=== PATIENT | female | born 1980 | race Caucasian/White ===

== ENCOUNTER 2020-11-12 10:18 | Inpatient (IN) | payer BC, SELFPAY ==
--- OUTSIDE RECORDS SUMMARY | 2020-11-12 10:21 | XMS REPORT | Continuity of Care Document ---
:1980 Author Organization [facility] t Address [address] [place] [address] Care Team Providers Name Role Phone Unavailable Unavailable Unavailable Payers Payer Name Policy Type Policy Number Effective Date Expiration Date S ource Problems This patient has no known problems. Allergies, Adverse Reactions, Alerts Allergy Allergy Status Severity Reaction(s) Onset Inactive Treating Comm ents Source Name Type Date Date Clinician ciproflo DA Active [place] 0 [facility] 6[facility]28 [place] [facility] ciproflo DA Active [place] 0 [facility] 2-05 [place] [facility] Medications This patient has no known medications. Procedures This patient has no known procedures. Results Test Description Test Time Test Comments Results Result [facility] e Comments - MRI UP [facility] 2019-02-28 Patient Name: W/CONT RT 13:02:00 DELIO HOOD Unit No: [id number] EXAMS: CPT CODE: [id number] MRI UP [facility] W/[place] [id number] EXAM: MRI ARTHROGRAM RIGHT SHOULDER DIAGNOSIS: 1. Supraspinatus tendinosis. No evidence of rotator cuff tear. 2. Minimally displaced anterior inferior labral tear. Mild diffuse labral degeneration. INDICATION: Right shoulder pain TECHNIQUE: Paracoronal fat sat T1 and fat-sat T2, parasagittal T2 and axial T1 and fat-sat spin density sequences are obtained of the right shoulder post arthrography. COMPARISON: None DISCUSSION: Osseous acromion outlet: The acromion is shallow type II, with mild lateral downsloping. Mild to moderate AC joint arthrosis is noted. Rotator cuff: Supraspinatus tendinosis. The subscapularis, and persistent teres minor tendons are intact. Biceps tendon and anchor: The biceps anchor is intact. The biceps tendon is unremarkable, without evidence of dislocation. Labral and capsular structures: Labral abnormalities described. Osseous structures: No evidence of fracture or avascular necrosis. RIGHT SHOULDER ARTHROGRAM COMMENT: After informed consent was obtained a 25-gauge needle is inserted into the right shoulder joint under fluoroscopic control using sterile technique. A total volume of 15 mL consisting of a combination of equal parts Isovue-300 and gadolinium is instilled into the joint space. The patient tolerated the procedure well. 0.5 minutes of fluoroscopy time was used on this exam. Post arthrographic films show no extravasation of contrast outside the joint. at 1302 Reported and signed by: Sumeet Chu MD [facility] NAME: DELIO HOOD [address] [place] [address] PHYS: Brennen Loyola MD : 1980 AGE: 38 SEX: F [place] [phone] LOC: Y.RAD PHONE #: [phone] EXAM DATE: 02/28/2019 STATUS: REG CLI FAX #: [phone] RAD #: D/C DT PAGE 1 Signed Report (CONTINUED) Patient Name: DELIO HOOD Unit No: [id number] EXAMS: CPT CODE: [id number] MRI UP JNT W/[place] [id number] <Continued> CC: Brennen Sanderson MD Technologist: DORY HASKINS. RT(R) Transcribed D/ (3768) [email or web address] [facility] NAME: DELIO HOOD [address] [place] [address] PHYS: Brennen Loyola MD : 1980 AGE: 38 SEX: F [place] [phone] LOC: Y.RAD PHONE #: [phone] EXAM DATE: 02/28/2019 STATUS: REG CLI FAX #: [phone] RAD #: D/C DT PAGE 2 Signed Report Patient Name: DELIO HOOD Unit No: [id number] EXAMS: CPT CODE: [id number] MRI UP JNT W/[place] [id number] <Continued> Orig Print D/T: S: 02/28/2019 (1306) [facility] NAME: DELIO HOOD [address] [facility] PHYS: Brennen Loyola MD : 1980 AGE: 38 SEX: F [place], [place] [address] LOC: Y.RAD PHONE #: [phone] EXAM DATE: 02/28/2019 STATUS: REG CLI FAX #: [phone] RAD #: D/C DT PAGE 3 Signed Report - XR ARTHROGRAM 2019-02-28 Patient Name: SHLDNan RT 13:02:00 DELIO HOOD Unit No: [id number] EXAMS: CPT CODE: [id number] XR [place]THRO[place] [facility] [place] [address] EXAM: MRI ARTHROGRAM RIGHT SHOULDER DIAGNOSIS: 1. Supraspinatus tendinosis. No evidence of rotator cuff tear. 2. Minimally displaced anterior inferior labral tear. Mild diffuse labral degeneration. INDICATION: Right shoulder pain TECHNIQUE: Paracoronal fat sat T1 and fat-sat T2, parasagittal T2 and axial T1 and fat-sat spin density sequences are obtained of the right shoulder post arthrography. COMPARISON: None DISCUSSION: Osseous acromion outlet: The acromion is shallow type II, with mild lateral downsloping. Mild to moderate AC joint arthrosis is noted. Rotator cuff: Supraspinatus tendinosis. The subscapularis, and persistent teres minor tendons are intact. Biceps tendon and anchor: The biceps anchor is intact. The biceps tendon is unremarkable, without evidence of dislocation. Labral and capsular structures: Labral abnormalities described. Osseous structures: No evidence of fracture or avascular necrosis. RIGHT SHOULDER ARTHROGRAM COMMENT: After informed consent was obtained a 25-gauge needle is inserted into the right shoulder joint under fluoroscopic control using sterile technique. A total volume of 15 mL consisting of a combination of equal parts Isovue-300 and gadolinium is instilled into the joint space. The patient tolerated the procedure well. 0.5 minutes of fluoroscopy time was used on this exam. Post arthrographic films show no extravasation of contrast outside the joint. at 1302 Reported and signed by: Sumeet Chu MD [facility] NAME: DELIO HOOD [address] [place] [address] PHYS: Brennen Loyola MD : 1980 AGE: 38 SEX: F [place] [phone] LOC: Y.RAD PHONE #: [phone] EXAM DATE: 02/28/2019 STATUS: REG CLI FAX #: [phone] RAD #: D/C DT PAGE 1 Signed Report (CONTINUED) Patient Name: DELIO HOOD Unit No: [id number] EXAMS: CPT CODE: [id number] [place] [id number] <Continued> CC: Brennen Sanderson MD Technologist: Lian Brandt RT.(R) Transcribed D/ (9112) ClaudiaGVG [facility] NAME: DELIO HOOD [address] [place] [address] PHYS: Brennen Loyola MD : 1980 AGE: 38 SEX: F [place] [address] LOC: Y.RAD PHONE #: [phone] EXAM DATE: 02/28/2019 STATUS: REG CLI FAX #: [phone] RAD #: D/C DT PAGE 2 Signed Report Patient Name: DELIO HOOD Unit No: [id number] EXAMS: CPT CODE: [id number] [place] [id number] <Continued> Orig Print D/T: S: 02/28/2019 (0034) [facility] NAME: DELIO HOOD [address] [place] [address] PHYS: Brennen Loyola MD : 1980 AGE: 38 SEX: F [place] [address] LOC: Y.RAD PHONE #: [phone] EXAM DATE: 02/28/2019 STATUS: REG CLI FAX #: [phone] RAD #: D/C DT PAGE 3 Signed Report - XR FLUORO NDL 2018-10-08 Patient Name: 19:32:00 DELIO HOOD Unit No: [id number] EXAMS: CPT CODE: [id number] XR FLUORO NDL [id number] Fluoroscopically guided injection of the right shoulder with steroid and lidocaine COMPARISON: No prior exams available. FINDINGS: After informed consent was obtained a needle was placed in the right shoulder with fluoroscopic guidance. Its position was confirmed by injecting Isovue 300 and obtaining an AP radiograph. Subsequently 2 mL of Kenalog 40 mg per cc and 2 mL of 1 percent lidocaine was injected. No immediate complications were encountered. 10 seconds of fluoroscopy time was utilized. IMPRESSION: Technically successful steroid injection of the right shoulder at 1932 Reported and signed by: Bolivar Castellanos M.D. CC: Brennen Sanderson MD Technologist: HIEN STYLES, RT(R) Transcribed D/ (1931) EdelJ [facility] NAME: DELIO HOOD [address] [place] [address] PHYS: Brennen Loyola MD : 1980 AGE: 38 SEX: F [place] [address] LOC: Y.RAD PHONE #: [phone] EXAM DATE: 10/08/2018 STATUS: REG CLI FAX #: [phone] RAD #: D/C DT PAGE 1 Signed Report Patient Name: DELIO HOOD Unit No: [id number] EXAMS: CPT CODE: [id number] XR FLUORO NDL [id number] <Continued> Orig Print D/T: S: 10/08/2018 (1934) [facility] NAME: DELIO HOOD [address] [facility] PHYS: Brennen Loyola MD : 1980 AGE: 38 SEX: F [place] [address] LOC: Y.RAD PHONE #: [phone] EXAM DATE: 10/08/2018 STATUS: REG CLI FAX #: [phone] RAD #: D/C DT PAGE 2 Signed Report
[2020-11-12 11:32] LABS: Urine Bacteria <20 /HPF (<20); Urine RBC <5 /HPF (NONE SEEN)
[2020-11-12 11:33] LABS: Urine Blood 1+ (NEG); Urine Glucose NEGATIVE (NEG); Urine Protein NEGATIVE (NEG); Urine Specific Gravity <1.005 (1.005-1.030); Urine pH 5.5 (5.0-7.0)
[2020-11-12] MEDS ORDERED: MORPHINE 4 MG/ML SYR ONE (13:13)
[2020-11-12] MEDS ORDERED: ONDANSETRON 4 MG/2 ML VIAL ONE ×2 (13:13→20:01)
[2020-11-12 13:28] LABS: Absolute Lymphocytes (CBC) 1.7 K/uL (0.7-4.9); Basophils % 0.3 % (0-1.3); Hematocrit 40.5 % (36.0-45.0); Lymphocytes % 14.9 % (15.3-44.8); MPV 8.3 fL (7.6-11.3); RBC Red Blood Cell Count 4.85 M/uL (3.86-4.86)
[2020-11-12 13:35] LABS: Albumin 3.6 g/dL (3.4-5.0); Bilirubin Direct 0.1 mg/dL (0-0.2); Bilirubin Total 0.4 mg/dL (0.2-1.0); Protein, Total 8.5 g/dL (6.4-8.2)
--- NOTE | 2020-11-12 14:26 | RAD REPORT ---
EXAM DESCRIPTION: CT - Abdomen Pelvis W Contrast - 11/12/2020 2:07 pm CLINICAL HISTORY: Abdominal pain COMPARISON: 2013 TECHNIQUE: Computed axial tomography of the abdomen pelvis was obtained. 100 cc Isovue-300 was admin istered intravenously. Oral contrast was not requested which limits evaluation of bowel. All CT scans are performed using dose optimization technique as appropriate and may include automated exposure control or mA/KV adjustment according to patient size. FINDINGS: Fatty liver. Cholecystectomy. Spleen, pancreas, adrenal and kidneys appear unremarkable. Diverticula stem from the sigmoid colon. There is moderate stranding adjacent to the sigmoid. 15 mill imeter low-density structure abuts the wall of the sigmoid colon IMPRESSION: Moderate diverticulitis. 15 millimeter low-density structure which abuts the wall of the sigmoid colon probably an early small abscess
--- NOTE | 2020-11-12 14:45 | ER ---
Nurse's Notes [facility] Name: Eunice Arango Age: 40 yrs Sex: Female : 1980 Arrival Date: 11/12/2020 Time: 10:19 Bed 24 Private MD: Diagnosis: Sigmoid Diverticulitis;Intrabdominal Abscess Presentation: 11/12 10:29 Chief complaint: Patient states: lower abd pain with nausea and vomiting and slight aa5 diarrhea that began 2-3 days ago. Coronavirus screen: diarrhea, nausea, vomiting. Ebola Screen: Patient negative for fever greater than or equal to 101.5 degrees Fahrenheit, and additional compatible Ebola Virus Disease symptoms. Initial Sepsis Screen: Does the patient meet any 2 criteria? HR > 90 bpm. Does the patient have a suspected source of infection? No. Patient's initial sepsis screen is negative. Risk Assessment: Do you want to hurt yourself or someone else? Patient reports no desire to harm self or others. Onset of symptoms was November 2020. 10:29 Acuity: ALIS 3 aa5 10:29 Method Of Arrival: Ambulatory aa5 Historical: - Allergies: 10:32 Codeine; aa5 10:32 Cipro; aa5 - PMHx: 10:32 None; aa5 - PSHx: 10:32 Hysterectomy; Cholecystectomy; Tonsillectomy; Appendectomy; aa5 - Immunization history:: Adult Immunizations unknown. - Social history:: Smoking status: Patient denies any tobacco usage or history of. Screenin:06 Abuse screen: Denies threats or abuse. Nutritional screening: No deficits noted. vg1 Tuberculosis screening: No symptoms or risk factors identified. Fall Risk No fall in past 12 months (0 pts). No secondary diagnosis (0 pts). IV access (20 points). Ambulatory Aid- None/Bed Rest/Nurse Assist (0 pts). Gait- Normal/Bed Rest/Wheelchair (0 pts) Mental Status- Oriented to own ability (0 pts). Total Mullen Fall Scale indicates No Risk (0-24 pts). Assessment: 13:04 General: Appears in no apparent distress. uncomfortable, Behavior is calm, cooperative. vg1 Pain: Complains of pain in lower ABD and lower back Pain currently is 8 out of 10 on a pain scale. Neuro: Level of Consciousness is awake, alert, obeys commands, Oriented to person, place, time, situation. Cardiovascular: Patient's skin is warm and dry. Respiratory: Airway is patent Respiratory effort is even, unlabored. GI: Abdomen is flat, Bowel sounds present X 4 quads. Abd is soft and non tender in right upper quadrant and left upper quadrant Abdomen is tender to palpation in right lower quadrant and left lower quadrant. : No signs and/or symptoms were reported regarding the genitourinary system. EENT: No signs and/or symptoms were reported regarding the EENT system. Derm: Skin is intact, is healthy with good turgor. Musculoskeletal: Circulation, motion, and sensation intact. 14:31 Reassessment: Patient appears in no apparent distress at this time. Patient and/or vg1 family updated on plan of care and expected duration. Pain level reassessed. Patient is alert, oriented x 3, equal unlabored respirations, skin warm/dry/pink. Patient is actively vomiting. Patient c/o of pain, rates 10/10. Provider notified. 16:10 Reassessment: Patient appears in no apparent distress at this time. Patient and/or vg1 family updated on plan of care and expected duration. Pain level reassessed. Patient is alert, oriented x 3, equal unlabored respirations, skin warm/dry/pink. Received VO from Dr Jaquez to administer 5 mg of Valium PO q6h. 18:01 Reassessment: Attempted to call report. vg1 18:23 Reassessment: attempted to call report. vg1 Vital Signs: 10:29 BP 126 / 77; Pulse 92; Resp 18 S; Temp 98.8(O); Pulse Ox 98% on R/A; Weight 90.72 kg aa5 (R); Height 5 ft. 3 in. (160.02 cm) (R); Pain 8/10; 13:06 BP 115 / 76; Pulse 93; Resp 18; Pulse Ox 100% on R/A; vg1 15:16 BP 121 / 77; Pulse 85; Resp 16; Pulse Ox 100% on R/A; vg1 16:00 BP 125 / 87; Pulse 88; Resp 16; Pulse Ox 100% ; vg1 17:00 BP 113 / 78; Pulse 80; Resp 14; Pulse Ox 100% on R/A; vg1 18:03 BP 113 / 66; Pulse 88; Resp 14; Pulse Ox 100% on R/A; vg1 10:29 Body Mass Index 35.43 (90.72 kg, 160.02 cm) aa5 ED Course: 10:19 Patient arrived in ED. ds1 10:29 Arm band placed on. aa5 10:31 Triage completed. aa5 12:25 Festus Diaz PA is PHCP. jmm 12:25 Sherman Lunsford MD is Attending Physician. jmm 12:33 Kerry Mccracken, REINALDO is Primary Nurse. vg1 13:06 Patient has correct armband on for positive identification. Placed in gown. Bed in low vg1 position. Call light in reach. Side rails up X2. 14:07 CT Abd/Pelvis - IV Contrast Only In Process Unspecified. EDMS 14:45 Master Newman is Hospitalizing Provider. [facility] 18:29 No provider procedures requiring assistance completed. Patient admitted, IV remains in vg1 place. Administered Medications: 13:04 Drug: morphine 4 mg {Note: rass 1.} Route: IVP; Site: left antecubital; vg1 14:37 Follow up: Response: No adverse reaction; Pain is unchanged, physician notified vg1 13:04 Drug: Zofran (Ondansetron) 4 mg Route: IVP; Site: left antecubital; vg1 14:37 Follow up: Response: No adverse reaction vg1 14:48 Drug: fentaNYL (PF) 75 mcg Route: IVP; Site: left antecubital; vg1 15:15 Follow up: Response: Adverse reaction, Physician notified; Pain is decreased vg1 15:14 Drug: Flagyl 500 mg Volume: 100 ml; Route: IVPB; Rate: 200 ml/hr; Infused Over: 30 vg1 mins; Site: left antecubital; 16:09 Follow up: Response: No adverse reaction; IV Status: Completed infusion vg1 16:09 Drug: Zosyn 3.375 grams Route: IVPB; Infused Over: 60 mins; Site: left antecubital; vg1 17:45 Follow up: IV Status: Completed infusion vg1 16:58 Drug: fentaNYL (PF) 75 mcg Route: IVP; Site: left antecubital; vg1 17:45 Follow up: Response: Pain is decreased vg1 16:59 Drug: Valium 5 mg Route: PO; vg1 17:45 Follow up: Response: No adverse reaction vg1 Outcome: 14:45 Decision to Hospitalize by Provider. blas 18:29 Admitted to Tele accompanied by tech, via wheelchair, room 211, with chart, Report vg1 called to REINALDO Flower 18:29 Condition: stable 18:29 Instructed on the need for admit. 18:38 Patient left the ED. vg1 Signatures: Dispatcher [employer] EDFestus Galindo PA PA jmm Sanford, Demi ds1 Gayle Kamara, RN RN aa5 Kerry Mccracken RN RN vg1 Corrections: (The following items were deleted from the chart) 10:32 10:29 BP 126 / 77; Pulse 92bpm; Resp 18bpm; Spontaneous; Pulse Ox 98% RA; Temp 98.8F aa5 Oral; 90.72 kg Reported; Height 5 ft. 3 in. Reported; BMI: 35.4; aa5
--- NOTE | 2020-11-12 14:45 | EDPHYS ---
Physician Documentation [facility] Name: Eunice Arango Age: 40 yrs Sex: Female : 1980 Arrival Date: 11/12/2020 Time: 10:19 Bed 24 Private MD: ED Physician Sherman Lunsford HPI: 11/12 12:56 This 40 yrs old Female presents to ER via Ambulatory with complaints of Lower jmm abd Pain, Nausea. 12:56 The patient presents with abdominal pain. Onset: The symptoms/episode began/occurred jmm gradually, 1 week(s) ago. Associated signs and symptoms: Pertinent positives: nausea and vomiting. Modifying factors: The symptoms are alleviated by nothing, the symptoms are aggravated by nothing. The patient has not experienced similar symptoms in the past. This is a 40 year old female with no chronic medical conditions that presents to the ED with complaints of left lower abdominal pain beginning this past Sunday. States the pain has increased since onset with nausea and vomiting. Patient states having a history of diverticulosis. . Historical: - Allergies: 10:32 Codeine; aa5 10:32 Cipro; aa5 - PMHx: 10:32 None; aa5 - PSHx: 10:32 Hysterectomy; Cholecystectomy; Tonsillectomy; Appendectomy; aa5 - Immunization history:: Adult Immunizations unknown. - Social history:: Smoking status: Patient denies any tobacco usage or history of. ROS: 12:56 Constitutional: Negative for fever, chills, and weight loss, Cardiovascular: Negative jmm for chest pain, palpitations, and edema, Respiratory: Negative for shortness of breath, cough, wheezing, and pleuritic chest pain. 12:56 Abdomen/GI: Positive for abdominal pain, nausea and vomiting. 12:56 All other systems are negative. Exam: 12:56 Constitutional: This is a well developed, well nourished patient who is awake, alert, jmm and in no acute distress. Head/Face: atraumatic. Eyes: EOMI, no conjunctival erythema appreciated ENT: Moist Mucus Membranes Neck: Trachea midline, Supple Chest/axilla: Normal chest wall appearance and motion. Cardiovascular: Regular rate and rhythm. No edema appreciated Respiratory: Normal respirations, no respiratory distress appreciated 12:56 Back: Normal ROM Skin: General appearance color normal MS/ Extremity: Moves all extremities, no obvious deformities appreciated, no edema noted to the lower extremities Neuro: Awake and alert, normal gait Psych: Behavior is normal, Mood is normal, Patient is cooperative and pleasant 12:56 Abdomen/GI: Inspection: obese Bowel sounds: normal, Palpation: soft, moderate abdominal tenderness, in the left lower quadrant. Vital Signs: 10:29 BP 126 / 77; Pulse 92; Resp 18 S; Temp 98.8(O); Pulse Ox 98% on R/A; Weight 90.72 kg aa5 (R); Height 5 ft. 3 in. (160.02 cm) (R); Pain 8/10; 13:06 BP 115 / 76; Pulse 93; Resp 18; Pulse Ox 100% on R/A; vg1 15:16 BP 121 / 77; Pulse 85; Resp 16; Pulse Ox 100% on R/A; vg1 16:00 BP 125 / 87; Pulse 88; Resp 16; Pulse Ox 100% ; vg1 17:00 BP 113 / 78; Pulse 80; Resp 14; Pulse Ox 100% on R/A; vg1 18:03 BP 113 / 66; Pulse 88; Resp 14; Pulse Ox 100% on R/A; vg1 10:29 Body Mass Index 35.43 (90.72 kg, 160.02 cm) aa5 MDM: 12:38 Patient medically screened. [facility] 14:41 Data reviewed: vital signs, nurses notes. Counseling: I had a detailed discussion with blas the patient and/or guardian regarding: the historical points, exam findings, and any diagnostic results supporting the discharge/admit diagnosis, lab results, radiology results, the need for further work-up and treatment in the hospital. ED course: I discussed the patient with Dr. Newman whom accepted the patient for admission. . 11/12 11:01 Order name: Urine Dipstick--Ancillary (enter results) 11/12 11:02 Order name: Urine Dipstick-Ancillary; Complete Time: 12:52 EDAK 11/12 11:04 Order name: Urine Microscopic Only; Complete Time: 12:52 11/12 11:04 Order name: Urine Culture 11/12 11:44 Order name: Basic Metabolic Panel tw4 11/12 11:44 Order name: CBC with Diff tw 11/12 11:44 Order name: Hepatic Function tw4 11/12 11:44 Order name: Lipase; Complete Time: 13:36 tw4 11/12 11:45 Order name: Basic Metabolic Panel; Complete Time: 13:36 EDMS 11/12 11:45 Order name: CBC with Automated Diff; Complete Time: 13:33 EDMS 11/12 11:45 Order name: Liver (Hepatic) Function; Complete Time: 13:36 EDMS 11/12 15:15 Order name: COVID-19 : Document "Date of Symptom Onset" if Symptomatic. 1 11/12 16:22 Order name: SARS-COV-2 RT PCR; Complete Time: 16:24 EDMS 11/12 11:00 Order name: Urine Dipstick-Ancillary (obtain specimen); Complete Time: 11:00 11/12 11:44 Order name: IV Saline Lock; Complete Time: 12:50 tw4 11/12 11:44 Order name: Labs collected and sent; Complete Time: 12:50 tw4 11/12 12:44 Order name: CT Abd/Pelvis - IV Contrast Only; Complete Time: 14:33 [facility] Administered Medications: 13:04 Drug: morphine 4 mg {Note: rass 1.} Route: IVP; Site: left antecubital; vg1 14:37 Follow up: Response: No adverse reaction; Pain is unchanged, physician notified vg1 13:04 Drug: Zofran (Ondansetron) 4 mg Route: IVP; Site: left antecubital; vg1 14:37 Follow up: Response: No adverse reaction vg1 14:48 Drug: fentaNYL (PF) 75 mcg Route: IVP; Site: left antecubital; vg1 15:15 Follow up: Response: Adverse reaction, Physician notified; Pain is decreased vg1 15:14 Drug: Flagyl 500 mg Volume: 100 ml; Route: IVPB; Rate: 200 ml/hr; Infused Over: 30 vg1 mins; Site: left antecubital; 16:09 Follow up: Response: No adverse reaction; IV Status: Completed infusion vg1 16:09 Drug: Zosyn 3.375 grams Route: IVPB; Infused Over: 60 mins; Site: left antecubital; vg1 17:45 Follow up: IV Status: Completed infusion vg1 16:58 Drug: fentaNYL (PF) 75 mcg Route: IVP; Site: left antecubital; vg1 17:45 Follow up: Response: Pain is decreased vg1 16:59 Drug: Valium 5 mg Route: PO; vg1 17:45 Follow up: Response: No adverse reaction vg1 Disposition: 18:53 Co-signature as Attending Physician, Sherman Lunsford MD I agree with the assessment and tw4 plan of care. Disposition: 11/12/20 14:45 Hospitalization ordered by Master Newman for Inpatient Admission. Preliminary diagnosis are Sigmoid Diverticulitis, Intrabdominal Abscess. - Bed requested for Telemetry/MedSurg (Inpatient). - Status is Inpatient Admission. vg1 - Condition is Stable. - Problem is new. - Symptoms are unchanged. Signatures: Dispatcher [employer] EDAK Festus Diaz PA PA Gayle Li, RN RN aa5 Nicolette Webster RN RN ss Sherman Lunsford MD MD tw4 Vilma Dexter Victoria, RN RN vg1 Corrections: (The following items were deleted from the chart) 15:38 15:16 CORONAVIRUS ordered. [facility] 17:14 14:45 Hospitalization Ordered by Master Newman for Inpatient Admission. Preliminary eb diagnosis is Sigmoid Diverticulitis; Intrabdominal Abscess. Bed requested for Telemetry/MedSurg (Inpatient). Status is Inpatient Admission. Condition is Stable. Problem is new. Symptoms are unchanged. [facility] 18:38 17:14 11/12/2020 14:45 Hospitalization Ordered by Master Newman for Inpatient vg1 Admission. Preliminary diagnosis is Sigmoid Diverticulitis; Intrabdominal Abscess. Bed requested for Telemetry/MedSurg (Inpatient). Status is Inpatient Admission. Condition is Stable. Problem is new. Symptoms are unchanged. eb
[2020-11-12] MEDS ORDERED: FENTANYL CITR 100 MCG/2 ML ONE ×2 (14:53→17:07)
[2020-11-12] MEDS ORDERED: PIPER/TAZO/NS 3.375gm 3.375 GM/100 ML BAG ONE (15:07)
[2020-11-12] MEDS ORDERED: METRONIDAZOLE 500mg IVPB 500 MG/100 ML BAG IV ONE (15:10)
--- NOTE | 2020-11-12 16:39 | P.HP ---
Certification for Inpatient Patient admitted to: Inpatient With expected LOS: >2 Midnights Practitioner: I am a practitioner with admitting privileges, knowledge of patient current condition, hospital course, and medical plan of care. Services: Services provided to patient in accordance with Admission requirements found in Title 42 Section 412.3 of the Code of Federal Regulations Patient History Date of Service: 11/12/20 Reason for admission: Abdominal pain History of Present Illness: 40-year-old woman with no known past medical history presented to the emergency department with a complaint abdominal pain of 1 week duration. Pain described as colicky, located in the lower abdomen, intermittent, no relieving or aggravating factors, associated were small frequent mucoid stools, no blood in the stool. Patient denies any fever. CT abdomen and pelvis done in the emergency department demonstrated sigmoid diverticulitis and a low-density structure suggesting an abscess. Patient is admitted for further management. - Past Medical/Surgical History Diabetic: No Past Medical History: Patient denies medical history -: Cholecystectomy - Social History Smoking Status: Never smoker Alcohol use: Yes CD- Drugs: No Place of Residence: Home Review of Systems Other: Except as documented, all other systems reviewed and negative. Physical Examination - Physical Exam General: Alert, In no apparent distress, Moderate distress HEENT: Atraumatic, Normocephalic, PERRLA, Mucous membr. moist/pink, EOMI, Sclerae nonicteric Neck: Supple, JVD not distended Respiratory: Clear to auscultation bilaterally, Normal air movement Cardiovascular: No edema, Regular rate/rhythm, Normal S1 S2 Gastrointestinal: Normal bowel sounds, Non-distended, No rebound, No guarding, Tenderness (Lower abdomen) Musculoskeletal: No swelling, No tenderness Integumentary: No rashes, No erythema Neurological: Normal speech, Normal strength at 5/5 x4 extr, Cranial nerves 3-12 intact - Studies Laboratory Data (last 24 hrs) 11/12/20 12:48: WBC 11.40 H, Hgb 13.2, Hct 40.5, Plt Count 306 11/12/20 12:48: Sodium 142, Potassium 4.0, BUN 11, Creatinine 1.09, Glucose 102, Total Bilirubin 0.4, AST 11 L, ALT 33, Alkaline Phosphatase 85, Lipase 54 L Assessment and Plan - Problems (Diagnosis) (1) Acute diverticulitis Current Visit: Yes Status: Acute (2) Colonic diverticular abscess Current Visit: Yes Status: Acute - Plan Admit to the medical floor. Patient reports allergy to Cipro with vomit. She stated she tolerates Levaquin. Will treat with IV Levaquin and Flagyl. Serial abdominal examinations. Consult general surgeon-Dr. Schwartz requested. Dr. Schwartz made aware. Obtain blood culture. Clear liquid diet. Monitor CBC and CMP. Pain management with IV morphine as needed. - Advance Directives Does patient have a Living Will: No Does patient have a Durable POA for Healthcare: No
[2020-11-12] MEDS ORDERED: LORAZEPAM 1 MG TABLET ONE (17:08)
[2020-11-12] MEDS ORDERED: DIAZEPAM 5 MG TABLET ONE (17:11)
[2020-11-12] MEDS: METRONIDAZOLE 500mg IVPB 500 MG/100 ML BAG IV SCH ×2 (18:45→20:12)
[2020-11-12] MEDS ORDERED: ACETAMINOPHEN 500 MG TAB PO PRN (18:45)
[2020-11-12] MEDS: MORPHINE 4 MG/ML SYR IV PRN ×2 (19:38→23:43)
[2020-11-12] MEDS: ONDANSETRON 4 MG/2 ML VIAL IV PRN (19:44)
[2020-11-12] MEDS: HEPARIN 5000 UNIT/ML 1 ML VIAL SQ SCH (20:12)
[2020-11-12] MEDS: NA CHLORIDE 0.9% 1,000 ML IV SCH (20:12)
[2020-11-12] MEDS: Levofloxacin 750mg IV 750 MG/150 ML BAG IV SCH (20:12)
[2020-11-12 20:22] LABS: Urine Appearance CLEAR; Urine Bilirubin NEGATIVE (NEG); Urine Blood 1+ (NEG); Urine Color ORANGE; Urine Glucose NEGATIVE (NEG); Urine Protein NEGATIVE (NEG); Urine Specific Gravity >=1.030 (1.005-1.030); Urine pH 5.5 (5.0-7.0)
[2020-11-12 20:45] VITALS: BMI 35.4
[2020-11-12 20:54] LABS: Urine Microscopic Reflex ORDER UMIC
[2020-11-12 21:13] LABS: Urine Bacteria 20-50 /HPF (<20)
[2020-11-12] MEDS: FAMOTIDINE 20 MG/2 ML VIAL IV SCH (22:44)
[2020-11-13] MEDS: DICYCLOMINE HCL 10 MG CAP PO PRN ×2 (00:10→07:33)
[2020-11-13] MEDS: METRONIDAZOLE 500mg IVPB 500 MG/100 ML BAG IV SCH ×3 (01:28→17:00)
[2020-11-13] MEDS: HEPARIN 5000 UNIT/ML 1 ML VIAL SQ SCH ×3 (01:28→17:00)
[2020-11-13] MEDS: MORPHINE 4 MG/ML SYR IV PRN (04:40)
[2020-11-13] MEDS: ONDANSETRON 4 MG/2 ML VIAL IV PRN ×3 (04:40→20:49)
[2020-11-13] MEDS: NA CHLORIDE 0.9% 1,000 ML IV SCH ×3 (04:45→20:49)
[2020-11-13 05:54] LABS: Absolute Lymphocytes (CBC) 1.6 K/uL (0.7-4.9); Basophils % 0.2 % (0-1.3); Hematocrit 34.6 % (36.0-45.0); Lymphocytes % 14.7 % (15.3-44.8); MPV 7.9 fL (7.6-11.3); RBC Red Blood Cell Count 4.15 M/uL (3.86-4.86)
[2020-11-13 06:14] LABS: Albumin 2.9 g/dL (3.4-5.0); Bilirubin Total 0.6 mg/dL (0.2-1.0); Potassium 3.9 mmol/L (3.5-5.1); Protein, Total 6.9 g/dL (6.4-8.2)
[2020-11-13] MEDS ORDERED: POTASSIUM CL SA 10 MEQ TAB PO ONE (07:00)
[2020-11-13] MEDS: FAMOTIDINE 20 MG/2 ML VIAL IV SCH ×2 (09:00→20:45)
--- NOTE | 2020-11-13 11:48 | P.PN ---
Subjective Date of Service: 11/13/20 Chief Complaint: Abdominal pain Patient reports intermittent abdominal pain. No bowel movement since admission. She has afebrile. She reports episodes of nausea and vomiting and not able to hold anything in. Physical Examination - Vital Signs Temperature: 97.2 F Blood Pressure: 102/54 Pulse: 80 Respirations: 16 Pulse Ox (%): 99 - Physical Exam General: Alert, In no apparent distress, Oriented x3 HEENT: Mucous membr. moist/pink Respiratory: Clear to auscultation bilaterally, Normal air movement Cardiovascular: No edema, Regular rate/rhythm, Normal S1 S2 Gastrointestinal: Soft and benign, Non-distended, No rebound, No guarding, Tenderness (Moderate tenderness in the left lower quadrant) Musculoskeletal: No swelling, No tenderness Integumentary: No rashes, No erythema Neurological: Normal strength at 5/5 x4 extr - Studies Laboratory Data (last 24 hrs) 11/12/20 12:48: WBC 11.40 H, Hgb 13.2, Hct 40.5, Plt Count 306 11/12/20 12:48: Sodium 142, Potassium 4.0, BUN 11, Creatinine 1.09, Glucose 102, Total Bilirubin 0.4, AST 11 L, ALT 33, Alkaline Phosphatase 85, Lipase 54 L Assessment And Plan - Current Problems (Diagnosis) (1) Acute diverticulitis Current Visit: Yes Status: Acute (2) Colonic diverticular abscess Current Visit: Yes Status: Acute - Plan Continue IV Levaquin and Flagyl. Serial abdominal examinations. Dr Schwartz seen patient. Follow cultures Clear liquid diet as tolerated. Monitor CBC and CMP. Change IV morphine to IV fentanyl she reduce nausea and vomiting side effect.
[2020-11-13] MEDS: FENTANYL CITR 100 MCG/2 ML IV PRN (12:07)
[2020-11-13] MEDS: Levofloxacin 750mg IV 750 MG/150 ML BAG IV SCH (18:45)
--- NOTE | 2020-11-13 19:07 | P.CNS ---
Date of Consult: 11/12/20 PC: This 40-year-old female presented emergency room with a five-day history of left lower quadrant abdominal pain for diagnosis and treatment. HPC: The patient is been in home during the last week. She has been having abdominal pain. The pain intensified and localized to the left lower quadrant. She could no longer stand it and it hurt even when she tried to walk. She has been preoccupied with and recent of her (from colon cancer). PMH: Negative SOC: States she is allergic to Cipro and codeine SYS REVIEW: No cough, wheeze, shortness of breath. No chest pain or palpitations. Has not been running fevers or is having chills at home. Denies any urinary complaints. States she has been somewhat constipated this last week, took magnesium citrate once a night. O/E awake alert uncomfortable HEENT: Not [place] Chest: Chest movement equal bilateral ABD: Tender with mild guarding in the left lower quadrant LOCO: Intact DATA: Elevated white cell count, CT scan supports clinical diagnosis of acute diverticulitis and also demonstrates a small abscess in the adjacent section of involved bowel. It is localize, no free fluid seen. IMPRESSION: Acute on chronic diverticulitis with abscess PLAN: The patient is going to be admitted at this time. We will give her adequate pain medicine. She will be covered with IV antibiotics. She does not require surgical intervention at the moment however as I discussed with her this may change. The risks of surgery were described. The possible need for colostomy is, open surgery, abscess and delayed wound healing were explained. She understands and is content with conservative management at the moment.
--- NOTE | 2020-11-13 19:09 | P.PN ---
Date of Service: 11/13/20 S: Patient is still having pain, also some nausea and vomiting. However the pain is less than it was yesterday. Still not running any temperatures or fevers. The Agueda seems to cover her when she gets it. O: Abdomen is rolling machine tender, but less so than yesterday. A: Appears to be responding to conservative management P: Continue current therapy. Anticipate patient should be able to tolerate a full diet tomorrow. Will give her some mineral oil tonight. Continue with her clear liquids, advanced as tolerated. Will check labs in the a.m.. Also needs incentive spirometer.
[2020-11-13] MEDS ORDERED: MINERAL OIL 30 ML UCUP PO ONE (19:11)
[2020-11-13] MEDS ORDERED: DIAZEPAM 5 MG TABLET PO PRN (19:12)
[2020-11-14] MEDS: METRONIDAZOLE 500mg IVPB 500 MG/100 ML BAG IV SCH ×3 (00:31→16:40)
[2020-11-14] MEDS: HEPARIN 5000 UNIT/ML 1 ML VIAL SQ SCH ×3 (00:32→16:41)
[2020-11-14] MEDS: FENTANYL CITR 100 MCG/2 ML IV PRN ×2 (00:36→12:50)
[2020-11-14] MEDS: NA CHLORIDE 0.9% 1,000 ML IV SCH ×3 (00:45→22:03)
[2020-11-14 05:50] LABS: Absolute Lymphocytes (CBC) 1.8 K/uL (0.7-4.9); Basophils % 0.4 % (0-1.3); Hematocrit 34.1 % (36.0-45.0); Lymphocytes % 29.2 % (15.3-44.8); MPV 7.9 fL (7.6-11.3); RBC Red Blood Cell Count 4.08 M/uL (3.86-4.86)
[2020-11-14 06:04] LABS: Magnesium 2.4 mg/dL (1.8-2.4); Phosphorus 2.6 mg/dL (2.5-4.9); Potassium 3.9 mmol/L (3.5-5.1)
[2020-11-14] MEDS ORDERED: POTASSIUM CL SA 10 MEQ TAB PO ONE (09:00)
[2020-11-14] MEDS: FAMOTIDINE 20 MG/2 ML VIAL IV SCH (09:00)
[2020-11-14] MEDS ORDERED: FAMOTIDINE 20 MG/2 ML VIAL IV SCH (10:00)
--- NOTE | 2020-11-14 14:12 | P.PN ---
Subjective Date of Service: 11/14/20 Chief Complaint: Abdominal pain Patient states her abdominal pain is better. She is also tolerating the clear liquid diet. No bowel movement since admission. Physical Examination - Vital Signs Temperature: 97.0 F Blood Pressure: 112/56 Pulse: 70 Respirations: 15 Pulse Ox (%): 100 - Physical Exam General: Alert, In no apparent distress, Oriented x3 HEENT: Mucous membr. moist/pink Neck: JVD not distended Respiratory: Clear to auscultation bilaterally, Normal air movement Cardiovascular: No edema, Regular rate/rhythm, Normal S1 S2 Gastrointestinal: Normal bowel sounds, Soft and benign, Non-distended, No rebound, No guarding, Tenderness (Suprapubic area and left lower quadrant) Musculoskeletal: No swelling, No tenderness Integumentary: No rashes, No erythema Neurological: Normal strength at 5/5 x4 extr - Studies Microbiology Data (last 24 hrs): 11/12/20 10:56 Clean Catch Urine [place] Count - Final BETWEEN 10,000 & 100,000 CFU/ML 11/12/20 10:56 Clean Catch Urine - Final MIXED JOSE. Assessment And Plan - Current Problems (Diagnosis) (1) Acute diverticulitis Current Visit: Yes Status: Acute (2) Colonic diverticular abscess Current Visit: Yes Status: Acute - Plan Gradually improving clinically. Continue IV Levaquin and Flagyl. Serial abdominal examinations. Dr Schwartz input appreciated. Medical management. Clear liquid diet as tolerated. Monitor CBC and CMP. Pain management as needed.
--- NOTE | 2020-11-14 16:17 | P.PN ---
Date of Service: 11/14/20 S: Patient feels much better today, has remained afebrile. Pain has diminished lot overnight. Now is N/C having occasional bouts. Has been up ambulating, passing gas per rectum, but no bowel movements yet. O: Vital signs remain stable, afebrile, abdomen is soft less tenderness today. A: Responding well to antibiotics P: Will advance diet today, if tolerated may be discharged in the a.m.. She will should be sent home on p.o. antibiotics. She can see me next , for follow-up.
[2020-11-14] MEDS: Levofloxacin 750mg IV 750 MG/150 ML BAG IV SCH (18:18)
[2020-11-14 22:57] VITALS: O2SAT 95
[2020-11-15] MEDS: METRONIDAZOLE 500mg IVPB 500 MG/100 ML BAG IV SCH ×2 (01:04→08:08)
[2020-11-15] MEDS: HEPARIN 5000 UNIT/ML 1 ML VIAL SQ SCH ×2 (01:04→08:09)
[2020-11-15 05:55] LABS: Potassium 3.6 mmol/L (3.5-5.1)
[2020-11-15] MEDS: NA CHLORIDE 0.9% 1,000 ML IV SCH (06:04)
[2020-11-15] MEDS ORDERED: POTASSIUM CL SA 10 MEQ TAB PO ONE (09:00)
--- NOTE | 2020-11-15 11:28 | P.DS ---
Admission Date: 11/12/20 Discharge Date: 11/15/20 Disposition: ROUTINE DISCHARGE Discharge Condition: FAIR Reason for Admission: Abdominal pain Consultations: General Surgery-Dr. Schwartz. - Problems (1) Acute diverticulitis Current Visit: Yes Status: Acute (2) Colonic diverticular abscess Current Visit: Yes Status: Acute Brief History of Present Illness: 40-year-old woman with no known past medical history presented to the emergency department with a complaint abdominal pain of 1 week duration. Pain described as colicky, located in the lower abdomen, intermittent, no relieving or aggravating factors, associated were small frequent mucoid stools, no blood in the stool. Patient denies any fever. CT abdomen and pelvis done in the emergency department demonstrated sigmoid diverticulitis and a low-density structure suggesting an abscess. Patient is admitted for further management. Hospital Course: Patient admitted to the medical floor and treated aggressively with IV antibiotics and IV hydrate. She was seen and evaluated by Dr. Schwartz who recommended medical management. Patient nickel improved with IV antibiotics. Her abdominal pain resolved. She tolerated diet advancement to solid diet. Patient deemed clinically stable for discharge. Dr. Schwartz will see her within 4 days for followup. Patient is prescribed with oral Levaquin and Flagyl to continue treatment for the acute diverticulitis with abscess. She has been informed she will need colonoscopy as soon as possible but need to wait for 6 weeks before at colon recovery from the infection. Vital Signs/Physical Exam: Temp Pulse Resp BP Pulse Ox 97.8 F 70 18 126/63 90 L 11/15/20 08:00 11/15/20 08:00 11/15/20 08:00 11/15/20 08:00 11/15/20 08:00 General: Alert, In no apparent distress, Oriented x3 HEENT: Mucous membr. moist/pink Neck: JVD not distended Respiratory: Clear to auscultation bilaterally, Normal air movement Cardiovascular: No edema, Regular rate/rhythm, Normal S1 S2 Gastrointestinal: Normal bowel sounds, Soft and benign, Non-distended, No tenderness Musculoskeletal: No swelling, No tenderness Integumentary: No rashes, No erythema Neurological: Normal strength at 5/5 x4 extr Laboratory Data at Discharge: WBC 6.00 K/uL (4.3-10.9) D 11/14/20 05:14 Hgb 11.2 g/dL (12.0-15.0) L 11/14/20 05:14 Hct 34.1 % (36.0-45.0) L 11/14/20 05:14 Plt Count 261 K/uL (152-406) 11/14/20 05:14 Sodium 142 mmol/L (136-145) 11/15/20 05:08 Potassium 3.6 mmol/L (3.5-5.1) 11/15/20 05:08 BUN 9 mg/dL (7-18) 11/15/20 05:08 Creatinine 0.95 mg/dL (0.55-1.3) 11/15/20 05:08 Glucose 104 mg/dL (74-106) 11/15/20 05:08 Phosphorus 2.6 mg/dL (2.5-4.9) 11/14/20 05:14 Magnesium 2.4 mg/dL (1.8-2.4) 11/14/20 05:14 Total Bilirubin 0.6 mg/dL (0.2-1.0) 11/13/20 05:29 AST 10 U/L (15-37) L 11/13/20 05:29 ALT 26 U/L (12-78) 11/13/20 05:29 Alkaline Phosphatase 69 U/L (45-117) 11/13/20 05:29 Lipase 54 U/L (73-393) L 11/12/20 12:48 Home Medications: Dicyclomine [Bentyl*] 10 mg PO TID PRN #15 cap 11/15/20 levoFLOXacin [Levaquin] 750 mg PO DAILY #14 tab 11/15/20 metroNIDAZOLE [Flagyl] 500 mg PO Q8H #42 tablet 11/15/20 New Medications: Dicyclomine [Bentyl*] 10 mg PO TID PRN #15 cap PRN Reason: Abdominal Cramps metroNIDAZOLE [Flagyl] 500 mg PO Q8H #42 tablet levoFLOXacin [Levaquin] 750 mg PO DAILY #14 tab Diet: AHA Activity: Ad rl Followup: NONE,NONE [Primary Care Provider] - Amrik Schwartz MD [ACTIVE - CAN ADMIT] - (Follow galindo Schwartz on 11/18/2020.) Time spent managing pt's care (in minutes): 35
[2020-11-15 15:02] VITALS: BP 134/82; TEMP 97.6
== END 2020-11-15 14:15 | disposition home or self-care (01) | DRG 392 ==
LOC: ER 10:18 → ERHOLD 16:20 → 2ND 18:29
PROVIDERS: ADMIT Internal Medicine; ATTEND Internal Medicine
DX: K57.20 Diverticulitis of large intestine with perforation and abscess without bleeding (principal); N39.0 Urinary tract infection, site not specified; Z88.5 Allergy status to narcotic agent; Z88.1 Allergy status to other antibiotic agents; Z90.49 Acquired absence of other specified parts of digestive tract; Z79.899 Other long term (current) drug therapy; Z90.710 Acquired absence of both cervix and uterus; Z20.822 Contact with and (suspected) exposure to COVID-19
CPT/HCPCS: 36415; 74177; 80048; 80053; 80076; 81003; 81015; 83690; 83735; 84100; 85025; 87040; 87086; 87088; 87205; 94010; 96365; 96366; 96367; 96375; 99285; J1644; J2405; J2543; J3010; J7030; Q9967; U0003

== ENCOUNTER 2020-12-03 15:02 | Inpatient (IN) | payer BC, SELFPAY ==
--- OUTSIDE RECORDS SUMMARY | 2020-12-03 15:05 | XMS REPORT | Continuity of Care Document ---
:1980 Author Organization [facility] t Address [address] [place] [address] Care Team Providers Name Role Phone Unavailable Unavailable Unavailable Payers Payer Name Policy Type Policy Number Effective Date Expiration Date S ource Problems This patient has no known problems. Allergies, Adverse Reactions, Alerts Allergy Allergy Status Severity Reaction(s) Onset Inactive Treating Comm ents Source Name Type Date Date Clinician ciproflo DA Active [place] 0 [facility] 6-28 [place] [facility] ciproflo DA Active [place] 0 [facility] xacin 2-05 [place] [facility] Medications This patient has no known medications. Procedures This patient has no known procedures. Results Test Description Test Time Test Comments Results Result [facility] e Comments - MRI UP [facility] 2019-02-28 Patient Name: W/CONT RT 13:02:00 DELIO HOOD Unit No: [id number] EXAMS: CPT CODE: [id number] MRI UP [facility] W/CONT [place] [id number] EXAM: MRI ARTHROGRAM RIGHT SHOULDER DIAGNOSIS: 1. [...] Reported and signed by: Sumeet Chu MD [facility] NAME: DELIO HOOD [address] [place] [address] PHYS: Brennen Loyola MD : 1980 AGE: 38 SEX: F [place] [address] LOC: Y.RAD PHONE #: [phone] EXAM DATE: 02/28/2019 STATUS: REG CLI FAX #: [phone] RAD #: D/C DT PAGE 1 Signed Report (CONTINUED) Patient Name: DELIO HOOD Unit No: [id number] EXAMS: CPT CODE: [id number] MRI UP JNT W/[place] [address] <Continued> CC: Brennen Sanderson MD Technologist: DORY HASKINS. RT(R) Transcribed D/ (3734) [email or web address] [facility] NAME: DELIO HOOD [address] [place] [address] PHYS: Brennen Loyola MD : 1980 AGE: 38 SEX: F [place] [address] LOC: Y.RAD PHONE #: [phone] EXAM DATE: 02/28/2019 STATUS: REG CLI FAX #: [phone] RAD #: D/C DT PAGE 2 Signed Report Patient Name: DELIO HOOD Unit No: [id number] EXAMS: CPT CODE: [id number] MRI UP JNT W/[place] [address] <Continued> Orig Print D/T: S: 02/28/2019 (1306) [facility] NAME: DELIO HOOD [address] [facility] PHYS: Brennen Loyola MD : 1980 AGE: 38 SEX: F [place], [place] [address] LOC: Y.RAD PHONE #: [phone] EXAM DATE: 02/28/2019 STATUS: REG CLI FAX #: [phone] RAD #: D/C DT PAGE 3 Signed Report - XR ARTHROGRAM 2019-02-28 Patient Name: SHLDR RT 13:02:00 DELIO HOOD Unit No: [id number] EXAMS: CPT CODE: [id number] [place] [address] EXAM: MRI ARTHROGRAM RIGHT SHOULDER DIAGNOSIS: 1. [...] Reported and signed by: Sumeet Chu MD [facility] NAME: DELIO HOOD [address] [place] [address] Main PHYS: Brennen Loyola MD : 1980 AGE: 38 SEX: F [place] [address] LOC: Y.RAD PHONE #: [phone] EXAM DATE: 02/28/2019 STATUS: REG CLI FAX #: [phone] RAD #: D/C DT PAGE 1 Signed Report (CONTINUED) Patient Name: DELIO HOOD Unit No: [id number] EXAMS: CPT CODE: [id number] [place] [address] <Continued> CC: Brennen Sanderson MD Technologist: Lian Brandt RT.(R) Transcribed D/ (9612) ClaudiaGVG [facility] NAME: DELIO HOOD [address] [place] [address] PHYS: Brennen Loyola MD : 1980 AGE: 38 SEX: F [place] [address] LOC: Y.RAD PHONE #: [phone] EXAM DATE: 02/28/2019 STATUS: REG CLI FAX #: [phone] RAD #: D/C DT PAGE 2 Signed Report Patient Name: DELIO HOOD Unit No: [id number] EXAMS: CPT CODE: [id number] [place] [address] <Continued> Orig Print D/T: S: 02/28/2019 (0535) [facility] NAME: DELIO HOOD [address] [place] [address] PHYS: Brennen Loyola MD : 1980 AGE: 38 SEX: F [place] [address] LOC: Y.RAD PHONE #: [phone] EXAM DATE: 02/28/2019 STATUS: REG CLI FAX #: [phone] RAD #: D/C DT PAGE 3 Signed Report - XR FLUORO NDL 2018-10-08 Patient Name: 19:32:00 DELIO HOOD Unit No: [id number] EXAMS: CPT CODE: [id number] XR FLUORO NDL 29218 Fluoroscopically guided injection of the right shoulder [...] Technologist: HIEN STYLES, RT(R) Transcribed D/ (1931) ClaudiaSLJ [facility] NAME: DELIO HOOD [address] [place] [address] PHYS: Brennen Loyola MD : 1980 AGE: 38 SEX: F [place] [address] LOC: Y.RAD PHONE #: [phone] EXAM DATE: 10/08/2018 STATUS: REG CLI FAX #: [phone] RAD #: D/C DT PAGE 1 Signed Report Patient Name: DELIO HOOD Unit No: [id number] EXAMS: CPT CODE: [id number] XR FLUORO NDL 18588 <Continued> Orig Print D/T: S: 10/08/2018 (1934) [facility] NAME: DELIO HOOD [address] [facility] PHYS: Brennen Loyola MD : 1980 AGE: 38 SEX: F [place] [address] LOC: Y.RAD PHONE #: [phone] EXAM DATE: 10/08/2018 STATUS: REG CLI FAX #: [phone] RAD #: D/C DT PAGE 2 Signed Report
[2020-12-03] MEDS ORDERED: MORPHINE 4 MG/ML SYR ONE ×2 (17:42→19:10)
[2020-12-03] MEDS ORDERED: ONDANSETRON 4 MG/2 ML VIAL ONE ×2 (17:42→19:10)
[2020-12-03] MEDS ORDERED: NA CHLORIDE 0.9% 1,000 ML ONE (17:43)
[2020-12-03] MEDS ORDERED: PIPER/TAZO/NS 3.375gm 3.375 GM/100 ML BAG ONE (17:43)
[2020-12-03 18:08] LABS: Absolute Lymphocytes (CBC) 2.1 K/uL (0.7-4.9); Basophils % 0.3 % (0-1.3); Hematocrit 40.2 % (36.0-45.0); Lymphocytes % 21.5 % (15.3-44.8); RBC Red Blood Cell Count 4.89 M/uL (3.86-4.86)
[2020-12-03 18:09] LABS: Urine Blood 2+ (Negative); Urine Glucose Negative (Negative); Urine Protein Negative (Negative)
[2020-12-03 18:41] LABS: Albumin 4.1 g/dL (3.4-5.0); Bilirubin Direct 0.1 mg/dL (0-0.2); Bilirubin Total 0.6 mg/dL (0.2-1.0); Potassium 3.5 mmol/L (3.5-5.1); Protein, Total 8.2 g/dL (6.4-8.2)
--- NOTE | 2020-12-03 19:25 | RAD REPORT ---
EXAM DESCRIPTION: CT - Abdomen Pelvis W Contrast - 12/03/2020 7:11 pm CLINICAL HISTORY: Abdominal pain COMPARISON: October 2020 TECHNIQUE: Computed axial tomography of the abdomen pelvis was obtained. 100 cc Isovue-300 was admin istered intravenously. Oral contrast was not requested which limits evaluation of bowel. All CT scans are performed using dose optimization technique as appropriate and may include automated exposure control or mA/KV adjustment according to patient size. FINDINGS: Fatty liver. Cholecystectomy. Spleen, pancreas, adrenal and kidneys appear unremarkable. Diverticula stem from the colon. Mild to moderate stranding adjacent sigmoid colon. . IMPRESSION: Mild to moderate sigmoid diverticulitis.
--- NOTE | 2020-12-03 19:53 | ER ---
Nurse's Notes [facility] Name: Eunice Arango Age: 40 yrs Sex: Female : 1980 Arrival Date: 12/03/2020 Time: 15:05 Bed 7 Private MD: Diagnosis: Diverticulitis of large intestine without perforation or abscess without bleeding Presentation: 12/03 15:30 Chief complaint: Patient states: I have an abscess on my colon, I was here 4 days for ca1 diverticulitis about 2 weeks ago. I am still hurting and I woke up this morning with burning pain. Reports N/V. Coronavirus screen: Client denies travel out of the [place] in the last 14 days. nausea, vomiting. Client presents with at least one sign or symptom that may indicate coronavirus-19. Standard/surgical mask placed on the client. Provider contacted for isolation considerations. Ebola Screen: Patient negative for fever greater than or equal to 101.5 degrees Fahrenheit, and additional compatible Ebola Virus Disease symptoms Patient denies exposure to infectious person. Patient denies travel to an Ebola-affected area in the 21 days before illness onset. No symptoms or risks identified at this time. Initial Sepsis Screen: Does the patient meet any 2 criteria? No. Patient's initial sepsis screen is negative. Does the patient have a suspected source of infection? No. Patient's initial sepsis screen is negative. Risk Assessment: Do you want to hurt yourself or someone else? Patient reports no desire to harm self or others. Onset of symptoms was December 03, 2020. 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 - Social history:: Smoking status: Patient/guardian denies using tobacco, Stopped _ months ago 1 Patient/guardian denies using alcohol, street drugs, The patient lives with family. - Family history:: not pertinent. Screenin:15 Abuse screen: Denies threats or abuse. Denies injuries from another. Nutritional ld1 screening: No deficits noted. Tuberculosis screening: No symptoms or risk factors identified. Fall Risk Assessment: 17:10 Reassessment: ERD at bedside discussing POC. ld1 17:11 General: Appears uncomfortable, Behavior is calm, cooperative, appropriate for age. ld1 Pain: Complains of pain in right lower quadrant Pain currently is 8 out of 10 on a pain scale. Quality of pain is described as burning, throbbing, Pain began gradually, Patient states "Pain never really goes away, it became severe at 0400 this morning, 12/03/2020." Is continuous, Noted to be grimacing. Neuro: Level of Consciousness is awake, alert, obeys commands, Oriented to person, place, time, situation, Appropriate for age. Cardiovascular: Patient's skin is warm and dry. Respiratory: Airway is patent Respiratory effort is even, unlabored, Respiratory pattern is regular, symmetrical. GI: Abdomen is round non-distended, Bowel sounds present X 4 quads. Abd is soft Abdomen is tender to palpation in right lower quadrant and left lower quadrant Reports lower abdominal pain. :. Derm: Skin temperature is warm. Musculoskeletal:. 18:45 Reassessment: Patient appears in no apparent distress at this time. No changes from jl7 previously documented assessment. Patient and/or family updated on plan of care and expected duration. Pain level reassessed. Patient is alert, oriented x 3, equal unlabored respirations, skin warm/dry/pink. ERD notified of pain, see MAR for orders. 12/04 00:52 Reassessment: Patient and/or family updated on plan of care and expected duration. Pain ea level reassessed. Patient is alert, oriented x 3, equal unlabored respirations, skin warm/dry/pink. Pt admitted to second floor. Pt left ED via stretcher tech, pt tolerating well. Vital Signs: 12/03 15:30 BP 118 / 73; Pulse 83; Resp 16 S; Temp 97.8(TE); Pulse Ox 99% on R/A; Weight 99.79 kg ca1 (R); Height 5 ft. 3 in. (160.02 cm) (R); Pain 8/10; 16:53 BP 126 / 71; Pulse 69; Resp 18; Temp 97.5; Pulse Ox 100% ; Weight 99.79 kg; Height 5 ld1 ft. 2 in. (157.48 cm); Pain 8/10; 17:39 BP 130 / 80; Pulse 80; Resp 18; Pulse Ox 100% ; ld1 18:15 BP 129 / 73; Pulse 64; Resp 18; Pulse Ox 99% ; ld1 04 00:53 BP 120 / 60; Pulse 60; Resp 18; Pulse Ox 98% ; ea 12/03 16:53 Body Mass Index 40.24 (99.79 kg, 157.48 cm) ld1 ED Course: 12/03 15:05 Patient arrived in ED. as 15:32 Triage completed. ca1 15:33 Arm band placed on right wrist. ca1 16:55 Julianna Choi MD is Attending Physician. ma2 17:06 Migdalia Penaloza, REINALDO is Primary Nurse. ld1 18:15 Patient has correct armband on for positive identification. Placed in gown. Bed in low ld1 position. Call light in reach. Side rails up X 1. 18:15 Inserted saline lock: 20 gauge in right antecubital area, using aseptic technique. ld1 Blood collected. Missed attempt(s): 20 gauge in left upper arm. 18:20 Basic Metabolic Panel Sent. ld1 18:20 CBC with Diff Sent. ld1 19:06 Tomy Rossi PA is PHCP. jr8 19:10 CT Abd/Pelvis - IV Contrast Only In Process Unspecified. EDMS 19:52 Fredi Garcia MD is Hospitalizing Provider. jr8 12/04 00:10 No provider procedures requiring assistance completed. Patient admitted, IV remains in ea place. Administered Medications: 12/03 17:30 Drug: NS 0.9% 1000 ml Route: IV; Rate: 1 bolus; Site: right antecubital; ld1 12/04 00:13 Follow up: Response: No adverse reaction; IV Status: Completed infusion; IV Intake: ea 1000ml 12/03 17:30 Drug: Zofran (Ondansetron) 4 mg Route: IVP; Site: right antecubital; ld1 18:19 Follow up: Response: No adverse reaction ld1 17:30 Drug: morphine 4 mg Route: IVP; Site: right antecubital; ld1 17:38 Follow up: Response: No adverse reaction; Pain is unchanged, physician notified ld1 18:20 Drug: Zosyn 3.375 grams Route: IVPB; Infused Over: 60 mins; Site: right antecubital; ld1 20:00 Follow up: Response: No adverse reaction; IV Status: Completed infusion; IV Intake: ea 100ml 19:03 Drug: morphine 4 mg Route: IVP; Site: right antecubital; ld1 12/04 00:13 Follow up: Response: No adverse reaction ea 12/03 19:04 Drug: Zofran (Ondansetron) 4 mg Route: IVP; Site: right antecubital; ld1 12/04 00:13 Follow up: Response: No adverse reaction ea Intake: 12/03 20:00 IV: 100ml; Total: 100ml. ea 12/04 00:13 IV: 1000ml; Total: 1100ml. ea Outcome: 12/03 19:52 Decision to Hospitalize by Provider. jr8 12/04 00:12 Admitted to Med/surg accompanied by tech, via stretcher, room 220, with chart, Report ea called to Ailyn NAJERA Condition: stable Instructed on the need for admit. 00:53 Patient left the ED. ea Signatures: Dispatcher [employer] EDMS Aleksandra Velazquez Josh, PA PA jr8 Nick Hoyos RN RN jl7 Margie Dooley RN RN ea Alzahri, Mohammad, MD MD ma2 Keshia Quintana RN RN ca1 Dibbern, Lauren, RN RN ld1 Corrections: (The following items were deleted from the chart) 12/03 18:50 18:18 Response: No adverse reaction ld1 ld1
--- NOTE | 2020-12-03 19:53 | EDPHYS ---
Physician Documentation [facility] Name: Eunice Arango Age: 40 yrs Sex: Female : 1980 Arrival Date: 12/03/2020 Time: 15:05 Bed 7 Private MD: ED Physician Julianna Choi HPI: 12/03 17:10 This 40 yrs old Female presents to ER via Wheelchair with complaints of ma2 Abdominal Pain. 17:10 The patient presents with abdominal pain. Onset: The symptoms/episode began/occurred ma2 gradually, 2 day(s) ago. Associated signs and symptoms: Pertinent negatives: anorexia, chest pain, diarrhea, fever. Severity of pain: At its worst the pain was moderate in the emergency department the pain is unchanged. The patient has experienced a previous episode. 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 - Social history:: Smoking status: Patient/guardian denies using tobacco, Stopped _ months ago 1 Patient/guardian denies using alcohol, street drugs, The patient lives with family. - Family history:: not pertinent. ROS: 17:10 Constitutional: Negative for fever, chills, and weight loss. ma2 17:10 All other systems are negative. Exam: 17:10 Constitutional: This is a well developed, well nourished patient who is awake, alert, ma2 and in no acute distress. Chest/axilla: Normal chest wall appearance and motion. Nontender with no deformity. No lesions are appreciated. Cardiovascular: Regular rate and rhythm with a normal S1 and S2. No gallops, murmurs, or rubs. Normal PMI, no JVD. No pulse deficits. Respiratory: Lungs have equal breath sounds bilaterally, clear to auscultation and percussion. No rales, rhonchi or wheezes noted. No increased work of breathing, no retractions or nasal flaring. Abdomen/GI: llq abd pain and ttp, otherwise Soft, with normal bowel sounds. No distension or tympany. No guarding or rebound. Back: No spinal tenderness. No costovertebral tenderness. Full range of motion. Skin: Warm, dry with normal turgor. Normal color with no rashes, no lesions, and no evidence of cellulitis. MS/ Extremity: Pulses equal, no cyanosis. Neurovascular intact. Full, normal range of motion. Neuro: Awake and alert, GCS 15, oriented to person, place, time, and situation. Cranial nerves II-XII grossly intact. Motor strength 5/5 in all extremities. Sensory grossly intact. Cerebellar exam normal. Normal gait. Vital Signs: 15:30 BP 118 / 73; Pulse 83; Resp 16 S; Temp 97.8(TE); Pulse Ox 99% on R/A; Weight 99.79 kg ca1 (R); Height 5 ft. 3 in. (160.02 cm) (R); Pain 8/10; 16:53 BP 126 / 71; Pulse 69; Resp 18; Temp 97.5; Pulse Ox 100% ; Weight 99.79 kg; Height 5 ld1 ft. 2 in. (157.48 cm); Pain 8/10; 17:39 BP 130 / 80; Pulse 80; Resp 18; Pulse Ox 100% ; ld1 18:15 BP 129 / 73; Pulse 64; Resp 18; Pulse Ox 99% ; ld1 04/ 00:53 BP 120 / 60; Pulse 60; Resp 18; Pulse Ox 98% ; ea 12/03 16:53 Body Mass Index 40.24 (99.79 kg, 157.48 cm) ld1 MDM: 12/03 16:56 Patient medically screened. mt2 17:10 Differential diagnosis: diverticulitis, gastritis, gastroesophageal reflux disease, ma2 Irritable bowel syndrome. 19:51 Data reviewed: vital signs, nurses notes, lab test result(s), radiologic studies, CT jr8 scan. Data interpreted: Pulse oximetry: on room air is 99 %. Interpretation: normal. Counseling: I had a detailed discussion with the patient and/or guardian regarding: the historical points, exam findings, and any diagnostic results supporting the discharge/admit diagnosis, lab results, radiology results, the need for further work-up and treatment in the hospital. 12/03 16:56 Order name: Basic Metabolic Panel [facility] 12/03 16:56 Order name: CBC with Diff [facility] 12/03 16:56 Order name: Hepatic Function mt2 12/03 16:56 Order name: Lipase mt2 12/03 16:57 Order name: Basic Metabolic Panel; Complete Time: 18:56 EDMS 12/03 16:57 Order name: CBC with Automated Diff; Complete Time: 18:15 EDMS 12/03 16:57 Order name: Liver (Hepatic) Function; Complete Time: 18:56 EDMS 12/03 16:57 Order name: Lipase; Complete Time: 18:56 EDMS 12/03 18:09 Order name: Urine Dipstick-Ancillary; Complete Time: 18:15 EDMS 12/03 18:12 Order name: Urine --Ancillary (enter results); Complete Time: 21:08 12/03 22:51 Order name: SARS-COV-2 RT PCR; Complete Time: 22:52 [facility] 12/03 16:56 Order name: IV Saline Lock; Complete Time: 18:20 mt2 12/03 16:56 Order name: Labs collected and sent; Complete Time: 18:20 [facility] 12/03 16:56 Order name: Urine Dipstick-Ancillary (obtain specimen); Complete Time: 18:28 mt2 12/03 16:56 Order name: CT Abd/Pelvis - IV Contrast Only; Complete Time: 19:43 ma2 Administered Medications: 17:30 Drug: NS 0.9% 1000 ml Route: IV; Rate: 1 bolus; Site: right antecubital; ld1 12/04 00:13 Follow up: Response: No adverse reaction; IV Status: Completed infusion; IV Intake: ea 1000ml 12/03 17:30 Drug: Zofran (Ondansetron) 4 mg Route: IVP; Site: right antecubital; ld1 18:19 Follow up: Response: No adverse reaction ld1 17:30 Drug: morphine 4 mg Route: IVP; Site: right antecubital; ld1 17:38 Follow up: Response: No adverse reaction; Pain is unchanged, physician notified ld1 18:20 Drug: Zosyn 3.375 grams Route: IVPB; Infused Over: 60 mins; Site: right antecubital; ld1 20:00 Follow up: Response: No adverse reaction; IV Status: Completed infusion; IV Intake: ea 100ml 19:03 Drug: morphine 4 mg Route: IVP; Site: right antecubital; ld1 12/04 00:13 Follow up: Response: No adverse reaction ea 12/03 19:04 Drug: Zofran (Ondansetron) 4 mg Route: IVP; Site: right antecubital; ld1 12/04 00:13 Follow up: Response: No adverse reaction ea Disposition: 12/03/20 19:52 Hospitalization ordered by Frdei Garcia for Observation. Preliminary diagnosis is Diverticulitis of large intestine without perforation or abscess without bleeding. - Bed requested for Telemetry/MedSurg (observation). - Status is Observation. ea - Condition is Stable. - Problem is new. - Symptoms have improved. Addendum: 12/05/2020 18:41 Co-signature as Attending Physician, Julianna Choi MD. m a2 Signatures: Dispatcher [employer] EDMS Tomy Rossi PA PA jr8 Radha Mccracken RN RN Margie Dooley RN RN ea Alzahri, Mohammad, MD MD mt2 Keshia Quintana RN RN [facility] Migdalia Penaloza RN RN ld1 Corrections: (The following items were deleted from the chart) 12/03 21:32 21:26 CORONAVIRUS ordered. EDMS EDMS 21:57 21:28 CORONAVIRUS ordered. EDPR EDMS 23:21 19:52 Hospitalization Ordered by Fredi Garcia MD for Observation. Preliminary cg diagnosis is Diverticulitis of large intestine without perforation or abscess without bleeding. Bed requested for Telemetry/MedSurg (observation). Status is Observation. Condition is Stable. Problem is new. Symptoms have improved. jr8 12/04 00:53 12/03 23:21 12/03/2020 19:52 Hospitalization Ordered by Fredi Garcia MD for ea Observation. Preliminary diagnosis is Diverticulitis of large intestine without perforation or abscess without bleeding. Bed requested for Telemetry/MedSurg (observation). Status is Observation. Condition is Stable. Problem is new. Symptoms have improved. cg
--- NOTE | 2020-12-03 20:34 | P.HP ---
Certification for Inpatient Patient admitted to: Observation With expected LOS: <2 Midnights Patient will require the following post-hospital care: None Practitioner: I am a practitioner with admitting privileges, knowledge of patient current condition, hospital course, and medical plan of care. Services: Services provided to patient in accordance with Admission requirements found in Title 42 Section 412.3 of the Code of Federal Regulations <BlaiseBenny - Last Filed: 12/03/20 20:35> Patient History Date of Service: 12/03/20 Reason for admission: Diverticulitis History of Present Illness: 40-year-old male with history of diverticulitis presents emergency department for left lower quadrant abdominal pain. Patient reports a man lower abdominal pain for the last 1 month with a couple of ER visits and outpatient treatment with oral antibiotics, pain became significantly worse at 4:00 a.m. this morning, patient also with history of diverticulitis with abscess without surgical intervention. Labs in the emergency department significant unremarkable, CT demonstrates mild to moderate sigmoid diverticulitis without abscess, hemorrhage, perforation. Patient with abdominal tenderness to palpation with rebound tenderness, still with significant pain, ED provider wishes to admit for further evaluation and management. 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, lives with her family - Family History Mother -: Hypertension - Social History Smoking Status: Former smoker Alcohol use: Yes CD- Drugs: No Caffeine use: Yes Place of Residence: Home <Benny Welsh - Last Filed: 12/03/20 20:35> Date of Service: 12/04/20 <Fredi Garcia - Last Filed: 12/04/20 09:41> Allergies ciprofloxacin Allergy (Severe, Verified 11/12/20 20:25) Nausea/Vomiting codeine Allergy (Severe, Verified 11/12/20 20:25) Nausea/Vomiting Home Medications: NK [No Home Meds] 12/04/20 Review of Systems 10-point ROS is otherwise unremarkable Gastrointestinal: Nausea, Vomiting, Abdominal Pain, Distention <Benny Welsh - Last Filed: 12/03/20 20:35> Physical Examination - Physical Exam General: Alert, In no apparent distress HEENT: Atraumatic, PERRLA, Mucous membr. moist/pink Neck: Supple, 2+ carotid pulse no bruit, No LAD Respiratory: Clear to auscultation bilaterally, Normal air movement Cardiovascular: Regular rate/rhythm, Normal S1 S2 Gastrointestinal: Normal bowel sounds, No masses, No guarding, Tenderness (Tenderness to palpation left lower quadrant suprapubic), Rebound Musculoskeletal: No contractures, No erythema, No tenderness Integumentary: No rashes Neurological: Normal speech, Normal strength at 5/5 x4 extr, Normal tone, Normal affect - Studies Laboratory Data (last 24 hrs) 12/03/20 17:57: WBC 9.90, Hgb 13.7, Hct 40.2, Plt Count 282 12/03/20 17:57: Sodium 140, Potassium 3.5, BUN 10, Creatinine 0.91, Glucose 91, Total Bilirubin 0.6, AST 11 L, ALT 44, Alkaline Phosphatase 71, Lipase 55 L <Benny Welsh - Last Filed: 12/03/20 20:35> - Studies Laboratory Data (last 24 hrs) 12/03/20 17:57: WBC 9.90, Hgb 13.7, Hct 40.2, Plt Count 282 12/03/20 17:57: Sodium 140, Potassium 3.5, BUN 10, Creatinine 0.91, Glucose 91, Total Bilirubin 0.6, AST 11 L, ALT 44, Alkaline Phosphatase 71, Lipase 55 L <Fredi Garcia - Last Filed: 12/04/20 09:41> Assessment and Plan - Plan Assessment Acute sigmoid diverticulitis Plan Acute sigmoid diverticulitis: Continue with IV Rocephin, Flagyl, p.r.n. pain medication and anti emetics. Daily labs, serial abdominal exams, patient with mild to moderate tenderness to palpation left lower quadrant and suprapubic region with some rebound tenderness noted on exam, no guarding noted. White blood cell count borderline, will obtain pro calcitonin with morning labs. General surgery consult as necessary. DVT prophylaxis Lovenox 40 mg subcutaneous once daily. Start clear liquids for now, if patient does well overnight with decreasing pain and tolerating diet possibly advanced to full liquids in the morning. Discharge Plan: Home Plan to discharge in: 24 Hours - Advance Directives Does patient have a Living Will: No Does patient have a Durable POA for Healthcare: No - Code Status/Comfort Care Code Status Assessed: Yes (Full code) Critical Care: No Time Spent Managing Pts Care (In Minutes): 55 <Benny Welsh - Last Filed: 12/03/20 20:35> - Plan Plan of care reviewed was noted above by Benny Welsh Acute sigmoid diverticulitis, recently hospitalized here #3-4wks ago -IV antibiotics, clear liquid diet as tolerated possible abscess noted last time, no abscess noted on recent CT <Fredi Garcia - Last Filed: 12/04/20 09:41>
[2020-12-04] MEDS ORDERED: ACETAMINOPHEN 500 MG TAB PO PRN (01:08)
[2020-12-04] MEDS ORDERED: DIPHENHYDRAMINE 50 MG/ML VIAL IV PRN (01:08)
[2020-12-04 01:25] VITALS: BMI 37.0
[2020-12-04] MEDS: NA CHLORIDE 0.9% 1,000 ML IV SCH ×2 (01:49→11:08)
[2020-12-04] MEDS: METRONIDAZOLE 500mg IVPB 500 MG/100 ML BAG IV SCH ×3 (01:49→17:02)
[2020-12-04] MEDS: MORPHINE 2 MG/ML SYR IV PRN ×3 (02:01→17:01)
[2020-12-04] MEDS: ONDANSETRON 4 MG/2 ML VIAL IV PRN ×2 (02:01→08:46)
[2020-12-04 06:36] LABS: Absolute Lymphocytes (CBC) 1.8 K/uL (0.7-4.9); Basophils % 0.3 % (0-1.3); Hematocrit 37.4 % (36.0-45.0); Lymphocytes % 29.2 % (15.3-44.8); MPV 8.1 fL (7.6-11.3); RBC Red Blood Cell Count 4.48 M/uL (3.86-4.86)
[2020-12-04 06:57] LABS: Albumin 3.1 g/dL (3.4-5.0); Bilirubin Total 0.5 mg/dL (0.2-1.0); Magnesium 2.5 mg/dL (1.8-2.4); Potassium 3.9 mmol/L (3.5-5.1); Protein, Total 6.6 g/dL (6.4-8.2); Thyroid Stimulating Hormone 1.01 uIU/mL (0.360-3.740)
[2020-12-04] MEDS: ENOXAPARIN 40 MG/0.4 ML SQ SCH (08:45)
[2020-12-04] MEDS: CEFTRIAXONE/SWI 1gm 1 GM/10 ML SYR IV SCH (08:46)
[2020-12-04] MEDS ORDERED: CEFTRIAXONE 1 GM/NS 50 ML 1 GM/50 ML BAG IV SCH (09:00)
--- NOTE | 2020-12-04 09:51 | P.PN ---
Subjective Date of Service: 12/04/20 Chief Complaint: Diverticulitis Subjective: Improving (No nausea/vomiting since yesterday night, burning pain has resolved, continues with cramping pain most severe in left lower quadrant. + flatus, no BM. Feels bloated, no worse than yesterday) Review of Systems 10-point ROS is otherwise unremarkable Physical Examination - Vital Signs Temperature: 97 F Blood Pressure: 104/55 Pulse: 57 Respirations: 16 Pulse Ox (%): 95 - Studies Laboratory Data (last 24 hrs) 12/03/20 17:57: WBC 9.90, Hgb 13.7, Hct 40.2, Plt Count 282 12/03/20 17:57: Sodium 140, Potassium 3.5, BUN 10, Creatinine 0.91, Glucose 91, Total Bilirubin 0.6, AST 11 L, ALT 44, Alkaline Phosphatase 71, Lipase 55 L Assessment & Plan Physician Review Additional Text: Physical Exam General: Alert, In no apparent distress, obese HEENT: Normal conjunctiva, sclerae anicteric Pulm: Clear to auscultation bilaterally, Normal air movement CV: Regular rate/rhythm, Normal S1 S2 Abd: Soft, moderate TTP in LLQ, no guarding, no rebound. Hypoactive bowel sounds Ext: no edema, no rash Neuro: normal speech/affect Problem List: Acute sigmoid diverticulitis continue with IV rocephin & flagyl clinically improving, no nausea/vomiting so far tolerating CLD this morning, if n/v or pain worsens will back down to NPO, +flatus serial abd exams VTE: lovenox Code: full Dispo: anticipate dc home in 48-72hrs Time Spent Managing Pts Care (In Minutes): 35
[2020-12-04] MEDS ORDERED: METOCLOPRAMIDE 10 MG/2mL INJ IV PRN (11:21)
[2020-12-04 11:25] LABS: Urine Appearance CLEAR (Clear); Urine Bilirubin NEGATIVE (Negataive); Urine Blood TRACE (Negative); Urine Color YELLOW (Yellow); Urine Glucose NEGATIVE (Negative); Urine Protein NEGATIVE (Negative); Urine Specific Gravity >=1.030 (1.005-1.030)
[2020-12-04 11:56] LABS: Urine Microscopic Reflex ORDER UMIC
[2020-12-04 12:15] LABS: Urine Bacteria <20 /HPF (<20); Urine RBC <5 /HPF (NONE SEEN)
[2020-12-05] MEDS: NA CHLORIDE 0.9% 1,000 ML IV SCH ×3 (00:37→16:26)
[2020-12-05] MEDS: METRONIDAZOLE 500mg IVPB 500 MG/100 ML BAG IV SCH ×3 (00:38→16:25)
[2020-12-05 06:42] LABS: Absolute Lymphocytes (CBC) 1.5 K/uL (0.7-4.9); Basophils % 0.3 % (0-1.3); Hematocrit 35.5 % (36.0-45.0); Lymphocytes % 29.8 % (15.3-44.8); MPV 7.9 fL (7.6-11.3); RBC Red Blood Cell Count 4.32 M/uL (3.86-4.86)
[2020-12-05 06:56] LABS: ALT/SGPT 38 U/L (12-78); AST/SGOT 14 U/L (15-37); Albumin 3.1 g/dL (3.4-5.0); Alkaline Phosphatase 56 U/L (45-117); BUN Blood Urea Nitrogen 6 mg/dL (7-18); Bicarbonate 24 mmol/L (21-32); Bilirubin Total 0.4 mg/dL (0.2-1.0); Glucose Level 77 mg/dL (74-106); Magnesium 2.2 mg/dL (1.8-2.4); Potassium 3.7 mmol/L (3.5-5.1); Protein, Total 6.6 g/dL (6.4-8.2); Sodium Level 141 mmol/L (136-145)
[2020-12-05] MEDS: ENOXAPARIN 40 MG/0.4 ML SQ SCH (09:00)
[2020-12-05] MEDS: CEFTRIAXONE/SWI 1gm 1 GM/10 ML SYR IV SCH (10:37)
--- NOTE | 2020-12-05 14:37 | P.PN ---
Subjective Date of Service: 12/05/20 Chief Complaint: Diverticulitis Subjective: Improving (Yesterday afternoon after her clear liquid diet, patient had severe pain and nausea/vomiting, she was made NPO. Since then she has slowly been improving, Passing flatus, no BM, pain down to 2/10 this morning. Feels very thirsty, no nausea/vomiting, feels less bloated) Review of Systems 10-point ROS is otherwise unremarkable Physical Examination - Vital Signs Temperature: 96.8 F Blood Pressure: 124/57 Pulse: 60 Respirations: 16 Pulse Ox (%): 95 - Studies Microbiology Data (last 24 hrs): 12/04/20 01:58 Blood - Blood Anaerobic Blood Culture - Final Assessment & Plan Physician Review Additional Text: Physical Exam General: Alert, In no apparent distress, obese HEENT: Normal conjunctiva, sclerae anicteric Pulm: Clear to auscultation bilaterally, Normal air movement CV: Regular rate/rhythm, Normal S1 S2 Abd: Soft, mild TTP in LLQ, no guarding, no rebound. Hypoactive bowel sounds Ext: no edema, no rash Problem List: Acute sigmoid diverticulitis 2nd episode in the last 3-4 weeks, was noted to have possible small abscess last time, not noted on the CT this admission. continue with IV rocephin & flagyl, continue IV fluids clinically improving, no nausea/vomiting, advance clear liquid diet, advised patient to take it very slow Labs reviewed, vitals stable serial abd exams VTE: lovenox Code: full Dispo: anticipate dc home in 24-48hrs Time Spent Managing Pts Care (In Minutes): 35
[2020-12-05 22:28] VITALS: O2SAT 100
[2020-12-06] MEDS: METRONIDAZOLE 500mg IVPB 500 MG/100 ML BAG IV SCH ×2 (00:34→07:56)
[2020-12-06] MEDS: NA CHLORIDE 0.9% 1,000 ML IV SCH (02:10)
--- NOTE | 2020-12-06 07:25 | P.DS ---
Admission Date: 12/03/20 Discharge Date: 12/06/20 Disposition: ROUTINE DISCHARGE Discharge Condition: GOOD Reason for Admission: Acute Sigmoid Diverticulitis Procedures: CT Abd/Pelvis (12/03): Mild to moderate sigmoid diverticulitis. Fatty liver. Cholecystectomy. Spleen, pancreas, adrenal and kidneys appear unremarkable. Diverticula stem from the colon. Mild to moderate stranding adjacent sigmoid colon. . Problem List: Acute sigmoid diverticulitis Brief History of Present Illness: 40-year-old male with history of diverticulitis presents emergency department for left lower quadrant abdominal pain. Patient reports a man lower abdominal pain for the last 1 month with a couple of ER visits and outpatient treatment with oral antibiotics, pain became significantly worse at 4:00 a.m. this morning, patient also with history of diverticulitis with abscess without surgical intervention. Labs in the emergency department significant unremarkable, CT demonstrates mild to moderate sigmoid diverticulitis without abscess, hemorrhage, perforation. Patient with abdominal tenderness to palpation with rebound tenderness, still with significant pain, ED provider wishes to admit for further evaluation and management. Hospital Course: Patient was medically managed with IV antibiotics and bowel rest, she slowly improved and eventually had pain, is passing flatus and bowel movements. On day of discharge she was feeling well, tolerating clear liquid diet without any nausea or abdominal pain. She was discharged home to complete a course of antibiotics. She is to follow-up with her PCP in this next week. As previously discussed in her prior hospitalization she is to follow-up with GI for colonoscopy Advised to continue with a clear liquid diet for several days and slowly advance. Vital Signs/Physical Exam: Physical Exam General: Alert, In no apparent distress, obese HEENT: Normal conjunctiva, sclerae anicteric Pulm: Clear to auscultation bilaterally, Normal air movement CV: Regular rate/rhythm, Normal S1 S2 Abd: Soft, nontender, nondistended, normal bowel sounds Ext: no edema, no rash Temp Pulse Resp BP Pulse Ox 97.9 F 63 16 129/70 97 12/06/20 04:00 12/06/20 04:00 12/06/20 04:00 12/06/20 04:00 12/06/20 04:00 Laboratory Data at Discharge: WBC 5.10 K/uL (4.3-10.9) D 12/05/20 05:10 Hgb 12.4 g/dL (12.0-15.0) 12/05/20 05:10 Hct 35.5 % (36.0-45.0) L 12/05/20 05:10 Plt Count 208 K/uL (152-406) 12/05/20 05:10 Sodium 141 mmol/L (136-145) 12/05/20 05:10 Potassium 3.7 mmol/L (3.5-5.1) 12/05/20 05:10 BUN 6 mg/dL (7-18) L 12/05/20 05:10 Creatinine 0.66 mg/dL (0.55-1.3) 12/05/20 05:10 Glucose 77 mg/dL (74-106) 12/05/20 05:10 Magnesium 2.2 mg/dL (1.8-2.4) 12/05/20 05:10 Total Bilirubin 0.4 mg/dL (0.2-1.0) 12/05/20 05:10 AST 14 U/L (15-37) L 12/05/20 05:10 ALT 38 U/L (12-78) 12/05/20 05:10 Alkaline Phosphatase 56 U/L (45-117) 12/05/20 05:10 Lipase 55 U/L (73-393) L 12/03/20 17:57 Home Medications: Amoxicillin/Potassium Clav [Augmentin 875-125 Tablet] 1 tab PO Q8H 10 Days #30 tablet 12/06/20 metroNIDAZOLE [Flagyl] 500 mg PO Q8H 10 Days #30 tablet 12/06/20 New Medications: Amoxicillin/Potassium Clav [Augmentin 875-125 Tablet] 1 tab PO Q8H 10 Days #30 tablet metroNIDAZOLE [Flagyl] 500 mg PO Q8H 10 Days #30 tablet Physician Discharge Instructions: You were found to have sigmoid diverticulitis. You improved with bowel rest and IV antibiotics. You are discharged with prescriptions for 10 days of antibiotics (augmentin and flagyl). Please follow up with your PCP in 3-5 days. As stated last admission - you will need to follow up with GI soon to discuss/schedule a colonoscopy in ~6-8 weeks. Diet: [place] (Clear liquid, slowly advance over 1-2 weeks) Activity: Ad rl Followup: Sailaja Almeida, DO [Primary Care Provider] - (call to schedule appointment) Time spent managing pt's care (in minutes): 35
[2020-12-06] MEDS: ENOXAPARIN 40 MG/0.4 ML SQ SCH (07:55)
[2020-12-06] MEDS: CEFTRIAXONE/SWI 1gm 1 GM/10 ML SYR IV SCH (07:56)
[2020-12-06 08:30] VITALS: BP 158/72; TEMP 97.5
[2020-12-06] MEDS ORDERED: POTASSIUM CL SA 10 MEQ TAB PO ONE (09:00)
== END 2020-12-06 09:57 | disposition home or self-care (01) | DRG 392 ==
LOC: ER 15:02 → ERHOLD 20:25 → 2ND 12-04 00:50 → OBSVTOIN 12-05 00:42
PROVIDERS: ADMIT Hospitalist; ATTEND Hospitalist
DX: K57.32 Diverticulitis of large intestine without perforation or abscess without bleeding (principal); E66.9 Obesity, unspecified; Z68.37 Body mass index [BMI] 37.0-37.9, adult; Z90.710 Acquired absence of both cervix and uterus; Z88.1 Allergy status to other antibiotic agents; Z88.5 Allergy status to narcotic agent; Z90.49 Acquired absence of other specified parts of digestive tract; Z87.891 Personal history of nicotine dependence; Z79.899 Other long term (current) drug therapy; Z20.822 Contact with and (suspected) exposure to COVID-19
CPT/HCPCS: 36415; 74177; 80048; 80053; 80076; 81003; 81015; 81025; 83690; 83735; 84145; 84439; 84443; 85025; 87040; 96361; 96365; 96366; 96375; 99285; G0378; J0696; J1650; J2270; J2405; J2543; J2765; J7030; Q9967; U0003

== ENCOUNTER 2021-09-01 19:24 | Inpatient (IN) | payer BC ==
--- OUTSIDE RECORDS SUMMARY | 2021-09-01 19:28 | XMS REPORT | Continuity of Care Document ---
:1980 Author Organization [facility] t Address [address] [place] [address] Care Team Providers Name Role Phone Lupe Alemida Primary Care Physician Doctor Unassigned, Name Attending Clinician Unavailable Ivana LOZANO, L Attending Clinician Payers Payer Name Policy Type Policy Number Effective Date Expiration Date S ource Problems Condition Condition Condition Status Onset Resolution Last Treating Co mments Source Name Details Category Date Date Treatment Clinician Date Obesity Obesity Disease Active Univers (BMI (BMI 9-18 ity of 30-39.9) 30-39.9) 00:00: [place] 00 Medical Branch Allergies, Adverse Reactions, Alerts Allergy Allergy Status Severity Reaction(s) Onset Inactive Treating Comm ents Source Name Type Date Date Clinician ciproflo DA Active [facility] 6-28 [place] [facility] ciproflo DA Active [place] 0 [facility] xacin 2-05 [place] 00:00: [facility] Ciproflo Propensi Active Nausea Univer s xacin ty to and/or 9-18 ity of adverse Vomiting 00:00: [place] reaction 00 Medical s Branch Codeine Propensi Active Nausea Univers ty to and/or 18 ity of adverse Vomiting 00:00: [place] reaction 00 Medical s Branch Social History Social Habit Start Date Stop Date Quantity Comments Source Exposure to Not sure University of SARS-CoV-2 [facility] (event) Branch Alcohol intake 2021-06-08 2021-06-08 Lifetime University of 00:00:00 00:00:00 non-drinker [facility] (finding) [place] Tobacco use and 2021-04-06 2021-04-06 Never used Universit y of exposure 00:00:00 00:00:00 [place] [facility] Sex Assigned At [birth year] Universit y of 00:00:00 00:00:00 [place] [facility] Smoking Status Start Date Stop Date Source Current every day smoker 2021-04-06 00:00:00 Uni versity of [place] [facility] Medications Ordered Filled Start Stop Current Ordering Indication Dosage Frequency Signature Comments Components Source Medication Medication Date Date Medication? Clinician (SIG) Name Name paroxetine Yes 20mg Take 20 mg U nivers (PAXIL) 20 05-04 by mouth ity o f mg tablet 13:28: daily. [address] clonazePAM Yes .5mg Take 0.5 Uni vers (KLONOPIN) 05-04 mg by ity of 0.5 mg 13:28: mouth [place] tablet 45 daily. Medical Branch Cetirizine Yes Take by Uni vers 10 mg 05-04 mouth. ity of capsule 13:28: [address] fluticasone Yes 2{spray Use 2 Un [place] propionate 05-04 } Sprays in ity of (FLONASE 13:28: each [place] ALLERGY 45 nostril 2 Medical RELIEF) 50 (two) Branch mcg/actuati times on nasal daily. spray montelukast Yes 10mg Take 10 mg Univers 10 mg 05-04 by mouth. ity of tablet 13:28: [address] paroxetine Yes 20mg Take 20 mg U nivers (PAXIL) 20 05-04 by mouth ity o f mg tablet 13:28: daily. [address] clonazePAM Yes .5mg Take 0.5 Uni vers (KLONOPIN) 9-01 mg by ity of 0.5 mg 13:28: mouth [place] tablet 45 daily. Medical Branch Cetirizine Yes Take by Uni vers 10 mg 9-01 mouth. ity of capsule 13:28: 45 Medical Branch fluticasone Yes 2{spray Use 2 Un [place] propionate 9 } Sprays in ity of (FLONASE 13:28: each [place] ALLERGY 45 nostril 2 Medical RELIEF) 50 (two) Branch mcg/actuati times on nasal daily. spray montelukast Yes 10mg Take 10 mg Univers 10 mg 9 by mouth. ity of tablet 13:28: 45 Medical Branch traZODone Yes TAKE 1 Univer s 50 mg 8-09 TABLET BY ity of tablet 00:00: MOUTH [place] 00 EVERY DAY Medical AT BEDTIME Branch NEEDED amLODIPine Yes 5mg Take 5 mg Un [place] 5 mg tablet 8-09 by mouth ity of 00:00: every [place] 00 morning. Medical Branch traZODone Yes TAKE 1 Univer s 50 mg 8-09 TABLET BY ity of tablet 00:00: MOUTH [place] 00 EVERY DAY Medical AT BEDTIME Branch NEEDED amLODIPine Yes 5mg Take 5 mg Un [place] 5 mg tablet 8-09 by mouth ity of 00:00: every [place] 00 morning. Medical Branch HYDROcodone Yes 1{tbl} Take 1 Un [place] -acetaminop 9-24 tablet by ity of hen 5-325 00:00: mouth [place] mg tablet 00 every 6 Medical (six) Branch hours as needed for Pain (scale 1-3), Pain (scale 4-6) or Pain (scale 7-10). ibuprofen Yes 600mg Take 1 Unive rs 600 mg 9-24 tablet by ity of tablet 00:00: mouth [place] 00 every 6 Medical (six) Branch hours as needed for Pain (scale 1-3), Pain (scale 4-6) or Pain (scale 1-3) with oral narcotics. chlorhexidi Yes 15mL Swish and U nivers ne 0.12 % 9-24 spit out ity of mouthwash 00:00: 15 mL 2 [place] 00 (two) Medical times Branch daily. HYDROcodone 2017-0 Yes 1{tbl} Take 1 Un [place] -acetaminop 9-24 tablet by ity of hen 5-325 00:00: mouth [place] mg tablet 00 every 6 Medical (six) Branch hours as needed for Pain (scale 1-3), Pain (scale 4-6) or Pain (scale 7-10). ibuprofen Yes 600mg Take 1 Unive rs 600 mg 9-24 tablet by ity of tablet 00:00: mouth [place] 00 every 6 Medical (six) Branch hours as needed for Pain (scale 1-3), Pain (scale 4-6) or Pain (scale 1-3) with oral narcotics. chlorhexidi Yes 15mL Swish and U nivers ne 0.12 % 9-24 spit out ity of mouthwash 00:00: 15 mL 2 [place] 00 (two) Medical times Branch daily. Vital Signs Vital Name Observation Time Observation Value Comments Source Body height 2021-06-08 18:15:00 160 cm [facility] Body weight 2021-06-08 18:15:00 96.616 kg [facility] BMI 2021-06-08 18:15:00 37.73 kg/m2 [facility] Procedures Procedure Date / Time Performed Performing Clinician [facility] e REFERRAL- 2021-07-04 05:01:00 Doctor Unassigned, No [facility] [place] REQUEST/RESPONSE Name Medical Branch Encounters Start End Encounter Admission Attending Care Care Encounter Source Date/Time Date/Time Type Type Clinicians Facility Department ID 2021-07-06 2021-07-06 ambulatory [facility] [id number] [facility] 2021-07-04 2021-07-04 Orders Doctor GELA [id number] Univers 00:00:00 00:00:00 Only Unassigned, AURELIANO [id number] ity of [place] [facility] [id number] Ned as [id number] [place] [address] Branch 2021-06-29 2021-06-29 Outpatient [facility] [id number] [facility] 2021-06-08 2021-06-08 Office NICKY Heath [id number] Univers 13:10:32 13:36:34 Visit Juancho Talbot [facility] [id number] it y xochilt [place] [id number] Ned as MAURICIO?BLEA [phone] [address] OFFICE [facility] 2021-06-03 2021-06-03 Outpatient [facility] [id number] [facility] 2021-05-11 2021-05-11 Out[facility] [id number] [facility] 2021-04-11 2021-04-11 [facility] [id number] [facility]00 [facility] - [facility] Outpat[facility] ent Clinics 2021-03-11 2021-03-11 Outpatient [facility] [id number] [facility]00 [facility] - [facility] Outpati ent Clinics 2021-03-10 2021-03-10 Outpatient [facility] [id number] [facility]00 [facility] - [facility] ent [facility] Results Test Description Test Time Test Comments Results Result [facility] e Comments - MRI UP [facility] 2019-02-28 Patient Name: W/CONT RT 13:02:00 DELIO HOOD Unit No: [id number] EXAMS: CPT CODE: [id number] MRI UP [facility] W/[place] [address] EXAM: MRI ARTHROGRAM RIGHT SHOULDER DIAGNOSIS: 1. [...] Reported and signed by: Sumeet Chu MD [facility] NAME: DELIO HOOD [address] [place] [address] PHYS: Brennen Loyola MD : 1980 AGE: 38 SEX: F [place] [address] LOC: Y.RAD PHONE #: [phone] EXAM DATE: 02/28/2019 STATUS: REG CLI FAX #: [phone] RAD #: D/C DT PAGE 1 Signed Report (CONTINUED) Patient Name: DELIO HOOD Unit No: [id number] EXAMS: CPT CODE: [id number] MRI UP JNT W/[place] [address] <Continued> CC: Brennen Sanderson MD Technologist: DORY HASKINS. RT(R) Transcribed D/ (7685) tDENIZGVG [facility] NAME: DELIO HOOD [address] [place] [address] PHYS: Brennen Loyola MD : 1980 AGE: 38 SEX: F [place] [address] LOC: Y.RAD PHONE #: [phone] EXAM DATE: 02/28/2019 STATUS: REG CLI FAX #: [phone] RAD #: D/C DT PAGE 2 Signed Report Patient Name: DELIO HOOD Unit No: [id number] EXAMS: CPT CODE: [id number] MRI [place] JNT W/[place] [address] <Continued> Orig Print D/T: S: 02/28/2019 (1306) [facility] NAME: DELIO HOOD [address] [facility] PHYS: Brennen Loyola MD : 1980 AGE: 38 SEX: F [place], [place] [address] LOC: Y.RAD PHONE #: [phone] EXAM DATE: 02/28/2019 STATUS: REG CLI FAX #: [phone] RAD #: D/C DT PAGE 3 Signed Report - XR ARTHROGRAM 2019-02-28 Patient Name: SHLDR RT 13:02:00 DELIO HOOD Unit No: [id number] EXAMS: CPT CODE: [id number] [place] [address] EXAM: MRI ARTHROGRAM RIGHT SHOULDER DIAGNOSIS: 1. [...] Reported and signed by: Sumeet Chu MD [facility] NAME: DELIO HOOD [address] [place] [address] Main PHYS: Brennen Loyola MD : 1980 AGE: 38 SEX: F [place] [address] LOC: Y.RAD PHONE #: [phone] EXAM DATE: 02/28/2019 STATUS: REG CLI FAX #: [phone] RAD #: D/C DT PAGE 1 Signed Report (CONTINUED) Patient Name: DELIO HOOD Unit No: [id number] EXAMS: CPT CODE: [id number] [place] [address] <Continued> CC: Brennen Sanderson MD Technologist: Lian Brandt, RT.(R) Transcribed D/ (9122) ClaudiaGVG [facility] NAME: DELIO HOOD [address] [place] [address] PHYS: Brennen Loyola MD : 1980 AGE: 38 SEX: F [place] [address] LOC: Y.RAD PHONE #: [phone] EXAM DATE: 02/28/2019 STATUS: REG CLI FAX #: [phone] RAD #: D/C DT PAGE 2 Signed Report Patient Name: DELIO HOOD Unit No: [id number] EXAMS: CPT CODE: [id number] [place] [address] <Continued> Orig Print D/T: S: 02/28/2019 (0772) [facility] NAME: DELIO HOOD [address] [place] [address] Main PHYS: Brennen Loyola MD : 1980 AGE: 38 SEX: F [place] [address] LOC: Y.RAD PHONE #: [phone] EXAM DATE: 02/28/2019 STATUS: REG CLI FAX #: [phone] RAD #: D/C DT PAGE 3 Signed Report - XR FLUORO NDL 2018-10-08 Patient Name: 19:32:00 DELIO HOOD Unit No: [id number] EXAMS: CPT CODE: [id number] XR FLUORO NDL 94040 Fluoroscopically guided injection of the right shoulder [...] HIEN STYLES, RT(R) Transcribed D/ (1931) ClaudiaSLJ [facility] NAME: DELIO HOOD [address] [place] [address] PHYS: Brennen Loyola MD : 1980 AGE: 38 SEX: F [place] [address] LOC: Y.RAD PHONE #: [phone] EXAM DATE: 10/08/2018 STATUS: REG CLI FAX #: [phone] RAD #: D/C DT PAGE 1 Signed Report Patient Name: DELIO HOOD Unit No: [id number] EXAMS: CPT CODE: [id number] XR FLUORO NDL 16484 <Continued> Orig Print D/T: S: 10/08/2018 (1934) [facility] NAME: DELIO HOOD [address] [facility] PHYS: Brennen Loyola MD : 1980 AGE: 38 SEX: F [place] [address] LOC: Y.RAD PHONE #: [phone] EXAM DATE: 10/08/2018 STATUS: REG CLI FAX #: [phone] RAD #: D/C DT PAGE 2 Signed Report
[2021-09-01] MEDS ORDERED: ACETAMINOPHEN 325 MG TABLET ONE (19:59)
[2021-09-01] MEDS ORDERED: NA CHLORIDE 0.9% 1,000 ML ONE (19:59)
--- NOTE | 2021-09-01 20:06 | RAD REPORT ---
EXAM DESCRIPTION: Enrique Single View09/01/2021 7:57 pm CLINICAL HISTORY: Chest pain COMPARISON: none FINDINGS: Moderate to marked bilateral pulmonary opacities. Heart is normal size IMPRESSION: Moderate to marked bilateral pulmonary opacities may represent pneumonia or pulmonary ed conor
[2021-09-01 20:08] LABS: Arterial Blood Carboxyhemoglob 1.4 % (0-1.5); Blood Gas Oxyhemoglobin 96.7 % (94-97); Blood O2 Saturation 99.1 % (92-98.5)
[2021-09-01 20:23] LABS: Absolute Lymphocytes (CBC) 0.7 K/uL (0.7-4.9); Hematocrit 38.6 % (36.0-45.0); Lymphocytes % 6.8 % (15.3-44.8); MPV 7.5 fL (7.6-11.3); RBC Red Blood Cell Count 4.66 M/uL (3.86-4.86)
[2021-09-01 20:27] LABS: Protime INR 1.17
[2021-09-01 20:48] LABS: Blood Morphology Comment NOT SEEN (NOT SEEN); Platelet Estimate ADEQ; White Blood Cell Scan OK (OK)
[2021-09-01 20:49] LABS: Albumin 2.4 g/dL (3.4-5.0); Potassium 3.6 mmol/L (3.5-5.1)
[2021-09-01 20:56] LABS: Bilirubin Direct 0.2 mg/dL (0-0.2); Bilirubin Total 0.6 mg/dL (0.2-1.0); Magnesium 2.3 mg/dL (1.8-2.4)
[2021-09-01] MEDS ORDERED: NA CHLORIDE 0.9% 250 ML ONE (21:04)
[2021-09-01] MEDS ORDERED: AZITHROMYCIN 500 MG INJ IVPB ONE (21:04)
[2021-09-01] MEDS ORDERED: CEFTRIAXONE 1000 MG/VIAL ONE (21:04)
[2021-09-01 21:19] LABS: Ferritin 1323.8 ng/mL (8-388); Troponin (Emerg Dept Use Only) 0.34 ng/mL (0.0-0.045)
[2021-09-01 21:25] LABS: SARS-COV-2 RT PCR POSITIVE (NEGATIVE)
[2021-09-01 21:31] LABS: Protein, Total 7.1 g/dL (6.4-8.2)
[2021-09-01] MEDS ORDERED: ONDANSETRON 4 MG/2 ML VIAL ONE (21:44)
--- NOTE | 2021-09-01 21:47 | RAD REPORT ---
EXAM DESCRIPTION: CT - Head Brain Wo Cont - 09/01/2021 9:21 pm CLINICAL HISTORY: Alteration of awareness/confusion COMPARISON: None TECHNIQUE: Computed axial tomography of the head was obtained. IV contrast was not requested. All CT scans are performed using dose optimization technique as appropriate and may include automated exposure control or mA/KV adjustment according to patient size. FINDINGS: An intracranial bleed is not seen . The ventricles are normal in caliber. No extra-axial fluid collection is noted. Mild ethmoid sinusitis IMPRESSION: No acute intracranial abnormality is seen. If patient's symptoms persist MRI of the bra in would be recommended.
--- NOTE | 2021-09-01 21:59 | RAD REPORT ---
EXAM DESCRIPTION: CT - Chest For Pe Angio - 09/01/2021 9:21 pm CLINICAL HISTORY: Chest pain COMPARISON: None. TECHNIQUE: Dynamically enhanced axial 3 mm thick images of the chest were obtained during administra tion of <100> mL Isovue 370 IV contrast. Coronal and oblique reconstruction images were generated and reviewed. Exam utilizes a protocol for optimal evaluation of pulmonary arterial tree. Maximum intensity projections 3D imaging was utilized All CT scans are performed using dose optimization technique as appropriate and may include automated exposure control or mA/KV adjustment according to patient size. FINDINGS: Small amount of thrombus within subsegmental right upper lobe and left lower lobe pulmonar y arteries. No thrombus within the main pulmonary, right and left main pulmonary arteries. A thoracic aortic aneurysm is not noted. A pleural effusion is not seen. A pericardial effusion is not seen. Moderate to marked bilateral ground-glass opacities IMPRESSION: Small amount of bilateral pulmonary emboli. [id number] bilateral ground-glass opacities probably Covid pneumonia
[2021-09-01] MEDS ORDERED: ALBUTEROL INHALER 60 PUFF/8 GM IH ONE (22:00)
[2021-09-01] MEDS ORDERED: METHYLPREDNISOLONE 125 MG INJ ONE (22:00)
[2021-09-01] MEDS ORDERED: ENOXAPARIN 100 MG/ML SYR SQ ONE (22:18)
--- NOTE | 2021-09-01 23:06 | ER ---
Nurse's Notes [facility] Name: Eunice Arango Age: 40 yrs Sex: Female : 1980 Arrival Date: 09/01/2021 Time: 19:44 Bed 30 Private MD: Diagnosis: Pneumonia due to SARS-associated coronavirus;Pulmonary emboli;Hypoxia;Elevated troponin level Presentation: 09/01 19:44 Chief complaint: EMS states: pt covid positive since last week, felt weak and collapsed sm5 outside, no LOC, alert to painful stimuli for ems, alert and talking now. Coronavirus screen: Vaccine status: Patient reports being unvaccinated. Ebola Screen: No symptoms or risks identified at this time. Initial Sepsis Screen: Does the patient meet any 2 criteria? RR > 20 per min. Temp <36.0*C (96.8*F)) or > 38.3*C (100.9*F). HR > 90 bpm. Yes Does the patient have a suspected source of infection? Yes: Productive cough/pneumonia. Risk Assessment: Do you want to hurt yourself or someone else? Patient reports no desire to harm self or others. Onset of symptoms was September 01, 2021. 19:44 Method Of Arrival: EMS [facility] 19:44 Acuity: ALIS 1 5 Triage Assessment: 20:30 General: Appears ill, Behavior is responsive to painful stimuli. Pain: Denies pain. sm5 Neuro:. Cardiovascular: Capillary refill < 3 seconds Patient's skin is warm and dry. Rhythm is sinus tachycardia. Respiratory: Airway is patent Trachea midline Respiratory effort is even, labored. Historical: - Allergies: 19:46 Cipro; sm5 19:46 Codeine; sm5 - PMHx: 19:46 Diverticulitis; sm5 - PSHx: 19:46 Total abdominal hysterectomy; sm5 - Immunization history:: Client reports having NOT received the Covid vaccine. - Social history:: Smoking status: Patient reports the use of cigarette tobacco products. Screenin/31 00:28 Abuse screen: Denies threats or abuse. Denies injuries from another. Nutritional sm5 screening: No deficits noted. Tuberculosis screening: No symptoms or risk factors identified. Fall Risk None identified. Total Mullen Fall Scale indicates No Risk (0-24 pts). Assessment: 09/01 20:32 General: Behavior is cooperative. Neuro: Level of Consciousness is awake, alert, sm5 Oriented to Appropriate for age. Cardiovascular: Capillary refill < 3 seconds Patient's skin is warm and dry. Rhythm is sinus tachycardia. Respiratory: Airway is patent Trachea midline Respiratory effort is even, labored. 09/03 23:30 Reassessment: PT IS TOLERATING BIPAP. SEEN IN BED SLEEPING. O2 AT 99. NO SIGNS OF kd3 DISTRESS. 09/04 03:00 General: Appears in no apparent distress. comfortable. kd3 03:00 Reassessment: Patient is alert, oriented x 3, equal unlabored respirations, skin kd3 warm/dry/pink. Vital Signs: 09/01 19:44 BP 124 / 58; Pulse 139; Resp 41; Temp 101(O); Pulse Ox 64% 6 lpm ; Weight 90.72 kg; sm5 20:42 BP 116 / 74; Pulse 129; Resp 37; Pulse Ox 85% on BiPAP; sm5 09/03 23:29 BP 128 / 72; Pulse 78; Pulse Ox 99% on BiPAP; kd3 23:31 Resp 18; Temp 98.9; kd3 09/04 03:00 BP 130 / 73; Pulse 84; Resp 17; Pulse Ox 98% ; kd3 ED Course: 09/01 19:44 Patient arrived in ED. cole 19:44 Laurel Murguia, REINALDO is Primary Nurse. sm5 19:44 Marcus Pedraza MD is Attending Physician. mh7 19:46 Triage completed. sm5 19:57 XRAY Chest (1 view) In Process Unspecified. EDMS 20:13 Ferritin Sent. sm5 20:14 CRP Sent. sm5 20:14 D-Dimer Sent. sm5 20:14 NT PRO-BNP Sent. sm5 20:14 Liver (Hepatic) Function Sent. sm5 20:14 Magnesium Sent. sm5 20:14 Basic Metabolic Panel Sent. sm5 20:14 CBC with Automated Diff Sent. sm5 20:14 Basic Metabolic Panel Sent. sm5 20:14 CBC with Diff Sent. sm5 20:14 LFT's Sent. sm5 20:14 Magnesium Sent. sm5 20:14 NT PRO-BNP Sent. sm5 20:14 PT-INR Sent. sm5 20:14 Troponin (emerg Dept Use Only) Sent. sm5 20:29 BIPAP Sent. sm5 20:30 Blood Culture Adult (2) Sent. sm5 20:30 Lactate Sent. sm5 20:30 Procalcitonin Sent. sm5 20:30 COVID-19/FLU A+B (Document "Date of Onset" if Symptomatic) Sent. sm5 21:20 CT Head Brain wo Cont In Process Unspecified. EDMS 21:21 CT Chest For PE Angio In Process Unspecified. EDMS 23:04 Julianna Guzman MD is Hospitalizing Provider. [facility] 09/02 00:29 Arm band placed on left wrist. sm5 00:30 No provider procedures requiring assistance completed. sm5 00:30 Patient has correct armband on for positive identification. Bed in low position. Call [facility] light in reach. Administered Medications: 09/01 20:07 Drug: Tylenol 650 mg Route: PO; sm5 20:20 Drug: NS 0.9% 1000 ml Route: IV; Rate: 1000 ml; Site: right antecubital; sm5 21:30 Drug: Rocephin (cefTRIAXone) 1 grams Route: IV; Rate: per protocol; Site: right sm5 antecubital; 21:41 Drug: AZITHromycin 500 mg Route: IVPB; Infused Over: 1 hrs; Site: right antecubital; sm5 21:57 Drug: Zofran (Ondansetron) 4 mg Route: IVP; Site: right antecubital; sm5 22:03 Drug: SOLU-Medrol (methylPrednisoLONE) 80 mg Route: IVP; Site: right antecubital; sm5 22:03 Drug: Albuterol HFA Inhaler 2 puffs Route: Inhalation; sm5 22:19 Drug: Lovenox (enoxaparin) 1 mg/kg Route: Sub-Q; Site: right upper abdomen; sm5 23:18 Not Given (Physician Discretion): NS 0.9% 1000 ml IV at 1000 ml once 5 Outcome: 23:05 Decision to Hospitalize by Provider. [facility] 09/05 17:36 Patient left the ED. jr8 Signatures: Dispatcher [employer] EDMS Tomy Rossi PA PA [id number] Marcus Pedraza MD MD 7 Philly Holman RN RN 3 Laurel Murguia RN RN 5 O'Morgan, Viki, RN RN cole
--- NOTE | 2021-09-01 23:06 | EDPHYS ---
Physician Documentation [facility] Name: Eunice Arango Age: 40 yrs Sex: Female : 1980 Arrival Date: 09/01/2021 Time: 19:44 Bed 30 Private MD: ED Physician Marcus Pedraza HPI: 09/01 19:58 This 40 yrs old Female presents to ER via EMS with complaints of Shortness of breath. mh7 Generalized weakness.. 19:58 The patient has shortness of breath at rest, with light activity. Onset: The mh7 symptoms/episode began/occurred 4 day(s) ago. Duration: The symptoms are continuous, and are steadily getting worse. The patient's shortness of breath is aggravated by coughing, exertion, light activity, is alleviated by nothing. Associated signs and symptoms: Pertinent positives: chest pain, productive cough, fever, Generalized weakness, Pertinent negatives: non-productive cough, diaphoresis, dizziness, hemoptysis, loss of consciousness, nausea, numbness in extremities, visual changes, vomiting. Severity of symptoms: At their worst the symptoms were severe today, in the emergency department the symptoms are unchanged despite EMS interventions. Patient reports feeling generally ill for the past 2 weeks. She tested positive for Covid a week ago and has had progressive worsening shortness of breath. She has had generalized weakness, fatigue, chest pain, cough, fever. She reports completing a course of medication recently but does not know the name of the medicines. She also reports being unvaccinated for Covid.. Historical: - Allergies: 19:46 Cipro; sm5 19:46 Codeine; sm5 - PMHx: 19:46 Diverticulitis; sm5 - PSHx: 19:46 Total abdominal hysterectomy; sm5 - Immunization history:: Client reports having NOT received the Covid vaccine. - Social history:: Smoking status: Patient reports the use of cigarette tobacco products. ROS: 19:58 Eyes: Negative for injury, pain, redness, and discharge, ENT: Negative for injury, mh7 pain, and discharge, Neck: Negative for injury, pain, and swelling, Abdomen/GI: Negative for abdominal pain, nausea, vomiting, diarrhea, and constipation, Back: Negative for injury and pain, : Negative for injury, bleeding, discharge, and swelling, MS/Extremity: Negative for injury and deformity, Skin: Negative for injury, rash, and discoloration, Psych: Negative for depression, anxiety, suicide ideation, homicidal ideation, and hallucinations, Allergy/Immunology: Negative for hives, rash, and allergies, Endocrine: Negative for neck swelling, polydipsia, polyuria, polyphagia, and marked weight changes, Hematologic/Lymphatic: Negative for swollen nodes, abnormal bleeding, and unusual bruising. Exam: 19:58 Head/Face: Normocephalic, atraumatic. Eyes: Pupils equal round and reactive to light, mh7 extra-ocular motions intact. Lids and lashes normal. Conjunctiva and sclera are non-icteric and not injected. Cornea within normal limits. Periorbital areas with no swelling, redness, or edema. ENT: Nares patent. No nasal discharge, no septal abnormalities noted. Tympanic membranes are normal and external auditory canals are clear. Oropharynx with no redness, swelling, or masses, exudates, or evidence of obstruction, uvula midline. Mucous membranes moist. Neck: Trachea midline, no thyromegaly or masses palpated, and no cervical lymphadenopathy. Supple, full range of motion without nuchal rigidity, or vertebral point tenderness. No Meningismus. Chest/axilla: Normal chest wall appearance and motion. Nontender with no deformity. No lesions are appreciated. 19:58 Abdomen/GI: Soft, non-tender, with normal bowel sounds. No distension or tympany. No guarding or rebound. No evidence of tenderness throughout. Back: No spinal tenderness. No costovertebral tenderness. Full range of motion. Skin: Warm, dry with normal turgor. Normal color with no rashes, no lesions, and no evidence of cellulitis. MS/ Extremity: Pulses equal, no cyanosis. Neurovascular intact. Full, normal range of motion. 19:58 Psych: Awake, alert, with orientation to person, place and time. Behavior, mood, and affect are within normal limits. 19:58 Constitutional: The patient appears alert, awake, in obvious distress, moderately distressed, obviously ill. 19:58 Cardiovascular: Rate: tachycardic, Rhythm: regular, Pulses: no pulse deficits are appreciated, Heart sounds: normal, normal S1and S2, Edema: is not appreciated, JVD: is not appreciated. 19:58 Respiratory: moderate respiratory distress is noted, Respirations: prolonged exhalation, that is mild, tachypnea, that is moderate, Breath sounds: rhonchi, that are moderate, are heard diffusely, Respiratory rate: 40 19:58 Neuro: Orientation: is normal, Mentation: sleepy, Easily arousable to verbal stimuli, Memory: is normal, immediate memory is intact, recent memory is intact, remote memory is intact, Cranial nerves: grossly normal, Cerebellar function: is grossly normal, Motor: is normal, Sensation: is normal, Gait: not tested. seizure activity, is not displayed by the patient, Abnormal movements: there are no abnormal movements. Vital Signs: 19:44 BP 124 / 58; Pulse 139; Resp 41; Temp 101(O); Pulse Ox 64% 6 lpm ; Weight 90.72 kg; 5 20:42 BP 116 / 74; Pulse 129; Resp 37; Pulse Ox 85% on BiPAP; 5 09/03 23:29 BP 128 / 72; Pulse 78; Pulse Ox 99% on BiPAP; kd3 23:31 Resp 18; Temp 98.9; kd3 09/04 03:00 BP 130 / 73; Pulse 84; Resp 17; Pulse Ox 98% ; kd3 MDM: 09/01 23:01 Differential diagnosis: Anemia Anxiety Reaction asthma, Bronchitis CHF exacerbation, [facility] Chronic Obstructive Pulmonary Disease Myocardial Infarction pneumonia, Pneumothorax Psychogenic pulmonary edema, Pulmonary Embolism reactive airway disease, Sepsis. Data reviewed: vital signs, nurses notes, EMS record, old medical records, lab test result(s), cardiac enzymes, CBC, electrolytes, EKG, radiologic studies, CT scan, plain films. Data interpreted: Pulse oximetry: on High Flow O2 is 92 %. Interpretation: acceptable. Counseling: I had a detailed discussion with the patient and/or guardian regarding: the historical points, exam findings, and any diagnostic results supporting the discharge/admit diagnosis, lab results, radiology results, the need for further work-up and treatment in the hospital. Response to treatment: the patient's symptoms have markedly improved after treatment. 23:05 Patient medically screened. [facility] 09/01 19:44 Order name: Basic Metabolic Panel [facility] 09/01 19:44 Order name: CBC with Diff [facility] 09/01 19:44 Order name: LFT's [facility] 09/01 19:44 Order name: Magnesium [facility] 09/01 19:44 Order name: NT PRO-BNP [facility] 09/01 19:44 Order name: PT-INR; Complete Time: 20:50 [facility] 09/01 19:44 Order name: Troponin (emerg Dept Use Only); Complete Time: 21:37 [facility] 09/01 19:45 Order name: Basic Metabolic Panel; Complete Time: 21:37 [facility] 09/01 19:45 Order name: CBC with Automated Diff; Complete Time: 20:50 [facility] 09/01 19:45 Order name: Liver (Hepatic) Function; Complete Time: 21:37 [facility] 09/01 19:45 Order name: Magnesium; Complete Time: 21:37 [facility] 09/01 19:45 Order name: NT PRO-BNP; Complete Time: 21:37 [facility] 09/01 19:46 Order name: D-Dimer; Complete Time: 21:14 [facility] 09/01 19:46 Order name: CRP; Complete Time: 21:37 [facility] 09/01 19:46 Order name: Ferritin; Complete Time: 21:37 [facility] 09/01 19:46 Order name: COVID-19/FLU A+B (Document "Date of Onset" if Symptomatic); Complete Time: [facility] 21:37 09/01 19:47 Order name: Blood Culture Adult (2) [facility] 09/01 19:47 Order name: Lactate; Complete Time: 21:14 [facility] 09/01 19:47 Order name: Procalcitonin; Complete Time: 22:13 [facility] 09/01 19:56 Order name: Arterial Blood Gas; Complete Time: 20:50 [facility] 09/01 20:48 Order name: CBC Smear Scan; Complete Time: 20:50 [facility] 09/01 22:17 Order name: Arterial Blood Gas [facility] 09/01 22:17 Order name: ABG Arterial Blood Gas [facility] 09/02 00:15 Order name: Lactate Sepsis 2 HR Follow-up [facility] 09/02 04:37 Order name: CBC with Automated Diff [facility] 09/02 05:14 Order name: Comprehensive Metabolic Panel [facility] 09/02 05:14 Order name: Phosphorus [facility] 09/02 05:14 Order name: Lipid Profile [facility] 09/02 05:14 Order name: C-Reactive Protein [facility] 09/02 05:14 Order name: T4 Free [facility] 09/02 05:14 Order name: Magnesium [facility] 09/02 05:14 Order name: Thyroid Stimulating Hormone [facility] 09/02 05:14 Order name: Ferritin [facility] 09/02 05:19 Order name: Troponin I [facility] 09/02 05:44 Order name: Procalcitonin [facility] 09/02 09:11 Order name: Glucose, Ancillary Testing [facility] 09/02 13:26 Order name: Glucose, Ancillary Testing [facility] 09/02 13:37 Order name: Troponin I [facility] 09/02 17:33 Order name: Glucose, Ancillary Testing [facility] 09/03 00:09 Order name: Urinalysis [facility] 09/03 00:26 Order name: Urine Microscopic Only [facility] 09/03 06:38 Order name: CBC with Automated Diff [facility] 09/03 06:51 Order name: Comprehensive Metabolic Panel [facility] 09/03 06:51 Order name: Liver (Hepatic) Function [facility] 09/03 06:51 Order name: C-Reactive Protein ED[facility] 09/03 06:51 Order name: Ferritin EDMS 09/03 06:57 Order name: CBC Smear Scan [facility] 09/03 07:01 Order name: Procalcitonin EDMS 09/03 07:08 Order name: Glucose, Ancillary Testing EDMS 09/03 12:31 Order name: Glucose, Ancillary Testing [facility] 09/03 16:29 Order name: Glucose, Ancillary Testing [facility] 09/03 20:05 Order name: Glucose, Ancillary Testing [facility] 09/04 04:35 Order name: CBC with Automated Diff [facility] 09/04 04:40 Order name: Comprehensive Metabolic Panel [facility] 09/04 04:40 Order name: Liver (Hepatic) Function [facility] 09/04 04:40 Order name: C-Reactive Protein ED[facility] 09/04 04:40 Order name: Ferritin EDMS 09/04 05:20 Order name: Procalcitonin EDMS 09/04 08:20 Order name: Glucose, Ancillary Testing ED[facility] 09/04 08:25 Order name: Urine Culture [facility] 09/04 11:32 Order name: Glucose, Ancillary Testing [facility] 09/04 16:50 Order name: Glucose, Ancillary Testing [facility] 09/01 19:44 Order name: XRAY Chest (1 view); Complete Time: 20:17 mh7 09/01 19:44 Order name: EKG; Complete Time: 19:45 mh7 09/01 19:44 Order name: Cardiac monitoring; Complete Time: 20:14 [facility] 09/01 19:44 Order name: EKG - Nurse/Tech; Complete Time: 22:12 [facility] 09/01 19:44 Order name: IV Saline Lock; Complete Time: 20:14 [facility] 09/01 19:44 Order name: Labs collected and sent; Complete Time: 20:14 [facility] 09/01 19:44 Order name: O2 Per Protocol; Complete Time: 20:14 [facility] 09/01 19:44 Order name: O2 Sat Monitoring; Complete Time: 20:14 [facility] 09/01 19:44 Order name: Urine Dipstick-Ancillary (obtain specimen) [facility] 09/01 19:47 Order name: BIPAP [facility] 09/01 20:52 Order name: CT Head Brain wo Cont; Complete Time: 22:13 [facility] 09/01 20:52 Order name: CT Chest For PE Angio; Complete Time: 22:13 [facility] 09/01 23:12 Order name: CONS Physician Consult [facility] 09/04 16:29 Order name: CT [facility] 09/04 22:37 Order name: Glucose, Ancillary Testing [facility] 09/05 04:01 Order name: CBC with Automated Diff [facility] 09/05 04:16 Order name: Comprehensive Metabolic Panel [facility] 09/05 04:16 Order name: Liver (Hepatic) Function [facility] 09/05 04:16 Order name: C-Reactive Protein [facility] 09/05 04:16 Order name: Ferritin [facility] 09/05 04:45 Order name: Procalcitonin [facility] 09/05 07:55 Order name: Glucose, Ancillary Testing [facility] 09/05 11:04 Order name: Glucose, Ancillary Testing [facility] 09/05 16:59 Order name: Glucose, Ancillary Testing [facility] Administered Medications: 20:07 Drug: Tylenol 650 mg Route: PO; sm5 20:20 Drug: NS 0.9% 1000 ml Route: IV; Rate: 1000 ml; Site: right antecubital; sm5 21:30 Drug: Rocephin (cefTRIAXone) 1 grams Route: IV; Rate: per protocol; Site: right sm5 antecubital; 21:41 Drug: AZITHromycin 500 mg Route: IVPB; Infused Over: 1 hrs; Site: right antecubital; 5 21:57 Drug: Zofran (Ondansetron) 4 mg Route: IVP; Site: right antecubital; sm5 22:03 Drug: SOLU-Medrol (methylPrednisoLONE) 80 mg Route: IVP; Site: right antecubital; sm5 22:03 Drug: Albuterol HFA Inhaler 2 puffs Route: Inhalation; sm5 22:19 Drug: Lovenox (enoxaparin) 1 mg/kg Route: Sub-Q; Site: right upper abdomen; sm5 23:18 Not Given (Physician Discretion): NS 0.9% 1000 ml IV at 1000 ml once sm5 Disposition Summary: 09/01/21 23:05 Hospitalization Ordered Hospitalization Status: Inpatient Admission [facility] Provider: Julianna Guzman Condition: Fair [facility] Problem: an ongoing problem [facility] Symptoms: have improved [facility] Bed/Room Type: Standard [facility] Location: Telemetry/MedSurg (Inpatient)(09/05/21 16:24) dw Room Assignment: [facility](09/05/21 16:24) Diagnosis - Pneumonia due to SARS-associated coronavirus [facility] - Pulmonary emboli [facility] - Hypoxia [facility] - Elevated troponin level [facility] Forms: - Medication Reconciliation Form [facility] - SBAR form [facility] Signatures: Dispatcher [employer] EDMS Paige Mathis RN RN mw Woody, Diana, RN RN dw Holmes, Maurice, MD MD [facility] Laurel Murguia RN RN 5 Corrections: (The following items were deleted from the chart) 09/02 00:12 09/01 23:05 [facility]urg [facility]Inpatient) [facility] 09/02 00:12 09/01 23:05 critical access hospital 09/05 16:24 09/02 00:12 [facility] ER HOLD mw 09/05 16:24 09/02 00:12 ERHOLD- [facility]
[2021-09-01 23:17] LABS: Arterial Blood Carboxyhemoglob 1.2 % (0-1.5)
[2021-09-01 23:19] LABS: Blood O2 Saturation 98.4 % (92-98.5)
[2021-09-01 23:20] LABS: Blood Gas Oxyhemoglobin 96.5 % (94-97)
--- NOTE | 2021-09-01 23:41 | P.HP ---
Certification for Inpatient Patient admitted to: Inpatient With expected LOS: >2 Midnights Patient will require the following post-hospital care: None Practitioner: I am a practitioner with admitting privileges, knowledge of patient current condition, hospital course, and medical plan of care. Services: Services provided to patient in accordance with Admission requirements found in Title 42 Section 412.3 of the Code of Federal Regulations <Catracho Calles Jamshid - Last Filed: 09/01/21 23:34> Patient History Date of Service: 09/01/21 Primary Care Provider: Juan Pablo Reason for admission: covid pneumonia, pulmonary embolism History of Present Illness: Ms. Arango is a 40 yo F who presents to the emergency room with symptoms of fever, malaise, and SOB. She is 60% on room air upon arrival, and placed on BIPAP. She was tachycardic to the 140s with a temperature of 101F. She says for the past few weeks she has had cough productive of thick sputum, N/V/D, pleuritic pain, weakness. She tested positive for COVID after [facility]. She went to [facility] and received cough medications and steroids, [place] to [place] [id number] Na 133 Cl 93 GFR 53 Glu 152 AST 65 lactate 2.4 Ferritin 1323 CRP 165 BNP 1206 Procal 0.07 Troponin 0.34. She received full dose lovenox, azithromycin and ceftriaxone, and fluids in the ED. CXR IMPRESSION: Moderate to marked bilateral pulmonary opacities may represent pneumonia or pulmonary edema CTPE IMPRESSION: Small amount of bilateral pulmonary emboli. 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, lives with her family - Family History Mother -: Hypertension - Social History Smoking Status: Current every day smoker Alcohol use: No CD- Drugs: No Caffeine use: No Place of Residence: Home <StevanCatracho - Last Filed: 09/01/21 23:34> Date of Service: 09/01/21 <Julianna Guzman - Last Filed: 09/04/21 20:54> Allergies ciprofloxacin Allergy (Severe, Verified 11/12/20 20:25) Nausea/Vomiting codeine Allergy (Severe, Verified 11/12/20 20:25) Nausea/Vomiting Home Medications: Amoxicillin/Potassium Clav [Augmentin 875-125 Tablet] 1 tab PO Q8H 10 Days #30 tablet 12/06/20 metroNIDAZOLE [Flagyl] 500 mg PO Q8H 10 Days #30 tablet 12/06/20 Review of Systems 10-point ROS is otherwise unremarkable General: Fever, Sweats, Weakness, Malaise Eyes: Unremarkable ENT: Unremarkable Respiratory: Cough, Shortness of Breath, SOB with Excertion, Pleuritic Pain, Sputum Cardiovascular: Unremarkable Gastrointestinal: Nausea, Vomiting, Diarrhea Genitourinary: Unremarkable Musculoskeletal: Unremarkable Integumentary: Unremarkable Neurological: Unremarkable Lymphatics: Unremarkable <Catracho Calles - Last Filed: 09/01/21 23:34> Physical Examination - Physical Exam General: In no apparent distress HEENT: Atraumatic, PERRLA, Mucous membr. moist/pink, EOMI, Sclerae nonicteric Neck: Supple, 2+ carotid pulse no bruit, No LAD, Without JVD or thyroid abnormality Respiratory: Diminished Cardiovascular: Normal S1 S2, Irregular heart rate/rhythm Gastrointestinal: Normal bowel sounds, No tenderness Musculoskeletal: No tenderness Integumentary: No rashes Neurological: Normal strength at 5/5 x4 extr, Normal tone, Normal affect Lymphatics: No axilla or inguinal lymphadenopathy - Studies Laboratory Data (last 24 hrs) 09/01/21 20:04: PT 13.5 H, INR 1.17 09/01/21 20:04: WBC 10.20, Hgb 12.8, Hct 38.6, Plt Count 343 09/01/21 20:04: Sodium 133 L, Potassium 3.6, BUN 13, Creatinine 1.13, Glucose 152 H, Magnesium 2.3, Total Bilirubin 0.6, AST 65 H, ALT 61, Alkaline Phosphatase 65 <Catracho Calles - Last Filed: 09/01/21 23:34> Assessment and Plan - Problems (Diagnosis) (1) Pneumonia due to COVID-19 virus Current Visit: Yes Status: Acute (2) Pulmonary embolism Current Visit: Yes Status: Acute Qualifiers: Pulmonary embolism type: unspecified Chronicity: acute Acute cor pulmonale presence: unspecified Qualified Code(s): I26.99 - Other pulmonary embolism without acute cor pulmonale (3) Elevated troponin Current Visit: Yes Status: Acute - Plan pulmonology consulted, RT consulted continue IV steroids, covid supplements continue to wean O2 daily CRP, ferritin, procal continue full dose lovenox antipyretics as needed trend troponins Discharge Plan: Home Plan to discharge in: Greater than 2 days - Advance Directives Does patient have a Living Will: No Does patient have a Durable POA for Healthcare: No - Code Status/Comfort Care Code Status Assessed: Yes (full code ) Critical Care: No Time Spent Managing Pts Care (In Minutes): 70 <Catracho Calles - Last Filed: 09/01/21 23:34> - Problems (Diagnosis) (1) Pneumonia due to COVID-19 virus Current Visit: Yes Status: Acute (2) Pulmonary embolism Current Visit: Yes Status: Acute Qualifiers: Pulmonary embolism type: unspecified Chronicity: acute Acute cor pulmonale presence: unspecified Qualified Code(s): I26.99 - Other pulmonary embolism without acute cor pulmonale (3) Altered mental status Current Visit: Yes Status: Acute (4) Hypoxemia Current Visit: Yes Status: Acute <Julianna Guzman - Last Filed: 09/04/21 20:54> Date of Service: 09/01/21 Subjective Agree with the HPI as mentioned above Review of Systems 10-point ROS is otherwise unremarkable Physical Examination - Vital Signs Reviewed - Physical Exam General: Alert, In no apparent distress, Oriented x3 Respiratory: Diminished, Rhonchi/gurgles Cardiovascular: Regular rate/rhythm, Normal S1 S2, No murmurs Gastrointestinal: Normal bowel sounds, Soft and benign, Non-distended, No tenderness Musculoskeletal: No clubbing, No swelling, No tenderness Neurological: Normal strength at 5/5 x4 extr, Sensation intact, Cranial nerves 3-12 intact Assessment & Plan - Problems (Diagnosis) (1) Pneumonia due to COVID-19 virus Current Visit: Yes Status: Acute (2) Pulmonary embolism Current Visit: Yes Status: Acute Qualifiers: Pulmonary embolism type: unspecified Chronicity: acute Acute cor pulmonale presence: unspecified Qualified Code(s): I26.99 - Other pulmonary e mbolism without acute cor pulmonale (3) Altered mental status Current Visit: Yes Status: Acute (4) Hypoxemia Current Visit: Yes Status: Acute - Plan Continue with plan of care as mentioned below: 1. Continue with IV steroids 2. Monitor inflammatory markers 3. Repeat chest x-ray 4. O2 per protocol 5. Pulmonary consultation 6. Continue with albuterol inhaler therapy; also supportive care 7. Continue with anti coagulation 8. GI and DVT prophylaxis <Julianna Guzman - Last Filed: 09/04/21 20:54>
[2021-09-02] MEDS ORDERED: METOPROLOL TARTRATE 5 MG/5 ML INJ IV PRN (00:32)
[2021-09-02] MEDS ORDERED: IBUPROFEN 400 MG TAB PO PRN (00:32)
[2021-09-02] MEDS ORDERED: ACETAMINOPHEN 500 MG TAB PO PRN (00:32)
[2021-09-02 00:35] VITALS: BMI 36.6
[2021-09-02 04:27] LABS: Absolute Lymphocytes (CBC) 0.4 K/uL (0.7-4.9); Hematocrit 36.1 % (36.0-45.0); Lymphocytes % 5.8 % (15.3-44.8); MPV 7.9 fL (7.6-11.3); RBC Red Blood Cell Count 4.31 M/uL (3.86-4.86)
[2021-09-02 05:13] LABS: Albumin 2.2 g/dL (3.4-5.0); Bilirubin Total 0.4 mg/dL (0.2-1.0); Ferritin 1211.8 ng/mL (8-388); Magnesium 2.6 mg/dL (1.8-2.4); Potassium 3.9 mmol/L (3.5-5.1); Protein, Total 6.7 g/dL (6.4-8.2); Thyroid Stimulating Hormone 0.145 uIU/mL (0.360-3.740)
[2021-09-02] MEDS ORDERED: BENZONATATE 100 MG CAP PO ONE ×2 (05:27→09:35)
[2021-09-02] MEDS: BENZONATATE 100 MG CAP PO PRN (05:28)
[2021-09-02] MEDS: INSULIN -REGULAR HUMAN 50 UNIT/0.5 ML ML SQ SCH ×4 (07:30→21:00)
[2021-09-02] MEDS: VITAMIN D 1000 UNIT TAB PO SCH ×2 (09:00)
[2021-09-02] MEDS: ZINC SULFATE 220 MG CAP PO SCH (09:00)
[2021-09-02] MEDS ORDERED: INFLUENZA VACCINE (for 6+ mo) 0.5 ML DOSE IMVAC ONE (09:00)
[2021-09-02] MEDS: THIAMINE HCL 100 MG TABLET PO SCH (09:00)
[2021-09-02] MEDS: METHYLPREDNISOLONE 125 MG INJ IV SCH ×2 (09:00→19:40)
[2021-09-02] MEDS: FAMOTIDINE 20 MG TAB PO SCH ×2 (09:00→20:50)
[2021-09-02] MEDS: ASCORBIC ACID 500 MG TABLET PO SCH ×5 (09:00→20:51)
[2021-09-02] MEDS: ASPIRIN EC 81 MG TAB PO SCH (09:00)
[2021-09-02] MEDS ORDERED: METHYLPREDNISOLONE 125 MG INJ ONE (09:17)
[2021-09-02] MEDS ORDERED: ONDANSETRON 4 MG/2 ML VIAL ONE (09:18)
[2021-09-02] MEDS ORDERED: FAMOTIDINE 20 MG TAB ONE (09:18)
[2021-09-02] MEDS ORDERED: ASPIRIN EC 81 MG TAB PO ONE (09:18)
[2021-09-02] MEDS ORDERED: ENOXAPARIN 40 MG/0.4 ML SQ ONE (09:35)
[2021-09-02] MEDS: ONDANSETRON 4 MG/2 ML VIAL IV PRN (09:39)
[2021-09-02] MEDS: MORPHINE 2 MG/ML SYR IV PRN (09:39)
[2021-09-02] MEDS ORDERED: MORPHINE 2 MG/ML SYR ONE (09:44)
[2021-09-02] MEDS ORDERED: ENOXAPARIN 100 MG/ML SYR SQ SCH (10:00)
--- NOTE | 2021-09-02 11:07 | P.CNS ---
Date of Consult: 09/02/21 Primary Care Provider: Juan Pablo Chief Complaint: covid pneumonia, pulmonary embolism History of Present Illness: Patient is 40 years of age admitted with coronavirus pneumonia and bilateral pulmonary emboli is not been vaccinated still complaining of cough shortness of breath he is on high levels of oxygen no significant change since admission Allergies ciprofloxacin Allergy (Severe, Verified 11/12/20 20:25) Nausea/Vomiting codeine Allergy (Severe, Verified 11/12/20 20:25) Nausea/Vomiting Home Medications: Amoxicillin/Potassium Clav [Augmentin 875-125 Tablet] 1 tab PO Q8H 10 Days #30 tablet 12/06/20 metroNIDAZOLE [Flagyl] 500 mg PO Q8H 10 Days #30 tablet 12/06/20 - Past Medical/Surgical History Diabetic: No -: Endemetriosis -: Diverticulitis -: Cholecystectomy -: hysterectomy -: appendectomy -: tonsillectomy -: shoulder surgery Psychosocial/ Personal History: 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, lives with 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 family - Family History Mother Medical History: Hypertension - Social History Alcohol use: No CD- Drugs: No Caffeine use: No Place of Residence: Home Review of Systems Respiratory: Cough, Shortness of Breath Physical Examination Temp Pulse Resp BP Pulse Ox 98.4 F 117 H 35 H 117/73 76 L 09/02/21 00:00 09/02/21 04:00 09/02/21 04:00 09/02/21 04:00 09/02/21 04:00 Laboratory Data (last 24 hrs) 09/01/21 20:04: PT 13.5 H, INR 1.17 09/01/21 20:04: WBC 10.20, Hgb 12.8, Hct 38.6, Plt Count 343 09/01/21 20:04: Sodium 133 L, Potassium 3.6, BUN 13, Creatinine 1.13, Glucose 152 H, Magnesium 2.3, Total Bilirubin 0.6, AST 65 H, ALT 61, Alkaline Phosphatase 65 - Problems (1) Pneumonia due to COVID-19 virus Current Visit: Yes Status: Acute Plan: Patient is 40 years of age admitted with pulmonary emboli and coronavirus pneumonia changed to p.o. Eliquis continue with present dose of steroids pharmacy consult for Barcitinib CT scan consistent with coronavirus pneumonia she is very hypoxic trial of BiPAP
[2021-09-02] MEDS: BUDESONIDE 0.5 MG/2 ML NEB NEB SCH ×2 (12:00→20:20)
[2021-09-02] MEDS: BARICITINIB 2 MG TABLET PO SCH (13:00)
[2021-09-02] MEDS ORDERED: ASCORBIC ACID 500 MG TABLET ONE ×2 (14:09→17:57)
[2021-09-02] MEDS ORDERED: FENTANYL CITR 100 MCG/2 ML ONE ×2 (15:24→19:39)
[2021-09-02] MEDS: FENTANYL CITR 100 MCG/2 ML IV PRN ×2 (15:30→19:40)
[2021-09-02] MEDS ORDERED: METHYLPREDNISOLONE 40 MG INJ ONE (19:39)
[2021-09-02] MEDS ORDERED: APIXABAN 5 MG TABLET ONE (19:39)
[2021-09-02] MEDS: APIXABAN 5 MG TABLET PO SCH (19:40)
[2021-09-02] MEDS ORDERED: BUDESONIDE 0.25 MG/2 ML NEB ONE (20:13)
[2021-09-02] MEDS ORDERED: BUDESONIDE 0.5 MG/2 ML NEB ONE (20:16)
[2021-09-02 23:52] LABS: Urine Appearance CLOUDY (Clear); Urine Bilirubin NEGATIVE (Negative); Urine Blood TRACE (Negative); Urine Color DK YELLOW (Yellow); Urine Glucose NEGATIVE (Negative); Urine Protein 2+ (Negative); Urine Specific Gravity >=1.030 (1.005-1.030)
[2021-09-03] MEDS ORDERED: MELATONIN 5 MG TABLET PO ONE ×2 (00:07→20:00)
[2021-09-03 00:08] LABS: Urine Microscopic Reflex ORDER UMIC
[2021-09-03] MEDS ORDERED: FENTANYL CITR 100 MCG/2 ML ONE ×2 (00:08→04:22)
[2021-09-03] MEDS ORDERED: IBUPROFEN 400 MG TAB ONE (00:08)
[2021-09-03 00:26] LABS: Urine Bacteria >50 /HPF (<20); Urine Mucus 2+ /HPF (NONE SEEN)
[2021-09-03] MEDS: MELATONIN 5 MG TABLET PO PRN ×2 (00:30→20:17)
[2021-09-03] MEDS: FENTANYL CITR 100 MCG/2 ML IV PRN ×2 (00:39→04:33)
[2021-09-03] MEDS ORDERED: BUDESONIDE 0.5 MG/2 ML NEB ONE (06:08)
[2021-09-03 06:33] LABS: Absolute Lymphocytes (CBC) 0.7 K/uL (0.7-4.9); Hematocrit 35.7 % (36.0-45.0); Lymphocytes % 7.9 % (15.3-44.8); MPV 7.9 fL (7.6-11.3); RBC Red Blood Cell Count 4.25 M/uL (3.86-4.86)
[2021-09-03] MEDS: BUDESONIDE 0.5 MG/2 ML NEB NEB SCH ×2 (06:35→21:15)
[2021-09-03 06:49] LABS: Albumin 2.1 g/dL (3.4-5.0); Bilirubin Direct 0.2 mg/dL (0-0.2); Bilirubin Total 0.4 mg/dL (0.2-1.0); C-Reactive Protein 92.6 mg/L (<3.00); Ferritin 1247.5 ng/mL (8-388); Potassium 3.7 mmol/L (3.5-5.1); Protein, Total 6.6 g/dL (6.4-8.2)
[2021-09-03 06:57] LABS: Blood Morphology Comment NOT SEEN (NOT SEEN); Platelet Estimate ADEQ; White Blood Cell Scan OK (OK)
[2021-09-03] MEDS: INSULIN -REGULAR HUMAN 50 UNIT/0.5 ML ML SQ SCH ×4 (07:30→20:16)
[2021-09-03] MEDS ORDERED: ZINC SULFATE 220 MG CAP ONE (09:35)
[2021-09-03] MEDS ORDERED: ASCORBIC ACID 500 MG TABLET ONE ×4 (09:35→20:00)
[2021-09-03] MEDS ORDERED: THIAMINE HCL 100 MG TABLET ONE ×2 (09:35→10:11)
[2021-09-03] MEDS ORDERED: APIXABAN 5 MG TABLET ONE ×2 (09:35→20:01)
[2021-09-03] MEDS ORDERED: METHYLPREDNISOLONE 40 MG INJ ONE ×2 (09:36→20:01)
[2021-09-03] MEDS ORDERED: FAMOTIDINE 20 MG TAB ONE ×2 (09:36→20:02)
[2021-09-03] MEDS ORDERED: VITAMIN D 1000 UNIT TAB ONE ×2 (09:36→10:11)
[2021-09-03] MEDS: THIAMINE HCL 100 MG TABLET PO SCH (09:45)
[2021-09-03] MEDS: APIXABAN 5 MG TABLET PO SCH ×2 (09:45→20:15)
[2021-09-03] MEDS: ZINC SULFATE 220 MG CAP PO SCH (09:45)
[2021-09-03] MEDS: METHYLPREDNISOLONE 125 MG INJ IV SCH ×2 (09:45→20:16)
[2021-09-03] MEDS: ASPIRIN EC 81 MG TAB PO SCH (09:45)
[2021-09-03] MEDS: FAMOTIDINE 20 MG TAB PO SCH ×2 (09:45→20:16)
[2021-09-03] MEDS: VITAMIN D 1000 UNIT TAB PO SCH (09:45)
[2021-09-03] MEDS: BARICITINIB 2 MG TABLET PO SCH (09:45)
[2021-09-03] MEDS: ASCORBIC ACID 500 MG TABLET PO SCH ×4 (09:45→20:16)
[2021-09-03] MEDS ORDERED: ASPIRIN EC 81 MG TAB PO ONE (10:11)
[2021-09-03] MEDS ORDERED: METHYLPREDNISOLONE 125 MG INJ ONE (10:11)
--- NOTE | 2021-09-03 10:20 | P.PN ---
Subjective Date of Service: 09/03/21 Primary Care Provider: Juan Pablo Chief Complaint: covid pneumonia, pulmonary embolism Condition is stable patient is on BiPAP still on high concentrations of oxygen not eating and drinking much Review of Systems General: Weakness Respiratory: Shortness of Breath Physical Examination - Vital Signs Temperature: 98.2 F Blood Pressure: 129/82 Pulse: 92 Respirations: 16 Pulse Ox (%): 92 (On BiPAP) Assessment & Plan - Problems (Diagnosis) (1) Pneumonia due to COVID-19 virus Current Visit: Yes Status: Acute Plan: Patient has respiratory failure with pulmonary embolism patient is on FiO2 of 90% on Barcitinib and steroids med list and labs reviewed no change
[2021-09-03] MEDS: BENZONATATE 100 MG CAP PO PRN (18:47)
[2021-09-03] MEDS ORDERED: BENZONATATE 100 MG CAP PO ONE (18:48)
[2021-09-03] MEDS ORDERED: ONDANSETRON 4 MG/2 ML VIAL ONE (20:01)
[2021-09-03] MEDS ORDERED: MORPHINE 2 MG/ML SYR ONE (20:01)
[2021-09-03] MEDS: ONDANSETRON 4 MG/2 ML VIAL IV PRN (20:17)
[2021-09-03] MEDS: MORPHINE 2 MG/ML SYR IV PRN (20:17)
[2021-09-03] MEDS ORDERED: BUDESONIDE 0.25 MG/2 ML NEB ONE (21:02)
[2021-09-04] MEDS ORDERED: BENZONATATE 100 MG CAP PO ONE (02:00)
[2021-09-04] MEDS ORDERED: ONDANSETRON 4 MG/2 ML VIAL ONE (02:00)
[2021-09-04] MEDS ORDERED: MORPHINE 4 MG/ML SYR ONE (02:00)
[2021-09-04] MEDS: MORPHINE 2 MG/ML SYR IV PRN ×4 (02:42→22:00)
[2021-09-04] MEDS: ONDANSETRON 4 MG/2 ML VIAL IV PRN (02:42)
[2021-09-04] MEDS: BENZONATATE 100 MG CAP PO PRN (02:42)
[2021-09-04 04:34] LABS: Absolute Lymphocytes (CBC) 0.5 K/uL (0.7-4.9); Hematocrit 35.6 % (36.0-45.0); Lymphocytes % 4.8 % (15.3-44.8); MPV 8.3 fL (7.6-11.3); RBC Red Blood Cell Count 4.27 M/uL (3.86-4.86)
[2021-09-04 04:40] LABS: Albumin 2.3 g/dL (3.4-5.0); Bilirubin Direct 0.1 mg/dL (0-0.2); Bilirubin Total 0.5 mg/dL (0.2-1.0); C-Reactive Protein 48.9 mg/L (<3.00); Potassium 3.9 mmol/L (3.5-5.1); Protein, Total 6.5 g/dL (6.4-8.2)
[2021-09-04] MEDS: INSULIN -REGULAR HUMAN 50 UNIT/0.5 ML ML SQ SCH ×4 (07:30→21:00)
[2021-09-04] MEDS: BUDESONIDE 0.5 MG/2 ML NEB NEB SCH (08:01)
[2021-09-04] MEDS ORDERED: ASCORBIC ACID 500 MG TABLET ONE ×4 (08:46→22:29)
[2021-09-04] MEDS ORDERED: METHYLPREDNISOLONE 125 MG INJ ONE ×2 (08:46→22:29)
[2021-09-04] MEDS ORDERED: THIAMINE HCL 100 MG TABLET ONE (08:46)
[2021-09-04] MEDS ORDERED: ZINC SULFATE 220 MG CAP ONE (08:47)
[2021-09-04] MEDS ORDERED: APIXABAN 5 MG TABLET ONE ×2 (08:47→22:30)
[2021-09-04] MEDS ORDERED: ASPIRIN EC 81 MG TAB PO ONE (08:47)
[2021-09-04] MEDS ORDERED: VITAMIN D 1000 UNIT TAB ONE (08:47)
[2021-09-04] MEDS ORDERED: FAMOTIDINE 20 MG TAB ONE ×2 (08:48→22:30)
[2021-09-04] MEDS: APIXABAN 5 MG TABLET PO SCH ×2 (09:00→21:00)
[2021-09-04] MEDS: METHYLPREDNISOLONE 125 MG INJ IV SCH ×2 (09:00→21:00)
[2021-09-04] MEDS: ASCORBIC ACID 500 MG TABLET PO SCH ×4 (09:00→21:00)
[2021-09-04] MEDS: BARICITINIB 2 MG TABLET PO SCH (09:00)
[2021-09-04] MEDS: THIAMINE HCL 100 MG TABLET PO SCH (09:00)
[2021-09-04] MEDS: ASPIRIN EC 81 MG TAB PO SCH (09:00)
[2021-09-04] MEDS: VITAMIN D 1000 UNIT TAB PO SCH (09:00)
[2021-09-04] MEDS: FAMOTIDINE 20 MG TAB PO SCH ×2 (09:00→21:00)
[2021-09-04] MEDS: ZINC SULFATE 220 MG CAP PO SCH (09:00)
[2021-09-04] MEDS ORDERED: MORPHINE 2 MG/ML SYR ONE ×3 (09:44→22:30)
--- NOTE | 2021-09-04 16:28 | RAD REPORT ---
EXAM DESCRIPTION: CTAbdomen Pelvis W Contrast - 09/04/2021 4:19 pm CLINICAL HISTORY: pain COMPARISON: Abdomen Pelvis W Contrast dated 12/03/2020; Abdomen Pelvis W Contrast dated 11/12/2020 TECHNIQUE: CT of the abdomen and pelvis was performed. All CT scans are performed using dose optimization technique as appropriate and may include automated exposure control or mA/KV adjustment according to patient size. FINDINGS: Lower chest: Severe bilateral widespread airspace disease. Small pleural effusions. Liver: No acute abnormality or suspicious lesions. Biliary: Cholecystectomy Stomach: No significant focal abnormality. Duodenum: No significant focal abnormality. Pancreas: No significant abnormality. Spleen: No significant abnormality. Adrenal: No suspicious lesions. Kidney/ureter: No hydronephrosis. No renal calculi. Retroperitoneum: No retroperitoneal adenopathy. Vascular: No aneurysm. Bowel: No significant focal abnormality. Diverticulosis. No evidence of acute diverticulitis. Appendi x Peritoneum: No ascites or free air. Bladder: Grossly unremarkable. Reproductive: No adnexal masses. Hysterectomy. Bones: No acute fracture. Other: n/a IMPRESSION: No acute intra-abdominal or pelvic finding. Severe airspace disease in the lung bases concerning for multifocal pneumonia, including Covid-19.
--- NOTE | 2021-09-04 20:52 | P.PN ---
Subjective Date of Service: 09/02/21 Patient is severely hypoxic. Patient is tachypneic and is alternating between BiPAP and high-flow oxygen. Continue with IV steroids. Cough medication as needed. Review of Systems 10-point ROS is otherwise unremarkable Physical Examination - Vital Signs Temperature: 98.2 F Blood Pressure: 138/80 Pulse: 87 Respirations: 17 Pulse Ox (%): 100 - Physical Exam General: Alert, In no apparent distress, Oriented x3 Respiratory: Diminished, Rhonchi/gurgles Cardiovascular: Regular rate/rhythm, Normal S1 S2, No murmurs Gastrointestinal: Normal bowel sounds, Soft and benign, Non-distended, No tenderness Musculoskeletal: No clubbing, No swelling, No tenderness Neurological: Normal strength at 5/5 x4 extr, Sensation intact, Cranial nerves 3-12 intact - Studies Medications List Reviewed: Yes Assessment & Plan - Problems (Diagnosis) (1) Pneumonia due to COVID-19 virus Current Visit: Yes Status: Acute (2) Pulmonary embolism Current Visit: Yes Status: Acute Qualifiers: Pulmonary embolism type: unspecified Chronicity: acute Acute cor pulmonale presence: unspecified Qualified Code(s): I26.99 - Other pulmonary embolism without acute cor pulmonale (3) Altered mental status Current Visit: Yes Status: Acute (4) Hypoxemia Current Visit: Yes Status: Acute - Plan 1. Continue with IV steroids 2. Monitor inflammatory markers 3. Repeat chest x-ray 4. O2 per protocol 5. Pulmonary consultation 6. Continue with albuterol inhaler therapy; also supportive care 7. Continue with anti coagulation 8. GI and DVT prophylaxis Discharge Plan: Home Plan to discharge in: Greater than 2 days - Advance Directives Does patient have a Living Will: No Does patient have a Durable POA for Healthcare: No - Code Status/Comfort Care Code Status Assessed: Yes Code Status: Full Code Critical Care: No Time Spent Managing PTS Care (In Minutes): 35
--- NOTE | 2021-09-04 20:56 | P.PN ---
Date of Service: 09/03/21 Subjective Patient still not really improving. Continues on high-flow oxygen. Review of Systems 10-point ROS is otherwise unremarkable Physical Examination - Vital Signs Reviewed - Physical Exam General: Alert, In no apparent distress, Oriented x3 Respiratory: Diminished, Rhonchi/gurgles Cardiovascular: Regular rate/rhythm, Normal S1 S2, No murmurs Gastrointestinal: Normal bowel sounds, Soft and benign, Non-distended, No tenderness Musculoskeletal: No clubbing, No swelling, No tenderness Neurological: Normal strength at 5/5 x4 extr, Sensation intact, Cranial nerves 3-12 intact Assessment & Plan - Problems (Diagnosis) (1) Pneumonia due to COVID-19 virus Current Visit: Yes Status: Acute (2) Pulmonary embolism Current Visit: Yes Status: Acute Qualifiers: Pulmonary embolism type: unspecified Chronicity: acute Acute cor pulmonale presence: unspecified Qualified Code(s): I26.99 - Other pulmonary embolism without acute cor pulmonale (3) Altered mental status Current Visit: Yes Status: Acute (4) Hypoxemia Current Visit: Yes Status: Acute - Plan Continue with plan of care as mentioned below: 1. Continue with IV steroids 2. Monitor inflammatory markers 3. Repeat chest x-ray 4. O2 per protocol 5. Pulmonary consultation 6. Continue with albuterol inhaler therapy; also supportive care 7. Continue with anti coagulation 8. GI and DVT prophylaxis Discharge Plan: Home Plan to discharge in: Greater than 2 days - Advance Directives Does patient have a Living Will: No Does patient have a Durable POA for Healthcare: No - Code Status/Comfort Care Code Status Assessed: Yes Code Status: Full Code Critical Care: No Time Spent Managing PTS Care (In Minutes): 35
--- NOTE | 2021-09-04 21:00 | P.PN ---
Date of Service: 09/04/21 Subjective Patient is starting to look a little bit better. Remains hypoxia and on high- flow oxygen. Oxygen saturations are 100% on 100% FiO2. Review of Systems 10-point ROS is otherwise unremarkable Physical Examination - Vital Signs Reviewed - Physical Exam General: Alert, In no apparent distress, Oriented x3 Respiratory: Diminished, Rhonchi/gurgles Cardiovascular: Regular rate/rhythm, Normal S1 S2, No murmurs Gastrointestinal: Normal bowel sounds, Soft and benign, Non-distended, No tenderness Musculoskeletal: No clubbing, No swelling, No tenderness Neurological: Normal strength at 5/5 x4 extr, Sensation intact, Cranial nerves 3-12 intact Assessment & Plan - Problems (Diagnosis) (1) Pneumonia due to COVID-19 virus Current Visit: Yes Status: Acute (2) Pulmonary embolism Current Visit: Yes Status: Acute Qualifiers: Pulmonary embolism type: unspecified Chronicity: acute Acute cor pulmonale presence: unspecified Qualified Code(s): I26.99 - Other pulmonary embolism without acute cor pulmonale (3) Altered mental status Current Visit: Yes Status: Acute (4) Hypoxemia Current Visit: Yes Status: Acute - Plan Continue with plan of care as mentioned below: 1. Continue with IV steroids 2. Mental status has improved 3. Repeat chest x-ray 4. Remains on high-flow oxygen 5. Pulmonary consultation appreciated 6. Nebulizer therapy if in a negative pressure room 7. Continue with anti coagulation 8. GI and DVT prophylaxis Discharge Plan: Home Plan to discharge in: Greater than 2 days - Advance Directives Does patient have a Living Will: No Does patient have a Durable POA for Healthcare: No - Code Status/Comfort Care Code Status Assessed: Yes Code Status: Full Code Critical Care: No Time Spent Managing PTS Care (In Minutes): 35
[2021-09-05] MEDS ORDERED: ARFORMOTEROL TARTRATE 15 MCG/2 ML VIAL.NEB ONE (01:53)
[2021-09-05] MEDS: BUDESONIDE 0.5 MG/2 ML NEB NEB SCH ×3 (02:00→21:40)
[2021-09-05 03:51] LABS: Absolute Lymphocytes (CBC) 0.5 K/uL (0.7-4.9); Hematocrit 38.3 % (36.0-45.0); Lymphocytes % 3.3 % (15.3-44.8); MPV 8.1 fL (7.6-11.3); RBC Red Blood Cell Count 4.61 M/uL (3.86-4.86)
[2021-09-05] MEDS ORDERED: FENTANYL CITR 100 MCG/2 ML ONE (04:03)
[2021-09-05] MEDS: FENTANYL CITR 100 MCG/2 ML IV PRN ×2 (04:10→18:46)
[2021-09-05 04:16] LABS: Albumin 2.5 g/dL (3.4-5.0); Bilirubin Direct 0.2 mg/dL (0-0.2); Bilirubin Total 0.6 mg/dL (0.2-1.0); C-Reactive Protein 27.3 mg/L (<3.00); Ferritin 1001.5 ng/mL (8-388); Potassium 4.1 mmol/L (3.5-5.1); Protein, Total 6.9 g/dL (6.4-8.2)
[2021-09-05] MEDS: INSULIN -REGULAR HUMAN 50 UNIT/0.5 ML ML SQ SCH ×4 (07:30→21:00)
[2021-09-05] MEDS ORDERED: ZINC SULFATE 220 MG CAP ONE (07:59)
[2021-09-05] MEDS ORDERED: ASCORBIC ACID 500 MG TABLET ONE ×3 (07:59→16:51)
[2021-09-05] MEDS ORDERED: APIXABAN 5 MG TABLET ONE (07:59)
[2021-09-05] MEDS ORDERED: VITAMIN D 1000 UNIT TAB ONE (07:59)
[2021-09-05] MEDS ORDERED: THIAMINE HCL 100 MG TABLET ONE (07:59)
[2021-09-05] MEDS ORDERED: ASPIRIN 325 MG TAB ONE (07:59)
[2021-09-05] MEDS ORDERED: FAMOTIDINE 20 MG TAB ONE (08:00)
[2021-09-05] MEDS ORDERED: METHYLPREDNISOLONE 40 MG INJ ONE (08:00)
[2021-09-05] MEDS ORDERED: MORPHINE 2 MG/ML SYR ONE ×2 (08:01→13:36)
[2021-09-05] MEDS: ASPIRIN EC 81 MG TAB PO SCH (08:04)
[2021-09-05] MEDS: ASCORBIC ACID 500 MG TABLET PO SCH ×4 (08:04→22:00)
[2021-09-05] MEDS: THIAMINE HCL 100 MG TABLET PO SCH (08:04)
[2021-09-05] MEDS: VITAMIN D 1000 UNIT TAB PO SCH (08:04)
[2021-09-05] MEDS: BARICITINIB 2 MG TABLET PO SCH (08:04)
[2021-09-05] MEDS: FAMOTIDINE 20 MG TAB PO SCH ×2 (08:05→21:59)
[2021-09-05] MEDS: APIXABAN 5 MG TABLET PO SCH ×2 (08:05→22:00)
[2021-09-05] MEDS: ZINC SULFATE 220 MG CAP PO SCH (08:05)
[2021-09-05] MEDS: METHYLPREDNISOLONE 125 MG INJ IV SCH ×2 (08:05→22:00)
[2021-09-05] MEDS: MORPHINE 2 MG/ML SYR IV PRN ×2 (08:06→13:36)
--- NOTE | 2021-09-05 11:12 | P.PN ---
Subjective Date of Service: 09/05/21 Primary Care Provider: Juan Pablo Chief Complaint: covid pneumonia, pulmonary embolism Condition stable respiratory failure still requiring high concentrations of oxygen on BiPAP Review of Systems General: Weakness Respiratory: Shortness of Breath Physical Examination - Vital Signs Temperature: 98.2 F Blood Pressure: 129/74 Pulse: 84 Respirations: 18 Pulse Ox (%): 100 - Physical Exam General: Alert, Cooperative - Studies Medications List Reviewed: Yes Assessment & Plan - Problems (Diagnosis) (1) Pneumonia due to COVID-19 virus Current Visit: Yes Status: Acute Plan: Continue with present therapy still requiring high concentrations of oxygen not eating and drinking well no change in present therapy continue to monitor and consider Dobbhoff tube if patient does not eat or drink much
--- NOTE | 2021-09-05 13:50 | ECHO ---
HEIGHT: 5 ft 2 in WEIGHT: 200 lb 0 oz DATE OF STUDY: REFER DR: Catracho Calles 2-DIMENSIONAL: YES M.MODE: YES DOPPLER: YES COLOR FLOW: YES TDS: NO PORTABLE: NO DEFINITY: NO BUBBLE STUDY: NO DIAGNOSIS: ELEVATED TROPONIN CARDIAC HISTORY: CATHERIZATION: SURGERY: PROSTHETIC VALVE: PACEMAKER: MEASUREMENTS (cm) DIASTOLIC (NORMALS) SYSTOLIC (NORMALS) IVSd 0.9 (0.6-1.2) LA Diam 2.9 (1.9-4.0) LVEF 55-60% LVIDd 4.4 (3.5-5.7) LVIDs 3.3 (2.0-3.5) %FS 26% LVPWd 0.9 (0.6-1.2) Ao Diam 3.0 (2.0-3.7) 2 DIMENSIONAL ASSESSMENT: RIGHT ATRIUM: NORMAL LEFT ATRIUM: NORMAL RIGHT VENTRICLE: NORMAL LEFT VENTRICLE: NORMAL TRICUSPID VALVE: MILD TRICUSPID REGURGITATION MITRAL VALVE: NORMAL PULMONIC VALVE: NORMAL. AORTIC VALVE: MILD AORTIC REGURGITATION PERICARDIAL EFFUSION: NONE AORTIC ROOT: NORMAL LEFT VENTRICULAR WALL MOTION: NORMAL. DOPPLER/COLOR FLOW: SEE BELOW. COMMENTS: NORMAL LEFT VENTRICULAR EJECTION FRACTION 55-60%. NORMAL WALL MOTION. MILD AORTIC REGURGITATION, MILD MITRAL REGURGITATION. MILD TRICUSPID REGURGITATION. TECHNOLOGIST: BESSIE HIGH
--- NOTE | 2021-09-05 16:35 | P.PN ---
Subjective Date of Service: 09/05/21 Primary Care Provider: Dr. Alemida Chief Complaint: covid pneumonia, pulmonary embolism Subjective: Other (Patient currently on high flow.) Physical Examination - Vital Signs Temperature: 98.2 F Blood Pressure: 129/74 Pulse: 84 Respirations: 18 Pulse Ox (%): 100 - Studies Medications List Reviewed: Yes Assessment & Plan Discharge Plan: Home Plan to discharge in: Greater than 2 days Physician Review Additional Text: COVID: Positive CT Chest: COMPARISON: None. TECHNIQUE: Dynamically enhanced axial 3 mm thick images of the chest were obtained during administration of <100> mL Isovue 370 IV contrast. Coronal and oblique reconstruction images were generated and reviewed. Exam utilizes a protocol for optimal evaluation of pulmonary arterial tree. Maximum intensity projections 3D imaging was utilized All CT scans are performed using dose optimization technique as appropriate and may include automated exposure control or mA/KV adjustment according to patient size. FINDINGS: Small amount of thrombus within subsegmental right upper lobe and left lower lobe pulmonary arteries. No thrombus within the main pulmonary, right and left main pulmonary arteries. A thoracic aortic aneurysm is not noted. A pleural effusion is not seen. A pericardial effusion is not seen. Moderate to marked bilateral ground-glass opacities IMPRESSION: Small amount of bilateral pulmonary emboli. CT Abdomen: COMPARISON: Abdomen Pelvis W Contrast dated 12/03/2020; Abdomen Pelvis W Contrast dated 11/12/2020 TECHNIQUE: CT of the abdomen and pelvis was performed. All CT scans are performed using dose optimization technique as appropriate and may include automated exposure control or mA/KV adjustment according to patient size. FINDINGS: Lower chest: Severe bilateral widespread airspace disease. Small pleural effusions. Liver: No acute abnormality or suspicious lesions. Biliary: Cholecystectomy Stomach: No significant focal abnormality. Duodenum: No significant focal abnormality. Pancreas: No significant abnormality. Spleen: No significant abnormality. Adrenal: No suspicious lesions. Kidney/ureter: No hydronephrosis. No renal calculi. Retroperitoneum: No retroperitoneal adenopathy. Vascular: No aneurysm. Bowel: No significant focal abnormality. Diverticulosis. No evidence of acute diverticulitis. Appendix Peritoneum: No ascites or free air. Bladder: Grossly unremarkable. Reproductive: No adnexal masses. Hysterectomy. Bones: No acute fracture. IMPRESSION: No acute intra-abdominal or pelvic finding. Severe airspace disease in the lung bases concerning for multifocal pneumonia, including Covid-19. ECHO: MEASUREMENTS (cm) DIASTOLIC (NORMALS) SYSTOLIC (NORMALS) IVSd 0.9 (0.6-1.2) LA Diam 2.9 (1.9-4.0) LVEF 55-60% LVIDd 4.4 (3.5-5.7) LVIDs 3.3 (2.0-3.5) %FS 26% LVPWd 0.9 (0.6-1.2) Ao Diam 3.0 (2.0-3.7) 2 DIMENSIONAL ASSESSMENT: RIGHT ATRIUM: NORMAL LEFT ATRIUM: NORMAL RIGHT VENTRICLE: NORMAL LEFT VENTRICLE: NORMAL TRICUSPID VALVE: MILD TRICUSPID REGURGITATION MITRAL VALVE: NORMAL PULMONIC VALVE: NORMAL. AORTIC VALVE: MILD AORTIC REGURGITATION PERICARDIAL EFFUSION: NONE AORTIC ROOT: NORMAL LEFT VENTRICULAR WALL MOTION: NORMAL. DOPPLER/COLOR FLOW: SEE BELOW. COMMENTS: NORMAL LEFT VENTRICULAR EJECTION FRACTION 55-60%. NORMAL WALL MOTION. MILD AORTIC REGURGITATION, MILD MITRAL REGURGITATION. MILD TRICUSPID REGURGITATION. Physical Exam: GENERAL: The patient is a well-developed, well-nourished, in no apparent distress. Alert and oriented x3. VITAL SIGNS: Reviewed HEENT: Neck supple LUNGS: Currently on high flow 100% HEART: Regular rate and rhythm, no appreciable gallops, rubs, murmurs or extra heart sounds ABDOMEN: Soft, nontender, and nondistended. Positive bowel sounds. No hepatosplenomegaly was noted. EXTREMITIES: Without any cyanosis, clubbing, rash, lesions or peripheral edema. NEUROLOGIC: The patient is oriented to person, place and time. Strength and sensation are grossly intact. Face is symmetric. SKIN: Normal color, turgor and temperature. No ulcerations or rashes noted. Impression: Dyspnea with acute respiratory failure with hypoxia secondary to COVID pneumonia complicated with Bilateral pulmonary emboli UTI, urine culture positive for Enterococcus Plan: Dyspnea with acute respiratory failure with hypoxia secondary to COVID pneumonia complicated with Bilateral pulmonary emboli: Case discussed with pulmonology. Continue with IV Solu-Medrol. Patient on baricitinib. Continue to wean off high flow. Patient also being treated with Eliquis for pulmonary embolism. Continue to monitor lab closely. Continue to monitor chest x-ray. We will continue to reassess. UTI, urine culture positive for Enterococcus: We will start Augmentin. Code Status: Full Code DVT prophylaxis: Eliquis Advanced Care Planning-30 minutes: Home at discharge Time Spent Managing Pts Care (In Minutes): 55
[2021-09-05] MEDS ORDERED: ONDANSETRON 4 MG/2 ML VIAL ONE (17:05)
[2021-09-05] MEDS: BENZONATATE 100 MG CAP PO PRN (17:55)
[2021-09-05] MEDS: ONDANSETRON 4 MG/2 ML VIAL IV PRN (18:47)
[2021-09-05] MEDS: AMOX/K CLAV 500 MG TAB PO SCH (21:59)
[2021-09-06 03:55] LABS: Absolute Lymphocytes (CBC) 0.5 K/uL (0.7-4.9); Hematocrit 39.1 % (36.0-45.0); Lymphocytes % 3.3 % (15.3-44.8); MPV 8.4 fL (7.6-11.3); RBC Red Blood Cell Count 4.75 M/uL (3.86-4.86)
[2021-09-06 04:14] LABS: Albumin 2.4 g/dL (3.4-5.0); Bilirubin Direct 0.2 mg/dL (0-0.2); Bilirubin Total 0.6 mg/dL (0.2-1.0); C-Reactive Protein 26.6 mg/L (<3.00); Ferritin 972.5 ng/mL (8-388); Potassium 4.2 mmol/L (3.5-5.1); Protein, Total 6.8 g/dL (6.4-8.2)
--- NOTE | 2021-09-06 06:08 | P.PN ---
Subjective Date of Service: 09/06/21 Primary Care Provider: Dr. Almeida Chief Complaint: covid pneumonia, pulmonary embolism Subjective: Improving Physical Examination - Vital Signs Temperature: 97.4 F Blood Pressure: 126/69 Pulse: 85 Respirations: 17 Pulse Ox (%): 99 - Studies Medications List Reviewed: Yes Assessment & Plan Discharge Plan: Home Plan to discharge in: Greater than 2 days Physician Review Additional Text: COVID: Positive CT Chest: COMPARISON: None. TECHNIQUE: Dynamically enhanced axial 3 mm thick images of the chest were obtained during administration of <100> mL Isovue 370 IV contrast. Coronal and oblique reconstruction images were generated and reviewed. Exam utilizes a protocol for optimal evaluation of pulmonary arterial tree. Maximum intensity projections 3D imaging was utilized All CT scans are performed using dose optimization technique as appropriate and may include automated exposure control or mA/KV adjustment according to patient size. FINDINGS: Small amount of thrombus within subsegmental right upper lobe and left lower lobe pulmonary arteries. No thrombus within the main pulmonary, right and left main pulmonary arteries. A thoracic aortic aneurysm is not noted. A pleural effusion is not seen. A pericardial effusion is not seen. Moderate to marked bilateral ground-glass opacities IMPRESSION: Small amount of bilateral pulmonary emboli. CT Abdomen: COMPARISON: Abdomen Pelvis W Contrast dated 12/03/2020; Abdomen Pelvis W Contrast dated 11/12/2020 TECHNIQUE: CT of the abdomen and pelvis was performed. All CT scans are performed using dose optimization technique as appropriate and may include automated exposure control or mA/KV adjustment according to patient size. FINDINGS: Lower chest: Severe bilateral widespread airspace disease. Small pleural effusions. Liver: No acute abnormality or suspicious lesions. Biliary: Cholecystectomy Stomach: No significant focal abnormality. Duodenum: No significant focal abnormality. Pancreas: No significant abnormality. Spleen: No significant abnormality. Adrenal: No suspicious lesions. Kidney/ureter: No hydronephrosis. No renal calculi. Retroperitoneum: No retroperitoneal adenopathy. Vascular: No aneurysm. Bowel: No significant focal abnormality. Diverticulosis. No evidence of acute diverticulitis. Appendix Peritoneum: No ascites or free air. Bladder: Grossly unremarkable. Reproductive: No adnexal masses. Hysterectomy. Bones: No acute fracture. IMPRESSION: No acute intra-abdominal or pelvic finding. Severe airspace disease in the lung bases concerning for multifocal pneumonia, including Covid-19. ECHO: MEASUREMENTS (cm) DIASTOLIC (NORMALS) SYSTOLIC (NORMALS) IVSd 0.9 (0.6-1.2) LA Diam 2.9 (1.9-4.0) LVEF 55-60% LVIDd 4.4 (3.5-5.7) LVIDs 3.3 (2.0-3.5) %FS 26% LVPWd 0.9 (0.6-1.2) Ao Diam 3.0 (2.0-3.7) 2 DIMENSIONAL ASSESSMENT: RIGHT ATRIUM: NORMAL LEFT ATRIUM: NORMAL RIGHT VENTRICLE: NORMAL LEFT VENTRICLE: NORMAL TRICUSPID VALVE: MILD TRICUSPID REGURGITATION MITRAL VALVE: NORMAL PULMONIC VALVE: NORMAL. AORTIC VALVE: MILD AORTIC R EGURGITATION PERICARDIAL EFFUSION: NONE AORTIC ROOT: NORMAL LEFT VENTRICULAR WALL MOTION: NORMAL. DOPPLER/COLOR FLOW: SEE BELOW. COMMENTS: NORMAL LEFT VENTRICULAR EJECTION FRACTION 55-60%. NORMAL WALL MOTION. MILD AORTIC REGURGITATION, MILD MITRAL REGURGITATION. MILD TRICUSPID REGURGITATION. Follow up CXR 09/06/2021: COMPARISON: September 01, 2021 FINDINGS: Allowing for differences in inspiration no significant change in the diffuse bilateral pulmonary opacities which could represent pulmonary edema or pneumonia. Heart is normal size Physical Exam: GENERAL: The patient is a well-developed, well-nourished, in no apparent distress. Alert and oriented x3. VITAL SIGNS: Reviewed HEENT: Neck supple LUNGS: Currently on high flow at 90% HEART: Regular rate and rhythm, no appreciable gallops, rubs, murmurs or extra heart sounds ABDOMEN: Soft, nontender, and nondistended. Positive bowel sounds. No hepatosplenomegaly was noted. EXTREMITIES: Without any cyanosis, clubbing, rash, lesions or peripheral edema. NEUROLOGIC: The patient is oriented to person, place and time. Strength and sensation are grossly intact. Face is symmetric. SKIN: Normal color, turgor and temperature. No ulcerations or rashes noted. Impression: Dyspnea with acute respiratory failure with hypoxia secondary to COVID pneumonia complicated with Bilateral pulmonary emboli UTI, urine culture positive for Enterococcus Plan: Dyspnea with acute respiratory failure with hypoxia secondary to COVID pneumonia complicated with Bilateral pulmonary emboli: Slight improvement noted. Currently on high flow at 90%. Continue to wean off oxygen to maintain sats above 93%. CRP and ferritin improved. Patient remains on IV Solu-Medrol and baricitinib. Continue to monitor lab closely. Patient on Eliquis for pulmonary embolism. Continue to monitor lab closely. Encourage ambulation. Encourage lying on her side or prone position. UTI, urine culture positive for Enterococcus: Continue Augmentin. Code Status: Full Code DVT prophylaxis: Eliquis Advanced Care Planning-30 minutes: Home at discharge Time Spent Managing Pts Care (In Minutes): 55
[2021-09-06] MEDS: INSULIN -REGULAR HUMAN 50 UNIT/0.5 ML ML SQ SCH ×4 (07:30→21:00)
[2021-09-06] MEDS: ZINC SULFATE 220 MG CAP PO SCH (07:47)
[2021-09-06] MEDS: VITAMIN D 1000 UNIT TAB PO SCH (07:47)
[2021-09-06] MEDS: ASPIRIN EC 81 MG TAB PO SCH (07:47)
[2021-09-06] MEDS: ASCORBIC ACID 500 MG TABLET PO SCH ×4 (07:47→21:05)
[2021-09-06] MEDS: FAMOTIDINE 20 MG TAB PO SCH ×2 (07:47→21:04)
[2021-09-06] MEDS: APIXABAN 5 MG TABLET PO SCH ×2 (07:47→21:04)
[2021-09-06] MEDS: THIAMINE HCL 100 MG TABLET PO SCH (07:48)
[2021-09-06] MEDS: AMOX/K CLAV 500 MG TAB PO SCH ×2 (08:08→21:05)
[2021-09-06] MEDS: METHYLPREDNISOLONE 125 MG INJ IV SCH ×2 (08:08→21:05)
--- NOTE | 2021-09-06 08:14 | RAD REPORT ---
EXAM DESCRIPTION: Enrique Single View09/06/2021 5:19 am CLINICAL HISTORY: Respiratory failure COMPARISON: September 01, 2021 FINDINGS: Allowing for differences in inspiration no significant change in the diffuse bilateral pu lmonary opacities which could represent pulmonary edema or pneumonia. Heart is normal size
[2021-09-06] MEDS: BUDESONIDE 0.5 MG/2 ML NEB NEB SCH ×2 (08:48→20:30)
[2021-09-06] MEDS: BARICITINIB 2 MG TABLET PO SCH (09:50)
[2021-09-06] MEDS: FENTANYL CITR 100 MCG/2 ML IV PRN ×2 (14:35→21:29)
[2021-09-06] MEDS: BENZONATATE 100 MG CAP PO PRN (14:38)
[2021-09-06] MEDS: MELATONIN 5 MG TABLET PO PRN (21:05)
[2021-09-06] MEDS ORDERED: MORPHINE 2 MG/ML SYR IV PRN (21:21)
[2021-09-07 04:11] LABS: Absolute Lymphocytes (CBC) 0.5 K/uL (0.7-4.9); Hematocrit 39.2 % (36.0-45.0); Lymphocytes % 2.6 % (15.3-44.8); MPV 8.7 fL (7.6-11.3); RBC Red Blood Cell Count 4.74 M/uL (3.86-4.86)
[2021-09-07 04:48] LABS: Albumin 2.4 g/dL (3.4-5.0); Bilirubin Direct 0.1 mg/dL (0-0.2); Bilirubin Total 0.6 mg/dL (0.2-1.0); C-Reactive Protein 24.8 mg/L (<3.00); Protein, Total 6.7 g/dL (6.4-8.2)
[2021-09-07 05:31] LABS: Blood Morphology Comment NOT SEEN (NOT SEEN); Platelet Estimate ADEQ
--- NOTE | 2021-09-07 06:14 | P.PN ---
Subjective Date of Service: 09/07/21 Primary Care Provider: Dr. Almeida Chief Complaint: covid pneumonia, pulmonary embolism Subjective: Improving Physical Examination - Vital Signs Temperature: 97.9 F Blood Pressure: 134/71 Pulse: 75 Respirations: 18 Pulse Ox (%): 92 - Studies Microbiology Data (last 24 hrs): 09/01/21 20:04 Blood - Blood Aerobic Blood Culture - Final No growth in 5 days. 09/01/21 20:04 Blood - Blood Anaerobic Blood Culture - Final No growth in 5 days. 09/01/21 19:45 Blood - Blood Aerobic Blood Culture - Final No growth in 5 days. 09/01/21 19:45 Blood - Blood Anaerobic Blood Culture - Final No growth in 5 days. Medications List Reviewed: Yes Assessment & Plan Discharge Plan: Home Plan to discharge in: Greater than 2 days Physician Review Additional Text: COVID: Positive CT Chest: COMPARISON: None. TECHNIQUE: Dynamically enhanced axial 3 mm thick images of the chest were obtained during administration of <100> mL Isovue 370 IV contrast. Coronal and oblique reconstruction images were generated and reviewed. Exam utilizes a protocol for optimal evaluation of pulmonary arterial tree. Maximum intensity projections 3D imaging was utilized All CT scans are performed using dose optimization technique as appropriate and may include automated exposure control or mA/KV adjustment according to patient size. FINDINGS: Small amount of thrombus within subsegmental right upper lobe and left lower lobe pulmonary arteries. No thrombus within the main pulmonary, right and left main pulmonary arteries. A thoracic aortic aneurysm is not noted. A pleural effusion is not seen. A pericardial effusion is not seen. Moderate to marked bilateral ground-glass opacities IMPRESSION: Small amount of bilateral pulmonary emboli. CT Abdomen: COMPARISON: Abdomen Pelvis W Contrast dated 12/03/2020; Abdomen Pelvis W Contrast dated 11/12/2020 TECHNIQUE: CT of the abdomen and pelvis was performed. All CT scans are performed using dose optimization technique as appropriate and may include automated exposure control or mA/KV adjustment according to patient size. FINDINGS: Lower chest: Severe bilateral widespread airspace disease. Small pleural effusions. Liver: No acute abnormality or suspicious lesions. Biliary: Cholecystectomy Stomach: No significant focal abnormality. Duodenum: No significant focal abnormality. Pancreas: No significant abnormality. Spleen: No significant abnormality. Adrenal: No suspicious lesions. Kidney/ureter: No hydronephrosis. No renal calculi. Retroperitoneum: No retroperitoneal adenopathy. Vascular: No aneurysm. Bowel: No significant focal abnormality. Diverticulosis. No evidence of acute diverticulitis. Appendix Peritoneum: No ascites or free air. Bladder: Grossly unremarkable. Reproductive: No adnexal masses. Hysterectomy. Bones: No acute fracture. IMPRESSION: No acute intra-abdominal or pelvic finding. Severe airspace disease in the lung bases concerning for multifocal pneumonia, including Covid-19. ECHO: MEASUREMENTS (cm) DIASTOLIC (NORMALS) SYSTOLIC (NORMALS) IVSd 0.9 (0.6-1.2) LA Diam 2.9 (1.9-4.0) LVEF 55-60% LVIDd 4.4 (3.5-5.7) LVIDs 3.3 (2.0-3.5) %FS 26% LVPWd 0.9 (0.6-1.2) Ao Diam 3.0 (2.0-3.7) 2 DIMENSIONAL ASSESSMENT: RIGHT ATRIUM: NORMAL LEFT ATRIUM: NORMAL RIGHT VENTRICLE: NORMAL LEFT VENTRICLE: NORMAL TRICUSPID VALVE: MILD TRICUSPID REGURGITATION MITRAL VALVE: NORMAL PULMONIC VALVE: NORMAL. AORTIC VALVE: MILD AORTIC REGURGITATION PERICARDIAL EFFUSION: NONE AORTIC ROOT: NORMAL LEFT VENTRICULAR WALL MOTION: NORMAL. DOPPLER/COLOR FLOW: SEE BELOW. COMMENTS: NORMAL LEFT VENTRICULAR EJECTION FRACTION 55-60%. NORMAL WALL MOTION. MILD AORTIC REGURGITATION, MILD MITRAL REGURGITATION. MILD TRICUSPID REGURGITATION. Follow up CXR 09/07/2021: COMPARISON: Chest Single View dated 09/06/2021; Chest Single View dated 09/01/2021 FINDINGS: Lines: None. Lungs: Moderate bilateral airspace disease is unchanged since yesterday. Pleural: No significant pleural effusions or pneumothorax. Cardiac: The heart size is within normal limits. Bones: No acute fractures. IMPRESSION: Unchanged moderate bilateral airspace disease. Physical Exam: GENERAL: The patient is a well-developed, well-nourished, in no apparent distress. Alert and oriented x3. VITAL SIGNS: Reviewed HEENT: Neck supple LUNGS: Now down to 80% high flow HEART: Regular rate and rhythm, no appreciable gallops, rubs, murmurs or extra heart sounds ABDOMEN: Soft, nontender, and nondistended. Positive bowel sounds. No hepatosplenomegaly was noted. EXTREMITIES: Without any cyanosis, clubbing, rash, lesions or peripheral edema. NEUROLOGIC: The patient is oriented to person, place and time. Strength and sensation are grossly intact. Face is symmetric. SKIN: Normal color, turgor and temperature. No ulcerations or rashes noted. Impression: Dyspnea with acute respiratory failure with hypoxia secondary to COVID pneumonia complicated with Bilateral pulmonary emboli UTI, urine culture positive for Enterococcus Plan: Dyspnea with acute respiratory failure with hypoxia secondary to COVID pneumonia complicated with Bilateral pulmonary emboli: Continue improvement noted. Now down to high flow at 80%. Continue to wean off oxygen to maintain sats above 93%. CRP and ferritin improved. Patient remains on IV Solu-Medrol and baricitinib. Continue to monitor lab closely. Patient on Eliquis for pul monary embolism. Encourage ambulation. Encourage lying on her side or prone position. Continue to discuss with pulmonology. Anticipate continued improvement over the next several days. UTI, urine culture positive for Enterococcus: Continue Augmentin. Code Status: Full Code DVT prophylaxis: Eliquis Advanced Care Planning-30 minutes: Home at discharge Time Spent Managing Pts Care (In Minutes): 55
[2021-09-07] MEDS: FENTANYL CITR 100 MCG/2 ML IV PRN ×3 (06:18→20:41)
[2021-09-07] MEDS: INSULIN -REGULAR HUMAN 50 UNIT/0.5 ML ML SQ SCH ×4 (07:30→20:40)
[2021-09-07] MEDS: BUDESONIDE 0.5 MG/2 ML NEB NEB SCH ×2 (07:30→20:50)
--- NOTE | 2021-09-07 07:37 | RAD REPORT ---
EXAM DESCRIPTION: RAD - Chest Single View - 09/07/2021 4:35 am CLINICAL HISTORY: Respiratory failure COMPARISON: Chest Single View dated 09/06/2021; Chest Single View dated 09/01/2021 FINDINGS: Lines: None. Lungs: Moderate bilateral airspace disease is unchanged since yesterday. Pleural: No significant pleural effusions or pneumothorax. Cardiac: The heart size is within normal limits. Bones: No acute fractures. Other: IMPRESSION: Unchanged moderate bilateral airspace disease.
[2021-09-07] MEDS: VITAMIN D 1000 UNIT TAB PO SCH (07:45)
[2021-09-07] MEDS: BARICITINIB 2 MG TABLET PO SCH (07:45)
[2021-09-07] MEDS: APIXABAN 5 MG TABLET PO SCH ×2 (07:46→20:42)
[2021-09-07] MEDS: ZINC SULFATE 220 MG CAP PO SCH (07:46)
[2021-09-07] MEDS: AMOX/K CLAV 500 MG TAB PO SCH (07:46)
[2021-09-07] MEDS: FAMOTIDINE 20 MG TAB PO SCH ×2 (07:46→20:42)
[2021-09-07] MEDS: ASPIRIN EC 81 MG TAB PO SCH (07:46)
[2021-09-07] MEDS: THIAMINE HCL 100 MG TABLET PO SCH (07:46)
[2021-09-07] MEDS: METHYLPREDNISOLONE 125 MG INJ IV SCH ×2 (07:47→20:41)
[2021-09-07] MEDS: ASCORBIC ACID 500 MG TABLET PO SCH ×4 (07:47→20:42)
[2021-09-07] MEDS: AMOX/K CLAV 875 MG TAB PO SCH ×2 (09:00→20:42)
[2021-09-07] MEDS: MUCINEX DM 12HR.SR TAB PO PRN ×2 (10:49→20:49)
--- NOTE | 2021-09-07 15:34 | RAD REPORT ---
EXAM DESCRIPTION: Enrique Single View09/07/2021 3:22 pm CLINICAL HISTORY: Chest pain COMPARISON: September 07, 2020 FINDINGS: Minimal improvement in the moderate bilateral pulmonary opacities. Heart is normal size IMPRESSION: Minimal improvement in the bilateral pneumonia
[2021-09-07] MEDS: HYDROCODONE/APAP 7.5/325 MG TAB PO PRN (16:57)
[2021-09-08] MEDS: HYDROCODONE/APAP 7.5/325 MG TAB PO PRN ×3 (00:36→23:34)
[2021-09-08] MEDS: TRAMADOL HCL 50 MG TAB PO PRN ×2 (05:49→13:41)
--- NOTE | 2021-09-08 05:49 | P.PN ---
Subjective Date of Service: 09/08/21 Primary Care Provider: Dr. Almeida Chief Complaint: covid pneumonia, pulmonary embolism Subjective: Improving Physical Examination - Vital Signs Temperature: 97.7 F Blood Pressure: 99/50 Pulse: 56 Respirations: 18 Pulse Ox (%): 90 - Studies Medications List Reviewed: Yes Assessment & Plan Discharge Plan: Home Plan to discharge in: 72 Hours Physician Review Additional Text: COVID: Positive CT Chest: COMPARISON: None. TECHNIQUE: Dynamically enhanced axial 3 mm thick images of the chest were obtained during administration of <100> mL Isovue 370 IV contrast. Coronal and oblique reconstruction images were generated and reviewed. Exam utilizes a protocol for optimal evaluation of pulmonary arterial tree. Maximum intensity projections 3D imaging was utilized All CT scans are performed using dose optimization technique as appropriate and may include automated exposure control or mA/KV adjustment according to patient size. FINDINGS: Small amount of thrombus within subsegmental right upper lobe and left lower lobe pulmonary arteries. No thrombus within the main pulmonary, right and left main pulmonary arteries. A thoracic aortic aneurysm is not noted. A pleural effusion is not seen. A pericardial effusion is not seen. Moderate to marked bilateral ground-glass opacities IMPRESSION: Small amount of bilateral pulmonary emboli. CT Abdomen: COMPARISON: Abdomen Pelvis W Contrast dated 12/03/2020; Abdomen Pelvis W Contrast dated 11/12/2020 TECHNIQUE: CT of the abdomen and pelvis was performed. All CT scans are performed using dose optimization technique as appropriate and may include automated exposure control or mA/KV adjustment according to patient size. FINDINGS: Lower chest: Severe bilateral widespread airspace disease. Small pleural effusions. Liver: No acute abnormality or suspicious lesions. Biliary: Cholecystectomy Stomach: No significant focal abnormality. Duodenum: No significant focal abnormality. Pancreas: No significant abnormality. Spleen: No significant abnormality. Adrenal: No suspicious lesions. Kidney/ureter: No hydronephrosis. No renal calculi. Retroperitoneum: No retroperitoneal adenopathy. Vascular: No aneurysm. Bowel: No significant focal abnormality. Diverticulosis. No evidence of acute di verticulitis. Appendix Peritoneum: No ascites or free air. Bladder: Grossly unremarkable. Reproductive: No adnexal masses. Hysterectomy. Bones: No acute fracture. IMPRESSION: No acute intra-abdominal or pelvic finding. Severe airspace disease in the lung bases concerning for multifocal pneumonia, including Covid-19. ECHO: MEASUREMENTS (cm) DIASTOLIC (NORMALS) SYSTOLIC (NORMALS) IVSd 0.9 (0.6-1.2) LA Diam 2.9 (1.9-4.0) LVEF 55-60% LVIDd 4.4 (3.5-5.7) LVIDs 3.3 (2.0-3.5) %FS 26% LVPWd 0.9 (0.6-1.2) Ao Diam 3.0 (2.0-3.7) 2 DIMENSIONAL ASSESSMENT: RIGHT ATRIUM: NORMAL LEFT ATRIUM: NORMAL RIGHT VENTRICLE: NORMAL LEFT VENTRICLE: NORMAL TRICUSPID VALVE: MILD TRICUSPID REGURGITATION MITRAL VALVE: NORMAL PULMONIC VALVE: NORMAL. AORTIC VALVE: MILD AORTIC REGURGITATION PERICARDIAL EFFUSION: NONE AORTIC ROOT: NORMAL LEFT VENTRICULAR WALL MOTION: NORMAL. DOPPLER/COLOR FLOW: SEE BELOW. COMMENTS: NORMAL LEFT VENTRICULAR EJECTION FRACTION 55-60%. NORMAL WALL MOTION. MILD AORTIC REGURGITATION, MILD MITRAL REGURGITATION. MILD TRICUSPID REGURGITATION. Follow up CXR 09/08/2021: COMPARISON: September 07, 2020 FINDINGS: No significant change in moderate bilateral pulmonary opacities. The heart is normal size IMPRESSION: No change in moderate bilateral pulmonary opacities probably pneumonia Physical Exam: GENERAL: The patient is a well-developed, well-nourished, in no apparent distress. Alert and oriented x3. VITAL SIGNS: Reviewed HEENT: Neck supple LUNGS: Currently on high flow at 90% patient does not appear in distress HEART: Regular rate and rhythm, no appreciable gallops, rubs, murmurs or extra heart sounds ABDOMEN: Soft, nontender, and nondistended. Positive bowel sounds. No hepatosplenomegaly was noted. EXTREMITIES: Without any cyanosis, clubbing, rash, lesions or peripheral edema. NEUROLOGIC: The patient is oriented to person, place and time. Strength and sensation are grossly intact. Face is symmetric. SKIN: Normal color, turgor and temperature. No ulcerations or rashes noted. Impression: Dyspnea with acute respiratory failure with hypoxia secondary to COVID pneumonia complicated with Bilateral pulmonary emboli UTI, urine culture positive for Enterococcus Plan: Dyspnea with acute respiratory failure with hypoxia secondary to COVID pneumonia complicated with Bilateral pulmonary emboli: Patient reports slight improvement. No significant distress noted. Currently on high flow at 90%. Continue to wean off oxygen to maintain sats above 93%. CRP and ferritin improved. Patient remains on IV Solu-Medrol and baricitinib. Continue to monitor lab closely. Patient on Eliquis for pulmonary embolism. Encourage ambulation. Encourage lying on her side or prone position. Continue to discuss with pulmonology. Anticipate continued improvement over the next several days. UTI, urine culture positive for Enterococcus: Continue Augmentin. Encourage oral intake. Code Status: Full Code DVT prophylaxis: Eliquis Advanced Care Planning-30 minutes: Home at discharge. Patient will likely require home oxygen at discharge. Time Spent Managing Pts Care (In Minutes): 55
[2021-09-08 05:50] LABS: Absolute Lymphocytes (CBC) 0.5 K/uL (0.7-4.9); Hematocrit 39.5 % (36.0-45.0); Lymphocytes % 2.4 % (15.3-44.8); MPV 8.5 fL (7.6-11.3); RBC Red Blood Cell Count 4.78 M/uL (3.86-4.86)
[2021-09-08 06:09] LABS: Albumin 2.5 g/dL (3.4-5.0); Bilirubin Direct 0.1 mg/dL (0-0.2); Bilirubin Total 0.5 mg/dL (0.2-1.0); C-Reactive Protein 15.2 mg/L (<3.00); Ferritin 753.8 ng/mL (8-388); Protein, Total 6.5 g/dL (6.4-8.2)
[2021-09-08] MEDS: INSULIN -REGULAR HUMAN 50 UNIT/0.5 ML ML SQ SCH ×4 (07:30→21:00)
--- NOTE | 2021-09-08 07:44 | RAD REPORT ---
EXAM DESCRIPTION: Enrique Single View09/08/2021 5:35 am CLINICAL HISTORY: Respiratory failure COMPARISON: September 07, 2020 FINDINGS: No significant change in moderate bilateral pulmonary opacities. The heart is normal size IMPRESSION: No change in moderate bilateral pulmonary opacities probably pneumonia
[2021-09-08] MEDS: VITAMIN D 1000 UNIT TAB PO SCH (07:59)
[2021-09-08] MEDS: APIXABAN 5 MG TABLET PO SCH ×2 (07:59→21:00)
[2021-09-08] MEDS: FAMOTIDINE 20 MG TAB PO SCH ×2 (07:59→21:00)
[2021-09-08] MEDS: THIAMINE HCL 100 MG TABLET PO SCH (07:59)
[2021-09-08] MEDS: BUDESONIDE 0.5 MG/2 ML NEB NEB SCH ×2 (08:00→20:00)
[2021-09-08] MEDS: AMOX/K CLAV 875 MG TAB PO SCH ×2 (08:00→21:00)
[2021-09-08] MEDS: ZINC SULFATE 220 MG CAP PO SCH (08:00)
[2021-09-08] MEDS: METHYLPREDNISOLONE 125 MG INJ IV SCH ×2 (08:00→21:00)
[2021-09-08] MEDS: ASCORBIC ACID 500 MG TABLET PO SCH ×4 (08:00→21:00)
[2021-09-08] MEDS: ASPIRIN EC 81 MG TAB PO SCH (08:00)
[2021-09-08] MEDS: BARICITINIB 2 MG TABLET PO SCH (08:03)
[2021-09-08] MEDS: MUCINEX DM 12HR.SR TAB PO PRN (13:27)
--- NOTE | 2021-09-08 13:40 | P.PN ---
Subjective Date of Service: 09/08/21 Primary Care Provider: Dr. Almeida Chief Complaint: covid pneumonia, pulmonary embolism No change patient is still requiring high concentrations of oxygen 90% FiO2 Review of Systems General: Weakness Respiratory: Shortness of Breath Physical Examination - Vital Signs Temperature: 97.7 F Blood Pressure: 99/50 Pulse: 56 Respirations: 18 Pulse Ox (%): 90 - Physical Exam General: Alert, Oriented x3, Cooperative - Studies Medications List Reviewed: Yes Assessment & Plan - Problems (Diagnosis) (1) Pneumonia due to COVID-19 virus Current Visit: Yes Status: Acute Plan: Pneumonia due to coronavirus condition stable still requiring high concentrations of oxygen White count is elevated Enterococcus in the urine possible improvement on his x-ray white count patient is on Augmentin reduced dose of Eliquis now to 5 mg twice a
[2021-09-08] MEDS: BENZONATATE 100 MG CAP PO PRN ×2 (16:47→23:34)
[2021-09-08] MEDS: ENSURE ENLIVE 237 ML CAN PO SCH (21:00)
[2021-09-08] MEDS: ONDANSETRON 4 MG/2 ML VIAL IV PRN (23:34)
[2021-09-09 05:52] LABS: Absolute Lymphocytes (CBC) 0.3 K/uL (0.7-4.9); Hematocrit 38.7 % (36.0-45.0); Lymphocytes % 1.4 % (15.3-44.8); RBC Red Blood Cell Count 4.69 M/uL (3.86-4.86)
[2021-09-09 06:06] LABS: Albumin 2.3 g/dL (3.4-5.0); Bilirubin Direct 0.1 mg/dL (0-0.2); Bilirubin Total 0.4 mg/dL (0.2-1.0); C-Reactive Protein 19.8 mg/L (<3.00); Ferritin 754.3 ng/mL (8-388); Protein, Total 6.7 g/dL (6.4-8.2)
--- NOTE | 2021-09-09 06:07 | P.PN ---
Subjective Date of Service: 09/09/21 Primary Care Provider: Dr. Almeida Chief Complaint: covid pneumonia, pulmonary embolism Subjective: Improving Physical Examination - Vital Signs Temperature: 97.6 F Blood Pressure: 139/81 Pulse: 75 Respirations: 17 Pulse Ox (%): 96 - Studies Medications List Reviewed: Yes Assessment & Plan Discharge Plan: Home Plan to discharge in: 48 Hours Physician Review Additional Text: COVID: Positive CT Chest: COMPARISON: None. TECHNIQUE: Dynamically enhanced axial 3 mm thick images of the chest were obtained during administration of <100> mL Isovue 370 IV contrast. Coronal and oblique reconstruction images were generated and reviewed. Exam utilizes a protocol for optimal evaluation of pulmonary arterial tree. Maximum intensity projections 3D imaging was utilized All CT scans are performed using dose optimization technique as appropriate and may include automated exposure control or mA/KV adjustment according to patient size. FINDINGS: Small amount of thrombus within subsegmental right upper lobe and left lower lobe pulmonary arteries. No thrombus within the main pulmonary, right and left main pulmonary arteries. A thoracic aortic aneurysm is not noted. A pleural effusion is not seen. A pericardial effusion is not seen. Moderate to marked bilateral ground-glass opacities IMPRESSION: Small amount of bilateral pulmonary emboli. CT Abdomen: COMPARISON: Abdomen Pelvis W Contrast dated 12/03/2020; Abdomen Pelvis W Contrast dated 11/12/2020 TECHNIQUE: CT of the abdomen and pelvis was performed. All CT scans are performed using dose optimization technique as appropriate and may include automated exposure control or mA/KV adjustment according to patient size. FINDINGS: Lower chest: Severe bilateral widespread airspace disease. Small pleural effusions. Liver: No acute abnormality or suspicious lesions. Biliary: Cholecystectomy Stomach: No significant focal abnormality. Duodenum: No significant focal abnormality. Pancreas: No significant abnormality. Spleen: No significant abnormality. Adrenal: No suspicious lesions. Kidney/ureter: No hydronephrosis. No renal calculi. Retroperitoneum: No retroperitoneal adenopathy. Vascular: No aneurysm. Bowel: No significant focal abnormality. Diverticulosis. No evidence of acute d iverticulitis. Appendix Peritoneum: No ascites or free air. Bladder: Grossly unremarkable. Reproductive: No adnexal masses. Hysterectomy. Bones: No acute fracture. IMPRESSION: No acute intra-abdominal or pelvic finding. Severe airspace disease in the lung bases concerning for multifocal pneumonia, including Covid-19. ECHO: MEASUREMENTS (cm) DIASTOLIC (NORMALS) SYSTOLIC (NORMALS) IVSd 0.9 (0.6-1.2) LA Diam 2.9 (1.9-4.0) LVEF 55-60% LVIDd 4.4 (3.5-5.7) LVIDs 3.3 (2.0-3.5) %FS 26% LVPWd 0.9 (0.6-1.2) Ao Diam 3.0 (2.0-3.7) 2 DIMENSIONAL ASSESSMENT: RIGHT ATRIUM: NORMAL LEFT ATRIUM: NORMAL RIGHT VENTRICLE: NORMAL LEFT VENTRICLE: NORMAL TRICUSPID VALVE: MILD TRICUSPID REGURGITATION MITRAL VALVE: NORMAL PULMONIC VALVE: NORMAL. AORTIC VALVE: MILD AORTIC REGURGITATIO N PERICARDIAL EFFUSION: NONE AORTIC ROOT: NORMAL LEFT VENTRICULAR WALL MOTION: NORMAL. DOPPLER/COLOR FLOW: SEE BELOW. COMMENTS: NORMAL LEFT VENTRICULAR EJECTION FRACTION 55-60%. NORMAL WALL MOTION. MILD AORTIC REGURGITATION, MILD MITRAL REGURGITATION. MILD TRICUSPID REGURGITATION. Follow up CXR 09/08/2021: COMPARISON: September 07, 2020 FINDINGS: No significant change in moderate bilateral pulmonary opacities. The heart is normal size IMPRESSION: No change in moderate bilateral pulmonary opacities probably pneumonia Physical Exam: GENERAL: The patient is a well-developed, well-nourished, in no apparent distress. Alert and oriented x3. VITAL SIGNS: Reviewed HEENT: Neck supple LUNGS: Patient doing better. Less high flow noted. HEART: Regular rate and rhythm, no appreciable gallops, rubs, murmurs or extra heart sounds ABDOMEN: Soft, nontender, and nondistended. Positive bowel sounds. No hepatosplenomegaly was noted. EXTREMITIES: Without any cyanosis, clubbing, rash, lesions or peripheral edema. NEUROLOGIC: The patient is oriented to person, place and time. Strength and sensation are grossly intact. Face is symmetric. SKIN: Normal color, turgor and temperature. No ulcerations or rashes noted. Impression: Dyspnea with acute respiratory failure with hypoxia secondary to COVID pneumonia complicated with Bilateral pulmonary emboli UTI, urine culture positive for Enterococcus Plan: Dyspnea with acute respiratory failure with hypoxia secondary to COVID pneumonia complicated with Bilateral pulmonary emboli: Patient shows improvement. No significant distress noted. Currently on high flow 70%. Continue to wean off oxygen to maintain sats above 93%. CRP and ferritin improved. Patient remains on IV Solu-Medrol and baricitinib. Continue to monitor lab closely. Patient on Eliquis for pulmonary embolism. Encourage ambulation. Encourage lying on her side or prone position. Continue to discuss with pulmonology. Anticipate continued improvement over the next several days. UTI, urine culture positive for Enterococcus: Continue Augmentin. Encourage oral intake. Code Status: Full Code DVT prophylaxis: Eliquis Advanced Care Planning-30 minutes: Home at discharge. Patient will likely require home oxygen at discharge. Time Spent Managing Pts Care (In Minutes): 55
[2021-09-09] MEDS: INSULIN -REGULAR HUMAN 50 UNIT/0.5 ML ML SQ SCH ×4 (07:30→21:00)
[2021-09-09] MEDS: FAMOTIDINE 20 MG TAB PO SCH ×2 (08:31→22:05)
[2021-09-09] MEDS: APIXABAN 5 MG TABLET PO SCH ×2 (08:31→22:05)
[2021-09-09] MEDS: ASPIRIN EC 81 MG TAB PO SCH (08:32)
[2021-09-09] MEDS: VITAMIN D 1000 UNIT TAB PO SCH (08:32)
[2021-09-09] MEDS: AMOX/K CLAV 875 MG TAB PO SCH ×2 (08:32→22:05)
[2021-09-09] MEDS: THIAMINE HCL 100 MG TABLET PO SCH (08:32)
[2021-09-09] MEDS: ASCORBIC ACID 500 MG TABLET PO SCH (08:32)
[2021-09-09] MEDS: ZINC SULFATE 220 MG CAP PO SCH (08:32)
[2021-09-09] MEDS: METHYLPREDNISOLONE 125 MG INJ IV SCH (08:40)
[2021-09-09] MEDS: ENSURE ENLIVE 237 ML CAN PO SCH ×2 (08:41→21:00)
[2021-09-09 08:50] LABS: Blood Morphology Comment NOT SEEN (NOT SEEN); Platelet Estimate ADEQ
[2021-09-09] MEDS: BUDESONIDE 0.5 MG/2 ML NEB NEB SCH (09:06)
[2021-09-09] MEDS: BARICITINIB 2 MG TABLET PO SCH (10:19)
--- NOTE | 2021-09-09 10:42 | P.PN ---
Subjective Date of Service: 09/09/21 Primary Care Provider: Dr. Almeida Chief Complaint: covid pneumonia, pulmonary embolism Patient is doing much better improving oxygen requirements declining no new complaint Review of Systems General: Weakness Respiratory: Shortness of Breath Physical Examination - Vital Signs Temperature: 96.8 F Blood Pressure: 117/65 Pulse: 64 Respirations: 23 Pulse Ox (%): 96 - Physical Exam General: Alert, Oriented x3, Cooperative - Studies Medications List Reviewed: Yes Assessment & Plan - Problems (Diagnosis) (1) Pneumonia due to COVID-19 virus Current Visit: Yes Status: Acute Plan: Doing much better oxygen requirements declining currently on 65% FiO2 plan to wean and discharge in 1 to 2 days White count elevated reduce dose of steroids med list reviewed
[2021-09-09] MEDS: HYDROCODONE/APAP 7.5/325 MG TAB PO PRN (18:01)
[2021-09-09] MEDS: METHYLPREDNISOLONE 40 MG INJ IV SCH (22:05)
[2021-09-10] MEDS: HYDROCODONE/APAP 7.5/325 MG TAB PO PRN ×3 (00:05→20:07)
[2021-09-10] MEDS: ONDANSETRON 4 MG/2 ML VIAL IV PRN (00:05)
--- NOTE | 2021-09-10 05:46 | P.PN ---
Subjective Date of Service: 09/10/21 Primary Care Provider: Dr. Almeida Chief Complaint: covid pneumonia, pulmonary embolism Subjective: Improving (Patient continues to improve. Currently on 5 L per nasal cannula) Physical Examination - Vital Signs Temperature: 97.2 F Blood Pressure: 130/69 Pulse: 72 Respirations: 17 Pulse Ox (%): 99 - Studies Medications List Reviewed: Yes Assessment & Plan Discharge Plan: Home Plan to discharge in: 24 Hours Physician Review Additional Text: COVID: Positive CT Chest: COMPARISON: None. TECHNIQUE: Dynamically enhanced axial 3 mm thick images of the chest were obtained during administration of <100> mL Isovue 370 IV contrast. Coronal and oblique reconstruction images were generated and reviewed. Exam utilizes a protocol for optimal evaluation of pulmonary arterial tree. Maximum intensity projections 3D imaging was utilized All CT scans are performed using dose optimization technique as appropriate and may include automated exposure control or mA/KV adjustment according to patient size. FINDINGS: Small amount of thrombus within subsegmental right upper lobe and left lower lobe pulmonary arteries. No thrombus within the main pulmonary, right and left main pulmonary arteries. A thoracic aortic aneurysm is not noted. A pleural effusion is not seen. A pericardial effusion is not seen. Moderate to marked bilateral ground-glass opacities IMPRESSION: Small amount of bilateral pulmonary emboli. CT Abdomen: COMPARISON: Abdomen Pelvis W Contrast dated 12/03/2020; Abdomen Pelvis W Contrast dated 11/12/2020 TECHNIQUE: CT of the abdomen and pelvis was performed. All CT scans are performed using dose optimization technique as appropriate and may include automated exposure control or mA/KV adjustment according to patient size. FINDINGS: Lower chest: Severe bilateral widespread airspace disease. Small pleural effusions. Liver: No acute abnormality or suspicious lesions. Biliary: Cholecystectomy Stomach: No significant focal abnormality. Duodenum: No significant focal abnormality. Pancreas: No significant abnormality. Spleen: No significant abnormality. Adrenal: No suspicious lesions. Kidney/ureter: No hydronephrosis. No renal calculi. Retroperitoneum: No retroperitoneal adenopathy. Vascular: No aneurysm. Bowel: No significant focal abnormality. Diverticulosis. No evidence of acute diverticulitis. Appendix Peritoneum: No ascites or free air. Bladder: Grossly unremarkable. Reproductive: No adnexal masses. Hysterectomy. Bones: No acute fracture. IMPRESSION: No acute intra-abdominal or pelvic finding. Severe airspace disease in the lung bases concerning for multifocal pneumonia, including Covid-19. ECHO: MEASUREMENTS (cm) DIASTOLIC (NORMALS) SYSTOLIC (NORMALS) IVSd 0.9 (0.6-1.2) LA Diam 2.9 (1.9-4.0) LVEF 55-60% LVIDd 4.4 (3.5-5.7) LVIDs 3.3 (2.0-3.5) %FS 26% LVPWd 0.9 (0.6-1.2) Ao Diam 3.0 (2.0-3.7) 2 DIMENSIONAL ASSESSMENT: RIGHT ATRIUM: NORMAL LEFT ATRIUM: NORMAL RIGHT VENTRICLE: NORMAL LEFT VENTRICLE: NORMAL TRICUSPID VALVE: MILD TRICUSPID REGURGITATION MITRAL VALVE: NORMAL PULMONIC VALVE: NORMAL. AORTIC VALVE: MILD AORTIC REGURGITATION PERICARDIAL EFFUSION: NONE AORTIC ROOT: NORMAL LEFT VENTRICULAR WALL MOTION: NORMAL. DOPPLER/COLOR FLOW: SEE BELOW. COMMENTS: NORMAL LEFT VENTRICULAR EJECTION FRACTION 55-60%. NORMAL WALL MOTION. MILD AORTIC REGURGITATION, MILD MITRAL REGURGITATION. MILD TRICUSPID REGURGITATION. Follow up CXR 09/08/2021: COMPARISON: September 07, 2020 FINDINGS: No significant change in moderate bilateral pulmonary opacities. The heart is normal size IMPRESSION: No change in moderate bilateral pulmonary opacities probably pneumonia Physical Exam: GENERAL: The patient is a well-developed, well-nourished, in no apparent distress. Alert and oriented x3. VITAL SIGNS: Reviewed HEENT: Neck supple LUNGS: Patient continues to improve. Currently on 5 L per nasal cannula. HEART: Regular rate and rhythm, no appreciable gallops, rubs, murmurs or extra heart sounds ABDOMEN: Soft, nontender, and nondistended. Positive bowel sounds. No hepatosplenomegaly was noted. EXTREMITIES: Without any cyanosis, clubbing, rash, lesions or peripheral edema. NEUROLOGIC: The patient is oriented to person, place and time. Strength and sensation are grossly intact. Face is symmetric. SKIN: Normal color, turgor and temperature. No ulcerations or rashes noted. Impression: Dyspnea with acute respiratory failure with hypoxia secondary to COVID pneumonia complicated with Bilateral pulmonary emboli UTI, urine culture positive for Enterococcus Plan: Dyspnea with acute respiratory failure with hypoxia secondary to COVID pneumonia complicated with Bilateral pulmonary emboli: Patient continues to improve. Currently on 5 L per nasal cannula. Discontinue IV Solu-Medrol and change to oral prednisone. Continue baricitinib. Continue to wean off oxygen to maintain sats above 93%. Patient remains on Eliquis for pulmonary embolism. White count elevated. Will add Diflucan to cover for opportunistic infection. Patient on Augmentin for UTI. Continue to monitor lab closely. Encourage lying on her side or prone position. Anticipate possible home in the next 24 hours. Will need to arrange for home oxygen. UTI, urine culture positive for Enterococcus: Continue Augmentin. Encourage oral intake. Code Status: Full Code DVT prophylaxis: Eliquis Advanced Care Planning-30 minutes: Home at discharge. Patient will likely require home oxygen at discharge. Time Spent Managing Pts Care (In Minutes): 55
[2021-09-10 06:29] LABS: Albumin 2.3 g/dL (3.4-5.0); Bilirubin Direct 0.1 mg/dL (0-0.2); Bilirubin Total 0.3 mg/dL (0.2-1.0); Protein, Total 6.5 g/dL (6.4-8.2)
[2021-09-10] MEDS: INSULIN -REGULAR HUMAN 50 UNIT/0.5 ML ML SQ SCH ×4 (07:30→20:42)
[2021-09-10] MEDS: METHYLPREDNISOLONE 40 MG INJ IV SCH (09:00)
[2021-09-10] MEDS: AMOX/K CLAV 875 MG TAB PO SCH ×2 (09:32→20:06)
[2021-09-10] MEDS: predniSONE 20 MG TAB PO SCH ×2 (09:32→20:06)
[2021-09-10] MEDS: FAMOTIDINE 20 MG TAB PO SCH ×2 (09:32→20:08)
[2021-09-10] MEDS: APIXABAN 5 MG TABLET PO SCH ×2 (09:32→20:08)
[2021-09-10] MEDS: ASPIRIN EC 81 MG TAB PO SCH (09:33)
[2021-09-10] MEDS: BENZONATATE 100 MG CAP PO PRN ×2 (09:38→16:43)
[2021-09-10] MEDS: FLUCONAZOLE 100 MG TAB PO SCH (09:38)
[2021-09-10] MEDS: BARICITINIB 2 MG TABLET PO SCH (09:38)
[2021-09-10] MEDS: ENSURE ENLIVE 237 ML CAN PO SCH ×2 (09:39→20:09)
[2021-09-10] MEDS: TRAMADOL HCL 50 MG TAB PO PRN (16:43)
[2021-09-10] MEDS: MUCINEX DM 12HR.SR TAB PO PRN (20:05)
[2021-09-10] MEDS: MELATONIN 5 MG TABLET PO PRN (20:06)
[2021-09-11 05:16] VITALS: O2SAT 95
[2021-09-11 05:22] LABS: Absolute Lymphocytes (CBC) 0.5 K/uL (0.7-4.9); Hematocrit 37.2 % (36.0-45.0); Lymphocytes % 2.9 % (15.3-44.8); MPV 8.2 fL (7.6-11.3); RBC Red Blood Cell Count 4.47 M/uL (3.86-4.86)
[2021-09-11 05:52] LABS: ALT/SGPT 85 U/L (12-78); AST/SGOT 21 U/L (15-37); Albumin 2.4 g/dL (3.4-5.0); Alkaline Phosphatase 82 U/L (45-117); BUN Blood Urea Nitrogen 19 mg/dL (7-18); Bicarbonate 26 mmol/L (21-32); Bilirubin Direct 0.1 mg/dL (0-0.2); Bilirubin Total 0.4 mg/dL (0.2-1.0); Ferritin 752.5 ng/mL (8-388); Glucose Level 153 mg/dL (74-106); Potassium 4.3 mmol/L (3.5-5.1); Protein, Total 6.5 g/dL (6.4-8.2); Sodium Level 137 mmol/L (136-145)
--- NOTE | 2021-09-11 06:03 | P.DS ---
Admission Date: 09/01/21 Discharge Date: 09/11/21 Primary Care Provider: Dr. Almeida Disposition: ROUTINE DISCHARGE Discharge Condition: GOOD Reason for Admission: covid pneumonia, pulmonary embolism Consultations: Pulmonary-Dr. Whitfield Procedures: COVID: Positive CT Chest: COMPARISON: None. TECHNIQUE: Dynamically enhanced axial 3 mm thick images of the chest were obtained during administration of <100> mL Isovue 370 IV contrast. Coronal and oblique reconstruction images were generated and reviewed. Exam utilizes a protocol for optimal evaluation of pulmonary arterial tree. Maximum intensity projections 3D imaging was utilized All CT scans are performed using dose optimization technique as appropriate and may include automated exposure control or mA/KV adjustment according to patient size. FINDINGS: Small amount of thrombus within subsegmental right upper lobe and left lower lobe pulmonary arteries. No thrombus within the main pulmonary, right and left main pulmonary arteries. A thoracic aortic aneurysm is not noted. A pleural effusion is not seen. A pericardial effusion is not seen. Moderate to marked bilateral ground-glass opacities IMPRESSION: Small amount of bilateral pulmonary emboli. CT Abdomen: COMPARISON: Abdomen Pelvis W Contrast dated 12/03/2020; Abdomen Pelvis W Contrast dated 11/12/2020 TECHNIQUE: CT of the abdomen and pelvis was performed. All CT scans are performed using dose optimization technique as appropriate and may include automated exposure control or mA/KV adjustment according to patient size. FINDINGS: Lower chest: Severe bilateral widespread airspace disease. Small pleural effusions. Liver: No acute abnormality or suspicious lesions. Biliary: Cholecystectomy Stomach: No significant focal abnormality. Duodenum: No significant focal abnormality. Pancreas: No significant abnormality. Spleen: No significant abnormality. Adrenal: No suspicious lesions. Kidney/ureter: No hydronephrosis. No renal calculi. Retroperitoneum: No retroperitoneal adenopathy. Vascular: No aneurysm. Bowel: No significant focal abnormality. Diverticulosis. No evidence of acute diverticulitis. Appendix Peritoneum: No ascites or free air. Bladder: Grossly unremarkable. Reproductive: No adnexal masses. Hysterectomy. Bones: No acute fracture. IMPRESSION: No acute intra-abdominal or pelvic finding. Severe airspace disease in the lung bases concerning for multifocal pneumonia, including Covid-19. ECHO: MEASUREMENTS (cm) DIASTOLIC (NORMALS) SYSTOLIC (NORMALS) IVSd 0.9 (0.6-1.2) LA Diam 2.9 (1.9-4.0) LVEF 55-60% LVIDd 4.4 (3.5-5.7) LVIDs 3.3 (2.0-3.5) %FS 26% LVPWd 0.9 (0.6-1.2) Ao Diam 3.0 (2.0-3.7) 2 DIMENSIONAL ASSESSMENT: RIGHT ATRIUM: NORMAL LEFT ATRIUM: NORMAL RIGHT VENTRICLE: NORMAL LEFT VENTRICLE: NORMAL TRICUSPID VALVE: MILD TRICUSPID REGURGITATION MITRAL VALVE: NORMAL PULMONIC VALVE: NORMAL. AORTIC VALVE: MILD AORTIC REGURGITATION PERICARDIAL EFFUSION: NONE AORTIC ROOT: NORMAL LEFT VENTRICULAR WALL MOTION: NORMAL. DOPPLER/COLOR FLOW: SEE BELOW. COMMENTS: NORMAL LEFT VENTRICULAR EJECTION FRACTION 55-60%. NORMAL WALL MOTION. MILD AORTIC REGURGITATION, MILD MITRAL REGURGITATION. MILD TRICUSPID REGURGITATION. Follow up CXR 09/08/2021: COMPARISON: September 07, 2020 FINDINGS: No significant change in moderate bilateral pulmonary opacities. The heart is normal size IMPRESSION: No change in moderate bilateral pulmonary opacities probably pneumonia Medical Problem List: Dyspnea with acute respiratory failure with hypoxia secondary to COVID pneumonia complicated with Bilateral pulmonary emboli UTI, urine culture positive for Enterococcus GERD Anxiety/insomnia Brief History of Present Illness: 40-year-old female presented with fever, malaise and shortness of breath. Patient was found to be hypoxic. Acute respiratory failure identified. Patient had tested positive for Covid 19 recently. Patient was admitted for treatment. Patient required BiPAP upon admission. Hospital Course: Patient presented with dyspnea secondary to acute respiratory failure with hypoxia. This was related to Covid pneumonia complicated with bilateral pulmonary emboli. This was identified on CT scan. Echocardiogram shows normal ejection fraction. Pulmonary was consulted to evaluate her care. Patient received IV Solu-Medrol and baricitinib. Patient improved during the course of her stay. Oxygen has been weaned down. Patient doing well at discharge without significant shortness of breath. At discharge patient still requires oxygen. At discharge she will continue with home oxygen to maintain sats above 93%. Currently on 2 L per nasal cannula. For her Covid infection, at discharge she will continue with prednisone 20 mg 1 pill twice daily for 7 days then 1 pill once daily for 7 days. She will be provided Tessalon Perles 100 mg 3 times a day as needed for cough. Recommend to continue vitamin C 500 mg daily, zinc 220 mg daily, thiamine 100 mg daily, and vitamin D 1000 mg daily for duration of treatment. Recommend to continue CDC guidelines on COVID-19. Recommend to continue face mask use, handwashing and social distancing. Pulmonology will help wean her off oxygen as an outpatient. For her bilateral pulmonary emboli, patient will continue with Eliquis 5 mg 1 pill twice daily. Patient will likely need treatment for 3 to 6 months. Recommend follow-up with pulmonology in 1 to 2 weeks to follow-up this hospitalization. Further adjustment in her medication can be done by pulmonology. Recommend follow-up with PCP to further monitor and address. Education on COVID-19, pulmonary embolism, and Eliquis will be provided. Arrangements for home oxygen will be done prior to discharge. Patient also found to have a UTI. She was treated with antibiotic therapy. Urine culture was positive for Enterococcus. She has done well. Patient improved. At discharge she will continue with Augmentin 875 mg 1 pill twice daily for 2 more days along with Diflucan 100 mg daily for 2 days. UTI prevention education provided. Patient likely with underlying GERD. At discharge we will continue with Pepcid 20 mg 1 pill twice daily especially since she will be on Eliquis. Patient with history has anxiety/insomnia. At discharge she may continue with trazodone 150 mg at bedtime as needed. Vital Signs/Physical Exam: Temp Pulse Resp BP Pulse Ox 97.5 F 58 14 137/69 91 09/11/21 00:00 09/11/21 00:00 09/11/21 00:00 09/11/21 00:00 09/11/21 00:00 General: Alert, In no apparent distress, Oriented x3, Cooperative HEENT: Atraumatic Neck: Supple Respiratory: Clear to auscultation bilaterally, Normal air movement, Other (Currently on 2 L per nasal cannula) Cardiovascular: Normal pulses, Regular rate/rhythm Gastrointestinal: Normal bowel sounds, No tenderness, No masses, No rebound, No guarding Musculoskeletal: No tenderness, No warmth Integumentary: No tenderness/swelling, No erythema, No warmth, No cyanosis Neurological: Normal speech, Normal strength at 5/5 x4 extr, Normal tone, Normal affect Laboratory Data at Discharge: WBC 18.30 K/uL (4.3-10.9) H D 09/11/21 05:13 Hgb 12.1 g/dL (12.0-15.0) 09/11/21 05:13 Hct 37.2 % (36.0-45.0) 09/11/21 05:13 Plt Count 301 K/uL (152-406) 09/11/21 05:13 PT 13.5 SECONDS (9.5-12.5) H 09/01/21 20:04 INR 1.17 09/01/21 20:04 Sodium 137 mmol/L (136-145) 09/11/21 05:13 Potassium 4.3 mmol/L (3.5-5.1) 09/11/21 05:13 BUN 19 mg/dL (7-18) H 09/11/21 05:13 Creatinine 0.71 mg/dL (0.55-1.3) 09/11/21 05:13 Glucose 153 mg/dL (74-106) H 09/11/21 05:13 Phosphorus 3.0 mg/dL (2.5-4.9) 09/02/21 03:29 Magnesium 2.6 mg/dL (1.8-2.4) H 09/02/21 03:29 Total Bilirubin 0.4 mg/dL (0.2-1.0) 09/11/21 05:13 AST 21 U/L (15-37) 09/11/21 05:13 ALT 85 U/L (12-78) H 09/11/21 05:13 Alkaline Phosphatase 82 U/L (45-117) 09/11/21 05:13 Troponin I 0.83 ng/mL (0.0-0.045) H* 09/02/21 12:45 Triglycerides 184 mg/dL (<150) H 09/02/21 03:29 Cholesterol 179 mg/dL (<200) 09/02/21 03:29 HDL Cholesterol 20 mg/dL (40-60) L 09/02/21 03:29 Cholesterol/HDL Ratio 8.95 09/02/21 03:29 Home Medications: Trazodone [Desyrel*] 100 mg PO BEDTIME PRN PRN 09/05/21 Amox/Clavulanate [Augmentin 875-125 Tab*] 875 mg PO BID #4 tab 09/11/21 Apixaban [Eliquis] 5 mg PO BID #60 tablet 09/11/21 Ascorbate Calcium [Vitamin C] 500 mg PO DAILY #30 tablet 09/11/21 Benzonatate [Tessalon Perle*] 100 mg PO TID PRN #10 cap 09/11/21 Cholecalciferol (Vitamin D3) [Vitamin D 1000 Iu Tab] 1,000 unit PO DAILY #30 tab 09/11/21 Famotidine [Pepcid*] 20 mg PO BID #60 tab 09/11/21 Fluconazole [Diflucan] 100 mg PO DAILY #2 tablet 09/11/21 Thiamine HCl 100 mg PO DAILY #30 tablet 09/11/21 Zinc Sulfate [Zinc Sulfate*] 220 mg PO DAILY #30 cap 09/11/21 predniSONE [Prednisone*] 20 mg PO SEECOM #21 tab 09/11/21 New Medications: Amox/Clavulanate [Augmentin 875-125 Tab*] 875 mg PO BID #4 tab Fluconazole [Diflucan] 100 mg PO DAILY #2 tablet Apixaban [Eliquis] 5 mg PO BID #60 tablet Famotidine [Pepcid*] 20 mg PO BID #60 tab predniSONE [Prednisone*] 20 mg PO SEECOM #21 tab Benzonatate [Tessalon Perle*] 100 mg PO TID PRN #10 cap PRN Reason: Cough Thiamine HCl 100 mg PO DAILY #30 tablet Ascorbate Calcium [Vitamin C] 500 mg PO DAILY #30 tablet Cholecalciferol (Vitamin D3) [Vitamin D 1000 Iu Tab] 1,000 unit PO DAILY #30 tab Zinc Sulfate [Zinc Sulfate*] 220 mg PO DAILY #30 cap Physician Discharge Instructions: Patient presented with dyspnea secondary to acute respiratory failure with hypoxia. This was related to Covid pneumonia complicated with bilateral pulmonary emboli. This was identified on CT scan. Echocardiogram shows normal ejection fraction. Pulmonary was consulted to evaluate her care. Patient received IV Solu-Medrol and baricitinib. Patient improved during the course of her stay. Oxygen has been weaned down. Patient doing well at discharge without significant shortness of breath. At discharge patient still requires oxygen. At discharge she will continue with home oxygen to maintain sats above 93%. Currently on 2 L per nasal cannula. For her Covid infection, at discharge she will continue with prednisone 20 mg 1 pill twice daily for 7 days then 1 pill once daily for 7 days. She will be provided Tessalon Perles 100 mg 3 times a day as needed for cough. Recommend to continue vitamin C 500 mg daily, zinc 220 mg daily, thiamine 100 mg daily, and vitamin D 1000 mg daily for duration of treatment. Recommend to continue CDC guidelines on COVID-19. Recommend to continue face mask use, handwashing and social distancing. Pulmonology will help wean her off oxygen as an outpatient. For her bilateral pulmonary emboli, patient will continue with Eliquis 5 mg 1 pill twice daily. Patient will likely need treatment for 3 to 6 months. Recommend follow-up with pulmonology in 1 to 2 weeks to follow-up this hospitalization. Further adjustment in her medication can be done by pulmonology. Recommend follow-up with PCP to further monitor and address. Education on COVID-19, pulmonary embolism, and Eliquis will be provided. Arrangements for home oxygen will be done prior to discharge. Patient also found to have a UTI. She was treated with antibiotic therapy. Urine culture was positive for Enterococcus. She has done well. Patient improved. At discharge she will continue with Augmentin 875 mg 1 pill twice daily for 2 more days along with Diflucan 100 mg daily for 2 days. UTI prevention education provided. Patient likely with underlying GERD. At discharge we will continue with Pepcid 20 mg 1 pill twice daily especially since she will be on Eliquis. Patient with history has anxiety/insomnia. At discharge she may continue with trazodone 150 mg at bedtime as needed. Diet: AHA Activity: Ad rl Followup: Sailaja Almeida DO [Primary Care Provider] - Time spent managing pt's care (in minutes): 55
[2021-09-11] MEDS: INSULIN -REGULAR HUMAN 50 UNIT/0.5 ML ML SQ SCH ×2 (07:30→11:29)
--- NOTE | 2021-09-11 08:03 | RAD REPORT ---
EXAM DESCRIPTION: Enrique Single View09/11/2021 6:30 am CLINICAL HISTORY: Chest pain COMPARISON: September 08 2021 FINDINGS: Equivocal mild worsening in diffuse bilateral pulmonary opacities. Patient is in a poor de gree of inspiration. Heart is normal size IMPRESSION: Equivocal mild worsening in moderate pneumonia.
[2021-09-11] MEDS: MUCINEX DM 12HR.SR TAB PO PRN (08:23)
[2021-09-11] MEDS: BARICITINIB 2 MG TABLET PO SCH (08:23)
[2021-09-11] MEDS: AMOX/K CLAV 875 MG TAB PO SCH (08:23)
[2021-09-11] MEDS: predniSONE 20 MG TAB PO SCH (08:24)
[2021-09-11] MEDS: FLUCONAZOLE 100 MG TAB PO SCH (08:24)
[2021-09-11] MEDS: ENSURE ENLIVE 237 ML CAN PO SCH (08:24)
[2021-09-11] MEDS: ASPIRIN EC 81 MG TAB PO SCH (08:24)
[2021-09-11] MEDS: APIXABAN 5 MG TABLET PO SCH (08:24)
[2021-09-11] MEDS: FAMOTIDINE 20 MG TAB PO SCH (08:24)
[2021-09-11 13:23] VITALS: BP 127/72; TEMP 97.4
== END 2021-09-11 14:34 | disposition home or self-care (01) | DRG 177 ==
LOC: ER 19:24 → ERHOLD 23:45 → 4TH 09-05 17:35
PROVIDERS: ADMIT Hospitalist; ATTEND Hospitalist
PROC: 5A09357 Assistance with Respiratory Ventilation, Less than 24 Consecutive Hours, Continuous Positive Airway Pressure (ICD-10-PCS; principal; 2021-09-01)
PROC: 5A0955A Assistance with Respiratory Ventilation, Greater than 96 Consecutive Hours, High Flow/Velocity Cannula (ICD-10-PCS; 2021-09-02)
DX: U07.1 COVID-19 (principal); J96.01 Acute respiratory failure with hypoxia; J12.82 Pneumonia due to coronavirus disease 2019; I26.99 Other pulmonary embolism without acute cor pulmonale; N39.0 Urinary tract infection, site not specified; B95.2 Enterococcus as the cause of diseases classified elsewhere; K21.9 Gastro-esophageal reflux disease without esophagitis; F41.9 Anxiety disorder, unspecified; G47.00 Insomnia, unspecified; R41.82 Altered mental status, unspecified; F17.210 Nicotine dependence, cigarettes, uncomplicated
CPT/HCPCS: 0240U; 36415; 70450; 71045; 71275; 74177; 80048; 80053; 80061; 80076; 81003; 81015; 82248; 82728; 82805; 82947; 83605; 83735; 83880; 84100; 84145; 84439; 84443; 84484; 85025; 85379; 85610; 86140; 87040; 87077; 87086; 87088; 87186; 93005; 93306; 94002; 94003; 94640; 94660; 94760; 96372; 96374; 96375; 99291; 99292; J0456; J0460; J1650; J2270; J2405; J2920; J2930; J3010; J7030; J7050; J7512; J7605; Q9967

== ENCOUNTER 2021-09-13 09:04 | Emergency (ER) | payer BC ==
--- OUTSIDE RECORDS SUMMARY | 2021-09-13 09:07 | XMS REPORT | Continuity of Care Document ---
:1980 Author Organization [facility] t Address [address] [place] [address] Care Team Providers Name Role Phone Lupe Almeida Primary Care Physician Doctor Unassigned, Name Attending Clinician Unavailable Ivana LOZANO, L Attending Clinician Payers Payer Name Policy Type Policy Number Effective Date Expiration Date S ource Problems Condition Condition Condition Status Onset Resolution Last Treating Co mments Source Name Details Category Date Date Treatment Clinician Date Obesity Obesity Disease Active Univers (BMI (BMI 9-18 ity of 30-39.9) 30-39.9) 00:00: [address] Allergies, Adverse Reactions, Alerts Allergy Allergy Status [...] ity of adverse Vomiting 00:00: [place] reaction Medical s Branch Social History Social Habit Start Date Stop Date Quantity Comments Source Exposure to Not sure University of SARS-CoV-2 [facility] (event) Branch Alcohol intake 2021-06-08 2021-06-08 Lifetime University of 00:00:00 00:00:00 non-drinker [facility] (finding) [place] Tobacco use and 2021-04-06 2021-04-06 Never used Universit y of exposure 00:00:00 00:00:00 [facility] [place] [facility] Sex Assigned At [birth year] Universit y of 00:00:00 00:00:00 [facility] [place] [facility] Smoking Status Start Date Stop Date Source Current every day smoker 2021-04-06 00:00:00 Uni versity of [facility] [place] [facility] Medications Ordered Filled Start Stop Current Ordering Indication Dosage Frequency Signature Comments Components Source Medication Medication Date Date Medication? Clinician (SIG) Name Name paroxetine Yes 20mg Take 20 mg U nivers (PAXIL) 20 05-04 by mouth ity o f mg tablet 13:28: daily. [address] clonazePAM Yes .5mg Take 0.5 Uni vers (KLONOPIN) 05-04 mg by ity of 0.5 mg 13:28: mouth [place] tablet 45 daily. Medical Branch Cetirizine Yes Take by Uni vers 10 mg 05-04 mouth. ity of capsule 13:28: [address] fluticasone Yes 2{spray Use 2 Un [place] propionate 05-04 } Sprays in ity of (FLONASE 13:28: each [place] ALLERGY 45 nostril 2 Medical RELIEF) 50 (two) Branch mcg/actuati times on nasal daily. spray montelukast Yes 10mg Take 10 mg Univers 10 mg 05-04 by mouth. ity of tablet 13:28: [address] paroxetine Yes 20mg Take 20 mg U nivers (PAXIL) 20 05-04 by mouth ity o f mg tablet 13:28: daily. [address] clonazePAM Yes .5mg Take 0.5 Uni vers (KLONOPIN) 9-01 mg by ity of 0.5 mg 13:28: mouth [place] tablet 45 daily. Medical Branch Cetirizine Yes Take by Uni vers 10 mg 9-01 mouth. ity of capsule 13:28: 45 Medical Branch fluticasone Yes 2{spray Use 2 Un [place] propionate 9 } Sprays in ity of (FLONASE 13:28: each [place] ALLERGY 45 nostril 2 Medical RELIEF) 50 [...] 8-09 by mouth ity of 00:00: every [place] 00 morning. Medical Branch traZODone Yes TAKE 1 Univer s 50 mg 8-09 TABLET BY ity of tablet 00:00: MOUTH [place] 00 EVERY DAY Medical AT BEDTIME Branch NEEDED amLODIPine Yes 5mg Take 5 mg Un [place] 5 mg tablet 8-09 by mouth ity of 00:00: every [place] 00 morning. Medical Branch HYDROcodone Yes 1{tbl} [...] (scale 4-6) or Pain (scale 7-10). ibuprofen 2017-0 Yes 600mg Take 1 Unive rs 600 mg 9-24 tablet by ity of tablet 00:00: mouth [place] 00 every 6 Medical (six) Branch hours as needed for Pain (scale 1-3), Pain (scale 4-6) or Pain (scale 1-3) with oral narcotics. chlorhexidi 2017- Yes 15mL Swish and U nivers ne 0.12 % 9-24 spit out ity of mouthwash 00:00: 15 mL 2 [place] 00 (two) Medical times Branch daily. Vital Signs Vital Name Observation Time Observation Value Comments Source Body height 2021-06-08 18:15:00 160 cm [facility] Body weight 2021-06-08 18:15:00 96.616 kg [facility] BMI 2021-06-08 18:15:00 37.73 kg/m2 [facility] Procedures Procedure Date / Time Performed Performing Clinician [facility] e REFERRAL- 2021-07-04 05:01:00 Doctor Unassigned, No [facility] [place] REQUEST/RESPONSE Name Medical Branch Encounters Start End Encounter Admission Attending Care Care Encounter Source Date/Time Date/Time Type Type Clinicians Facility Department ID 2021-07-06 2021-07-06 ambulatory [facility] [id number] [facility] 2021-07-04 2021-07-04 Orders Doctor GELA [id number] Univers 00:00:00 00:00:00 Only Unassigned, AURELIANO [id number] ity of [place] [facility] [id number] Ned as [phone] [place] [address] Branch 2021-06-29 2021-06-29 Outpatient [facility] [id number] [facility]00 [facility] 2021-06-08 2021-06-08 Office NICKY Heath [id number] Univers 13:10:32 13:36:34 Visit [facility] [id number] it y xochilt PARRA [id number] Ned as MAURICIO?BLEA [phone] [address] OFFICE [facility] 2021-06-03 2021-06-03 Outpatient [facility] [id number] [facility] 2021-05-11 2021-05-11 Outpatient [facility] [id number] [facility] 2021-04-11 2021-04-11 Outpatient [facility] [id number] [facility]00 [facility] Outpati ent Clinics 2021-03-11 2021-03-11 Outpatient [facility] [id number] [facility]00 [facility] - [facility] Outpati ent Clinics 2021-03-10 2021-03-10 Outpatient [facility] [id number] [facility] 00[facility]00 [facility] - [facility] ent [facility] Results Test Description Test Time Test Comments Results Result [facility] e Comments - MRI UP [facility] 2019-02-28 Patient Name: W/CONT RT 13:02:00 DELIO HOOD Unit No: [id number] EXAMS: CPT CODE: [id number] MRI UP [facility] W/[place] [id number] EXAM: MRI ARTHROGRAM RIGHT SHOULDER DIAGNOSIS: 1. [...] Reported and signed by: Sumeet Chu MD [facility] NAME: DELIO HOOD [address] [place] [address] PHYS: Brennen Loyola MD : 1980 AGE: 38 SEX: F [place] [address] LOC: Y.RAD PHONE #: [phone] EXAM DATE: 02/28/2019 STATUS: REG CLI FAX #: [phone] RAD #: D/C DT PAGE 1 Signed Report (CONTINUED) Patient Name: DLEIO HOOD Unit No: [id number] EXAMS: CPT CODE: [id number] MRI UP JNT W/[place] [id number] <Continued> CC: Brennen Sanderson MD Technologist: DORY HASKINS. RT(R) Transcribed D/ (5117) [email or web address] [facility] NAME: DELIO HOOD [address] [place] [address] PHYS: Brennen Loyola MD : 1980 AGE: 38 SEX: F [place] [address] LOC: Y.RAD PHONE #: [phone] EXAM DATE: 02/28/2019 STATUS: REG CLI FAX #: [phone] RAD #: D/C DT PAGE 2 Signed Report Patient Name: DELIO HOOD Unit No: [id number] EXAMS: CPT CODE: [id number] MRI UP JNT W/[place] [address] <Continued> Orig Print D/T: S: 02/28/2019 (1306) [facility] NAME: DELIO HOOD [address] [facility] [address] PHYS: Brennen Loyola MD : 1980 AGE: 38 SEX: F [place], [place] [address] LOC: Y.RAD PHONE #: [phone] EXAM DATE: 02/28/2019 STATUS: REG CLI FAX #: [phone] RAD #: D/C DT PAGE 3 Signed Report - XR ARTHROGRAM 2019-02-28 Patient Name: SHLDR RT 13:02:00 DELIO HOOD Unit No: [id number] EXAMS: CPT CODE: [id number] [place] [address] EXAM: MRI ARTHROGRAM RIGHT SHOULDER DIAGNOSIS: 1. [...] Reported and signed by: Sumeet Chu MD [facility] NAME: DELIO HOOD [address] [place] [address] Main PHYS: Brennen Loyola MD : 1980 AGE: 38 SEX: F [place] [address] LOC: Y.RAD PHONE #: [phone] EXAM DATE: 02/28/2019 STATUS: REG CLI FAX #: [phone] RAD #: D/C DT PAGE 1 Signed Report (CONTINUED) Patient Name: DELIO HOOD Unit No: [id number] EXAMS: CPT CODE: [id number] [place] [address] <Continued> CC: Brennen Sanderson MD Technologist: Lian Brandt, RT.(R) Transcribed D/ (2982) ClaudiaGVG [facility] NAME: DELIO HOOD [address] [place] [address] Main PHYS: Brennen Loyola MD : 1980 AGE: 38 SEX: F [place] [address] LOC: Y.RAD PHONE #: [phone] EXAM DATE: 02/28/2019 STATUS: REG CLI FAX #: [phone] RAD #: D/C DT PAGE 2 Signed Report Patient Name: DELIO HOOD Unit No: [id number] EXAMS: CPT CODE: [id number] [place] [address] <Continued> Orig Print D/T: S: 02/28/2019 (8782) [facility] NAME: DELIO HOOD [address] [place] [address] Main PHYS: Brennen Loyola MD : 1980 AGE: 38 SEX: F [place] [address] LOC: Y.RAD PHONE #: [phone] EXAM DATE: 02/28/2019 STATUS: REG CLI FAX #: [phone] RAD #: D/C DT PAGE 3 Signed Report - XR FLUORO NDL 2018-10-08 Patient Name: 19:32:00 DELIO HOOD Unit No: [id number] EXAMS: CPT CODE: [id number] XR FLUORO NDL 53801 Fluoroscopically guided injection of the right shoulder [...] Technologist: HIEN STYLES, RT(R) Transcribed D/ (1931) [email or web address] [facility] NAME: DELIO HOOD [address] [place] [address] PHYS: Brennen Loyola MD : 1980 AGE: 38 SEX: F [place] [address] LOC: Y.RAD PHONE #: [phone] EXAM DATE: 10/08/2018 STATUS: REG CLI FAX #: [phone] RAD #: D/C DT PAGE 1 Signed Report Patient Name: DELIO HOOD Unit No: [id number] EXAMS: CPT CODE: [id number] XR FLUORO NDL [id number] <Continued> Orig Print D/T: S: 10/08/2018 (1934) [facility] NAME: DELIO HOOD [address] [facility] [address] PHYS: Brennen Loyola MD : 1980 AGE: 38 SEX: F [place] [address] LOC: Y.RAD PHONE #: [phone] EXAM DATE: 10/08/2018 STATUS: REG CLI FAX #: [phone] RAD #: D/C DT PAGE 2 Signed Report
[2021-09-13] MEDS ORDERED: METHYLPREDNISOLONE 125 MG INJ ONE (09:29)
[2021-09-13] MEDS ORDERED: HYDROCODONE/CHLORPHEN 5 ML/OSYR ONE (09:29)
[2021-09-13 09:35] LABS: Absolute Lymphocytes (CBC) 1.2 K/uL (0.7-4.9); Hematocrit 38.8 % (36.0-45.0); Lymphocytes % 7.7 % (15.3-44.8); RBC Red Blood Cell Count 4.63 M/uL (3.86-4.86)
--- NOTE | 2021-09-13 09:44 | RAD REPORT ---
EXAM DESCRIPTION: RAD - Chest Single View - 09/13/2021 9:36 am CLINICAL HISTORY: DYSPNEA Chest pain. COMPARISON: Chest Single View dated 09/11/2021; Chest Single View dated 09/08/2021; Chest Single View da marialuisa 09/07/2021; Chest Single View dated 09/07/2021 FINDINGS: Portable technique limits examination quality. Moderate improvement in bilateral pulmonary opacities noted since 09/11/2021 study. Mild opacities pe rsist bilaterally, slightly greater on the left. The heart is upper limit of normal in size. No displ aced fractures.
[2021-09-13 10:16] LABS: Albumin 2.6 g/dL (3.4-5.0); Bilirubin Direct 0.1 mg/dL (0-0.2); Bilirubin Total 0.4 mg/dL (0.2-1.0); C-Reactive Protein 25.6 mg/L (<3.00); Ferritin 682.2 ng/mL (8-388); Potassium 3.7 mmol/L (3.5-5.1); Protein, Total 6.9 g/dL (6.4-8.2); Troponin High Sensitivity 55.6 pg/mL (<58.9)
[2021-09-13 11:05] LABS: Protime INR 1.01
--- NOTE | 2021-09-13 12:17 | EDPHYS ---
Physician Documentation [facility] Name: Eunice Arango Age: 41 yrs Sex: Female : 1980 Arrival Date: 09/13/2021 Time: 09:05 Bed 5 Private MD: ED Physician Rolando Garcia HPI: 09/13 10:07 This 41 yrs old Unknown Female presents to ER via EMS with complaints of Covid + Fever. jr8 10:07 The patient has experienced a previous episode. The patient has been recently seen by a [facility] physician:. This is a 41-year-old female patient with a history of recent COVID diagnosis that was treated in the hospital this past week and was discharged on Sunday on home oxygen. Patient had been doing well but today started to have increased cough and shortness of breath. EMS on scene stated that even on her condenser via nasal cannula she was having an oxygen saturation of 89%. Patient currently on 4 L nasal cannula here at 96%. Patient stated that she has been compliant with all of her medications that she was sent home on.. 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 - Social history:: Smoking status: unknown. ROS: 10:07 Eyes: Negative for injury, pain, redness, and discharge, ENT: Negative for injury, jr8 pain, and discharge, Neck: Negative for injury, pain, and swelling, Cardiovascular: Negative for chest pain, palpitations, and edema, Abdomen/GI: Negative for abdominal pain, nausea, vomiting, diarrhea, and constipation, Back: Negative for injury and pain, MS/Extremity: Negative for injury and deformity, Skin: Negative for injury, rash, and discoloration, Neuro: Negative for headache, weakness, numbness, tingling, and seizure. 10:07 Respiratory: Positive for cough, shortness of breath. Exam: 10:07 Eyes: Pupils equal round and reactive to light, extra-ocular motions intact. Lids and jr8 lashes normal. Conjunctiva and sclera are non-icteric and not injected. Cornea within normal limits. Periorbital areas with no swelling, redness, or edema. ENT: Nares patent. No nasal discharge, no septal abnormalities noted. Tympanic membranes are normal and external auditory canals are clear. Oropharynx with no redness, swelling, or masses, exudates, or evidence of obstruction, uvula midline. Mucous membranes moist. Neck: Trachea midline, no thyromegaly or masses palpated, and no cervical lymphadenopathy. Supple, full range of motion without nuchal rigidity, or vertebral point tenderness. No Meningismus. Cardiovascular: Regular rate and rhythm with a normal S1 and S2. No gallops, murmurs, or rubs. Normal PMI, no JVD. No pulse deficits. Abdomen/GI: Soft, non-tender, with normal bowel sounds. No distension or tympany. No guarding or rebound. No evidence of tenderness throughout. Back: No spinal tenderness. No costovertebral tenderness. Full range of motion. Skin: Warm, dry with normal turgor. Normal color with no rashes, no lesions, and no evidence of cellulitis. MS/ Extremity: Pulses equal, no cyanosis. Neurovascular intact. Full, normal range of motion. Neuro: Awake and alert, GCS 15, oriented to person, place, time, and situation. Cranial nerves II-XII grossly intact. Motor strength 5/5 in all extremities. Sensory grossly intact. 10:07 Respiratory: the patient does not display signs of respiratory distress, Respirations: tachypnea, that is mild, Breath sounds: are clear throughout. Vital Signs: 09:15 BP 128 / 84; Pulse 116; Resp 22; Temp 99.2; Pulse Ox 99% on 4 lpm NC; jh5 10:03 BP 99 / 65; Pulse 96; Resp 22; Pulse Ox 99% ; jh5 10:45 BP 112 / 63; Pulse 94; Resp 22; Pulse Ox 94% on 2 lpm NC; ss 11:30 BP 126 / 69; Pulse 89; Resp 17 S; Pulse Ox 96% on R/A; jd3 12:55 BP 122 / 71; Pulse 93; Resp 22; Pulse Ox 94% ; jd3 MDM: 09:10 Patient medically screened. 8 10:59 Data reviewed: vital signs, nurses notes, lab test result(s), EKG, radiologic studies, jr8 plain films. Data interpreted: Pulse oximetry: on 2L(s) per nasal canula, is 94 %. Interpretation: acceptable. 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 ED course: Patient has maintained oxygen saturation of 94% at 2 L nasal cannula and has been up to 99% on 4 L nasal cannula. Patient has oxygen regulator at home. We had case management and home health go to check concentrator at home to make sure it was adequately supplied and working. Patient has markedly improved since last admission. As long as oxygen condenser is okay at home patient can go home on oxygen as she needs all requirements for home oxygen therapy without necessity for further admission at this time.. 12:15 ED course: Home health verified that patient's equipment is working. We will send jr8 patient home at this time.. 09/13 09:11 Order name: BMP; Complete Time: 10:09/13 09:11 Order name: Blood Culture Adult (2) 09/13 09:11 Order name: C-Reactive Protein; Complete Time: :8 09/13 09:11 Order name: CBC with Diff; Complete Time: 09:59 jr8 09/13 09:11 Order name: D-Dimer; Complete Time: 11:16 jr8 09/13 09:11 Order name: Ferritin; Complete Time: 10:33 09/13 09:11 Order name: LFT's; Complete Time: :09/13 09:11 Order name: Lactate; Complete Time: 09:59 jr8 09/13 09:11 Order name: Lipase; Complete Time: 10:33 jr8 09/13 09:11 Order name: PT-INR; Complete Time: 11:16 8 09/13 09:11 Order name: Procalcitonin; Complete Time: 10:33 jr8 09/13 09:11 Order name: Ptt, Activated; Complete Time: 11:16 jr8 09/13 09:34 Order name: Glucose, Ancillary Testing; Complete Time: 09:59 EDMS 09/13 09:11 Order name: CXR XRAY; Complete Time: 09:59 09/13 09:11 Order name: Cardiac monitoring; Complete Time: 09:22 09/13 09:11 Order name: Droplet/Contact Precautions; Complete Time: :22 09/13 09:11 Order name: EKG - Nurse/Tech; Complete Time: 09:36 09/13 09:11 Order name: IV Start; Complete Time: :22 09/13 09:11 Order name: Labs collected and sent; Complete Time: :22 09/13 09:11 Order name: O2 Per Protocol; Complete Time: :22 09/13 09:11 Order name: O2 Sat Monitoring; Complete Time: :22 09/13 09:39 Order name: Troponin High Sensitivity; Complete Time: 10:33 EDMS Administered Medications: 09:41 Drug: SOLU-Medrol (methylPrednisoLONE) 125 mg Route: IVP; Site: right antecubital; [facility] 09:41 Drug: Tussionex Pennkinetic ER (chlorpheniramine-hydrocodone) Suspension 5 ml Route: PO;5 Disposition: 17:10 Co-signature as Attending Physician, Rolando Garcia MD I agree with the assessment and rn plan of care. Attestation: The patient's history, exam findings, diagnostics, and a summary of any interventions or procedures was reviewed in detail with Tomy BEATTY. Disposition Summary: 09/13/21 12:16 Discharge Ordered Location: Home jr Problem: new jr8 Symptoms: have improved jr8 Condition: Stable jr8 Diagnosis - SARS-associated coronavirus as the cause of diseases classified elsewhere jr8 Followup: jr8 - With: Private Physician - When: 2 - 3 days - Reason: Recheck today's complaints, Continuance of care, Re-evaluation by your physician Discharge Instructions: - Discharge Summary Sheet jr8 - COVID-19 jr8 Forms: - Medication Reconciliation Form jr8 - Thank You Letter jr8 - Antibiotic Education jr8 - Prescription Opioid Use jr8 Prescriptions: - promethazine-DM 6.25-15 mg/5 mL Oral syrup - take 5 milliliter by ORAL route every 4-6 hours as needed, not to exceed 30 mL jr8 in 24 hours; 110 milliliter; Refills: 0, Product Selection Permitted Signatures: Dispatcher [employer] EDMS Rolando Garcia MD MD rn Roszak, Josh, PA PA jr8 So Gunn RN RN jh5 Corrections: (The following items were deleted from the chart) 09:39 09:11 TROPONIN (EMERG DEPT USE ONLY)+C.LAB.BRZ ordered. EDMS EDMS 13:18 09:11 Urine Dipstick-Ancillary ordered. jr8 jh5
--- NOTE | 2021-09-13 12:17 | ER ---
Nurse's Notes [facility] Name: Eunice Arango Age: 41 yrs Sex: Female : 1980 Arrival Date: 09/13/2021 Time: 09:05 Bed 5 Private MD: Diagnosis: SARS-associated coronavirus as the cause of diseases classified elsewhere Presentation: 09/13 09:15 Chief complaint: Patient states: I have COVID and I'm not feeling any better post [facility] discharge home on 02. Coronavirus screen: Vaccine status: Patient reports receiving the 2nd dose of the covid vaccine. Client denies travel out of the [place] in the last 14 days. Client presents with at least one sign or symptom that may indicate coronavirus-19. Ebola Screen: Patient negative for fever greater than or equal to 101.5 degrees Fahrenheit, and additional compatible Ebola Virus Disease symptoms Patient denies exposure to infectious person. Patient denies travel to an Ebola-affected area in the 21 days before illness onset. Initial Sepsis Screen: Does the patient meet any 2 criteria? RR > 20 per min. HR > 90 bpm. Does the patient have a suspected source of infection? Yes: Productive cough/pneumonia. Risk Assessment: Do you want to hurt yourself or someone else? Patient reports no desire to harm self or others. Onset of symptoms is unknown. 09:15 Method Of Arrival: EMS: [facility] 09:15 Acuity: ALIS 3 [facility] Triage Assessment: 09:18 General: Appears uncomfortable, obese, Behavior is calm, cooperative, appropriate for [facility] age. Pain: Complains of pain in abdomen. 09:21 Neuro: No deficits noted. Level of Consciousness is awake, alert, obeys commands, [facility] Oriented to person, place, time, situation, Appropriate for age Speech is normal. Respiratory: Reports shortness of breath cough that is. 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 - Social history:: Smoking status: unknown. Screenin:19 Abuse screen: Denies threats or abuse. Denies injuries from another. Nutritional jh5 screening: No deficits noted. Tuberculosis screening: No symptoms or risk factors identified. Fall Risk Secondary diagnosis (15 points) impaired mobility, IV access (20 points). Assessment: 09:21 Reassessment: see triage. jh5 09:59 Reassessment: Called Case Management to see if they can notify the company that some up home oxygen to check oxygen concentrator at home to make sure it is not malfunctioning as patient's oxygen remains 99-100 % on 4L NC in ED. 11:30 Reassessment: Patient appears in no apparent distress at this time. Patient and/or jd3 family updated on plan of care and expected duration. Pain level reassessed. Patient is alert, oriented x 3, equal unlabored respirations, skin warm/dry/pink. 12:55 Reassessment: No changes from previously documented assessment. Patient and/or family jd3 updated on plan of care and expected duration. Pain level reassessed. Patient is alert, oriented x 3, equal unlabored respirations, skin warm/dry/pink. 13:15 Reassessment: Pt educated about her discharge plan; pt given purse and phone to contact jh5 daughter to come and get her. 13:16 Reassessment: Pt in room tapping on phone states; "I can't a hold of anyone to come get jh5 me!". 13:45 Reassessment: Pt becoming verbally aggressive towards staff, yelling and throwing hands jh5 in the air unhappy with discharge status. Charge, RN aware of pt behavior and status of ride home. Will assist in arranging transport. Vital Signs: 09:15 BP 128 / 84; Pulse 116; Resp 22; Temp 99.2; Pulse Ox 99% on 4 lpm NC; jh5 10:03 BP 99 / 65; Pulse 96; Resp 22; Pulse Ox 99% ; jh5 10:45 BP 112 / 63; Pulse 94; Resp 22; Pulse Ox 94% on 2 lpm NC; ss 11:30 BP 126 / 69; Pulse 89; Resp 17 S; Pulse Ox 96% on R/A; jd3 12:55 BP 122 / 71; Pulse 93; Resp 22; Pulse Ox 94% ; jd3 ED Course: 09:05 Patient arrived in ED. ds1 09:10 Tomy Rossi PA is PHCP. jr8 09:10 Rolando Garcia MD is Attending Physician. jr8 09:15 So Gunn, RN is Primary Nurse. 5 09:18 Triage completed. jh5 09:22 Patient has correct armband on for positive identification. Bed in low position. Call [facility] light in reach. Side rails up X 1. 09:22 Patient placed on a stretcher, on oxygen, on bull ladle tender, on pulse oximetry. 5 09:25 Initial lab(s) drawn, by in, sent to lab. First set of blood cultures drawn. Inserted kj1 saline lock: 20 gauge in right antecubital area, using aseptic technique. Blood collected. 09:36 CXR XRAY In Process Unspecified. EDMS 10:46 No provider procedures requiring assistance completed. 13:54 IV discontinued, intact, bleeding controlled, No redness/swelling at site. Pressure jh5 dressing applied. Administered Medications: 09:41 Drug: SOLU-Medrol (methylPrednisoLONE) 125 mg Route: IVP; Site: right antecubital; [facility] 09:41 Drug: Tussionex Pennkinetic ER (chlorpheniramine-hydrocodone) Suspension 5 ml Route: PO;5 Outcome: 12:16 Discharge ordered by MD. jr8 12:23 Discharged to home via wheelchair. 5 12:23 Condition: good 12:23 Discharge instructions given to patient, family, Instructed on discharge instructions, follow up and referral plans. safety practices, Demonstrated understanding of instructions, follow-up care, medications. 13:55 Patient left the ED. 5 Signatures: Dispatcher [employer] [facility] ds1 Nicolette Webster RN RN Tomy Rossi PA PA jr8 Wes Ramos RN RN Sara Schaeffer kj1 So Gunn, REINALDO RN jh5 Corrections: (The following items were deleted from the chart) 09:35 09:19 Inserted saline lock: 20 gauge in right antecubital area, using aseptic kj1 technique. jh5
[2021-09-13 14:20] VITALS: TEMP 99.2
[2021-09-13 14:25] VITALS: BP 122/71; O2SAT 94
== END 2021-09-13 13:55 | disposition home or self-care (01) ==
LOC: ER 09:04
DX: U07.1 COVID-19 (principal); Z88.1 Allergy status to other antibiotic agents; Z88.5 Allergy status to narcotic agent
CPT/HCPCS: 87040 ×2; 85025; 80048; 36415; 87205 ×4; 85610; 82947; 85379; 80076; 83605; 85730; 87077 ×2; 87186 ×2; 84484; 82728; 83690; 84145; 86140; 71045; 96374; 99284; J2930

== ENCOUNTER 2021-12-31 17:57 | Emergency (ER) | payer BC ==
--- OUTSIDE RECORDS SUMMARY | 2021-12-31 18:00 | XMS REPORT | Continuity of Care Document ---
:1980 Author Organization [facility] t Address [address] [place] [address] Care Team Providers Name Role Phone Lupe Almeida Primary Care Physician Tesha Almeida Attending Clinician Unavailable Doctor Unassigned, Name Attending Clinician Unavailable Ivana [...] [facility] ciproflo DA Active [facility] xacin 2-05 [place] 00:00: Orthope 00 [facility] Ciproflo Propensi Active Nausea Univer s xacin ty to and/or 9-18 ity of adverse Vomiting 00:00: [place] reaction 00 Medical s Branch Codeine Propensi Active Nausea Univers ty to and/or 05-21 ity of adverse Vomiting 00:00: [place] reaction 00 Medical s Branch Social History Social Habit Start Date Stop Date Quantity Comments Source Exposure to Not sure University of SARS-CoV-2 [place] [facility] (event) Branch Alcohol intake 2021-06-08 2021-06-08 Lifetime University of 00:00:00 00:00:00 non-drinker [facility] (finding) Branch Tobacco use and 2021-04-06 2021-04-06 Never used Universit y of exposure 00:00:00 00:00:00 [facility] Sex Assigned At [birth year] Universit y of 00:00:00 00:00:00 [facility] Smoking Status Start Date Stop Date Source Current every day smoker 2021-04-06 00:00:[address] [facility] Medications Ordered Filled Start Stop Current Ordering Indication Dosage Frequency Signature Comments Components Source Medication Medication Date Date Medication? Clinician (SIG) Name Name paroxetine Yes 20mg Take 20 mg U nivers (PAXIL) 20 05-04 by mouth ity o f mg tablet 13:28: daily. [address] clonazePAM Yes .5mg Take 0.5 Uni vers (KLONOPIN) 05-04 mg by ity of 0.5 mg 13:28: mouth [place] tablet 45 daily. Medical Branch Cetirizine Yes Take by Uni vers 10 mg 05-04 mouth. ity of capsule 13:28: [address] fluticasone Yes 2{spray Use 2 Un [place] propionate 05-04 } Sprays in ity of (FLONASE 13:28: each [place] ALLERGY 45 nostril 2 Medical RELIEF) 50 (two) Branch mcg/actuati times on nasal daily. spray montelukast Yes 10mg Take 10 mg Univers 10 mg 05-04 by mouth. ity of tablet 13:28: [address] paroxetine Yes 20mg Take 20 mg U nivers (PAXIL) 20 05-04 by mouth ity o f mg tablet 13:28: daily. [address] clonazePAM Yes .5mg Take 0.5 Uni vers (KLONOPIN) 9-01 mg by ity of 0.5 mg 13:28: mouth [place] tablet 45 daily. Medical Branch Cetirizine Yes Take by Uni vers 10 mg 9-01 mouth. ity of capsule 13:28: 45 Medical Branch fluticasone Yes 2{spray Use 2 [place] propionate 9 } Sprays in ity of (FLONASE 13:28: each [place] ALLERGY 45 nostril 2 Medical RELIEF) 50 (two) Branch mcg/actuati times on nasal daily. spray montelukast Yes 10mg Take 10 mg Univers 10 mg 9- by mouth. ity of tablet 13:28: Medical Branch traZODone Yes TAKE 1 Univer s 50 mg 8-09 TABLET BY ity of tablet 00:00: MOUTH [place] 00 EVERY DAY Medical AT BEDTIME Branch NEEDED amLODIPine Yes 5mg Take 5 mg Un [place] 5 mg tablet 8-09 by mouth ity of 00:00: every [place] 00 morning. Medical Branch traZODone Yes TAKE 1 Univer s 50 mg 8-09 TABLET BY ity of tablet 00:00: MOUTH [place] 00 EVERY DAY Medical AT BEDTIME Branch NEEDED amLODIPine Yes 5mg Take 5 mg Un [place] 5 mg tablet 8-09 by mouth ity of 00:00: every [place] 00 morning. Medical Branch HYDROcodone Yes 1{tbl} [...] 00 (two) Medical times Branch daily. HYDROcodone 2018-0 Yes 1{tbl} Take 1 Un [place] -acetaminop [...] Pain (scale 1-3) with oral narcotics. chlorhexidi 2017-0 Yes 15mL Swish and U nivers ne 0.12 % 9-24 spit out ity of mouthwash 00:00: 15 mL 2 [place] 00 (two) Medical times Branch daily. Vital Signs Vital Name Observation Time Observation Value Comments Source Body height 2021-06-08 18:15:00 160 cm [facility] Body weight 2021-06-08 18:15:00 96.616 kg [facility] BMI 2021-06-08 18:15:00 37.73 kg/m2 [facility] Procedures Procedure Date / Time Performed Performing Clinician [facility] e REFERRAL- 2021-07-04 05:01:00 Doctor Unassigned, No [facility] [place] REQUEST/RESPONSE Name Medical Branch Encounters Start End Encounter Admission Attending Care Care Encounter Source Date/Time Date/Time Type Type Clinicians Facility Department ID 2021-12-27 [facility] [id number] [facility] 09[facility]43[facility]02 [facility] 2021-11-02 Out[facility] [id number] [facility] 10:34:02 [facility] 2021-09-28 Outpatient Juan Pablo [facility] [id number] [facility] 14:36:25 [facility] 2021-09-28 [facility] [id number] [facility] 13[facility]56:35 [id number] [facility] 2021-09-28 Outpatient Juan Pablo, Na [facility] [id number] [facility] 13:55:44 [id number] [facility] 2021-09-28 Outpatient Juan Pablo, Na [facility] [id number] [facility] 13:46:51 [id number] [facility] 2021-09-28 Outpatient Juan Pablo, Na [facility] [id number] [facility] 13:35:37 [id number] [facility] 2021-09-28 Outpatient Juan Pablo, Na [facility] [id number] 13:34:54 [id number] [facility] 2021-09-28 Outpatient Juan Pablo, Na [facility] [id number] [facility] 13:24:09 [id number] [facility] 2021-09-28 Outpatient Juan Pablo, Na [facility] [id number] 13:23:50 [id number] [facility] 2021-11-03 2021-11-03 ambulatory [facility] [id number] [facility] 2021-10-17 2021-10-17 ambulatory [facility] [id number] [facility] 2021-10-13 2021-10-13 ambulatory [facility] [id number] [facility] 2021-10-05 2021-10-05 ambulatory [facility] [id number] [facility] 2021-10-05 2021-10-05 ambulatory [facility] [id number] [facility] 2021-09-26 2021-09-26 ambulatory [facility] [id number] [facility] 2021-09-13 2021-09-13 [id number] 2021-07-06 2021-07-06 ambulatory [facility] [id number] [facility] 2021-07-04 2021-07-04 Orders Doctor GELA [id number] Univers 00:00:00 00:00:00 Only Unassigned, VAUGHN [id number] ity of [facility] [id number] Ned as [phone] [address] 2021-06-29 2021-06-29 Outpatient [facility] [id number] [facility] 2021-06-08 2021-06-08 Office [facility] [id number] [facility] 13:10:32 13:36:34 Visit [facility] [id number] it y of [place] [id number] Ned as MAURICIO?BLEA [phone] [address] MEDICAL OFFICE BUILDING 2021-06-03 2021-06-03 Outpatient [facility] [id number] [facility] 2021-05-11 2021-05-11 Outpatient [facility] [id number] [facility] 2021-04-11 2021-04-11 Outpatient [facility] [id number] [facility] 2021-03-11 2021-03-11 Outpatient [facility] [id number] [facility] 2021-03-10 2021-03-10 Outpatient [facility] [id number] [facility] 00:00:00 00:00:00 [facility] Results Test Description Test Time Test Comments Results Result Sour e Comments - MRI UP [facility] 2019-02-28 Patient Name: W/CONT RT 13:02:00 DELIO HOOD Unit No: [id number] EXAMS: CPT CODE: [id number] MRI UP [facility] W/[place] [id number] EXAM: MRI ARTHROGRAM RIGHT SHOULDER DIAGNOSIS: 1. [...] Reported and signed by: Sumeet Chu MD [facility] NAME: DELIO HOOD [address] [facility] PHYS: Brennen Loyola MD : 1980 AGE: 38 SEX: F [place] [address] LOC: Y.RAD PHONE #: [phone] EXAM DATE: 02/28/2019 STATUS: REG CLI FAX #: [phone] RAD #: D/C DT PAGE 1 Signed Report (CONTINUED) Patient Name: DELIO HOOD Unit No: [id number] EXAMS: CPT CODE: [id number] MRI UP JNT W/[place] [id number] <Continued> CC: Brennen Sanderson MD Technologist: DORY HASKINS. RT(R) Transcribed D/ (3775) t.GVG [facility] NAME: DELIO HOOD [address] [place] [address] PHYS: Brennen Loyola MD : 1980 AGE: 38 SEX: F [place] [address] LOC: Y.RAD PHONE #: [phone] EXAM DATE: 02/28/2019 STATUS: REG CLI FAX #: [phone] RAD #: D/C DT PAGE 2 Signed Report Patient Name: DELIO HOOD Unit No: [id number] EXAMS: CPT CODE: [id number] MRI UP JNT W/[place] [id number] <Continued> Orig Print D/T: S: 02/28/2019 (1305) [facility] NAME: DELIO HOOD [address] [place] [address] PHYS: Brennen Loyola MD : 1980 AGE: 38 SEX: F [place] [address] LOC: Y.RAD PHONE #: [phone] EXAM DATE: 02/28/2019 STATUS: REG CLI FAX #: [phone] RAD #: D/C DT PAGE 3 Signed Report - XR ARTHROGRAM 2019-02-28 Patient Name: SHLDR RT 13:02:00 DELIO HOOD Unit No: [id number] EXAMS: CPT CODE: [id number] [place] [address] EXAM: MRI ARTHROGRAM RIGHT SHOULDER DIAGNOSIS: 1. [...] Reported and signed by: Sumeet Chu MD [facility] NAME: DELIO HOOD [address] [facility] PHYS: Brennen Loyola MD : 1980 AGE: 38 SEX: F [place], [place] [address] LOC: Y.RAD PHONE #: [phone] EXAM DATE: 02/28/2019 STATUS: REG CLI FAX #: [phone] RAD #: D/C DT PAGE 1 Signed Report (CONTINUED) Patient Name: DELIO HOOD Unit No: [id number] EXAMS: CPT CODE: [id number] [place] [id number] <Continued> CC: Brennen Sanderson MD Technologist: Lian Brandt RT.(R) Transcribed D/ (1302) t.GVG [facility] NAME: DELIO HOOD [address] [facility] PHYS: Brennen Loyola MD : 1980 AGE: 38 SEX: F [place] [address] LOC: ErickaRAD PHONE #: [phone] EXAM DATE: 02/28/2019 STATUS: REG CLI FAX #: [phone] RAD #: D/C DT PAGE 2 Signed Report Patient Name: DELIO HOOD Unit No: [id number] EXAMS: CPT CODE: [id number] [place] [id number] <Continued> Orig Print D/T: S: 02/28/2019 (1306) [facility] NAME: DELIO HOOD [address] [facility] PHYS: Brennen Loyola MD : 1980 AGE: 38 SEX: F [place] [address] LOC: Y.RAD PHONE #: [phone] EXAM DATE: 02/28/2019 STATUS: REG CLI FAX #: [phone] RAD #: D/C DT PAGE 3 Signed Report - XR FLUORO NDL 2018-10-08 Patient Name: 19:32:00 DELIO HOOD Unit No: [id number] EXAMS: CPT CODE: [id number] XR FLUORO NDL 05620 Fluoroscopically guided injection of the right shoulder [...] Technologist: HIEN STYLES, RT(R) Transcribed D/ (1931) Scar [facility] NAME: DELIO HOOD [address] [facility] PHYS: Brennen Loyola MD : 1980 AGE: 38 SEX: F [place] [address] LOC: YAnastacioRAD PHONE #: [phone] EXAM DATE: 10/08/2018 STATUS: REG CLI FAX #: [phone] RAD #: D/C DT PAGE 1 Signed Report Patient Name: DELIO HOOD Unit No: [id number] EXAMS: CPT CODE: [id number] XR FLUORO NDL [id number] <Continued> Orig Print D/T: S: 10/08/2018 (193) [facility] NAME: DELIO HOOD [address] [facility] PHYS: Brennen Loyola MD : 1980 AGE: 38 SEX: F [place] [address] LOC: YAnastacioRAD PHONE #: [phone] EXAM DATE: 10/08/2018 STATUS: REG CLI FAX #: [phone] RAD #: D/C DT PAGE 2 Signed Report
[2021-12-31 18:47] LABS: Absolute Lymphocytes (CBC) 1.9 K/uL (0.7-4.9); Hematocrit 38.1 % (36.0-45.0); Lymphocytes % 30.3 % (15.3-44.8); MPV 7.6 fL (7.6-11.3); RBC Red Blood Cell Count 4.68 M/uL (3.86-4.86)
[2021-12-31 18:51] LABS: Protime INR 1.14
[2021-12-31 19:05] LABS: ALT/SGPT 46 U/L (12-78); AST/SGOT 21 U/L (15-37); Albumin 3.7 g/dL (3.4-5.0); Alkaline Phosphatase 55 U/L (45-117); BUN Blood Urea Nitrogen 13 mg/dL (7-18); Bicarbonate 26 mmol/L (21-32); Bilirubin Total 0.2 mg/dL (0.2-1.0); Glucose Level 127 mg/dL (74-106); NT PRO-BNP 37 pg/mL (<125); Potassium 3.3 mmol/L (3.5-5.1); Protein, Total 7.8 g/dL (6.4-8.2); Sodium Level 142 mmol/L (136-145)
[2021-12-31 19:06] LABS: Bilirubin Direct < 0.1 mg/dL (0-0.2)
--- NOTE | 2021-12-31 19:35 | RAD REPORT ---
EXAM DESCRIPTION: RAD - Chest Single View - 12/31/2021 7:04 pm CLINICAL HISTORY: Dizziness, left-sided shoulder pain COMPARISON: Portable 09/13/2021 TECHNIQUE: AP portable chest image was obtained 12/31/2021 7:04 pm . FINDINGS: Lung volumes are low. No peripheral mass or consolidation. No significant failure or volum e overload. Heart and vasculature are normal. No measurable pleural effusion and no pneumothorax. No acute bony abnormality seen. No acute aortic findings suspected. IMPRESSION: No acute cardiopulmonary process.
[2021-12-31] MEDS ORDERED: LORazepam 2 MG/ML VIAL ONE (20:09)
[2021-12-31] MEDS ORDERED: NA CHLORIDE 0.9% 1,000 ML ONE (20:11)
[2021-12-31] MEDS ORDERED: ONDANSETRON 4 MG/2 ML VIAL ONE (20:11)
--- NOTE | 2021-12-31 20:24 | RAD REPORT ---
EXAM DESCRIPTION: CT - Head Brain Wo Cont - 12/31/2021 8:13 pm CLINICAL HISTORY: Dizziness, non-specific COMPARISON: Head Brain Wo Cont dated 09/01/2021 TECHNIQUE: Axial 5 mm thick images of the head were obtained without IV contrast. All CT scans are performed using dose optimization technique as appropriate and may include automated exposure control or mA/KV adjustment according to patient size. FINDINGS: No intracranial hemorrhage, mass, edema or shift of mid-line structures. No acute infarcti on changes seen. No abnormal extra-axial fluid collections. Ventricles are normal. Mastoid air cells and visualized portions of the paranasal sinuses are clear. No acute bony findings. IMPRESSION: Negative non-contrast CT head examination. No significant change from the comparison.
--- NOTE | 2021-12-31 20:39 | ER ---
Nurse's Notes [facility] Name: Eunice Arango Age: 41 yrs Sex: Female : 1980 Arrival Date: 12/31/2021 Time: 17:59 Bed 16 Private MD: Sailaja Almeida Diagnosis: Benign paroxysmal vertigo Presentation: 12/31 18:02 Chief complaint: Patient states: "I am dizzy, my left shoulder hurts and im weak and ab2 shaky." Pt states this started at 3:15. Pt states she libia not remember any trauma to her shoulder. Coronavirus screen: Vaccine status: Patient reports being unvaccinated. Client denies travel out of the [place] in the last 14 days. At this time, the client does not indicate any symptoms associated with coronavirus-19. Ebola Screen: Patient negative for fever greater than or equal to 101.5 degrees Fahrenheit, and additional compatible Ebola Virus Disease symptoms Patient denies exposure to infectious person. Patient denies travel to an Ebola-affected area in the 21 days before illness onset. No symptoms or risks identified at this time. Initial Sepsis Screen: Does the patient meet any 2 criteria? No. Patient's initial sepsis screen is negative. Does the patient have a suspected source of infection? No. Patient's initial sepsis screen is negative. Risk Assessment: Do you want to hurt yourself or someone else? Patient reports no desire to harm self or others. Onset of symptoms is unknown. 18:02 Method Of Arrival: Wheelchair ab2 18:02 Acuity: ALIS 3 ab2 Triage Assessment: 18:06 General: Appears in no apparent distress. comfortable, Behavior is calm, cooperative, ab2 appropriate for age. Pain: Complains of pain in left arm. Neuro: Level of Consciousness is awake, alert, obeys commands, Oriented to person, place, time, situation, Appropriate for age Referral Management Liaison are equal bilaterally Moves all extremities. Cardiovascular: No deficits noted. Denies chest pain, shortness of breath, Patient's skin is warm and dry. Respiratory: Airway is patent Respiratory effort is even, unlabored, Respiratory pattern is regular, symmetrical. GI: Reports nausea. Derm: Skin is intact, is healthy with good turgor, Skin is pink, warm \\T\\ dry. Musculoskeletal: Reports pain in left arm. 18:07 Cardiovascular: Reports lightheadedness. ab2 Historical: - Allergies: 18:05 Cipro; ab2 18:05 Codeine; ab2 - PMHx: 18:05 Diverticulitis; Migraine; ab2 - PSHx: 18:05 Total abdominal hysterectomy; Appendectomy; Cholecystectomy; ab2 - Immunization history:: Adult Immunizations up to date. - Social history:: Smoking status: Patient denies any tobacco usage or history of. Screenin:54 Abuse screen: Denies threats or abuse. Nutritional screening: No deficits noted. jd3 Tuberculosis screening: No symptoms or risk factors identified. Fall Risk Ambulatory Aid- None/Bed Rest/Nurse Assist (0 pts). Gait- Normal/Bed Rest/Wheelchair (0 pts) Mental Status- Oriented to own ability (0 pts). Total Mullen Fall Scale indicates No Risk (0-24 pts). Assessment: 18:50 General: Appears in no apparent distress. uncomfortable, Behavior is calm, cooperative, jd3 appropriate for age. Pain: Complains of pain in posterior chest and back and left arm Quality of pain is described as shooting. Neuro: Level of Consciousness is awake, alert, obeys commands, Oriented to person, place, time, situation, Moves all extremities. Full function Speech is normal, Facial symmetry appears normal, Pupils are PERRLA, Reports dizziness, numbness in left arm since September 2021. Cardiovascular: Capillary refill < 3 seconds Patient's skin is warm and dry. Rhythm is regular. Respiratory: Airway is patent Respiratory effort is even, unlabored, Respiratory pattern is regular, symmetrical, Denies cough, shortness of breath. GI: Abdomen is round non-distended, Abd is soft and non tender X 4 quads. Patient currently denies nausea. : No signs and/or symptoms were reported regarding the genitourinary system. EENT: No signs and/or symptoms were reported regarding the EENT system. Derm: Skin is intact, Skin is dry, Skin is normal, Skin temperature is warm. Musculoskeletal: Circulation, motion, and sensation intact. Range of motion: intact in all extremities. Vital Signs: 18:02 BP 133 / 84; Pulse 88; Resp 17; Temp 97.1; Pulse Ox 99% ; Weight 95.25 kg; Height 5 ft. ab2 3 in. (160.02 cm); Pain 6/10; 20:45 BP 126 / 80; Pulse 78; Resp 18; Temp 98.7; Pulse Ox 100% ; Pain 2/10; ke1 18:02 Body Mass Index 37.20 (95.25 kg, 160.02 cm) ab2 ED Course: 17:59 Patient arrived in ED. as 18:00 Sailaja Almeida MD is Private Physician. as 18:05 Triage completed. ab2 18:07 Arm band placed on right wrist. ab2 18:23 [facility]ara [facility] pm1 18:23 Ramsey Hernandez MD is Attending Physician. pm1 18:24 Wes Ramos, RN is Primary Nurse. jd3 18:38 Inserted saline lock: 20 gauge in left antecubital area, using aseptic technique. Blood jd3 collected. 18:49 EKG done, by ED staff, reviewed by Allen Alcantara NP. jd3 18:54 Patient has correct armband on for positive identification. Bed in low position. Call jd3 light in reach. Side rails up X 1. Adult w/ patient. 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 Pulse ox on. NIBP on. 19:05 XRAY Chest (1 view) In Process Unspecified. EDMS 20:07 Primary Nurse role handed off by Wes Ramos RN cs9 20:15 CT Head Brain wo Cont In Process Unspecified. EDMS 20:27 Milagros Faria RN is Primary Nurse. ke1 20:38 Kavin Franco MD is Referral Physician. pm1 20:38 Sailaja Almeida MD is Referral Physician. pm1 20:49 No provider procedures requiring assistance completed. ke1 20:54 IV discontinued. ke1 Administered Medications: 20:27 Drug: Ativan (LORazepam) 1 mg Route: IVP; Site: left antecubital; ke1 20:45 Follow up: Response: Marked relief of symptoms ke1 20:27 Drug: NS 0.9% 1000 ml Route: IV; Rate: 1000 ml; Site: left antecubital; ke1 20:50 Follow up: IV Status: Completed infusion ke1 20:27 Drug: Zofran (Ondansetron) 4 mg Route: IVP; Site: left antecubital; ke1 20:45 Follow up: Response: Marked relief of symptoms ke1 20:49 Drug: Meclizine 25 mg Route: PO; ke1 20:57 Follow up: Response: Medication administered at discharge. ke1 Outcome: 20:38 Discharge ordered by . pm1 20:54 Discharged to home ambulatory. ke1 20:54 Condition: good 20:54 Discharge instructions given to patient. 20:58 Patient left the ED. ke1 Signatures: Dispatcher [employer] EDAleksandra Rosario Patrick, NP [employer] pm1 Wes Ramos RN RN Irma Massey 9 Fan Campos Kouassi, RN RN ke1 Corrections: (The following items were deleted from the chart) 19:41 19:15 BP 145 / 52; Pulse 107bpm; Resp 18bpm; Pulse Ox 98% RA; Temp 102.5F; ke1 ke1
--- NOTE | 2021-12-31 20:39 | EDPHYS ---
Physician Documentation [facility] Name: Eunice Arango Age: 41 yrs Sex: Female : 1980 Arrival Date: 12/31/2021 Time: 17:59 Bed 16 Private MD: Sailaja Almeida ED Physician Ramsey Hernandez HPI: 12/31 18:26 This 41 yrs old Female presents to ER via Wheelchair with complaints of Dizziness, pm1 Nausea, Weakness, Shoulder Pain. 18:26 The patient presents with dizziness, generalized weakness. Onset: The symptoms/episode pm1 began/occurred Ongoing since September of this year since twan covid. Patient reports left shoulder pain since 1500 today. Context: occurred at home. Modifying factors: The symptoms are alleviated by nothing, the symptoms are aggravated by nothing. Associated signs and symptoms: Pertinent positives: nausea, Pertinent negatives: chest pain, shortness of breath. Patient's baseline: Neuro: alert and fully oriented, Motor: no deficits, Ambulation: walks without assistance, Speech: normal. The patient has experienced similar episodes in the past, chronically. The patient has not recently seen a physician, but has a scheduled MRI next weak with Dr. Franco. Historical: - Allergies: 18:05 Cipro; ab2 18:05 Codeine; ab2 - PMHx: 18:05 Diverticulitis; Migraine; ab2 - PSHx: 18:05 Total abdominal hysterectomy; Appendectomy; Cholecystectomy; ab2 - Immunization history:: Adult Immunizations up to date. - Social history:: Smoking status: Patient denies any tobacco usage or history of. ROS: 18:26 Constitutional: Negative for fever, chills, and weight loss, Neck: Negative for injury, pm1 pain, and swelling, Cardiovascular: Negative for chest pain, palpitations, and edema, Respiratory: Negative for shortness of breath, cough, wheezing, and pleuritic chest pain, Back: Negative for injury and pain. 18:26 MS/Extremity: Negative for injury and deformity, Skin: Negative for injury, rash, and discoloration. 18:26 Abdomen/GI: Positive for nausea, Negative for abdominal pain, vomiting, diarrhea, constipation. 18:26 All other systems are negative. 18:26 Neuro: Positive for dizziness, generalized weakness, Negative for numbness, tingling. pm1 Exam: 18:26 Constitutional: This is a well developed, well nourished patient who is awake, alert, pm1 and in no acute distress. Head/Face: Normocephalic, atraumatic. 18:26 Back: No spinal tenderness. No costovertebral tenderness. Full range of motion. Skin: Warm, dry with normal turgor. Normal color with no rashes, no lesions, and no evidence of cellulitis. MS/ Extremity: Pulses equal, no cyanosis. Neurovascular intact. Full, normal range of motion. 18:26 Eyes: Exam is negative for acute changes, Periorbital structures: no acute changes, Extraocular movements: no acute changes, Conjunctiva: no acute changes, no injection. 18:26 ENT: Exam is negative for acute changes, Mouth: no acute changes, Lips: normal, moist, Oral mucosa: normal, pink and intact, moist. 18:26 Cardiovascular: Exam negative for acute changes, Rate: normal, Rhythm: regular, Pulses: no pulse deficits are appreciated, Heart sounds: normal, normal S1and S2. 18:26 Respiratory: Exam negative for acute changes, respiratory distress, shortness of breath, Breath sounds: are clear throughout. 18:26 Abdomen/GI: Inspection: abdomen appears normal, Palpation: abdomen is soft and non-tender, in all quadrants. 18:26 Neuro: Exam negative for acute changes, Orientation: is normal, Mentation: is normal, Motor: is normal, moves all fours. Vital Signs: 18:02 BP 133 / 84; Pulse 88; Resp 17; Temp 97.1; Pulse Ox 99% ; Weight 95.25 kg; Height 5 ft. ab2 3 in. (160.02 cm); Pain 6/10; 20:45 BP 126 / 80; Pulse 78; Resp 18; Temp 98.7; Pulse Ox 100% ; Pain 2/10; ke1 18:02 Body Mass Index 37.20 (95.25 kg, 160.02 cm) ab2 MDM: 18:23 Patient medically screened. pm1 18:49 Data reviewed: vital signs. Data interpreted: Pulse oximetry: on room air is 99 %. pm1 Interpretation: normal. 20:37 Counseling: I had a detailed discussion with the patient and/or guardian regarding: the pm1 historical points, exam findings, and any diagnostic results supporting the discharge/admit diagnosis, lab results, radiology results, the need for outpatient follow up, a neurologist, to return to the emergency department if symptoms worsen or persist or if there are any questions or concerns that arise at home. 12/31 18:24 Order name: Basic Metabolic Panel; Complete Time: 19:34 pm12/31 18:24 Order name: CBC with Diff; Complete Time: 19:34 pm12/31 18:24 Order name: LFT's; Complete Time: 19:34 pm12/31 18:24 Order name: Magnesium; Complete Time: 19:34 pm12/31 18:24 Order name: NT PRO-BNP; Complete Time: 19:34 pm12/31 18:24 Order name: PT-INR; Complete Time: 19:34 pm12/31 18:24 Order name: Troponin HS; Complete Time: 19:34 pm12/31 18:24 Order name: XRAY Chest (1 view); Complete Time: 19:37 pm12/31 19:42 Order name: Group A Streptococcus Rapid Sc EDNV 12/31 19:51 Order name: CT Head Brain wo Cont; Complete Time: 20:26 pm12/31 18:24 Order name: EKG; Complete Time: 18:26 pm12/31 18:24 Order name: Cardiac monitoring; Complete Time: 18:49 pm12/31 18:24 Order name: EKG - Nurse/Tech; Complete Time: 18:49 pm12/31 18:24 Order name: IV Saline Lock; Complete Time: 18:38 pm12/31 18:24 Order name: Labs collected and sent; Complete Time: 18:38 pm12/31 18:24 Order name: O2 Per Protocol; Complete Time: 18:38 pm12/31 18:24 Order name: O2 Sat Monitoring; Complete Time: 18:38 pm1 Administered Medications: 20:27 Drug: Ativan (LORazepam) 1 mg Route: IVP; Site: left antecubital; ke1 20:45 Follow up: Response: Marked relief of symptoms ke1 20:27 Drug: NS 0.9% 1000 ml Route: IV; Rate: 1000 ml; Site: left antecubital; ke1 20:50 Follow up: IV Status: Completed infusion ke1 20:27 Drug: Zofran (Ondansetron) 4 mg Route: IVP; Site: left antecubital; ke1 20:45 Follow up: Response: Marked relief of symptoms ke1 20:49 Drug: Meclizine 25 mg Route: PO; ke1 20:57 Follow up: Response: Medication administered at discharge. ke1 Disposition: 01/01 07:23 Co-signature as Attending Physician, Ramsey Hernandez MD I agree with the assessment and kdr plan of care. Disposition Summary: 12/31/21 20:38 Discharge Ordered Location: Home pm1 Problem: new pm1 Symptoms: have improved pm1 Condition: Stable pm1 Diagnosis - Benign paroxysmal vertigo pm1 Followup: pm1 - With: Emergency Department - When: As needed - Reason: Worsening of condition Followup: pm1 - With: Kavin Franco MD - When: 2 - 3 days - Reason: Recheck today's complaints, Continuance of care, Re-evaluation by your physician Followup: pm1 - With: Sailaja Almeida MD - When: 2 - 3 days - Reason: Recheck today's complaints, Continuance of care, Re-evaluation by your physician Discharge Instructions: - Discharge Summary Sheet pm1 - Benign Positional Vertigo pm1 Forms: - Medication Reconciliation Form pm1 - Thank You Letter pm1 - Antibiotic Education pm1 - Prescription Opioid Use pm1 Prescriptions: - Meclizine 25 mg Oral Tablet - take 1 tablet by ORAL route every 8 hours As needed; 30 tablet; Refills: 0, pm1 Product Selection Permitted - Valium 2 mg Oral Tablet - take 1 tablet by ORAL route every 8 hours As needed; 6 tablet; Refills: 0, pm1 Product Selection Permitted Signatures: Dispatcher [employer] EDNV Ramsey Hernandez MD MD kdr Marinas, Patrick, NP [employer] pm1 Fan Campos Kouassi, RN RN ke1 Corrections: (The following items were deleted from the chart) 12/31 19:50 18:26 Neuro: Negative for headache, weakness, numbness, tingling, and seizure, pm1 pm1
[2021-12-31] MEDS ORDERED: MECLIZINE HCL 12.5 MG TAB ONE (20:51)
[2021-12-31 21:53] VITALS: BP 126/80; TEMP 98.7; O2SAT 100
== END 2021-12-31 20:58 | disposition home or self-care (01) ==
LOC: ER 17:57
DX: H81.10 Benign paroxysmal vertigo, unspecified ear (principal); R53.1 Weakness; Z88.1 Allergy status to other antibiotic agents; Z88.5 Allergy status to narcotic agent
CPT/HCPCS: 93005; 85025; 80048; 36415; 83735; 85610; 80076; 84484; 83880; 70450; 71045; 96375; 96374; 99284; J8597; J7030; J2405

== ENCOUNTER 2022-04-22 12:57 | Emergency (ER) | payer BC ==
--- OUTSIDE RECORDS SUMMARY | 2022-04-22 13:01 | XMS REPORT | Continuity of Care Document ---
:1980 Author Organization [facility] t Address [address] [place] [address] Care Team Providers Name Role Phone Sailaja Almeida Primary Care Physician Sailaja Almeida Attending Clinician Unavailable Doctor Unassigned, [place] Attending Clinician Unavailable Juancho Heath MD Attending Clinician Payers Payer Name Policy Type [...] Nausea Univer s xacin ty to and/or 05-21 ity of adverse Vomiting 00:00: [place] reaction Medical s Branch Codeine Propensi Active Nausea Univers ty to and/or 05-21 ity of adverse Vomiting 00:00: [place] reaction 00 Medical s Branch Social History Social Habit Start Date Stop Date Quantity Comments Source Exposure to Not sure University of SARS-CoV-2 [facility] (event) Branch Alcohol intake 2021-06-08 2021-06-08 Lifetime University of 00:00:00 00:00:00 non-drinker [facility] (finding) [place] Tobacco use and 2021-04-06 2021-04-06 Never used Universit y of exposure 00:00:00 00:00:[address] [facility] [place] Sex Assigned At [birth year] Universit y of 00:00:00 00:00:[address] [facility] [place] Smoking Status Start Date Stop Date Source Current every day smoker 2021-04-06 00:00:[address] [facility] [place] [place] Medications Ordered Filled Start Stop Current Ordering Indication Dosage Frequency Signature Comments Components Source Medication Medication Date Date Medication? Clinician (SIG) Name Name paroxetine Yes 20mg Take 20 mg U nivers (PAXIL) 20 05-04 by mouth ity o f mg tablet 13:28: daily. [address] clonazePAM Yes .5mg Take 0.5 Uni vers (KLONOPIN) 05-04 mg by ity of 0.5 mg 13:28: mouth [place] tablet 45 daily. Medical Branch Cetirizine Yes Take by Univ ers 10 mg 05-04 mouth. ity of capsule 13:28: [address] fluticasone Yes 2{spray Use 2 [place] propionate 05-04 } Sprays in ity of (FLONASE 13:28: each [place] ALLERGY nostril 2 Medical RELIEF) 50 (two) Branch mcg/actuati times on nasal daily. spray montelukast Yes 10mg Take 10 mg Univers 10 mg 05-04 by mouth. ity of tablet 13:28: [address] paroxetine Yes 20mg Take 20 mg U nivers (PAXIL) 20 05-04 by mouth ity o f mg tablet 13:28: daily. [place] 45 Medical Branch clonazePAM Yes .5mg Take 0.5 Uni vers (KLONOPIN) 9-01 mg by ity of 0.5 mg 13:28: mouth [place] tablet 45 daily. Medical Branch Cetirizine Yes Take by Univ ers 10 mg 9- mouth. ity of capsule 13:28: [place] [address] Medical Branch fluticasone Yes 2{spray Use 2 Un [place] propionate 05-04 } Sprays in ity of (FLONASE 13:28: each [place] ALLERGY 45 nostril 2 Medical RELIEF) 50 (two) Branch mcg/actuati times on nasal daily. spray montelukast Yes 10mg Take 10 mg Univers 10 mg 9 by mouth. ity of tablet 13:28: [place] [address] Medical Branch traZODone Yes TAKE 1 Univer s 50 mg 8-09 TABLET BY ity of tablet 00:00: MOUTH [place] 00 EVERY DAY Medical AT BEDTIME Branch NEEDED amLODIPine Yes 5mg Take 5 mg Un [place] 5 mg tablet 8-09 by mouth ity of 00:00: every [place] 00 morning. Medical Branch traZODone Yes TAKE 1 Univer s 50 mg 8-09 TABLET BY ity of tablet 00:00: MOUTH [place] 00 EVERY DAY Medical AT BEDTIME Branch NEEDED amLODIPine Yes 5mg Take 5 mg [place] 5 mg tablet 8-09 by mouth ity of 00:00: every [place] 00 morning. Medical Branch ibuprofen Yes 600mg Take 1 Unive rs [...] 00 (two) Medical times Branch daily. HYDROcodone Yes 1{tbl} Take 1 Un [place] [...] 00 (two) Medical times Branch daily. HYDROcodone Yes 1{tbl} Take 1 Un [place] -acetaminop 9-24 tablet by ity of hen 5-325 00:00: mouth [place] mg tablet 00 every 6 Medical (six) Branch hours as needed for Pain (scale 1-3), Pain (scale 4-6) or Pain (scale 7-10). Vital Signs Vital Name Observation Time Observation Value Comments Source Body height 2021-06-08 18:15:00 160 cm [facility] Body weight 2021-06-08 18:15:00 96.616 kg [facility] BMI 2021-06-08 18:15:00 37.73 kg/m2 [facility] Procedures Procedure Date / Time Performed Performing Clinician [facility] e REFERRAL- 2021-07-04 05:01:00 Doctor Unassigned, No [facility] [place] REQUEST/RESPONSE Name Medical Branch Encounters Start End Encounter Admission Attending Care Care Encounter Source Date/Time Date/Time Type Type Clinicians Facility Department ID 2022-02-07 Outpatient Almeida, Na STLMLC STLC [id number] 2 Common 07:54:01 [facility] 2021-12-27 Outpatient Almeida, Na STLMLC STLMLC [id number] 2 Common 09:43:02 [facility] 2021-11-02 Outpatient Almeida, Na STLMLC STLMLC [id number] 2 Common 10:34:02 [facility] 2021-09-28 Outpatient Almeida, Na STLMLC STLMLC [id number] 2 Common 14:36:25 [facility] 2021-09-28 Outpatient Almeida, Na STLMLC STLMLC [id number] 2 Common 13:56:35 [facility] 2021-09-28 Outpatient Almeida, Na STLMLC STLMLC [id number] 2 Common 13:55:44 [facility] 2021-09-28 Outpatient Almeida, Na STLMLC STLMLC [id number] 2 Common 13:46:51 [id number] [facility] 2021-09-28 Outpatient Almeida, Na STLMLC STLMLC [id number] 2 Common 13:35:37 [facility] 2021-09-28 Outpatient Almeida, Na STLMLC STLMLC [id number] 2 Common 13:34:54 [facility] 2021-09-28 Outpatient Almeida, Na STLMLC STLMLC [id number] 2 Common 13:24:09 [id number] [facility] 2021-09-28 Outpatient Almeida, Na STLMLC STLMLC [id number] 2 Common 13:23:50 [id number] [facility] 2022-02-14 2022-02-14 ambulatory STLMLC STLMLC [id number] Common 00:00:00 00:00:00 [facility] 2022-02-08 2022-02-08 ambulatory STLMLC STLMLC [id number] Common 00:00:00 00:00:00 [facility] 2022-01-10 2022-01-10 ambulatory STLMLC STLMLC [id number] Common 00:00:00 00:00:00 [facility] 2021-12-28 2021-12-28 ambulatory STLMLC STLMLC [id number] Common 00:00:00 00:00:00 [facility] 2021-11-03 2021-11-03 ambulatory STLMLC STLMLC [id number] Common 00:00:00 00:00:00 [facility] 2021-10-17 2021-10-17 ambulatory STLMLC STLMLC [id number] Common 00:00:00 00:00:00 [facility] 2021-10-13 2021-10-13 ambulatory STLMLC STLMLC [id number] Common 00:00:00 00:00:00 [facility] 2021-10-05 2021-10-05 ambulatory STLMLC STLMLC [id number] Common 00:00:00 00:00:00 [facility] 2021-10-05 2021-10-05 ambulatory STLMLC STLMLC [id number] Common 00:00:00 00:00:00 [facility] 2021-09-26 2021-09-26 ambulatory STLMLC STLMLC [id number] Common 00:00:00 00:00:00 [facility] 2021-09-13 2021-09-13 ambulatory STLMLC STLMLC [id number] Common 00:00:00 00:00:00 [facility] 2021-07-06 2021-07-06 ambulatory STLMLC STLMLC [id number] Common 00:00:00 00:00:00 [facility] 2021-07-04 2021-07-04 Orders Doctor REN [id number] Univers 00:00:00 00:00:00 Only Unassigned, AURELIANO [id number] ity of [place] [facility] [id number] Ned as [phone] [address] 2021-06-29 2021-06-29 Outpatient STLMLC STLMLC [id number] Common 00:00:00 00:00:00 [facility] 2021-06-08 2021-06-08 Office NICKY Heath [id number] [facility] 13:10:32 13:36:34 Visit [facility] [id number] it y of [place] [id number] Ned as MAURICIO?BLEA [id number] [address] MEDICAL OFFICE BUILDING 2021-06-03 2021-06-[address] [facility] [facility] [id number] Common 00:00:00 00:00:00 [facility] 2021-05-11 2021-05-[facility] [id number] Common 00:00:00 00:00:00 [facility] 2021-04-11 2021-04-[address] [facility] [id number] Common 00:00:00 00:00:00 [facility] 2021-03-11 2021-03-[address] [facility] [id number] Common 00:00:00 00:00:00 [facility] 2021-03-10 2021-03-10 [facility] [id number] Common 00:00:00 00:00:00 [facility] Results Test Description Test Time Test Comments Results Result [facility] e Comments - MRI [facility] 2019-02-28 Patient Name: W/CONT RT 13:02:00 EUNICE ARANGO Unit No: [id number] EXAMS: CPT CODE: [id number] MRI [facility] W/[place] [id number] EXAM: MRI ARTHROGRAM RIGHT SHOULDER DIAGNOSIS: 1. [...] Reported and signed by: Sumeet Chu MD [facility] NAME: EUNICE ARANGO [facility] [place] PHYS: Brennen Loyola MD : 1980 AGE: 38 SEX: F [place] [address] LOC: Y.RAD PHONE #: [phone] EXAM DATE: 02/28/2019 STATUS: REG CLI FAX #: [phone] RAD #: D/C DT PAGE 1 Signed Report (CONTINUED) Patient Name: EUNICE ARANGO Unit No: [id number] EXAMS: CPT CODE: [id number] MRI UP JNT W/[place] [address] (Continued) CC: Brennen Sanderson MD Technologist: DORY HASKINS. RT(R) Transcribed D/ (2693) RenettaG [facility] NAME: EUNICE ARANGO [address] [place] [address] PHYS: Brennen Loyola MD : 1980 AGE: 38 SEX: F [place] [address] LOC: Y.RAD PHONE #: [phone] EXAM DATE: 02/28/2019 STATUS: REG CLI FAX #: [phone] RAD #: D/C DT PAGE 2 Signed Report Patient Name: EUNICE ARANGO Unit No: [id number] EXAMS: CPT CODE: [id number] MRI [place] JNT W/[place] [address] (Continued) Orig Print D/T: S: 02/28/2019 (1306) [facility] NAME: EUNICE ARANGO [address] [place] [address] Main PHYS: Brennen Loyola MD : 1980 AGE: 38 SEX: F [place] [address] LOC: Y.RAD PHONE #: [phone] EXAM DATE: 02/28/2019 STATUS: REG CLI FAX #: [phone] RAD #: D/C DT PAGE 3 Signed Report - XR ARTHROGRAM 2019-02-28 Patient Name: [facility] RT 13:02:00 EUNCIE ARANGO Unit No: [id number] EXAMS: CPT CODE: [id number] [place] [address] EXAM: MRI ARTHROGRAM RIGHT SHOULDER DIAGNOSIS: 1. [...] Reported and signed by: Sumeet Chu MD [facility] NAME: EUNICE ARANGO [address] [facility] PHYS: Brennen Loyola MD : 1980 AGE: 38 SEX: F [place] [address] LOC: Y.RAD PHONE #: [phone] EXAM DATE: 02/28/2019 STATUS: REG CLI FAX #: [phone] RAD #: D/C DT PAGE 1 Signed Report (CONTINUED) Patient Name: EUNICE ARANGO Unit No: [id number] EXAMS: CPT CODE: [id number] [place] [address] (Continued) CC: Brennen Sanderson MD Technologist: Lian Brandt RT.(R) Transcribed D/ (4572) t.GVG [facility] NAME: EUNICE ARANGO [address] [place] [address] PHYS: Brennen Loyola MD : 1980 AGE: 38 SEX: F [place] [address] LOC: Y.RAD PHONE #: [phone] EXAM DATE: 02/28/2019 STATUS: REG CLI FAX #: [phone] RAD #: D/C DT PAGE 2 Signed Report Patient Name: EUNICE ARANGO Unit No: [id number] EXAMS: CPT CODE: [id number] [place] [address] (Continued) Orig Print D/T: S: 02/28/2019 (1306) [facility] NAME: EUNICE ARANGO [address] [place] [address] PHYS: Brennen Loyola MD : 1980 AGE: 38 SEX: F [place] [address] LOC: Y.RAD PHONE #: [phone] EXAM DATE: 02/28/2019 STATUS: REG CLI FAX #: [phone] RAD #: D/C DT PAGE 3 Signed Report - XR FLUORO NDL 2018-10-08 Patient Name: 19:32:00 EUNICE ARANGO Unit No: [id number] EXAMS: CPT CODE: [id number] XR FLUORO NDL 26778 Fluoroscopically guided injection of the right shoulder [...] HIEN STYLES, RT(R) Transcribed D/ (1931) ClaudiaSLJ [facility] NAME: EUNICE ARANGO [address] [place] [address] PHYS: Brennen Loyola MD : 1980 AGE: 38 SEX: F [place] [address] LOC: Y.RAD PHONE #: [phone] EXAM DATE: 10/08/2018 STATUS: REG CLI FAX #: [phone] RAD #: D/C DT PAGE 1 Signed Report Patient Name: EUNICE ARANGO Unit No: [id number] EXAMS: CPT CODE: [id number] XR FLUORO NDL 93703 (Continued) Orig Print D/T: S: 10/08/2018 (1934) [facility] NAME: EUNICE ARANGO [address] [place] [address] PHYS: Brennen Loyola MD : 1980 AGE: 38 SEX: F [place] [address] LOC: Y.RAD PHONE #: [phone] EXAM DATE: 10/08/2018 STATUS: REG CLI FAX #: [phone] RAD #: D/C DT PAGE 2 Signed Report
[2022-04-22] MEDS ORDERED: LORAZEPAM 1 MG TABLET ONE (14:17)
[2022-04-22 14:32] LABS: Urine Blood Trace-lysed (Negative); Urine Glucose Negative (Negative); Urine Protein Negative (Negative); Urine Specific Gravity 1.025 (1.005-1.030)
[2022-04-22] MEDS ORDERED: Ringers Lactate 1,000 ML IV ONE (14:33)
[2022-04-22 14:35] LABS: Absolute Lymphocytes (CBC) 1.6 K/uL (0.7-4.9); Hematocrit 39.3 % (36.0-45.0); Lymphocytes % 19.4 % (15.3-44.8); MCV 82.3 fL (80-100); MPV 7.6 fL (7.6-11.3); RBC Red Blood Cell Count 4.78 M/uL (3.86-4.86)
[2022-04-22 14:40] LABS: Urine Specific Gravity/Preg 1.025 (1.005-1.030)
[2022-04-22 14:45] LABS: ALT/SGPT 23 U/L (12-78); AST/SGOT 10 U/L (15-37); Albumin 3.5 g/dL (3.4-5.0); Alkaline Phosphatase 60 U/L (45-117); BUN Blood Urea Nitrogen 16 mg/dL (7-18); Bicarbonate 30 mmol/L (21-32); Bilirubin Total 0.3 mg/dL (0.2-1.0); Glomerular Filtration Rate 70 ml/min (=/>90); Glucose Level 118 mg/dL (74-106); Magnesium 2.3 mg/dL (1.8-2.4); NT PRO-BNP 144 pg/mL (<125); Potassium 3.8 mmol/L (3.5-5.1); Protein, Total 7.3 g/dL (6.4-8.2); Sodium Level 142 mmol/L (136-145)
[2022-04-22 14:50] LABS: Bilirubin Direct < 0.1 mg/dL (0-0.2)
[2022-04-22 15:20] LABS: Protime INR 1.31
--- NOTE | 2022-04-22 15:34 | RAD REPORT ---
EXAM DESCRIPTION: RAD - Chest Single View - 04/22/2022 3:17 pm CLINICAL HISTORY: chest pain, fatigue COMPARISON: Portable 12/31/2021 TECHNIQUE: AP portable chest image was obtained 04/22/2022 3:17 pm . FINDINGS: Lungs are clear. Heart and vasculature are normal. No measurable pleural effusion and no p neumothorax. No acute bony abnormality seen. No acute aortic findings suspected. IMPRESSION: No acute cardiopulmonary process. No significant change from comparison study.
--- NOTE | 2022-04-22 16:28 | RAD REPORT ---
EXAM DESCRIPTION: CT - Head Brain Wo Cont - 04/22/2022 4:10 pm CLINICAL HISTORY: headache COMPARISON: Head Brain Wo Cont dated 12/31/2021 TECHNIQUE: Axial 5 mm thick images of the head were obtained without IV contrast. All CT scans are performed using dose optimization technique as appropriate and may include automated exposure control or mA/KV adjustment according to patient size. FINDINGS: No intracranial hemorrhage, mass, edema or shift of mid-line structures. No acute infarcti on changes seen. No abnormal extra-axial fluid collections. Ventricles are normal. Mastoid air cells and visualized portions of the paranasal sinuses are clear. No acute bony findings. No significant change from comparison. IMPRESSION: Negative non-contrast CT head examination for acute finding.
[2022-04-22] MEDS ORDERED: METOCLOPRAMIDE 10 MG/2mL INJ ONE (17:16)
[2022-04-22] MEDS ORDERED: dexAMETHasone 10 MG/ML VIAL ONE (17:16)
[2022-04-22] MEDS ORDERED: DIPHENHYDRAMINE 50 MG/ML VIAL ONE (17:16)
[2022-04-22] MEDS ORDERED: KETOROLAC 30 MG/ML INJ ONE (17:50)
[2022-04-22 18:04] LABS: SARS-CoV-2 Antigen Rapid Res Positive (Negative)
[2022-04-22] MEDS ORDERED: SUMATRIPTAN SUCC 6MG/0.5ML VIAL SQ ONE (18:21)
--- NOTE | 2022-04-22 19:03 | EDPHYS ---
Physician Documentation [facility] Name: Eunice Arango Age: 41 yrs Sex: Female : 1980 Arrival Date: 04/22/2022 Time: 12:59 Bed 2 Private MD: Sailaja Almeida ED Physician Paris Dia HPI: 04/22 13:30 This 41 yrs old Female presents to ER via Wheelchair with complaints of Dizziness, jmm Nausea, Trouble Walking, Chest Pain. 13:30 This is a 41-year-old female with history of migraines, rheumatoid arthritis the jmm presents emerged part with complaints of generalized tremors, fatigue, headache, chest pain. Patient states symptoms began yesterday. She awoke with weakness to both of her legs and having difficulty walking as well. Patient states that she had a similar episode when she was initially diagnosed with coronavirus, patient states she was then subsequently diagnosed with rheumatoid arthritis. Patient states since then she has had weakness to her lower extremities. Patient states that she does also suffer from complex migraines which will also have a similar presentation. Patient states she has had increased stress over the past 2 days and has not eaten or drinking in the past 2 days as well.. 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 Last tetanus immunization: unknown. - Social history:: Smoking status: Patient denies any tobacco usage or history of. Patient uses alcohol, occasionally. Patient/guardian denies using street drugs. ROS: 13:30 Constitutional: Positive for jmm 13:30 Cardiovascular: Positive for chest pain. 13:30 MS/extremity: Positive for paresthesias. 13:30 Neuro: Positive for weakness. 13:30 All other systems are negative. Exam: 13:30 Head/Face: atraumatic. Eyes: EOMI, no conjunctival erythema appreciated ENT: Moist jmm Mucus Membranes Neck: Trachea midline, Supple Chest/axilla: Normal chest wall appearance and motion. 13:30 Constitutional: The patient appears alert, awake, anxious. 13:30 Cardiovascular: Rate: normal, Rhythm: regular. 13:30 Respiratory: the patient does not display signs of respiratory distress, Respirations: normal, Breath sounds: are clear throughout. 13:30 Abdomen/GI: Inspection: abdomen appears normal, Bowel sounds: normal, Palpation: abdomen is soft and non-tender, in all quadrants. 13:30 Musculoskeletal/extremity: ROM: intact in all extremities. 13:30 Skin: Appearance: Color: normal in color. 13:30 Neuro: Orientation: is normal, Mentation: is normal, Memory: is normal, Sensation: 13:30 Psych: Behavior/mood is cooperative, anxious. Vital Signs: 13:13 BP 124 / 89; Pulse 90; Resp 16; Temp 98.8; Pulse Ox 99% ; Weight 95.25 kg; Height 5 ft. kb3 3 in. (160.02 cm); Pain 10/10; 15:45 BP 140 / 87; Pulse 74; Resp 15; Pulse Ox 99% on R/A; hb 16:57 BP 138 / 82; Pulse 61; Resp 16; Pulse Ox 98% on R/A; hb 18:10 BP 137 / 83; Pulse 62; Resp 17; Pulse Ox 99% ; hb 19:00 BP 131 / 66; Pulse 63; Resp 16; Pulse Ox 99% on R/A; hb 13:13 Body Mass Index 37.20 (95.25 kg, 160.02 cm) kb3 MDM: 13:30 Patient medically screened. [facility] 19:01 Data reviewed: vital signs, nurses notes. Counseling: I had a detailed discussion with blas the patient and/or guardian regarding: the historical points, exam findings, and any diagnostic results supporting the discharge/admit diagnosis, lab results, radiology results, the need for outpatient follow up, to return to the emergency department if symptoms worsen or persist or if there are any questions or concerns that arise at home. 19:01 ED course: I discussed the patient with Dr. Franco whom did not recommend inpatient [facility] for further evaluation. Will see the patient in his clinic on Sunday. He did recommend administration of an abortive migraine medicine. Patient was administered sumatriptan. Approximately 1.5 hours after administration. Patient states feeling much better, the majority of the patient's symptoms have alleviated. I discussed the follow-up with the patient who agreed with the plan of care.. 04/22 13:44 Order name: Basic Metabolic Panel; Complete Time: 14:53 [facility] 04/22 13:44 Order name: CBC with Diff; Complete Time: 14:40 [facility] 04/22 13:44 Order name: LFT's; Complete Time: 14:53 [facility] 04/22 13:44 Order name: Magnesium; Complete Time: 14:53 [facility] 04/22 13:44 Order name: NT PRO-BNP; Complete Time: 14:53 [facility] 04/22 13:44 Order name: PT-INR; Complete Time: 15:22 [facility] 04/22 13:44 Order name: Troponin HS; Complete Time: 14:53 [facility] 04/22 13:44 Order name: XRAY Chest (1 view); Complete Time: 15:35 [facility] 04/22 14:32 Order name: Urine Dipstick-Ancillary; Complete Time: 14:33 [facility] 04/22 14:36 Order name: Urine --Ancillary (enter results); Complete Time: 14:40 04/22 15:36 Order name: CT Head Brain wo Cont; Complete Time: 16:33 [facility] 04/22 17:10 Order name: SARS RAPID; Complete Time: 18:05 [facility] 04/22 13:44 Order name: EKG; Complete Time: 13:45 [facility] 04/22 13:44 Order name: Cardiac monitoring; Complete Time: 14:03 [facility] 04/22 13:44 Order name: EKG - Nurse/Tech; Complete Time: 14:03 [facility] 04/22 13:44 Order name: IV Saline Lock; Complete Time: 14:04 [facility] 04/22 13:44 Order name: Labs collected and sent; Complete Time: 14:04 [facility] 04/22 13:44 Order name: O2 Per Protocol; Complete Time: 14:04 [facility] 04/22 13:44 Order name: O2 Sat Monitoring; Complete Time: 14:26 [facility] 04/22 13:44 Order name: Urine Dipstick-Ancillary (obtain specimen); Complete Time: 14:33 [facility] 04/22 13:44 Order name: Urine Test (obtain specimen); Complete Time: 14:33 [facility] Administered Medications: 14:00 Not Given (NOT IN STOCKc): Ativan (LORazepam) 0.5 mg IVP once hb 14:07 Not Given (NOT IN STOCKk): Valium (diazepam) 2 mg IVP once hb 14:11 Drug: Ativan (LORazepam) 1 mg Route: PO; hb 15:00 Follow up: Response: No adverse reaction hb 14:31 Drug: Lactated Ringers Solution 1000 ml Route: IV; Rate: 1000 bolus; Site: right jl7 antecubital; 15:45 Follow up: Response: No adverse reaction; IV Status: Completed infusion; IV Intake: hb 1000ml 17:21 Drug: Decadron - Dexamethasone 10 mg Route: IVP; Site: right antecubital; hb 18:21 Follow up: Response: No adverse reaction hb 17:21 Drug: Reglan (metoCLOPramide) 10 mg Route: IVP; Site: right antecubital; hb 18:21 Follow up: Response: No adverse reaction hb 17:21 Drug: diphenhydrAMINE 12.5 mg Route: IVP; Site: right antecubital; hb 18:21 Follow up: Response: No adverse reaction hb 17:50 Drug: Ketorolac 30 mg Route: IVP; Site: right antecubital; hb 18:19 Drug: Imitrex 6 mg Route: Sub-Q; Site: right upper arm; hb Disposition: 04/23 08:18 STAFF ATTESTATION STATEMENT: I was immediately available onsite in the emergency sd2 department for consultation in the care of this patient. I did not see or examine this patient. Paris Dia MD. Disposition Summary: 04/22/22 19:02 Discharge Ordered Location: Home jmm Condition: Stable jmm Diagnosis - Migraine jmm - Tremors jmm - Coronavirus jmm Followup: jmm - With: Kavin Franco MD - When: 1 - 2 days - Reason: Recheck today's complaints, Continuance of care, Re-evaluation by your physician Discharge Instructions: - Discharge Summary Sheet jmm - Migraine Headache jmm Forms: - Medication Reconciliation Form jmm - Thank You Letter jmm - Antibiotic Education jmm - Prescription Opioid Use jmm Prescriptions: - TOPIRAMATE 50 mg - take 1 tablet by ORAL route 2 times per day for 10 days; 20 tablet; Refills: 0, jmm Product Selection Permitted Signatures: Dispatcher MedHo Festus Soliman PA PA jmm Rosmery Portillo, RN RN Nick Gutierrez, RN RN jl7 Paris Dia MD MD sd2 Julee Pittman, RN RN kb3
--- NOTE | 2022-04-22 19:03 | ER ---
Nurse's Notes [facility] Name: Eunice Arango Age: 41 yrs Sex: Female : 1980 Arrival Date: 04/22/2022 Time: 12:59 Bed 2 Private MD: Sailaja Almeida Diagnosis: Migraine;Tremors;Coronavirus Presentation: 04/22 13:13 Chief complaint: Patient states: Pt reports feeling shaky, nauseous, muscle aches, kb3 headache, muscle spasms that began spontaneously yesterday. Denies fever. Reports intermittent non-radiating heavy chest pain. PT reports similar symptoms in Sep 2021 when she was diagnosed with covid pneumonia. Coronavirus screen: Vaccine status: Patient reports being unvaccinated. Client denies travel out of the [place] in the last 14 days. Ebola Screen: Patient negative for fever greater than or equal to 101.5 degrees Fahrenheit, and additional compatible Ebola Virus Disease symptoms Patient denies exposure to infectious person. Patient denies travel to an Ebola-affected area in the 21 days before illness onset. No symptoms or risks identified at this time. Pre-hospital glucose is not applicable to this patient. Initial Sepsis Screen: Does the patient meet any 2 criteria? No. Patient's initial sepsis screen is negative. Does the patient have a suspected source of infection? No. Patient's initial sepsis screen is negative. Risk Assessment: Do you want to hurt yourself or someone else? Patient reports no desire to harm self or others. Onset of symptoms was April 21, 2022 at 12:00. 13:13 Method Of Arrival: Wheelchair kb3 13:13 Acuity: ALIS 3 kb3 Triage Assessment: 13:17 The onset of the patients symptoms was more than six hours ago. General: Appears in no kb3 apparent distress. Behavior is calm, cooperative, anxious. Pain: Complains of pain in chest, abdomen, right arm, left arm, right leg and left leg Pain does not radiate. Pain currently is 10 out of 10 on a pain scale. Quality of pain is described as crampy, Spasms. Neuro: No deficits noted. Reports. 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 Last tetanus immunization: unknown. - Social history:: Smoking status: Patient denies any tobacco usage or history of. Patient uses alcohol, occasionally. Patient/guardian denies using street drugs. Screenin:33 Abuse screen: Denies threats or abuse. Denies injuries from another. Nutritional hb screening: No deficits noted. Tuberculosis screening: No symptoms or risk factors identified. Fall Risk Total Mullen Fall Scale indicates Low Risk Score (25-44 pts). Fall prevention measures have been instituted. Side Rails Up X 2 Frequent Obs/Assesments occuring Family Present and informed to notify staff if they need to leave bedside As available Patient and Family Educated on Fall Prevention Program and strategies. Assessment: 14:33 General: Appears in no apparent distress. Behavior is calm, cooperative. Pain: Denies hb pain. Neuro: Level of Consciousness is awake, alert, obeys commands, Oriented to person, place, time, situation, Gait is ataxic. Cardiovascular: Patient's skin is warm and dry. Respiratory: Respiratory effort is even, unlabored, Respiratory pattern is regular, symmetrical. GI: No signs and/or symptoms were reported involving the gastrointestinal system. : No signs and/or symptoms were reported regarding the genitourinary system. EENT: No signs and/or symptoms were reported regarding the EENT system. Derm: Skin is pink, warm \\T\\ dry. 15:45 Reassessment: Patient appears in no apparent distress at this time. Patient and/or hb family updated on plan of care and expected duration. Pain level reassessed. Patient is alert, oriented x 3, equal unlabored respirations, skin warm/dry/pink. 16:30 Reassessment: Patient appears in no apparent distress at this time. Patient and/or hb family updated on plan of care and expected duration. Pain level reassessed. Patient is alert, oriented x 3, equal unlabored respirations, skin warm/dry/pink. 18:09 Reassessment: Patient appears in no apparent distress at this time. Patient and/or hb family updated on plan of care and expected duration. Pain level reassessed. Patient is alert, oriented x 3, equal unlabored respirations, skin warm/dry/pink. 19:00 Reassessment: Patient appears in no apparent distress at this time. Patient and/or hb family updated on plan of care and expected duration. Pain level reassessed. Patient is alert, oriented x 3, equal unlabored respirations, skin warm/dry/pink. 19:22 Reassessment: Pt now ambulating with steady gait. Reports feeling much better. States " jb4 I can walk now and I feel like it's almost normal again. My headache is gone too.". Vital Signs: 13:13 BP 124 / 89; Pulse 90; Resp 16; Temp 98.8; Pulse Ox 99% ; Weight 95.25 kg; Height 5 ft. kb3 3 in. (160.02 cm); Pain 10/10; 15:45 BP 140 / 87; Pulse 74; Resp 15; Pulse Ox 99% on R/A; hb 16:57 BP 138 / 82; Pulse 61; Resp 16; Pulse Ox 98% on R/A; hb 18:10 BP 137 / 83; Pulse 62; Resp 17; Pulse Ox 99% ; hb 19:00 BP 131 / 66; Pulse 63; Resp 16; Pulse Ox 99% on R/A; hb 13:13 Body Mass Index 37.20 (95.25 kg, 160.02 cm) kb3 ED Course: 12:59 Patient arrived in ED. as 13:00 Sailaja Almeida MD is Private Physician. as 13:16 Triage completed. kb3 13:17 Arm band placed on right wrist. kb3 13:20 20 gauge left AC BLOOD COLLECTED AND SENT. hb 13:28 Festus Diaz PA is PHCP. jmm 13:28 Paris Dia MD is Attending Physician. jmm 14:00 Inserted saline lock: 20 gauge in right antecubital area, using aseptic technique. hb 14:11 Rosmery Portillo, REINALDO is Primary Nurse. hb 14:33 Patient has correct armband on for positive identification. hb 15:18 XRAY Chest (1 view) In Process Unspecified. EDMS 16:12 CT Head Brain wo Cont In Process Unspecified. EDMS 19:02 Kavin Franco MD is Referral Physician. jmm 19:22 No provider procedures requiring assistance completed. IV discontinued, intact, jb4 bleeding controlled, No redness/swelling at site. Pressure dressing applied. Administered Medications: 14:00 Not Given (NOT IN STOCKc): Ativan (LORazepam) 0.5 mg IVP once hb 14:07 Not Given (NOT IN STOCKk): Valium (diazepam) 2 mg IVP once hb 14:11 Drug: Ativan (LORazepam) 1 mg Route: PO; hb 15:00 Follow up: Response: No adverse reaction hb 14:31 Drug: Lactated Ringers Solution 1000 ml Route: IV; Rate: 1000 bolus; Site: right jl7 antecubital; 15:45 Follow up: Response: No adverse reaction; IV Status: Completed infusion; IV Intake: hb 1000ml 17:21 Drug: Decadron - Dexamethasone 10 mg Route: IVP; Site: right antecubital; hb 18:21 Follow up: Response: No adverse reaction hb 17:21 Drug: Reglan (metoCLOPramide) 10 mg Route: IVP; Site: right antecubital; hb 18:21 Follow up: Response: No adverse reaction hb 17:21 Drug: diphenhydrAMINE 12.5 mg Route: IVP; Site: right antecubital; hb 18:21 Follow up: Response: No adverse reaction hb 17:50 Drug: Ketorolac 30 mg Route: IVP; Site: right antecubital; hb 18:19 Drug: Imitrex 6 mg Route: Sub-Q; Site: right upper arm; hb Medication: 14:33 VIS not applicable for this client. hb Intake: 15:45 IV: 1000ml; Total: 1000ml. hb Outcome: 19:02 Discharge ordered by MD. odonnell 19:22 Discharged to home via wheelchair, with family. jb4 19:22 Condition: stable 19:22 Discharge instructions given to patient, Instructed on discharge instructions, follow up and referral plans. medication usage, Demonstrated understanding of instructions, follow-up care, medications, Prescriptions given X 1. 19:25 Patient left the ED. jb4 Signatures: Dispatcher [employer] EDMS Festus Diaz PA PA jmm Martinez, Amelia as Baxter, Heather RN RN Amrki Souza RN RN jb4 Nick Hoyos RN RN jl7 Zain, Julee, RN RN kb3
[2022-04-22 21:32] VITALS: TEMP 98.8
[2022-04-22 21:46] VITALS: O2SAT 99
[2022-04-22 21:55] VITALS: BP 131/66
--- NOTE | 2022-04-24 08:12 | EKG ---
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
== END 2022-04-22 19:25 | disposition home or self-care (01) ==
LOC: ER 12:57
DX: U07.1 COVID-19 (principal); R25.1 Tremor, unspecified; Z88.1 Allergy status to other antibiotic agents; Z88.5 Allergy status to narcotic agent
CPT/HCPCS: 96361; 93005; 85025; 80048; 36415; 83735; 81025; 85610; 80076; 81003; 84484; 83880; 70450; 71045; 96375; 96372; 96374; 99284; 87811; J3030; J2765; J1200; J1100; J7120

== ENCOUNTER 2022-06-27 17:57 | Emergency (ER) | payer BC ==
--- OUTSIDE RECORDS SUMMARY | 2022-06-27 18:00 | XMS REPORT | Continuity of Care Document ---
:1980 [facility] Organization [facility] t Address [address] [place] [address] Dr. Garc[address]. [address] [place] [address] Care Team Providers Name Role Phone Sailaja Almeida Primary Care Physician Sailaja Almeida Attending Clinician Unavailable CHANELLE AMEZQUITA Attending Clinician Unavailable Nicolas Cardoso MD Attending Clinician Doctor Unassigned, [place] Attending Clinician Unavailable ZIYAD PIZARRO Attending Clinician Unavailable NICOLAS CARDOSO Attending Clinician Unavailable Chanelle Amezquita MD Attending Clinician Only, Adc Test Attending Clinician Unavailable CHANELLE AMEZQUITA Admitting Clinician Unavailable Chanelle Amezquita MD Admitting Clinician Payers Payer Name Policy Type Policy Number Effective Date Expiration Date S pinky [place] [employer] BLUE [id number] 2018 ADVANTAGE HMO 00:00:00 [employer] Blue 6 [id number] 2020 [facility] Shield O 00:00:00 [facility] Problems Condition Condition Condition Status Onset Resolution Last Treating Co mments Source Name Details Category Date Date Treatment Clinician Date Obesity Obesity Disease Active Univers (BMI (BMI 9-18 ity of 30-39.9) 30-39.9) 00:00: [place] 00 Medical Branch [id number] Memory Problem Common deficit [facility] [id number] Panic Problem Common attacks [facility] [id number] Depression Problem Co mmon with Spirit anxiety [facility] [id number] Unsteady Problem Commo n gait when [facility] walking [facility] [id number] Supplement Problem C ommon 07 al oxygen [facility] dependent [facility] [id number] Complicate Problem Co mmon d migraine 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 [id number] Chronic Problem Common fatigue [facility] [id number] Vitamin D Problem Comm on deficiency [facility] [id number] Situationa Problem Com mon l anxiety [facility] [id number] Diverticul Problem Co mmon osis [facility] [id number] Primary Problem Common hypertensi Spirit on [facility] [id number] Seasonal Problem Comm on allergic Spirit rhinitis, - [facility] unspecifie [facility] [id number] Primary Problem Common insomnia [facility] [id number] Acanthosis Problem Co mmon nigricans [facility] [id number] Primary Problem Comm on osteoarthr Spirit itis of [facility] left [facility] [id number] Stress Problem Common [facility] Allergies, Adverse Reactions, Alerts Allergy Allergy Status Severity Reaction(s) Onset Inactive Treating Comm ents Source Name Type Date Date Clinician ciproflo DA Active [facility] xacin 6-28 [place] 00:[facility] ciproflo DA Active [facility] xacin 2-05 [place] 00:00: [facility] 00 [facility] Ciproflo Propensi Active Nausea Univer s xacin ty to and/or 05-21 ity of adverse Vomiting 00:00: [place] reaction 00 Medical s Branch Codeine Propensi Active Nausea 2018-0 Univers ty to and/or 05-21 ity of adverse Vomiting 00:00: [place] reaction Medical s Branch ciproflo ciproflo Active vomiting Comm on xacin xacin Spirit - [facility] Social History Social Habit Start Date Stop Date Quantity Comments Source Exposure to Not sure University of SARS-CoV-2 [facility] (event) [place] History of [facility] - Tobacco Use [facility] Sex Assigned At [facility] cyndi - [facility] Alcohol intake 2021-06-08 2021-06-08 Lifetime University of 00:00:00 00:00:00 non-drinker [facility] (finding) [place] Tobacco use and 2021-04-06 2021-04-06 Never used Universit y of exposure 00:00:00 00:00:00 [facility] Smoking Status Start Date Stop Date Source Former Smoker 2022-05-23 00:00:00 2022-05-23 00:00:00 [facility] Never Smoker [facility] Current every day 2021-04-06 00:00:00 [facility] [place] Medications Ordered Filled Start Stop Current Ordering Indication Dosage Frequency Signature Comments Components Source Medication Medication Date Date Medication? Clinician (SIG) Name Name amLODIPine amLODIPine No 1{table QD amLODIPine Besylate 5 Besylate 5 6-08 t} Besylate 5 MG MG 00:00: MG 00 amLODIPine amLODIPine No 1{table QD amLODIPine Besylate 5 Besylate 5 6-08 t} Besylate 5 MG MG 00:00: MG 00 Repatha Repatha 2022- No 1{ml} Repatha SureClick SureClick 02-08 06- SureClick 140 MG/ML 140 MG/ML 00:00: 00:00 140 MG/ML 00 :00 Repatha Repatha 2022- No 1{ml} Repatha SureClick SureClick 02-08- SureClick 140 MG/ML 140 MG/ML 00:00: 00:00 140 MG/ML 00 :00 No 1{table QD Vitamin-Fol Vitamin-Fol 3-03 t_with_ Vitamin-Fo ic Acid 1 ic Acid 1 00:00: a_meal} lic Acid 1 MG MG 00 MG paroxetine Yes 20mg Take 20 mg U nivers (PAXIL) 20 9 by mouth ity o f mg tablet 13:28: daily. [address] clonazePAM Yes .5mg Take 0.5 Uni vers (KLONOPIN) 9-01 mg by ity of 0.5 mg 13:28: mouth [place] tablet 45 daily. Medical Branch Cetirizine Yes Take by [place] [facility] ers 10 mg 9- mouth. ity of capsule 13:28: [address] fluticasone Yes 2{spray Use 2 Un [place] propionate 05-04 } Sprays in ity of (FLONASE 13:28: each [place] ALLERGY 45 nostril 2 Medical RELIEF) 50 (two) Branch mcg/actuati times on nasal daily. spray montelukast Yes 10mg Take 10 mg Univers 10 mg 9 by mouth. ity of tablet 13:28: [address] paroxetine Yes 20mg Take 20 mg U nivers (PAXIL) 20 9 by mouth ity o f mg tablet 13:28: daily. [address] clonazePAM Yes .5mg Take 0.5 Uni vers (KLONOPIN) 9-01 mg by ity of 0.5 mg 13:28: mouth [place] tablet 45 daily. Medical Branch Cetirizine Yes Take by [place] [facility] ers 10 mg 9-01 mouth. ity of capsule 13:28: [address] fluticasone Yes 2{spray Use 2 Un [place] propionate 05-04 } Sprays in ity of (FLONASE 13:28: each [place] ALLERGY 45 nostril 2 Medical RELIEF) 50 (two) Branch mcg/actuati times on nasal daily. spray montelukast 0 Yes 10mg Take 10 mg Univers 10 mg 9- by mouth. ity of tablet 13:28: [address] amLODIPine Yes 5mg Take 5 mg Un [place] 5 mg tablet 8-09 by mouth ity of 00:00: every morning. Medical Branch traZODone Yes TAKE 1 Univer s 50 mg 8-09 TABLET BY ity of tablet 00:00: MOUTH EVERY DAY Medical AT BEDTIME Branch NEEDED amLODIPine 0 Yes 5mg Take 5 mg Un [place] 5 mg tablet 8-09 by mouth ity of 00:00: every [place] morning. Medical Branch traZODone Yes TAKE 1 Univer s 50 mg 8-09 TABLET BY ity of tablet 00:00: MOUTH EVERY DAY Medical AT BEDTIME Branch NEEDED Kenalog Kenalog No 40mg Common (Triamcinol (Triamcinol 7-08 S pirit one) one) 00:00: - [facility] Kenalog Kenalog No 40mg Common (Triamcinol (Triamcinol 7-08 S pirit one) one) 00:00: - [facility] 00 [facility] Kenalog Kenalog No 40mg Common (Triamcinol (Triamcinol 7-08 S pirit one) one) 00:00: - [facility] 00 [facility] Kenalog Kenalog 0 No 40mg Common (Triamcinol (Triamcinol 7-08 S pirit one) one) 00:00: - [facility] 00 [facility] Kenalog Kenalog 0 No 40mg Common (Triamcinol (Triamcinol 7-08 S pirit one) one) 00:00: - [facility] 00 [facility] Kenalog Kenalog 0 No 40mg Common (Triamcinol (Triamcinol 7-08 S pirit one) one) 00:00: - [facility] 00 [facility] Kenalog Kenalog 0 No 40mg Common (Triamcinol (Triamcinol 7-08 S pirit one) one) 00:00: - [facility] 00 [facility] Kenalog Kenalog 0 No 40mg Common (Triamcinol (Triamcinol 7-08 S pirit one) one) 00:00: - [facility] 00 [facility] HYDROcodone 2017-0 Yes 1{tbl} Take 1 Un [place] -acetaminop 9-24 tablet by ity of hen 5-325 00:00: mouth [place] mg tablet 00 every 6 Medical (six) Branch hours as needed for Pain (scale 1-3), Pain (scale 4-6) or Pain (scale 7-10). ibuprofen 2018-0 Yes 600mg Take 1 Unive rs 600 mg 9-24 tablet by ity of tablet 00:00: mouth [place] 00 every 6 Medical (six) Branch hours as needed for Pain (scale 1-3), Pain (scale 4-6) or Pain (scale 1-3) with oral narcotics. chlorhexidi 2018-0 Yes 15mL Swish and U nivers ne [...] (scale 4-6) or Pain (scale 7-10). ibuprofen 2018-0 Yes 600mg Take 1 Unive rs 600 mg 9-24 tablet by ity of tablet 00:00: mouth [place] 00 every 6 Medical (six) Branch hours as needed for Pain (scale 1-3), Pain (scale 4-6) or Pain (scale 1-3) with oral narcotics. chlorhexidi 2018-0 Yes 15mL Swish and U nivers ne 0.12 % 9-24 spit out ity of mouthwash 00:00: 15 mL 2 [place] 00 (two) Medical times Branch daily. amLODIPine amLODIPine No amLODIPine Besylate 5 Besylate 5 Besylate 5 MG MG MG Flonase 50 Flonase 50 No 2{spray QD Flonase 50 MCG/ACT MCG/ACT _in_eac MCG/ACT h_nostr il} traZODone traZODone No QD traZODone HCl 50 MG HCl 50 MG HCl 50 MG Cetirizine Cetirizine No 1{table Cetirizine HCl 10 MG HCl 10 MG t} HCl 10 MG Montelukast Montelukast No 1{table Montelukas Sodium 10 Sodium 10 t} t Sodium MG MG 10 MG Montelukast Montelukast No Montelukas Sodium 10 Sodium 10 t Sodium MG MG 10 MG amLODIPine amLODIPine No amLODIPine Besylate 5 Besylate 5 Besylate 5 MG MG MG Flonase 50 Flonase 50 No 2{spray QD Flonase 50 MCG/ACT MCG/ACT _in_eac MCG/ACT h_nostr il} traZODone traZODone No QD traZODone HCl 50 MG HCl 50 MG HCl 50 MG Cetirizine Cetirizine No 1{table Cetirizine HCl 10 MG HCl 10 MG t} HCl 10 MG Fluticasone Fluticasone No Propionate Propionate 50 MCG/ACT 50 MCG/ACT Montelukast Montelukast No Sodium 10 Sodium 10 MG MG amLODIPine amLODIPine No Besylate 5 Besylate 5 MG MG Montelukast Montelukast No 1{table Sodium 10 Sodium 10 t} MG MG traZODone traZODone No QD HCl 50 MG HCl 50 MG Cetirizine Cetirizine No 1{table HCl 10 MG HCl 10 MG t} Fluticasone Fluticasone No Fluticason Propionate Propionate e 50 MCG/ACT 50 MCG/ACT Propionate 50 MCG/ACT Montelukast Montelukast No Montelukas Sodium 10 Sodium 10 t Sodium MG MG 10 MG amLODIPine amLODIPine No amLODIPine Besylate 5 Besylate 5 Besylate 5 MG MG MG Montelukast Montelukast No 1{table Montelukas Sodium 10 Sodium 10 t} t Sodium MG MG 10 MG traZODone traZODone No QD traZODone HCl 50 MG HCl 50 MG HCl 50 MG Cetirizine Cetirizine No 1{table Cetirizine HCl 10 MG HCl 10 MG t} HCl 10 MG traZODone traZODone No QD traZODone HCl 50 MG HCl 50 MG HCl 50 MG Cetirizine Cetirizine No 1{table Cetirizine HCl 10 MG HCl 10 MG t} HCl 10 MG Escitalopra Escitalopra No 1{table QD Escitalopr m Oxalate m Oxalate t} am Oxalate 10 MG 10 MG 10 MG Fluticasone Fluticasone No Fluticason Propionate Propionate e 50 MCG/ACT 50 MCG/ACT Propionate 50 MCG/ACT amLODIPine amLODIPine No amLODIPine Besylate 5 Besylate 5 Besylate 5 MG MG MG Montelukast Montelukast No Montelukas Sodium 10 Sodium 10 t Sodium MG MG 10 MG Montelukast Montelukast No 1{table Montelukas Sodium 10 Sodium 10 t} t Sodium MG MG 10 MG Escitalopra Escitalopra No 1{table QD Escitalopr m Oxalate m Oxalate t} am Oxalate 10 MG 10 MG 10 MG Montelukast Montelukast No Montelukas Sodium 10 Sodium 10 t Sodium MG MG 10 MG Cetirizine Cetirizine No 1{table Cetirizine HCl 10 MG HCl 10 MG t} HCl 10 MG Montelukast Montelukast No 1{table Montelukas Sodium 10 Sodium 10 t} t Sodium MG MG 10 MG Fluticasone Fluticasone No Fluticason Propionate Propionate e 50 MCG/ACT 50 MCG/ACT Propionate 50 MCG/ACT Eliquis 5 Eliquis 5 No Eliquis 5 MG MG MG traZODone traZODone No QD traZODone HCl 100 MG HCl 100 MG HCl 100 MG amLODIPine amLODIPine No amLODIPine Besylate 5 Besylate 5 Besylate 5 MG MG MG Escitalopra Escitalopra No 1{table QD Escitalopr m Oxalate m Oxalate t} am Oxalate 10 MG 10 MG 10 MG Montelukast Montelukast No Montelukas Sodium 10 Sodium 10 t Sodium MG MG 10 MG Cetirizine Cetirizine No 1{table Cetirizine HCl 10 MG HCl 10 MG t} HCl 10 MG Montelukast Montelukast No 1{table Montelukas Sodium 10 Sodium 10 t} t Sodium MG MG 10 MG Fluticasone Fluticasone No Fluticason Propionate Propionate e 50 MCG/ACT 50 MCG/ACT Propionate 50 MCG/ACT Eliquis 5 Eliquis 5 No Eliquis 5 MG MG MG traZODone traZODone No QD traZODone HCl 100 MG HCl 100 MG HCl 100 MG amLODIPine amLODIPine No amLODIPine Besylate 5 Besylate 5 Besylate 5 MG MG MG Escitalopra Escitalopra No 1{table QD Escitalopr m Oxalate m Oxalate t} am Oxalate 10 MG 10 MG 10 MG Montelukast Montelukast No Montelukas Sodium 10 Sodium 10 t Sodium MG MG 10 MG Cetirizine Cetirizine No 1{table Cetirizine HCl 10 MG HCl 10 MG t} HCl 10 MG Montelukast Montelukast No 1{table Montelukas Sodium 10 Sodium 10 t} t Sodium MG MG 10 MG Fluticasone Fluticasone No Fluticason Propionate Propionate e 50 MCG/ACT 50 MCG/ACT Propionate 50 MCG/ACT Eliquis 5 Eliquis 5 No Eliquis 5 MG MG MG traZODone traZODone No QD traZODone HCl 100 MG HCl 100 MG HCl 100 MG amLODIPine amLODIPine No amLODIPine Besylate 5 Besylate 5 Besylate 5 MG MG MG Montelukast Montelukast No 1{table Montelukas Sodium 10 Sodium 10 t} t Sodium MG MG 10 MG Montelukast Montelukast No Montelukas Sodium 10 Sodium 10 t Sodium MG MG 10 MG Escitalopra Escitalopra No 1{table QD Escitalopr m Oxalate m Oxalate t} am Oxalate 10 MG 10 MG 10 MG Fluticasone Fluticasone No Fluticason Propionate Propionate e 50 MCG/ACT 50 MCG/ACT Propionate 50 MCG/ACT amLODIPine amLODIPine No amLODIPine Besylate 5 Besylate 5 Besylate 5 MG MG MG Cetirizine Cetirizine No 1{table Cetirizine HCl 10 MG HCl 10 MG t} HCl 10 MG traZODone traZODone No QD traZODone HCl 100 MG HCl 100 MG HCl 100 MG Eliquis 5 Eliquis 5 No Eliquis 5 MG MG MG Montelukast Montelukast No Montelukas Sodium 10 Sodium 10 t Sodium MG MG 10 MG traZODone traZODone No QD traZODone HCl 100 MG HCl 100 MG HCl 100 MG No 1{table QD Vitamin-Fol Vitamin-Fol t_with_ Vitamin-Fo ic Acid 1 ic Acid 1 a_meal} lic Acid 1 MG MG MG Fluticasone Fluticasone No Fluticason Propionate Propionate e 50 MCG/ACT 50 MCG/ACT Propionate 50 MCG/ACT amLODIPine amLODIPine No amLODIPine Besylate 5 Besylate 5 Besylate 5 MG MG MG Escitalopra Escitalopra No 1{table QD Escitalopr m Oxalate m Oxalate t} am Oxalate 10 MG 10 MG 10 MG Eliquis 5 Eliquis 5 No Eliquis 5 MG MG MG Cetirizine Cetirizine No 1{table Cetirizine HCl 10 MG HCl 10 MG t} HCl 10 MG Montelukast Montelukast No 1{table Montelukas Sodium 10 Sodium 10 t} t Sodium MG MG 10 MG Montelukast Montelukast No Montelukas Sodium 10 Sodium 10 t Sodium MG MG 10 MG traZODone traZODone No QD traZODone HCl 100 MG HCl 100 MG HCl 100 MG No 1{table QD Vitamin-Fol Vitamin-Fol t_with_ Vitamin-Fo ic Acid 1 ic Acid 1 a_meal} lic Acid 1 MG MG MG Fluticasone Fluticasone No Fluticason Propionate Propionate e 50 MCG/ACT 50 MCG/ACT Propionate 50 MCG/ACT amLODIPine amLODIPine No amLODIPine Besylate 5 Besylate 5 Besylate 5 MG MG MG Escitalopra Escitalopra No 1{table QD Escitalopr m Oxalate m Oxalate t} am Oxalate 10 MG 10 MG 10 MG Eliquis 5 Eliquis 5 No Eliquis 5 MG MG MG Cetirizine Cetirizine No 1{table Cetirizine HCl 10 MG HCl 10 MG t} HCl 10 MG Montelukast Montelukast No 1{table Montelukas Sodium 10 Sodium 10 t} t Sodium MG MG 10 MG Escitalopra Escitalopra No 1{table QD Escitalopr m Oxalate m Oxalate t} am Oxalate 10 MG 10 MG 10 MG amLODIPine amLODIPine No amLODIPine Besylate 5 Besylate 5 Besylate 5 MG MG MG Fluticasone Fluticasone No Fluticason Propionate Propionate e 50 MCG/ACT 50 MCG/ACT Propionate 50 MCG/ACT No 1{table QD Vitamin-Fol Vitamin-Fol t_with_ Vitamin-Fo ic Acid 1 ic Acid 1 a_meal} lic Acid 1 MG MG MG Montelukast Montelukast No Montelukas Sodium 10 Sodium 10 t Sodium MG MG 10 MG traZODone traZODone No QD traZODone HCl 100 MG HCl 100 MG HCl 100 MG Montelukast Montelukast No 1{table Montelukas Sodium 10 Sodium 10 t} t Sodium MG MG 10 MG Cetirizine Cetirizine No 1{table Cetirizine HCl 10 MG HCl 10 MG t} HCl 10 MG Eliquis 5 Eliquis 5 No Eliquis 5 MG MG MG Escitalopra Escitalopra No 1{table QD Escitalopr m Oxalate m Oxalate t} am Oxalate 10 MG 10 MG 10 MG amLODIPine amLODIPine No amLODIPine Besylate 5 Besylate 5 Besylate 5 MG MG MG Fluticasone Fluticasone No Fluticason Propionate Propionate e 50 MCG/ACT 50 MCG/ACT Propionate 50 MCG/ACT No 1{table QD Vitamin-Fol Vitamin-Fol t_with_ Vitamin-Fo ic Acid 1 ic Acid 1 a_meal} lic Acid 1 MG MG MG Montelukast Montelukast No Montelukas Sodium 10 Sodium 10 t Sodium MG MG 10 MG traZODone traZODone No QD traZODone HCl 100 MG HCl 100 MG HCl 100 MG Montelukast Montelukast No 1{table Montelukas Sodium 10 Sodium 10 t} t Sodium MG MG 10 MG Cetirizine Cetirizine No 1{table Cetirizine HCl 10 MG HCl 10 MG t} HCl 10 MG Eliquis 5 Eliquis 5 No Eliquis 5 MG MG MG Montelukast Montelukast No Montelukas Sodium 10 Sodium 10 t Sodium MG MG 10 MG amLODIPine amLODIPine No 1{table QD amLODIPine Besylate 5 Besylate 5 t} Besylate 5 MG MG MG Eliquis 5 Eliquis 5 No Eliquis 5 MG MG MG traZODone traZODone No QD traZODone HCl 100 MG HCl 100 MG HCl 100 MG amLODIPine amLODIPine No amLODIPine Besylate 5 Besylate 5 Besylate 5 MG MG MG Repatha Repatha No 1{ml} Repatha SureClick SureClick SureClick 140 MG/ML 140 MG/ML 140 MG/ML No 1{table QD Vitamin-Fol Vitamin-Fol t_with_ Vitamin-Fo ic Acid 1 ic Acid 1 a_meal} lic Acid 1 MG MG MG Escitalopra Escitalopra No 1{table QD Escitalopr m Oxalate m Oxalate t} am Oxalate 20 MG 20 MG 20 MG Cetirizine Cetirizine No Cetirizine HCl 10 MG HCl 10 MG HCl 10 MG Fluticasone Fluticasone No Fluticason Propionate Propionate e 50 MCG/ACT 50 MCG/ACT Propionate 50 MCG/ACT No 1{table QD Vitamin-Fol Vitamin-Fol t_with_ Vitamin-Fo ic Acid 1 ic Acid 1 a_meal} lic Acid 1 MG MG MG Cetirizine Cetirizine No Cetirizine HCl 10 MG HCl 10 MG HCl 10 MG Eliquis 5 Eliquis 5 No Eliquis 5 MG MG MG Fluticasone Fluticasone No Fluticason Propionate Propionate e 50 MCG/ACT 50 MCG/ACT Propionate 50 MCG/ACT Montelukast Montelukast No Montelukas Sodium 10 Sodium 10 t Sodium MG MG 10 MG amLODIPine amLODIPine No 1{table QD amLODIPine Besylate 5 Besylate 5 t} Besylate 5 MG MG MG amLODIPine amLODIPine No amLODIPine Besylate 5 Besylate 5 Besylate 5 MG MG MG Escitalopra Escitalopra No 1{table QD Escitalopr m Oxalate m Oxalate t} am Oxalate 20 MG 20 MG 20 MG traZODone traZODone No QD traZODone HCl 100 MG HCl 100 MG HCl 100 MG Repatha Repatha No 1{ml} Repatha SureClick SureClick SureClick 140 MG/ML 140 MG/ML 140 MG/ML Montelukast Montelukast No Montelukas Sodium 10 Sodium 10 t Sodium MG MG 10 MG amLODIPine amLODIPine No 1{table QD amLODIPine Besylate 5 Besylate 5 t} Besylate 5 MG MG MG Eliquis 5 Eliquis 5 No Eliquis 5 MG MG MG traZODone traZODone No QD traZODone HCl 100 MG HCl 100 MG HCl 100 MG amLODIPine amLODIPine No amLODIPine Besylate 5 Besylate 5 Besylate 5 MG MG MG Repatha Repatha No 1{ml} Repatha SureClick SureClick SureClick 140 MG/ML 140 MG/ML 140 MG/ML No 1{table QD Vitamin-Fol Vitamin-Fol t_with_ Vitamin-Fo ic Acid 1 ic Acid 1 a_meal} lic Acid 1 MG MG MG Escitalopra Escitalopra No 1{table QD Escitalopr m Oxalate m Oxalate t} am Oxalate 20 MG 20 MG 20 MG Cetirizine Cetirizine No Cetirizine HCl 10 MG HCl 10 MG HCl 10 MG Fluticasone Fluticasone No Fluticason Propionate Propionate e 50 MCG/ACT 50 MCG/ACT Propionate 50 MCG/ACT Montelukast Montelukast No 1{table Montelukas Sodium 10 Sodium 10 t} t Sodium MG MG 10 MG Montelukast Montelukast No Montelukas Sodium 10 Sodium 10 t Sodium MG MG 10 MG traZODone traZODone No 1{table QD traZODone HCl 150 MG HCl 150 MG t_at_be HCl 150 MG dtime_a s_neede d} Flonase 50 Flonase 50 No 2{spray QD Flonase 50 MCG/ACT MCG/ACT _in_eac MCG/ACT h_nostr il} amLODIPine amLODIPine No amLODIPine Besylate 5 Besylate 5 Besylate 5 MG MG MG Cetirizine Cetirizine No 1{table Cetirizine HCl 10 MG HCl 10 MG t} HCl 10 MG Montelukast Montelukast No 1{table Montelukas Sodium 10 Sodium 10 t} t Sodium MG MG 10 MG Montelukast Montelukast No Montelukas Sodium 10 Sodium 10 t Sodium MG MG 10 MG Immunizations Ordered Immunization Filled Immunization Date Status Commen ts Source Name Name Enedelia Mcdaniels 2021-03-10 Completed [facility] (Tri[facility] (Triamcinolone) 16:51:00 [facility] Enedelia Mcdaniels 2021-03-10 Completed [facility] (Triamcinolone) (Triamcinolone) 16:51:00 [facility] Vital Signs Vital Name Observation Time Observation Value Comments Source Body height 2021-06-08 18:15:00 160 cm [facility] Body weight 2021-06-08 18:15:00 96.616 kg [facility] BMI 2021-06-08 18:15:00 37.73 kg/m2 [facility] Procedures Procedure Date / Time Performed Performing Clinician [facility] e REFERRAL- 2021-07-04 05:01:00 Doctor Unassigned, No [place] [facility] REQUEST/RESPONSE Name Medical Branch Encounters Start End Encounter Admission Attending Care Care Encounter Source Date/Time Date/Time Type Type Clinicians Facility Department ID 2022-02-07 Outpatient [place], Na STLMLC STLMLC [id number] 2 Common 07:54:01 [facility] 2021-12-27 Outpatient Alme[place], Na STLMLC STLMLC [id number] 2 Common 09:43:02 [facility] 2021-11-02 Outpatient [place], Na STLMLC STLMLC [id number] 2 Common 10:34:02 [facility] 2021-09-28 Outpatient [place], Na STLMLC STLMLC [id number] 2 Common 14:36:25 [facility] 2021-09-28 Outpatient [place], Na STLMLC STLMLC [id number] 2 Common 13:56:35 [facility] 2021-09-28 Outpatient [place], Na STLMLC STLMLC [id number] 2 Common 13:55:44 [facility] 2021-09-28 Outpatient [place], Na STLMLC STLMLC [id number] 2 Common 13:46:[id number] [facility] 2021-09-28 Outpatient [place], Na STLMLC STLMLC [id number] 2 Common 13:35:37 [facility] 2021-09-28 Outpatient [place], Na STLMLC STLMLC [id number] 2 Common 13:34:54 [facility] 2021-09-28 Outpatient [place], Na STLMLC STLMLC [id number] 2 Common 13:24:[id number] [facility] 2021-09-28 Outpatient [place], Na STLMLC STLMLC [id number] 2 Common 13:23:[id number] [facility] 2021-07-04 Outpatient R [facility] [id number] Univers 18:36:45 CHANELLE [facility] 2022-06-23 2022-06-23 (TEL) STLMLC STLMLC [id number] Co mmon 00:00:00 00:00:00 [facility] 2022-05-25 2022-05-25 (WEB) STLMLC STLMLC [id number] Co mmon 00:00:00 00:00:00 [facility] 2022-02-14 2022-02-14 (TEL) STLMLC STLMLC [id number] Co mmon 00:00:00 00:00:00 [facility] 2022-02-08 2022-02-08 OFFICE STLMLC STLMLC [id number] Co mmon 00:00:00 00:00:00 VISIT EST Spir it PT LEVEL 3 [facility] 2022-01-10 2022-01-10 (TEL) STLMLC STLMLC [id number] Co mmon 00:00:00 00:00:00 [facility] 2021-12-28 2021-12-28 OFFICE STLMLC STLMLC [id number] Co mmon 00:00:00 00:00:00 VISIT EST Spir it PT LEVEL 3 [facility] 2021-11-03 2021-11-03 OFFICE STLMLC STLMLC [id number] Co mmon 00:00:00 00:00:00 VISIT EST Spir it PT LEVEL 3 [facility] 2021-10-17 2021-10-17 (TEL) STLMLC STLMLC [id number] Co mmon 00:00:00 00:00:00 [facility] 2021-10-13 2021-10-13 (TEL) STLMLC STLMLC [id number] Co mmon 00:00:00 00:00:00 [facility] 2021-10-05 2021-10-05 (TEL) STLMLC STLMLC [id number] Co mmon 00:00:00 00:00:00 [facility] 2021-10-05 2021-10-05 OFFICE STLMLC STLMLC [id number] Co mmon 00:00:00 00:00:00 VISIT Spirit ESTAB PT - [facility] LEVEL 4 [facility] 2021-09-26 2021-09-26 (TEL) STLMLC STLMLC [id number] Co mmon 00:00:00 00:00:00 [facility] 2021-09-13 2021-09-13 (TEL) STLMLC STLMLC [id number] Co mmon 00:00:00 00:00:00 [facility] 2021-07-06 2021-07-06 (TEL) STLMLC STLMLC [id number] Co mmon 00:00:00 00:00:00 [facility] 2021-07-05 2021-07-05 [facility] [id number] Univers 00:00:00 00:00:00 Nicolas [facility] [id number] it y of COUNCIL [id number] Ned as AGUSTIN?BLEA [phone] [address] [facility] [place] [place] [facility] 2021-07-04 2021-07-04 Orders Doctor GELA 1.2.840.114 [id number] Univers 00:00:00 00:00:00 Only Unassigned, AURELIANO 350.1.13.10 ity of [place] [facility] 4.2.7.2.686 Ned as [phone] [address] 2021-06-29 2021-06-29 (TEL) STLC STLC [id number] Co mmon 00:00:00 00:00:00 [facility] 2021-06-22 2021-06-22 Outpatient Nan PIZARRO [facility] [id number] Univers 15:45:00 15:45:00 ZIYAD [facility] 2021-06-14 2021-06-14 Orders Doctor GELA 1.2.840.114 [id number] Univers 00:00:00 00:00:00 Only Unassigned, AURELIANO 350.1.13.10 ity of [place] [facility] 4.2.7.2.686 Ned as [id number] [address] 2021-06-08 2021-06-08 [facility] [id number] Univers 13:15:00 13:36:34 NICOLAS [facility] 2021-06-08 2021-06-08 [facility] 1.2.296.627 [id number] Univers 13:10:32 13:36:34 Visit Nicolas DE LA GARZA 350.1.13.10 it y of [place] 4.2.7.2.686 Ned as AGUSTIN?BLEA [phone] Id ashley SHARMA [address] [place] [address] OFFICE [facility] 2021-06-08 2021-06-08 [facility] [id number] Univers 13:15:00 13:15:00 NICOLAS [facility] 2021-06-03 2021-06-03 [facility] [id number] Co mmon 00:00:00 00:00:00 [facility] 2021-06-03 2021-06-03 [facility] 1.2.840.114 [id number] Univers 00:00:00 00:00:00 Nicolas Parkinson [facility] 350.1.13.10 it y of [place] 4.2.7.2.686 Ned as Agustin?Blea [phone] Id ashley sharma [address] [place] [address] Office [facility] 2021-06-01 2021-06-01 [facility] [id number] Univers 15:00:00 15:00:00 NICOLAS [facility] 2021-06-01 2021-06-01 [facility] [id number] Univers 15:00:00 14:59:14 NICOLAS [facility] 2021-06-01 2021-06-01 [facility] [id number] Univers 14:41:42 14:59:14 Visit Nicolas Parkinson [facility] 350.1.13.10 it y of [place] 4.2.7.2.686 Ned as AGUSTIN?BLEA [phone] Id ashley SHARMA [address] [place] [address] OFFICE [facility] 2021-05-11 2021-05-11 Outpatient STLMLC STLMLC [id number] Common 00:00:00 00:00:00 [facility] 2021-05-04 2021-05-04 [facility] 1.2.840.114 [id number] Univers 09:12:00 12:10:00 Encounter Chanelle johnson [place] 350.1.13.10 [place] [phone] [facility] [address] 2021-05-04 2021-05-04 Surgery [facility] 1.2.840.114 [id number] Univers 11:06:00 11:43:00 Chanelle johnson 350.1.13.10 [place] [phone] [facility] [address] 2021-05-03 2021-05-03 Laboratory Only, Adc Test [email or web address] 1.2.840. 114 [id number] Univers 14:17:20 14:32:20 Only Chanelle Amezquita 350.1.1 3.10 [place] [id number] [facility] [address] 2021-05-03 2021-05-03 Outpatient R SHIMA [facility] [id number] Univers 09:45:00 09:45:00 CHANELLE Johnson o f [facility] 2021-04-18 2021-04-18 Orders Doctor GEAL 1.2.840.114 [id number] Univers 00:00:00 00:00:00 Only Unassigned, AURELIANO 350.1.13.10 ity of [place] [facility] 4.2.7.2.686 Ned as [phone] [facility] [address] 2021-04-11 2021-04-11 Outpatient STLMLC STLC [id number] Common 00:00:00 00:00:00 [facility] 2021-04-06 2021-04-06 Outpatient R WALKER [facility] [id number] Univers 14:30:00 14:30:00 NICOLAS ity of [facility] 2021-03-11 2021-03-11 Outpatient STLMLC STLMLC [id number] Common 00:00:00 00:00:00 [facility] 2021-03-10 2021-03-10 [facility] [id number] Common 00:00:00 00:00:00 [facility] Results Test Description Test Time Test Comments Results Result [facility] e Comments - MRI UP JNT 2019-02-28 Patient Name: W/CONT RT 13:02:00 EUNICE HOOD Unit No: [id number] EXAMS: CPT CODE: [id number] MRI UP JNT W/[place] [address] EXAM: MRI ARTHROGRAM RIGHT SHOULDER DIAGNOSIS: 1. [...] Reported and signed by: Sumeet Chu MD [facility] NAME: EUNICE HOOD [address] [facility] PHYS: Brennen Loyola MD : 1980 AGE: 38 SEX: F [place], [place] [address] LOC: Y.RAD PHONE #: [phone] EXAM DATE: 02/28/2019 STATUS: REG CLI FAX #: [phone] RAD #: D/C DT PAGE 1 Signed Report (CONTINUED) Patient Name: EUNICE HOOD Unit No: [id number] EXAMS: CPT CODE: [id number] MRI UP JNT W/[place] [address] (Continued) CC: Brennen Sanderson MD Technologist: DORY HASKINS. RT(R) Transcribed D/ (1302) tNILTONG [facility] NAME: EUNICE HOOD [address] [place] [address] PHYS: Brennen Loyola MD : 1980 AGE: 38 SEX: F [place] [address] LOC: Y.RAD PHONE #: [phone] EXAM DATE: 02/28/2019 STATUS: REG CLI FAX #: [phone] RAD #: D/C DT PAGE 2 Signed Report Patient Name: EUNICE HOOD Unit No: [id number] EXAMS: CPT CODE: [id number] MRI UP JNT W/[place] [address] (Continued) Orig Print D/T: S: 02/28/2019 (1306) [facility] NAME: EUNICE HOOD [address] [place] [address] PHYS: Brennen Loyola MD : 1980 AGE: 38 SEX: F [place] [address] LOC: Y.RAD PHONE #: [phone] EXAM DATE: 02/28/2019 STATUS: REG CLI FAX #: [phone] RAD #: D/C DT PAGE 3 Signed Report - XR ARTHROGRAM 2019-02-28 Patient Name: [facility] RT 13:02:00 EUNICE HOOD Unit No: [id number] EXAMS: CPT CODE: [id number] [place] [address] EXAM: MRI ARTHROGRAM RIGHT SHOULDER DIAGNOSIS: 1. [...] Reported and signed by: Sumeet Chu MD [facility] NAME: EUNICE HOOD [address] [place] [address] PHYS: Brennen Loyola MD : 1980 AGE: 38 SEX: F [place], [place] [address] LOC: Y.RAD PHONE #: [phone] EXAM DATE: 02/28/2019 STATUS: REG CLI FAX #: [phone] RAD #: D/C DT PAGE 1 Signed Report (CONTINUED) Patient Name: EUNICE HOOD Unit No: [id number] EXAMS: CPT CODE: [id number] [place] [address] (Continued) CC: Brennen Sanderson MD Technologist: Lian Brandt RT.(R) Transcribed D/ (1302) [email or web address] [facility] NAME: EUNICE HOOD [address] [place] [address] PHYS: Brennen Loyola MD : 1980 AGE: 38 SEX: F [place] [address] LOC: Y.RAD PHONE #: [phone] EXAM DATE: 02/28/2019 STATUS: REG CLI FAX #: [phone] RAD #: D/C DT PAGE 2 Signed Report Patient Name: EUNICE HOOD Unit No: [id number] EXAMS: CPT CODE: [id number] [place] [address] (Continued) Orig Print D/T: S: 02/28/2019 (1306) [facility] NAME: EUNICE HOOD [address] [place] [address] PHYS: Brennen Loyola MD : 1980 AGE: 38 SEX: F [place] [address] LOC: Y.RAD PHONE #: [phone] EXAM DATE: 02/28/2019 STATUS: REG CLI FAX #: [phone] RAD #: D/C DT PAGE 3 Signed Report - XR FLUORO NDL 2018-10-08 Patient Name: 19:32:00 EUNICE HOOD Unit No: [id number] EXAMS: CPT CODE: [id number] XR FLUORO NDL 66293 Fluoroscopically guided injection of the right shoulder [...] MD Technologist: HIEN STYLES, RT(R) Transcribed D/ (193) Scar [facility] NAME: EUNICE HOOD [address] [place] [address] PHYS: Brennen Loyola MD : 1980 AGE: 38 SEX: F [place] [address] LOC: Y.RAD PHONE #: [phone] EXAM DATE: 10/08/2018 STATUS: REG CLI FAX #: [phone] RAD #: D/C DT PAGE 1 Signed Report Patient Name: EUNICE HOOD Unit No: [id number] EXAMS: CPT CODE: [id number] XR FLUORO NDL 62378 (Continued) Orig Print D/T: S: 10/08/2018 (1935) [facility] NAME: EUNICE HOOD [address] [facility] PHYS: Brennen Loyola MD : 1980 AGE: 38 SEX: F [place] [address] LOC: Y.RAD PHONE #: [phone] EXAM DATE: 10/08/2018 STATUS: REG CLI FAX #: [phone] RAD #: D/C DT PAGE 2 Signed Report
[2022-06-27] MEDS ORDERED: NA CHLORIDE 0.9% 1,000 ML ONE (18:39)
[2022-06-27] MEDS ORDERED: ONDANSETRON 4 MG/2 ML VIAL ONE ×2 (18:40→20:40)
[2022-06-27] MEDS ORDERED: MORPHINE 4 MG/ML SYR ONE ×2 (18:40→20:40)
[2022-06-27 18:41] LABS: Urine Blood 1+ (Negative); Urine Glucose Negative (Negative); Urine Protein Negative (Negative); Urine Specific Gravity 1.025 (1.005-1.030)
[2022-06-27 18:43] LABS: Absolute Lymphocytes (CBC) 1.2 K/uL (0.7-4.9); Hematocrit 36.9 % (36.0-45.0); Lymphocytes % 12.4 % (15.3-44.8); MCV 82.6 fL (80-100); MPV 7.5 fL (7.6-11.3); RBC Red Blood Cell Count 4.47 M/uL (3.86-4.86)
[2022-06-27 19:17] LABS: Albumin 3.3 g/dL (3.4-5.0); Bilirubin Total 0.2 mg/dL (0.2-1.0); Potassium 3.3 mmol/L (3.5-5.1); Protein, Total 6.9 g/dL (6.4-8.2)
[2022-06-27 19:23] LABS: Urine Mucus Slight /HPF (None Seen)
[2022-06-27 19:28] LABS: Urine Specific Gravity/Preg 1.025 (1.005-1.030)
--- NOTE | 2022-06-27 20:03 | RAD REPORT ---
EXAM DESCRIPTION: CTAbdomen Pelvis W Contrast - 06/27/2022 7:39 pm CLINICAL HISTORY: lower abdomen pain COMPARISON: Abdomen Pelvis W Contrast dated 09/04/2021; Abdomen Pelvis W Contrast dated 12/03/2020; Abdomen Pelvis W Contrast dated 11/12/2020 TECHNIQUE: CT of the abdomen and pelvis was performed. All CT scans are performed using dose optimization technique as appropriate and may include automated exposure control or mA/KV adjustment according to patient size. FINDINGS: Lower chest: No acute abnormality. Liver: No acute abnormality or suspicious lesions. Biliary: No biliary ductal dilatation. Cholecystectomy. Stomach: No significant focal abnormality. Duodenum: No significant focal abnormality. Pancreas: No significant abnormality. Spleen: No significant abnormality. Adrenal: No suspicious lesions. Kidney/ureter: No hydronephrosis. No renal calculi. Retroperitoneum: No retroperitoneal adenopathy. Vascular: No aneurysm. Bowel: Acute diverticulitis of the distal transverse colon.. No bowel obstruction. No appendix identi fied Peritoneum: No ascites or free air. Bladder: Grossly unremarkable. Reproductive: No adnexal masses. Bones: No acute fracture. Other: n/a IMPRESSION: Non perforated diverticulitis of the distal transverse colon.
[2022-06-27] MEDS ORDERED: NA CHLORIDE 0.9% 100 ML IV ONE (20:18)
[2022-06-27] MEDS ORDERED: PIPERACIL/TAZO 3.375 GM VIAL IV ONE (20:18)
[2022-06-27] MEDS ORDERED: POTASSIUM 25 MEQ EFFERV TAB ONE (20:40)
--- NOTE | 2022-06-27 20:51 | ER ---
Nurse's Notes [facility] Name: Eunice Arango Age: 41 yrs Sex: Female : 1980 Arrival Date: 06/27/2022 Time: 17:59 Bed 17 Private MD: Sailaja Almeida Diagnosis: Diverticulitis of large intestine without perforation or abscess without bleeding Presentation: 06/27 18:02 Chief complaint: Patient states: I think I'm having a diverticulitis flare up, pain in ss the lower abdomen, nausea and dizzy. Coronavirus screen: Vaccine status: Patient reports being unvaccinated. Client denies travel out of the [place] in the last 14 days. Ebola Screen: Patient denies travel to an Ebola-affected area in the 21 days before illness onset. Initial Sepsis Screen: Does the patient meet any 2 criteria? No. Patient's initial sepsis screen is negative. Does the patient have a suspected source of infection? Yes: Acute abdominal pain. Risk Assessment: Do you want to hurt yourself or someone else? Patient reports no desire to harm self or others. Onset of symptoms was June 27, 2022. 18:02 Method Of Arrival: Ambulatory ss 18:02 Acuity: ALIS 3 ss Triage Assessment: 18:06 General: Appears in no apparent distress. uncomfortable, obese, Behavior is calm, ss cooperative, appropriate for age. Pain: Complains of pain in abdomen Quality of pain is described as throbbing, Pain began 3 hours ago. GI: Abdomen is round non-distended. Historical: - Allergies: 18:05 Cipro; ss 18:05 Codeine; ss - PMHx: 18:05 Diverticulitis; EMBOLISM; Migraine; Rheumatoid Arthritis; ss - PSHx: 18:05 Appendectomy; Cholecystectomy; Total abdominal hysterectomy; ss - Immunization history:: Adult Immunizations not up to date. - Social history:: Smoking status: Patient/guardian denies using tobacco, the patient reports quitting approximately 1 years ago. Screenin:19 Abuse screen: Denies threats or abuse. Denies injuries from another. Nutritional db screening: No deficits noted. Nutritional screening: No deficits noted. Tuberculosis screening: No symptoms or risk factors identified. Fall Risk None identified. No fall in past 12 months (0 pts). No secondary diagnosis (0 pts). IV access (20 points). Ambulatory Aid- None/Bed Rest/Nurse Assist (0 pts). Gait- Normal/Bed Rest/Wheelchair (0 pts) Mental Status- Oriented to own ability (0 pts). Total Mullen Fall Scale indicates No Risk (0-24 pts). Assessment: 18:08 Reassessment: Patient appears in no apparent distress at this time. Patient is alert, db oriented x 3, equal unlabored respirations, skin warm/dry/pink. patient states came to ED due to diverticulitis flare up. lower abdominal pain started about 3 hours ago. States has some nausea. Denies vomiting. General: Appears in no apparent distress. uncomfortable, Behavior is calm, cooperative, appropriate for age. Pain: Complains of pain in lower abdomen Pain began 1 hour ago. Neuro: No deficits noted. Level of Consciousness is awake, alert, obeys commands, Oriented to person, place, time, situation, Appropriate for age. Cardiovascular: No deficits noted. Respiratory: No deficits noted. GI: Bowel sounds present X 4 quads. Abd is soft Abdomen is tender to palpation in right lower quadrant and left lower quadrant. : No deficits noted. No signs and/or symptoms were reported regarding the genitourinary system. EENT: No deficits noted. No signs and/or symptoms were reported regarding the EENT system. Derm: No deficits noted. No signs and/or symptoms reported regarding the dermatologic system. Musculoskeletal: No deficits noted. No signs and/or symptoms reported regarding the musculoskeletal system. 18:56 Reassessment: Patient appears in no apparent distress at this time. Patient and/or db family updated on plan of care and expected duration. Pain level reassessed. Patient is alert, oriented x 3, equal unlabored respirations, skin warm/dry/pink. Patient states feeling better. Patient states symptoms have improved. 19:16 General: Appears in no apparent distress. Behavior is calm, cooperative, appropriate em6 for age. Pain: Complains of pain in left lower quadrant and right lower quadrant and abdomen. Neuro: Level of Consciousness is awake, alert, obeys commands, Oriented to person, place, time, situation. Cardiovascular: No deficits noted. Respiratory: Airway is patent Respiratory effort is even, unlabored, Respiratory pattern is regular, symmetrical. GI: Abdomen is non-distended, Bowel sounds present X 4 quads. Abd is soft X 4 quads. : No signs and/or symptoms were reported regarding the genitourinary system. EENT: No signs and/or symptoms were reported regarding the EENT system. Derm: No signs and/or symptoms reported regarding the dermatologic system. Musculoskeletal: No signs and/or symptoms reported regarding the musculoskeletal system. 20:30 Reassessment: patient stated abdominal pain. notified provider. new order given. Neuro: em6 Level of Consciousness is awake, alert, obeys commands, Oriented to person, place, time, situation. 20:55 Reassessment: waiting for Zosyn to finish for discharge. em6 21:32 Reassessment: Patient appears in no apparent distress at this time. Patient and/or em6 family updated on plan of care and expected duration. Pain level reassessed. Patient is alert, oriented x 3, equal unlabored respirations, skin warm/dry/pink. Vital Signs: 18:02 BP 141 / 79; Pulse 95; Resp 18; Temp 99.6; Pulse Ox 100% on R/A; Weight 90.72 kg; kr3 Height 5 ft. 3 in. (160.02 cm); Pain 7/10; 18:08 BP 123 / 70; Pulse 74; Resp 16; Pulse Ox 99% ; Pain 7/10; db 19:00 BP 134 / 75; Pulse 75; Resp 18; Pulse Ox 99% on R/A; em6 20:03 BP 142 / 78; Pulse 88; Resp 18; Pulse Ox 98% on R/A; em6 20:50 BP 129 / 78; Pulse 78; Resp 18; Pulse Ox 100% on R/A; em6 18:02 Body Mass Index 35.43 (90.72 kg, 160.02 cm) kr3 ED Course: 17:59 Patient arrived in ED. mr 17:59 Sailaja Alemida MD is Private Physician. mr 18:01 Donta Iraheta PA is PHCP. cp 18:01 Diana Norton MD is Attending Physician. cp 18:05 Triage completed. ss 18:07 Arm band placed on left wrist. ss 18:09 Alejandra Armstrong, REINALDO is Primary Nurse. db 18:19 Allergy band placed. Bed in low position. Call light in reach. Side rails up X 1. db 18:19 Inserted saline lock: 20 gauge in right antecubital area, using aseptic technique. db Blood collected. 19:07 Report given to REINALDO Valentine. db 19:41 CT Abd/Pelvis - IV Contrast Only In Process Unspecified. EDMS 20:50 Sailaja Almeida MD is Referral Physician. cp 21:38 No provider procedures requiring assistance completed. IV discontinued, intact, em6 bleeding controlled, No redness/swelling at site. Pressure dressing applied. Administered Medications: 18:40 Drug: NS 0.9% 1000 ml Route: IV; Rate: 1 bolus; Site: right antecubital; db 19:06 Follow up: IV Status: Infusion continued db 18:40 Drug: Zofran (Ondansetron) 4 mg Route: IVP; Site: right antecubital; db 19:40 Follow up: Response: No adverse reaction em6 18:40 Drug: morphine 4 mg Route: IVP; Infused Over: 4 mins; Site: right antecubital; db 19:40 Follow up: Response: No adverse reaction; RASS: Alert and Calm (0) em6 20:35 Drug: Zosyn (piperacillin-tazobactam) 3.375 grams Route: IVPB; Infused Over: 60 mins; em6 Site: right antecubital; 21:37 Follow up: Response: No adverse reaction; IV Status: Completed infusion; IV Intake: em6 100ml 20:48 Drug: Potassium Effervescent Tablet 50 mEq Route: PO; em6 21:31 Follow up: Response: No adverse reaction em6 20:48 Drug: morphine 4 mg Route: IVP; Infused Over: 4 mins; Site: right antecubital; em6 21:31 Follow up: Response: No adverse reaction; RASS: Alert and Calm (0) em6 20:48 Drug: Zofran (Ondansetron) 4 mg Route: IVP; Site: right antecubital; em6 21:31 Follow up: Response: No adverse reaction em6 Medication: 18:19 VIS not applicable for this client. db Intake: 21:37 IV: 100ml; Total: 100ml. em6 Outcome: 20:50 Discharge ordered by . cp 21:38 Discharged to home ambulatory. em6 21:38 Condition: stable 21:38 Discharge instructions given to patient, Instructed on discharge instructions, follow up and referral plans. medication usage, Demonstrated understanding of instructions, follow-up care, medications, Prescriptions given X 3. 21:39 Patient left the ED. em6 Signatures: Dispatcher [employer] EDMN Karen Nieves mr Nicolette Webster RN RN ss Donta Iraheta PA PA cp Reid, Kelley, RN RN kr3 Meme Velazquez RN RN em6 Alejandra Armstrong RN RN db Corrections: (The following items were deleted from the chart) 18:11 18:02 BP 141 / 79; Pulse 95bpm; Resp 18bpm; Pulse Ox 100% RA; 90.72 kg; Height 5 ft. 3 kr3 in.; BMI: 35.4; Pain 7/10; ss 18:56 18:08 BP 123 / 70; Pulse 74bpm; Resp 16bpm; Pulse Ox 99%; db db
--- NOTE | 2022-06-27 20:51 | EDPHYS ---
Physician Documentation [facility] Name: Eunice Arango Age: 41 yrs Sex: Female : 1980 Arrival Date: 06/27/2022 Time: 17:59 Bed 17 Private MD: Sailaja Almeida ED Physician Diana Norton HPI: 06/27 18:30 This 41 yrs old Female presents to ER via Ambulatory with complaints of Abdominal Pain, cp Nausea. 18:30 The patient presents with abdominal pain in the lower abdomen. cp 18:30 Onset: The symptoms/episode began/occurred this morning. cp 18:30 The symptoms do not radiate. Associated signs and symptoms: Pertinent positives: cp nausea, dizziness, Pertinent negatives: blood in stools, chest pain, constipation, diarrhea, fever, vomiting. The symptoms are described as constant. Severity of pain: in the emergency department the pain is unchanged despite home interventions. The patient has experienced similar episodes in the past, today's symptoms are similar, to when the patient was apparently diagnosed with diverticulitis. Historical: - Allergies: 18:05 Cipro; ss 18:05 Codeine; ss - PMHx: 18:05 Diverticulitis; EMBOLISM; Migraine; Rheumatoid Arthritis; ss - PSHx: 18:05 Appendectomy; Cholecystectomy; Total abdominal hysterectomy; ss - Immunization history:: Adult Immunizations not up to date. - Social history:: Smoking status: Patient/guardian denies using tobacco, the patient reports quitting approximately 1 years ago. ROS: 18:35 Constitutional: Negative for body aches, chills, fever, poor PO intake. cp 18:35 Eyes: Negative for injury, pain, redness, and discharge. cp 18:35 ENT: Negative for drainage from ear(s), ear pain, sore throat, difficulty swallowing, difficulty handling secretions. 18:35 Cardiovascular: Negative for chest pain, palpitations. 18:35 Respiratory: Negative for cough, shortness of breath, wheezing. 18:35 Abdomen/GI: Positive for abdominal pain, nausea, Negative for vomiting, diarrhea, constipation, black/tarry stool, rectal bleeding. 18:35 Back: Negative for pain at rest, pain with movement. 18:35 : Negative for urinary symptoms. 18:35 Neuro: Positive for dizziness, Negative for altered mental status, headache, weakness. 18:35 All other systems are negative. Exam: 18:40 Constitutional: The patient appears in no acute distress, alert, awake, non-toxic, well cp developed, well nourished, uncomfortable. 18:40 Head/Face: Normocephalic, atraumatic. cp 18:40 Eyes: Periorbital structures: appear normal, Conjunctiva: normal, no exudate, no injection, Sclera: no appreciated abnormality, Lids and lashes: appear normal, bilaterally. 18:40 ENT: External ear(s): are unremarkable, Nose: is normal, Mouth: Lips: moist, Oral mucosa: pink and intact, moist, Posterior pharynx: Airway: no evidence of obstruction, patent. 18:40 Chest/axilla: Inspection: normal. 18:40 Cardiovascular: Rate: normal, Rhythm: regular. 18:40 Respiratory: the patient does not display signs of respiratory distress, Respirations: normal, no use of accessory muscles, no retractions, labored breathing, is not present, Breath sounds: are clear throughout, no decreased breath sounds, no stridor, no wheezing. 18:40 Abdomen/GI: Inspection: abdomen appears normal, Bowel sounds: active, all quadrants, Palpation: soft, in all quadrants, moderate abdominal tenderness, in the suprapubic area and left lower quadrant, rebound tenderness, is not appreciated, involuntary guarding, is not appreciated. 18:40 Back: CVA tenderness, is absent. 18:40 Skin: cellulitis, is not appreciated, no rash present. 18:40 Neuro: Orientation: to person, place \T\ time. Mentation: is normal, Motor: moves all fours, strength is normal, Sensation: is normal. Vital Signs: 18:02 BP 141 / 79; Pulse 95; Resp 18; Temp 99.6; Pulse Ox 100% on R/A; Weight 90.72 kg; kr3 Height 5 ft. 3 in. (160.02 cm); Pain 7/10; 18:08 BP 123 / 70; Pulse 74; Resp 16; Pulse Ox 99% ; Pain 7/10; db 19:00 BP 134 / 75; Pulse 75; Resp 18; Pulse Ox 99% on R/A; em6 20:03 BP 142 / 78; Pulse 88; Resp 18; Pulse Ox 98% on R/A; em6 20:50 BP 129 / 78; Pulse 78; Resp 18; Pulse Ox 100% on R/A; em6 18:02 Body Mass Index 35.43 (90.72 kg, 160.02 cm) kr3 MDM: 18:22 Patient medically screened. cp 19:00 Differential diagnosis: diverticulitis, non-specific abd pain, Pyelonephritis, cp Ureterolithiasis, urinary tract infection, colitis. 20:50 Data reviewed: vital signs, nurses notes, lab test result(s), radiologic studies, CT cp scan. 20:50 Counseling: I had a detailed discussion with the patient and/or guardian regarding: the cp historical points, exam findings, and any diagnostic results supporting the discharge/admit diagnosis, lab results, radiology results, the need for outpatient follow up, a family practitioner, to return to the emergency department if symptoms worsen or persist or if there are any questions or concerns that arise at home. Response to treatment: the patient's symptoms have markedly improved after treatment, and as a result, I will discharge patient. Special discussion: Based on the patient's Hx, exam, and Dx evaluation, there is no indication for emergent surgery or inpatient Tx. It is understood by the patient/guardian that if the Sx's persist or worsen they need to return immediately for re-evaluation. 06/27 18:21 Order name: CBC with Diff; Complete Time: 19:18 cp 06/27 19:18 Interpretation: Normal except: MPV 7.5; RALF% 80.8; LYM% 12.4. cp 06/27 18:21 Order name: CMP; Complete Time: 19:18 cp 06/27 19:18 Interpretation: Normal except: K 3.3; CL 111; GLUC 118; GFR 56; AST 10; ALB 3.3; GLOB cp 3.6; A/G 0.9. 06/27 18:21 Order name: Lipase; Complete Time: 19:18 cp 06/27 19:18 Interpretation: LIP 70; Reviewed. cp 06/27 18:21 Order name: Urine Microscopic Only; Complete Time: 19:33 cp 06/27 19:33 Interpretation: Normal except: URBC 5-10. cp 06/27 18:41 Order name: Urine Dipstick-Ancillary; Complete Time: 19:18 EDMS 06/27 19:19 Interpretation: Normal except: UBLD 1+. cp 06/27 19:11 Order name: Urine --Ancillary (enter results); Complete Time: 19:33 wm 06/27 18:21 Order name: CT Abd/Pelvis - IV Contrast Only; Complete Time: 20:10 cp 06/27 18:21 Order name: IV Saline Lock; Complete Time: 18:22 cp 06/27 18:21 Order name: Labs collected and sent; Complete Time: 18:23 cp 06/27 18:21 Order name: Urine Dipstick-Ancillary (obtain specimen); Complete Time: 18:41 cp 06/27 18:21 Order name: Urine Test (obtain specimen); Complete Time: 18:41 cp 06/27 20:12 Order name: PO challenge; Complete Time: 20:36 cp Administered Medications: 18:40 Drug: NS 0.9% 1000 ml Route: IV; Rate: 1 bolus; Site: right antecubital; db 19:06 Follow up: IV Status: Infusion continued db 18:40 Drug: Zofran (Ondansetron) 4 mg Route: IVP; Site: right antecubital; db 19:40 Follow up: Response: No adverse reaction em6 18:40 Drug: morphine 4 mg Route: IVP; Infused Over: 4 mins; Site: right antecubital; db 19:40 Follow up: Response: No adverse reaction; RASS: Alert and Calm (0) em6 20:35 Drug: Zosyn (piperacillin-tazobactam) 3.375 grams Route: IVPB; Infused Over: 60 mins; em6 Site: right antecubital; 21:37 Follow up: Response: No adverse reaction; IV Status: Completed infusion; IV Intake: em6 100ml 20:48 Drug: Potassium Effervescent Tablet 50 mEq Route: PO; em6 21:31 Follow up: Response: No adverse reaction em6 20:48 Drug: morphine 4 mg Route: IVP; Infused Over: 4 mins; Site: right antecubital; em6 21:31 Follow up: Response: No adverse reaction; RASS: Alert and Calm (0) em6 20:48 Drug: Zofran (Ondansetron) 4 mg Route: IVP; Site: right antecubital; em6 21:31 Follow up: Response: No adverse reaction em6 Disposition Summary: 06/27/22 20:50 Discharge Ordered Location: Home cp Problem: new cp Symptoms: have improved cp Condition: Stable cp Diagnosis - Diverticulitis of large intestine without perforation or abscess without bleeding cp Followup: cp - With: Sailaja Almeida MD - When: 2 - 3 days - Reason: Recheck today's complaints Discharge Instructions: - Discharge Summary Sheet cp - High-Fiber Diet cp - Diverticulitis cp Forms: - Medication Reconciliation Form cp - Thank You Letter cp - Antibiotic Education cp - Prescription Opioid Use cp Prescriptions: - Augmentin 875-125 mg Oral Tablet - take 1 tablet by ORAL route every 12 hours for 10 days; 20 tablet; Refills: 0, cp Product Selection Permitted - Zofran 4 mg Oral Tablet - take 1 tablet by ORAL route every 12 hours As needed; 20 tablet; Refills: 0, cp Product Selection Permitted - dicyclomine 20 mg Oral Tablet - take 1 tablet by ORAL route 4 times per day; 30 tablet; Refills: 0, Product cp Selection Permitted Signatures: Dispatcher [employer] Nicolette Lindsey RN RN ss Donta Iraheta PA PA Meme Salas RN RN em6 Alejandra Armstrong RN RN db
[2022-06-27 22:26] VITALS: TEMP 99.6
[2022-06-27 22:31] VITALS: BP 129/78; O2SAT 100
== END 2022-06-27 21:39 | disposition home or self-care (01) ==
LOC: ER 17:57
DX: K57.32 Diverticulitis of large intestine without perforation or abscess without bleeding (principal); Z88.1 Allergy status to other antibiotic agents; Z88.5 Allergy status to narcotic agent
CPT/HCPCS: 96365; 85025; 36415; 81025; 83690; 80053; 74177; 96375; 99284; Q9967; J2543; J7030; J2405 ×2; 81003; 81015

== ENCOUNTER 2022-07-20 17:11 | Emergency (ER) | payer BC ==
--- OUTSIDE RECORDS SUMMARY | 2022-07-20 17:18 | XMS REPORT | Continuity of Care Document ---
:1980 Author Organization [facility] t Address [address] [place] [address] Dr. García. [address] [place] [address] Care Team Providers Name Role Phone Sailaja Almeida Primary Care Physician Sailaja Almeida Attending Clinician Unavailable CHANELLE AMEZQUITA Attending Clinician Unavailable Doctor Unassigned, [facility] Attending Clinician Unavailable Nicolas Cardoso MD Attending Clinician ZIYAD PIZARRO Attending Clinician Unavailable NICOLAS CARDOSO Attending Clinician Unavailable Chanelle Amezquita MD Attending Clinician Only, Adc Test Attending Clinician Unavailable CHANELLE AMEZQUITA Admitting Clinician Unavailable Chanelle Amezquita MD Admitting Clinician Payers Payer Name Policy Type Policy Number Effective Date Expiration Date S pinky [place] BC[employer] BLUE [id number] 2018 ADVANTAGE HMO 00:00:00 Blue Cross Blue 6 [id number] 2020 [facility] Shield O 00:00:00 [facility] Problems Condition Condition Condition Status Onset Resolution Last Treating Co mments Source Name Details Category Date Date Treatment Clinician Date Obesity Obesity Disease Active Univers (BMI (BMI 9-18 ity of 30-39.9) 30-39.9) 00:00: [place] 00 Medical Branch [id number] Memory Problem Common deficit [facility] [id number] Panic Problem Common attacks [facility] [id number] Depression Problem Co mmon with Spirit anxiety [facility] [id number] Unsteady Problem Commo n gait when [facility] walking [facility] [id number] Supplement Problem C ommon 07 al oxygen [facility] dependent [facility] [id number] Complicate Problem Co mmon d migraine [facility] [id number] 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 [facility] Somnolence Somnolence Problem C ommon , daytime [facility] [id number] Chronic Problem Common fatigue [facility] [id number] Vitamin D Problem Comm on deficiency [facility] [id number] Situationa Problem Com mon l anxiety [facility] [id number] Diverticul Problem Co mmon osis [facility] [id number] Primary Problem Common hypertensi Spirit on [facility] [id number] Seasonal Problem Comm on allergic Spirit rhinitis, - [facility] unspecifie [facility] [id number] Primary Problem Common insomnia [facility] [id number] Acanthosis Problem Co mmon nigricans [facility] [id number] Primary Problem Comm on osteoarthr Spirit itis of [facility] left [facility] [id number] Stress Problem Common [facility] Allergies, Adverse Reactions, Alerts Allergy Allergy Status Severity Reaction(s) Onset Inactive Treating Comm ents Source Name Type Date Date Clinician ciproflo DA Active [place] [facility] xacin 6-28 [place] 00[facility] c[facility]flo DA Active [place] [facility] xacin 2-05 [place] 00:00: [facility]ope [facility] Ciproflo Propensi Active Nausea Univer s xacin ty to and/or 05-21 ity of adverse Vomiting 00:00: [place] reaction 00 [facility] Branch Codeine Propensi Active Nausea 2018-0 Univers ty to and/or 05-21 ity of adverse Vomiting 00:00: [place] reaction 00 [facility] ciproflo ciproflo Active vomiting Comm on xacin xacin Spirit - [facility] Social History Social Habit Start Date Stop Date Quantity Comments Source Exposure to Not sure [place] of SARS-CoV-2 [place] [facility] (event) [place] History of [facility] - Tobacco Use [facility] Sex Assigned At [facility] cyndi - [facility] Alcohol intake 2021-06-08 2021-06-08 Lifetime University of 00:00:00 00:00:00 non-drinker [facility] (finding) [place] Tobacco use and 2021-04-06 2021-04-06 Smokeless tobacco Un iversity of exposure 00:00:00 00:00:00 non-user [facility] Smoking Status Start Date Stop Date Source Former Smoker 2022-05-23 00:00:00 2022-05-23 00:00:00 [facility] Never Smoker [facility] Smokes tobacco daily 2021-04-06 00:00:00 Univers ity of [facility] Medications Ordered Filled Start Stop Current [...] 00:00 140 MG/ML 00 :00 Repatha Repatha 3- No 1{ml} Repatha SureClick SureClick 02-08 06- SureClick 140 MG/ML 140 MG/ML 00:00: 00:00 140 MG/ML 00 :00 No 1{table QD Vitamin-Fol Vitamin-Fol 3-03 t_with_ Vitamin-Fo ic Acid 1 ic Acid 1 00:00: a_meal} lic Acid 1 MG MG 00 MG paroxetine Yes 20mg Take 20 mg U nivers (PAXIL) 20 9-01 by mouth ity o f mg tablet 13:28: daily. [place] [address] Medical Branch clonazePAM Yes .5mg Take 0.5 Uni vers (KLONOPIN) 9-01 mg by ity of 0.5 mg 13:28: mouth [place] tablet 45 daily. Medical Branch Cetirizine Yes Take by [facility] ers 10 mg 9-01 mouth. ity of capsule 13:28: [address] Branch fluticasone Yes 2{spray Use 2 Un rolanda propionate 05-04 } Sprays in ity of (FLONASE 13:28: each [place] ALLERGY 45 nostril 2 Medical RELIEF) 50 (two) Branch mcg/actuati times on nasal daily. spray montelukast 0 Yes 10mg Take 10 mg Univers 10 mg 9-01 by mouth. ity of tablet 13:28: [address] Branch paroxetine Yes 20mg Take 20 mg U nivers (PAXIL) 20 9- by mouth ity o f mg tablet 13:28: daily. [place] [address] Medical Branch clonazePAM Yes .5mg Take 0.5 Uni vers (KLONOPIN) 9-01 mg by ity of 0.5 mg 13:28: mouth [place] tablet 45 daily. Medical Branch Cetirizine Yes Take by [facility] ers 10 mg 9-01 mouth. ity of capsule 13:28: [place] [address] Medical Branch fluticasone Yes 2{spray Use 2 Un rolanda propionate 05-04 } Sprays in ity of (FLONASE 13:28: each [place] ALLERGY 45 nostril 2 Medical RELIEF) 50 (two) Branch mcg/actuati times on nasal daily. spray montelukast 2020-0 Yes 10mg Take 10 mg Univers 10 mg 9-01 by mouth. ity of tablet 13:28: [place] [address] Medical Branch paroxetine Yes 20mg Take 20 mg U nivers (PAXIL) 20 9 by mouth ity o f mg tablet 13:28: daily. [place] [address] Medical Branch clonazePAM Yes .5mg Take 0.5 Uni vers (KLONOPIN) 9-01 mg by ity of 0.5 mg 13:28: mouth [place] tablet 45 daily. Medical Branch Cetirizine Yes Take by Univ ers 10 mg 9 mouth. ity of capsule 13:28: [place] [address] Medical Branch fluticasone Yes 2{spray Use 2 Un rolanda propionate 05-04 } Sprays in ity of (FLONASE 13:28: each [place] ALLERGY 45 nostril 2 Medical RELIEF) 50 (two) Branch mcg/actuati times on nasal daily. spray montelukast Yes 10mg Take 10 mg Univers 10 mg 05-04 by mouth. ity of tablet 13:28: [place] [address] Medical Branch traZODone Yes TAKE 1 Univer s 50 mg 8-09 TABLET BY ity of tablet 00:00: MOUTH [place] 00 EVERY DAY Medical AT BEDTIME Branch NEEDED amLODIPine 0 Yes 5mg Take 5 mg Un rolanda 5 mg tablet 8-09 by mouth ity of 00:00: every [place] 00 morning. Medical Branch traZODone Yes TAKE 1 Univer s 50 mg 8-09 TABLET BY ity of tablet 00:00: MOUTH [place] 00 EVERY DAY Medical AT BEDTIME Branch NEEDED amLODIPine 2020-0 Yes 5mg Take 5 mg Un rolanda 5 mg tablet 8-09 by mouth ity of 00:00: every [place] 00 morning. Medical Branch traZODone Yes TAKE 1 Univer s 50 mg 8-09 TABLET BY ity of tablet 00:00: MOUTH [place] 00 EVERY DAY Medical AT BEDTIME Branch NEEDED amLODIPine 2020-0 Yes 5mg Take 5 mg Un rolanda 5 mg tablet 8-09 by mouth ity of 00:00: every [place] 00 morning. Medical Branch Kenalog Kenalog No 40mg Common (Triamcinol (Triamcinol 7-08 S pirit one) one) 00:00: - [facility] 00 [facility] Kenalog Kenalog No 40mg Common (Triamcinol (Triamcinol 7-08 S pirit one) one) 00:00: - [facility] 00 [facility] No 40mg Common (Triamcinol (Triamcinol 7-08 S pirit one) one) 00:00: - [facility] 00 [facility] No 40mg Common (Triamcinol (Triamcinol 7-08 S pirit one) one) 00:00: - [facility] 00 [facility] No 40mg Common (Triamcinol (Triamcinol 7-08 S pirit one) one) 00:00: - [facility] 00 [facility] No 40mg Common (Triamcinol (Triamcinol 7-08 S pirit one) one) 00:00: - [facility] 00 [facility] No 40mg Common (Triamcinol (Triamcinol 7-08 S pirit one) one) 00:00: - [facility] 00 [facility] No 40mg Common (Triamcinol (Triamcinol 7-08 S pirit one) one) 00:00: - [facility] 00 [facility] No 40mg Common (Triamcinol (Triamcinol 7-08 S pirit one) one) 00:00: - [facility] 00 [facility] HYDROcodone 2017-0 Yes 1{tbl} Take 1 Un [...] 2021-03-10 Completed [facility] (Triamcinolone) (Triamcinolone) 16:51:00 - [facility] Enedelia Mcdaniels 2021-03-10 Completed [facility] (Triamcinolone) (Triamcinolone) 16:51:00 [facility] Vital Signs Vital Name Observation Time Observation Value Comments Source Body height 2021-06-08 18:15:00 160 cm [facility] Body weight 2021-06-08 18:15:00 96.616 kg [facility] BMI 2021-06-08 18:15:00 37.73 kg/m2 [facility] Procedures Procedure Date / Time Performing Clinician Source Performed INSURANCE CORRESPONDENCE 2022-05-31 05:01:00 Doctor Unassigned, [facility] REFERRAL- 2021-07-04 05:01:00 Doctor Unassigned, [facility] REQUEST/RESPONSE [facility] Encounters Start End Encounter Admission Attending Care Care Encounter Source Date/Time Date/Time Type Type Clinicians Facility Department ID 2022-07-06 Outpatient Almeida, Na STLC STLC [id number] 2 Common 16:07:01 [facility] 2022-02-07 Outpatient Almeida, Na STLMLC STLC [id number] 2 Common 07:54:01 [facility] 2021-12-27 Outpatient Almeida, Na STLMLC STLC [id number] 2 Common 09:43:02 [facility] 2021-11-02 Outpatient Almeida, Na STLC STLC [id number] 2 Common 10:34:02 [facility] 2021-09-28 Outpatient Almeida, Na STLC STLC [id number] 2 Common 14:36:25 [facility] 2021-09-28 Outpatient Almeida, Na STLMLC STLMLC [id number] 2 Common 13:56:35 [facility] 2021-09-28 Outpatient Almeida, Na STLMLC STLMLC [id number] 2 Common 13:55:44 [facility] 2021-09-28 Outpatient Almeida, Na STLMLC STLMLC [id number] 2 Common 13:46:51 [id number] [facility] 2021-09-28 Outpatient Almeida, Na STLMLC STLMLC [id number] 2 Common 13:35:37 [facility] 2021-09-28 Outpatient Almeida, Na STLMLC STLMLC [id number] 2 Common 13:34:54 [facility] 2021-09-28 Outpatient Almeida, Na STLMLC STLMLC [id number] 2 Common 13:24:09 [id number] [facility] 2021-09-28 Outpatient Almeida, Na STLMLC STLMLC [id number] 2 Common 13:23:50 [id number] [facility] 2021-07-04 Outpatient R SHIMA [facility] [id number] Univers 18:36:45 CHANELLE Kirkpatrick [facility] [place] [facility] 2022-06-28 2022-06-28 (TEL) STLMLC STLMLC [id number] Co mmon 00:00:00 00:00:00 [facility] 2022-06-23 2022-06-23 (TEL) STLMLC STLMLC [id number] Co mmon 00:00:00 00:00:00 [facility] 2022-05-31 2022-05-31 Orders Doctor REN [id number] [id number] Univers 00:00:00 00:00:00 Only Unassigned, AURELIANO 350.1.13.10 ity of [facility] 4.2.7.2.686 Ned as [phone] [address] 2022-05-25 2022-05-25 (WEB) STLMLC STLMLC [id number] Co mmon 00:00:00 00:00:00 [facility] 2022-02-14 2022-02-14 (TEL) STLMLC STLMLC [id number] Co mmon 00:00:00 00:00:00 [facility] 2022-02-08 2022-02-08 OFFICE STLMLC STLMLC [id number] Co mmon 00:00:00 00:00:00 VISIT EST Spir it PT LEVEL 3 [facility] 2022-01-10 2022-01-10 (TEL) STLMLC STLMLC [id number] Co mmon 00:00:00 00:00:00 [facility] 2021-12-28 2021-12-28 OFFICE STLMLC STLMLC [id number] Co mmon 00:00:00 00:00:00 VISIT EST Spir it PT LEVEL 3 [facility] 2021-11-03 2021-11-03 OFFICE STLMLC STLMLC [id number] Co mmon 00:00:00 00:00:00 VISIT EST Spir it PT LEVEL 3 [facility] 2021-10-17 2021-10-17 (TEL) STLMLC STLMLC [id number] Co mmon 00:00:00 00:00:00 [facility] 2021-10-13 2021-10-13 (TEL) STLMLC STLMLC [id number] Co mmon 00:00:00 00:00:00 [facility] 2021-10-05 2021-10-05 OFFICE STLMLC STLMLC [id number] Co mmon 00:00:00 00:00:00 VISIT Spirit ESTAB PT - [facility] LEVEL 4 [facility] 2021-10-05 2021-10-05 (TEL) STLMLC STLMLC [id number] Co mmon 00:00:00 00:00:00 [facility] 2021-09-26 2021-09-26 (TEL) STLMLC STLMLC [id number] Co mmon 00:00:00 00:00:00 [facility] 2021-09-13 2021-09-13 (TEL) STLC STLC [id number] Co mmon 00:00:00 00:00:00 [facility] 2021-07-06 2021-07-06 (TEL) STLMLC STLMLC [id number] Co mmon 00:00:00 00:00:00 [facility] 2021-07-05 2021-07-05 Telephone Walker [facility] 1.2.840.114 [id number] Univers 00:00:00 00:00:00 Nicolas [facility] 350.1.13.10 it y of [place] 4.2.7.2.686 Ned as AGUSTIN?BLEA [phone] [address] MEDICAL OFFICE [facility] 2021-07-04 2021-07-04 Orders Doctor GELA 1.2.840.114 [id number] Univers 00:00:00 00:00:00 Only Unassigned, AURELIANO 350.1.13.10 ity of [place] [facility] 4.2.7.2.686 Ned as [phone] [address] 2021-06-29 2021-06-29 (TEL) [facility] [id number] Co mmon 00:00:00 00:00:00 [facility] 2021-06-22 2021-06-22 Outpatient Nan PIZARRO [facility] [id number] Univers 15:45:00 15:45:00 ZIYAD sharp [facility] [place] [facility] 2021-06-14 2021-06-14 Orders Doctor GELA 1.2.840.114 [id number] Univers 00:00:00 00:00:00 Only Unassigned, AURELIANO 350.1.13.10 ity of [facility] 4.2.7.2.686 Ned as [phone] [address] 2021-06-08 2021-06-08 [facility] [id number] Univers 13:15:00 13:36:34 NICOLAS sharp [facility] [place] [facility] 2021-06-08 2021-06-08 [facility] 1.2.644.173 [id number] Univers 13:10:32 13:36:34 Visit Nicolas Parkinson [facility] 350.1.13.10 it y of [place] 4.2.7.2.686 Ned as AGUSTIN?BLEA [phone] Ak ashley SHARMA [address] [facility] OFFICE [facility] 2021-06-08 2021-06-08 [facility] [id number] Univers 13:15:00 13:15:00 NICOLAS sharp [facility] [place] [facility] 2021-06-03 2021-06-03 (TEL[facility] [id number] Co mmon 00:00:00 00:00:00 [facility] 2021-06-03 2021-06-03 Telephone [facility] 1.2.840.114 [id number] Univers 00:00:00 00:00:00 Nicolas Parkinson [facility] 350.1.13.10 it y of Campus 4.2.7.2.686 Ned as Agustin?Blea [phone] Ak ashley sharma [address] [place] [address] 2021-06-01 2021-06-01 [facility] [id number] Univers 15:00:00 15:00:00 NICOLAS jarett [facility] [place] [facility] 2021-06-01 2021-06-01 [facility] [id number] Univers 15:00:00 14:59:14 NICOLAS jarett [facility] [place] [facility] 2021-06-01 2021-06-01 [facility] 1.2.941.499 [id number] Univers 14:41:42 14:59:14 Visit Nicolas Parkinson [facility] 350.1.13.10 it y of [place] 4.2.7.2.686 Ned as AGUSTIN?BLEA [id number] Ak ashley SHARMA [address] [place] [address] OFFICE [facility] 2021-05-11 2021-05-[address] [facility] [id number] Common 00:00:00 00:00:00 [facility] 2021-05-04 2021-05-04 [facility] 1.2.840.114 [id number] Univers 09:12:00 12:10:00 Chanelle Simon [facility] 350.1.13.10 [place].686 [place] [phone] [facility] 071 Branch 2021-05-04 2021-05-04 Surgery [facility] 1.2.840.114 [id number] Univers 11:06:00 11:43:00 alexAvamarleny Car 350.1.13.10 ity of [place] 4.2.7.2.686 [place] [phone] [facility] 020 Branch 2021-05-03 2021-05-03 Laboratory Only, Adc Test [facility] 1.2.840. 114 [id number] Univers 14:17:20 14:32:20 Only Chanelle Amezquita 350.1.1 3.10 ity of [place] 4[place]2.7.2.686 [place] [id number] [facility] 353 Branch 2021-05-03 2021-05-03 Outpatient R SHIMA [facility] [id number] Univers 09:45:00 09:45:00 Alex CHANELLE sharp o f [facility] 2021-04-18 2021-04-18 Orders Doctor GELA 1.2.840.114 [id number] Univers 00:00:00 00:00:00 Only Unassigned, AURELIANO 350.1.13.10 ity of [place] [facility] 4.2.7.2.686 Ned as [phone] [facility] 009 Branch 2021-04-11 2021-04-11 Outpatient STLMLC STLC [id number] Common 00:00:00 00:00:00 [facility] 2021-04-06 2021-04-06 Outpatient R WALKER [facility] [id number] Univers 14:30:00 14:30:00 NICOLAS ity of [facility] 2021-03-11 2021-03-11 Outpatient STLMLC STLMLC [id number] Common 00:00:00 00:00:00 [facility] 2021-03-10 2021-03-10 Outpatient STLMLC STLC [id number] Common 00:00:00 00:00:00 [facility] Results Test Description Test Time Test Comments Results Result [facility] e Comments - MRI UP T 2019-02-28 Patient Name: W/CONT RT 13:02:00 EUNICE HOOD Unit No: [id number] EXAMS: CPT CODE: [id number] MRI UP JNT W/[place] [address] EXAM: MRI ARTHROGRAM RIGHT SHOULDER DIAGNOSIS: 1. [...] Reported and signed by: Sumeet Chu MD [facility] NAME: EUNICE HOOD [address] [facility] PHYS: Brennen Loyola MD : 1980 AGE: 38 SEX: F [place], [place] [address] LOC: JATIN PHONE #: [phone] EXAM DATE: 02/28/2019 STATUS: REG CLI FAX #: [phone] RAD #: D/C DT PAGE 1 Signed Report (CONTINUED) Patient Name: EUNICE HOOD Unit No: [id number] EXAMS: CPT CODE: [id number] [place] JNT W/[place] [address] (Continued) CC: Brennen Sanderson MD Technologist: DORY HASKINS. RT(R) Transcribed D/ (5162) ClaudiaGVG [facility] NAME: EUNICE HOOD [address] [place] [address] PHYS: Brennen Loyola MD : 1980 AGE: 38 SEX: F [place] [address] LOC: Y.RAD PHONE #: [phone] EXAM DATE: 02/28/2019 STATUS: REG CLI FAX #: [phone] RAD #: D/C DT PAGE 2 Signed Report Patient Name: EUNICE HOOD Unit No: [id number] EXAMS: CPT CODE: [id number] MRI UP JNT W/[place] [address] (Continued) Orig Print D/T: S: 02/28/2019 (1306) [facility] NAME: EUNICE HOOD [address] [place] [address] PHYS: Brennen Loyola MD : 1980 AGE: 38 SEX: F [place] [address] LOC: Y.RAD PHONE #: [phone] EXAM DATE: 02/28/2019 STATUS: REG CLI FAX #: [phone] RAD #: D/C DT PAGE 3 Signed Report - XR ARTHROGRAM 2019-02-28 Patient Name: SHLDR RT 13:02:00 EUNICE HOOD Unit No: [id number] EXAMS: CPT CODE: [id number] [place] [address] EXAM: MRI ARTHROGRAM RIGHT SHOULDER DIAGNOSIS: 1. [...] Reported and signed by: Sumeet Chu MD [facility] NAME: EUNICE HOOD [address] [place] [address] PHYS: Brennen Loyola MD : 1980 AGE: 38 SEX: F [place] [address] LOC: Y.RAD PHONE #: [phone] EXAM DATE: 02/28/2019 STATUS: REG CLI FAX #: [phone] RAD #: D/C DT PAGE 1 Signed Report (CONTINUED) Patient Name: EUNICE HOOD Unit No: [id number] EXAMS: CPT CODE: [id number] [place] [address] (Continued) CC: Brennen Sanderson MD Technologist: Lian Brandt RT.(R) Transcribed D/ (1302) ClaudiaGVG [facility] NAME: EUNICE HOOD [address] [place] [address] PHYS: Brennen Loyola MD : 1980 AGE: 38 SEX: F [place] [address] LOC: Y.RAD PHONE #: [phone] EXAM DATE: 02/28/2019 STATUS: REG CLI FAX #: [phone] RAD #: D/C DT PAGE 2 Signed Report Patient Name: EUNICE HOOD Unit No: [id number] EXAMS: CPT CODE: [id number] [place] [address] (Continued) Orig Print D/T: S: 02/28/2019 (1306) [facility] NAME: EUNICE HOOD [address] [facility] PHYS: Brennen Loyola MD : 1980 AGE: 38 SEX: F [place] [address] LOC: Y.RAD PHONE #: [phone] EXAM DATE: 02/28/2019 STATUS: REG CLI FAX #: [phone] RAD #: D/C DT PAGE 3 Signed Report - XR FLUORO NDL 2018-10-08 Patient Name: 19:32:00 EUNICE HOOD Unit No: [id number] EXAMS: CPT CODE: [id number] XR FLUORO NDL 99483 Fluoroscopically guided injection of the right shoulder [...] Technologist: HIEN STYLES, RT(R) Transcribed D/ (193) ClaudiaSLJ [facility] NAME: EUNICE HOOD [address] [facility] PHYS: Brennen Loyola MD : 1980 AGE: 38 SEX: F [place], [place] [address] LOC: Y.RAD PHONE #: [phone] EXAM DATE: 10/08/2018 STATUS: REG CLI FAX #: [phone] RAD #: D/C DT PAGE 1 Signed Report Patient Name: EUNICE HOOD Unit No: [id number] EXAMS: CPT CODE: [id number] XR FLUORO NDL 44953 (Continued) Orig Print D/T: S: 10/08/2018 (1935) [facility] NAME: EUNICE HOOD [address] [facility] PHYS: Brennen Loyola MD : 1980 AGE: 38 SEX: F [place] [address] LOC: ErickaRAD PHONE #: [phone] EXAM DATE: 10/08/2018 STATUS: REG CLI FAX #: [phone] RAD #: D/C DT PAGE 2 Signed Report
[2022-07-20] MEDS ORDERED: ONDANSETRON 4 MG/2 ML VIAL ONE ×2 (18:52→19:05)
[2022-07-20 19:02] LABS: Absolute Lymphocytes (CBC) 1.7 K/uL (0.7-4.9); Hematocrit 40.1 % (36.0-45.0); Lymphocytes % 27.7 % (15.3-44.8); MCV 83.3 fL (80-100); MPV 7.2 fL (7.6-11.3); RBC Red Blood Cell Count 4.81 M/uL (3.86-4.86)
[2022-07-20 19:17] LABS: Albumin 3.8 g/dL (3.4-5.0); Bilirubin Total 0.3 mg/dL (0.2-1.0); Potassium 3.7 mmol/L (3.5-5.1); Protein, Total 7.4 g/dL (6.4-8.2)
--- NOTE | 2022-07-20 20:06 | RAD REPORT ---
EXAM DESCRIPTION: CTAbdomen Pelvis W Contrast - 07/20/2022 7:43 pm CLINICAL HISTORY: LLQ abdominal pain COMPARISON: Abdomen Pelvis W Contrast dated 06/27/2022; Abdomen Pelvis W Contrast dated 09/04/2021 ; Abdomen Pelvis W Contrast dated 12/03/2020; Abdomen Pelvis W Contrast dated 11/12/2020 TECHNIQUE: CT of the abdomen and pelvis was performed. All CT scans are performed using dose optimization technique as appropriate and may include automated exposure control or mA/KV adjustment according to patient size. FINDINGS: Lower chest: No acute abnormality. Liver: No acute abnormality or suspicious lesions. Hepatic steatosis Biliary: Cholecystectomy Stomach: No significant focal abnormality. Duodenum: No significant focal abnormality. Pancreas: No significant abnormality. Spleen: No significant abnormality. Adrenal: No suspicious lesions. Kidney/ureter: No hydronephrosis. No renal calculi. Retroperitoneum: No retroperitoneal adenopathy. Vascular: No aneurysm. Bowel: Diverticulosis. No evidence of acute diverticulitis.. Specifically, inflammatory changes at th e distal transverse colon have resolved. No appendicitis. Peritoneum: No ascites or free air. Bladder: Grossly unremarkable. Reproductive: No adnexal masses. Bones: No acute fracture. Other: n/a IMPRESSION: No acute intra-abdominal or pelvic finding. Changes of diverticulitis at the distal agosto sverse colon have resolved.
--- NOTE | 2022-07-20 20:14 | ER ---
Nurse's Notes [facility] Name: Eunice Arango Age: 41 yrs Sex: Female : 1980 Arrival Date: 07/20/2022 Time: 17:21 Bed 11 Private MD: Sailaja Almeida Diagnosis: Abdominal pain, Generalized Presentation: 07/20 19:15 Chief complaint: Patient states: Pt reports abdominal pain, bloating and nausea x3 kb3 days. Coronavirus screen: Vaccine status: Patient reports being unvaccinated. Client denies travel out of the [place] in the last 14 days. Ebola Screen: Patient negative for fever greater than or equal to 101.5 degrees Fahrenheit, and additional compatible Ebola Virus Disease symptoms Patient denies exposure to infectious person. Patient denies travel to an Ebola-affected area in the 21 days before illness onset. Initial Sepsis Screen: Does the patient meet any 2 criteria? No. Patient's initial sepsis screen is negative. Does the patient have a suspected source of infection? No. Patient's initial sepsis screen is negative. Risk Assessment: Do you want to hurt yourself or someone else? Patient reports no desire to harm self or others. Onset of symptoms was July 17, 2022. 19:15 Method Of Arrival: Ambulatory kb3 19:15 Acuity: ALIS 3 kb3 Triage Assessment: 19:18 General: Appears in no apparent distress. Behavior is calm, cooperative. Pain: kb3 Complains of pain in abdomen Pain does not radiate. Pain currently is 7 out of 10 on a pain scale. Quality of pain is described as sharp, Bloating. GI: Reports lower abdominal pain, upper abdominal pain, bloating, nausea, vomiting. 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 Last tetanus immunization: unknown. - Social history:: Smoking status: Patient denies any tobacco usage or history of. Assessment: 20:25 Reassessment: Patient is alert, oriented x 3, equal unlabored respirations, skin bb warm/dry/pink. pt verbalized understanding of and agrees to plan of care discharge instructions given pt ambulated with steady gait to exit. Vital Signs: 19:15 BP 124 / 75; Pulse 88; Resp 20; Temp 98.6; Pulse Ox 98% ; Weight 90.72 kg; Height 5 ft. kb3 3 in. (160.02 cm); Pain 7/10; 19:15 Body Mass Index 35.43 (90.72 kg, 160.02 cm) kb3 ED Course: 17:21 Patient arrived in ED. am2 17:21 Sailaja Alemida MD is Private Physician. am2 17:22 Shahana Fish FNP-C is [facility]. kb 17:22 Donta Kerr MD is Attending Physician. kb 18:54 No provider procedures requiring assistance completed. Inserted saline lock: 20 gauge kb3 in right antecubital area, using aseptic technique. Blood collected. 19:18 Triage completed. kb3 19:18 Arm band placed on right wrist. kb3 19:45 CT Abd/Pelvis - IV Contrast Only In Process Unspecified. EDMS 20:26 IV discontinued, intact, bleeding controlled, No redness/swelling at site. Pressure bb dressing applied. Administered Medications: 19:01 Drug: Zofran (Ondansetron) 4 mg Route: IVP; Site: right antecubital; kb3 Outcome: 20:13 Discharge ordered by . kb 20:26 Discharged to home ambulatory. bb 20:26 Condition: stable 20:26 Discharge instructions given to patient, Instructed on discharge instructions, follow up and referral plans. medication usage, Demonstrated understanding of instructions, follow-up care, medications, Prescriptions given X 2. 20:27 Patient left the ED. bb Signatures: Dispatcher [employer] EDMS Shahana Fish FNP-C FNP-Ckb Ballard, Brenda RN REINALDO bb Lashonda Knapp amJulee Flowers, REINALDO RN kb3
--- NOTE | 2022-07-20 20:14 | EDPHYS ---
Physician Documentation [facility] Name: Eunice Arango Age: 41 yrs Sex: Female : 1980 Arrival Date: 07/20/2022 Time: 17:21 Bed 11 Private MD: Sailaja Almeida ED Physician Donta Kerr HPI: 07/20 20:05 This 41 yrs old Female presents to ER via Ambulatory with complaints of Abdominal Pain. kb 20:05 The patient presents with abdominal pain that is diffuse, abdominal distention that is kb diffuse. Onset: The symptoms/episode began/occurred today. The symptoms do not radiate. Associated signs and symptoms: Pertinent positives: nausea, Pertinent negatives: fever. The symptoms are described as constant. Modifying factors: The symptoms are alleviated by nothing, the symptoms are aggravated by pressure. Severity of pain: At its worst the pain was moderate in the emergency department the pain is unchanged. The patient has experienced similar episodes in the past. The patient has been recently seen by a physician: 2. week(s) ago, with similar presenting complaints, and apparently given a diagnosis of diverticulitis. Pt reports she was diagnosed with diverticulitis 2 weeks ago, completed all of the antibiotics, but symptoms returned today. 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 Last tetanus immunization: unknown. - Social history:: Smoking status: Patient denies any tobacco usage or history of. ROS: 20:04 Constitutional: Negative for fever, chills, and weight loss. kb 20:04 Abdomen/GI: Positive for abdominal pain, nausea, abdominal distension. 20:04 All other systems are negative. Exam: 20:04 Constitutional: This is a well developed, well nourished patient who is awake, alert, kb and in no acute distress. Head/Face: Normocephalic, atraumatic. ENT: Moist Mucous membranes Cardiovascular: Regular rate and rhythm with a normal S1 and S2. No gallops, murmurs, or rubs. No pulse deficits. Respiratory: Respirations even and unlabored. No increased work of breathing. Talking in full sentences Skin: Warm, dry with normal turgor. Normal color. MS/ Extremity: Pulses equal, no cyanosis. Neurovascular intact. Full, normal range of motion. Neuro: Awake and alert, GCS 15, oriented to person, place, time, and situation. Moves all extremities. Normal gait. Psych: Awake, alert, with orientation to person, place and time. Behavior, mood, and affect are within normal limits. 20:04 Abdomen/GI: Inspection: abdomen appears normal, Bowel sounds: normal, in all quadrants, Palpation: soft, in all quadrants, moderate abdominal tenderness, in all quadrants. Vital Signs: 19:15 BP 124 / 75; Pulse 88; Resp 20; Temp 98.6; Pulse Ox 98% ; Weight 90.72 kg; Height 5 ft. kb3 3 in. (160.02 cm); Pain 7/10; 19:15 Body Mass Index 35.43 (90.72 kg, 160.02 cm) kb3 MDM: 18:56 Patient medically screened. kb 20:04 Data reviewed: vital signs, nurses notes. Data interpreted: Pulse oximetry: on room air kb is 98 %. Interpretation: normal. 20:13 Counseling: I had a detailed discussion with the patient and/or guardian regarding: the kb historical points, exam findings, and any diagnostic results supporting the discharge/admit diagnosis, lab results, radiology results, the need for outpatient follow up, a family practitioner, a spring tier, to return to the emergency department if symptoms worsen or persist or if there are any questions or concerns that arise at home. 07/20 18:45 Order name: CBC with Diff; Complete Time: 19:12 kb 07/20 18:45 Order name: CMP; Complete Time: 19:23 kb 07/20 18:45 Order name: Lipase; Complete Time: 19:23 kb 07/20 18:45 Order name: CT Abd/Pelvis - IV Contrast Only; Complete Time: 20:12 kb 07/20 18:45 Order name: IV Saline Lock; Complete Time: 19:07 kb 07/20 18:45 Order name: Labs collected and sent; Complete Time: 19:07 kb Administered Medications: 19:01 Drug: Zofran (Ondansetron) 4 mg Route: IVP; Site: right antecubital; kb3 Disposition Summary: 07/20/22 20:13 Discharge Ordered Location: Home kb Condition: Stable kb Diagnosis - Abdominal pain, Generalized kb Followup: kb - With: Emergency Department - When: As needed - Reason: Worsening of condition Followup: kb - With: Private Physician - When: 2 - 3 days - Reason: Recheck today's complaints, Continuance of care, Re-evaluation by your physician Discharge Instructions: - Discharge Summary Sheet kb - Abdominal Pain, Adult, [id number] kb Forms: - Medication Reconciliation Form kb - Thank You Letter kb - Antibiotic Education kb - Prescription Opioid Use kb Prescriptions: - Zofran 4 mg Oral Tablet - take 1 tablet by ORAL route every 6 hours As needed; 20 tablet; Refills: 0, kb Product Selection Permitted - dicyclomine 20 mg Oral Tablet - take 1 tablet by ORAL route 4 times per day As needed; 20 tablet; Refills: 0, kb Product Selection Permitted Addendum: 07/23/2022 13:27 Co-signature as Attending Physician, Donta Kerr MD I agree with the assessment and c aguila plan of care. Signatures: Dispatcher [employer] EDShahana Unger, DIRECTOR EMERGENCY DEPARTMENT-C DIRECTOR EMERGENCY DEPARTMENT-Christianob Donta Kerr MD MD cha Westbrook, MyKena mw2 Julee Pittman, RN RN kb3 Corrections: (The following items were deleted from the chart) 07/20 19:26 19:20 Urine Test ordered. mw2 mw2
[2022-07-20 20:52] VITALS: BP 124/75; TEMP 98.6; O2SAT 98
== END 2022-07-20 20:27 | disposition home or self-care (01) ==
LOC: ER 17:11
DX: R10.84 Generalized abdominal pain (principal); Z88.1 Allergy status to other antibiotic agents; Z88.5 Allergy status to narcotic agent
CPT/HCPCS: 85025; 36415; 83690; 80053; 74177; 96374; 99284; Q9967; J2405

== ENCOUNTER 2022-09-13 17:24 | Emergency (ER) | payer BC, SELFPAY ==
--- OUTSIDE RECORDS SUMMARY | 2022-09-13 17:28 | XMS REPORT | Continuity of Care Document ---
:1980 Author Organization [facility] t Address [address] [place] [address] Dr. García. [address] [place] [address] Care Team Providers Name Role Phone Sailaja Almeida Primary Care Physician Sailaja Almeida Attending Clinician Unavailable CHANELLE AMEZQUITA Attending Clinician Unavailable Doctor Unassigned, [place] Attending Clinician Unavailable Nicolas Cardoso MD Attending Clinician ZIYAD PIZARRO Attending Clinician Unavailable NICOLAS CARDOSO Attending Clinician Unavailable Chanelle Amezquita MD Attending Clinician Only, Adc Test Attending Clinician Unavailable CHANELLE AMEZQUITA Admitting Clinician Unavailable Chanelle Amezquita MD Admitting Clinician Payers Payer Name Policy Type Policy Number Effective Date Expiration Date S pinky [place] BCBS BLUE [id number] 2018 ADVANTAGE HMO 00:00:00 [employer] Blue 6 [id number] 2020 [facility] Shield O 00:00:00 [facility] Problems Condition Condition Condition Status Onset Resolution Last Treating Co mments Source Name Details Category Date Date Treatment Clinician Date Obesity Obesity Disease Active Univers (BMI (BMI 9-18 ity of 30-39.9) 30-39.9) 00:00: [place] [address] [place] [address] Branch [id number] Memory Problem Common deficit [facility] [id number] Panic Problem Common attacks [facility] [id number] Depression Problem Co mmon with [facility] anxiety [facility] [id number] Unsteady Problem Commo n gait when [facility] walking [facility] [id number] Supplement Problem C ommon 07 al oxygen [facility] dependent [facility] [id number] Complicate Problem Co mmon d migraine [facility] [id number] 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 [facility] Somnolence Somnolence Problem C ommon , daytime [facility] Diverticul Diverticul Problem C ommon itis itis [facility] [id number] Acute Problem Common diverticul [facility] itis [facility] [id number] Sleep Problem Common apnea in [facility] adult [facility] [id number] Chronic Problem Common fatigue [facility] [id number] Vitamin D Problem Comm on deficiency [facility] [id number] Situationa Problem Com mon l anxiety [facility] [id number] Diverticul Problem Co mmon osis [facility] [id number] Primary Problem Common hypertensi Spirit on [facility] [id number] Seasonal Problem Comm on allergic Spirit rhinitis, - CHI unspecifie [facility] [id number] Primary Problem Common insomnia [facility] [id number] Acanthosis Problem Co mmon nigricans [facility] [id number] Primary Problem Comm on osteoarthr [facility] itis of [facility] left [facility] [id number] Stress Problem Common [facility] Allergies, Adverse Reactions, Alerts Allergy Allergy Status Severity Reaction(s) Onset Inactive Treating Comm ents Source Name Type Date Date Clinician melanie CANELA Active MO 2019-0 [facility] xacin 6-28 [place] 00:00: [facility] ciproflo DA Active MO 2019-0 [facility] xacin 2-05 [place] 00:00: Orthope 00 [facility] Ciproflo Propensi Active Nausea 2018-0 Univer s xacin ty to and/or 9-18 ity of adverse Vomiting 00:00: [place] reaction 00 Medical s Branch Codeine Propensi Active Nausea 2018-0 Univers ty to and/or 918 ity of adverse Vomiting 00:00: [place] reaction 00 Medical s Branch ciproflo ciproflo Active vomiting Comm on xacin xacin Spirit - [facility] Social History Social Habit Start Date Stop Date Quantity Comments Source Exposure to Not sure [facility] SARS-CoV-2 [facility] (event) [place] History of [facility] - Tobacco Use [facility] Sex Assigned At [facility] cyndi - [facility] Alcohol intake 2021-06-08 2021-06-08 Lifetime University of 00:00:00 00:00:00 non-drinker [facility] (finding) [place] Tobacco use and 2021-04-06 2021-04-06 Smokeless tobacco Un iversity of exposure 00:00:00 00:00:00 non-user [facility] Smoking Status Start Date Stop Date Source Former Smoker 2022-07-30 00:00:00 2022-07-30 00:00:00 Common pirit - [facility] Ce nter Never Smoker [facility] Spirit [facility] nter Smokes tobacco daily 2021-04-06 00:00:00 Univers ity of [facility] Medications Ordered Filled Start Stop Current Ordering Indication Dosage Frequency Signature Comments Components Source Medication Medication Date Date Medication? Clinician (SIG) Name Name Levaquin Levaquin 2021-09- No 1{table QD Levaquin 500 MG 500 MG 09-19 t} 500 MG 00:00: 00:00 00 :00 Levaquin Levaquin 2021-09- No 1{table QD Levaquin 500 MG 500 MG 09-19 t} 500 MG 00:00: 00:00 00 :00 Levaquin Levaquin 2021-09- No 1{table QD Levaquin 500 MG 500 MG 09-19 t} 500 MG 00:00: 00:00 00 :00 Levaquin Levaquin 2021-1 2022- No 1{table QD Levaquin 500 MG 500 MG -17 1127 t} 500 MG 00:00: 00:00 00 :00 amLODIPine amLODIPine 2021-0 No 1{table QD amLODIPine Besylate 5 Besylate 5 6-08 t} Besylate 5 MG MG 00:00: MG 00 amLODIPine amLODIPine 2021-0 No 1{table QD amLODIPine Besylate 5 Besylate 5 6-08 t} Besylate 5 MG MG 00:00: MG 00 Repatha Repatha 2021-0 2023- No 1{ml} Repatha SureClick SureClick 6-08 06-03 SureClick 140 MG/ML 140 MG/ML 00:00: 00:00 140 MG/ML 00 :00 Repatha Repatha 2021-0 3- No 1{ml} Repatha SureClick SureClick 6- 06-03 SureClick 140 MG/ML 140 MG/ML 00:00: 00:00 140 MG/ML 00 :00 0 No 1{table QD Vitamin-Fol Vitamin-Fol 3-03 t_with_ Vitamin-Fo ic Acid 1 ic Acid 1 00:00: a_meal} lic Acid 1 MG MG 00 MG paroxetine Yes 20mg Take 20 mg U nivers (PAXIL) 20 05-04 by mouth ity o f mg tablet 13:28: daily. [place] [address] Medical Branch clonazePAM Yes .5mg Take 0.5 Uni vers (KLONOPIN) 9- mg by ity of 0.5 mg 13:28: mouth [place] tablet 45 daily. Medical Branch Cetirizine Yes Take by Univ ers 10 mg 05-04 mouth. ity of capsule 13:28: [place] [address] Medical Branch fluticasone Yes 2{spray Use 2 Un [place] propionate 05-04 } Sprays in ity of (FLONASE 13:28: each [place] ALLERGY 45 nostril 2 Medical RELIEF) 50 (two) Branch mcg/actuati times on nasal daily. spray montelukast Yes 10mg Take 10 mg Univers 10 mg 05-04 by mouth. ity of tablet 13:28: [address] paroxetine Yes 20mg Take 20 mg U nivers (PAXIL) 20 9-01 by mouth ity o f mg tablet 13:28: daily. [address] clonazePAM Yes .5mg Take 0.5 Uni vers (KLONOPIN) 9-01 mg by ity of 0.5 mg 13:28: mouth [place] tablet 45 daily. Medical Branch Cetirizine Yes Take by [facility] ers 10 mg 9-01 mouth. ity of capsule 13:28: [address] fluticasone Yes 2{spray Use 2 Un [place] propionate 9 } Sprays in ity of (FLONASE 13:28: each [place] ALLERGY 45 nostril 2 Medical RELIEF) 50 (two) Branch mcg/actuati times on nasal daily. spray montelukast Yes 10mg Take 10 mg Univers 10 mg 9- by mouth. ity of tablet 13:28: [address] paroxetine Yes 20mg Take 20 mg U nivers (PAXIL) 20 9- by mouth ity o f mg tablet 13:28: daily. [address] clonazePAM Yes .5mg Take 0.5 Uni vers (KLONOPIN) 9-01 mg by ity of 0.5 mg 13:28: mouth [place] tablet 45 daily. Medical Branch Cetirizine Yes Take by [facility] ers 10 mg 9-01 mouth. ity of capsule 13:28: [address] fluticasone Yes 2{spray Use 2 Un [place] propionate 05-04 } Sprays in ity of (FLONASE 13:28: each [place] ALLERGY 45 nostril 2 Medical RELIEF) 50 (two) Branch mcg/actuati times on nasal daily. spray montelukast 0 Yes 10mg Take 10 mg Univers 10 mg 9-01 by mouth. ity of tablet 13:28: [address] traZODone Yes TAKE 1 Univer s 50 mg 8-09 TABLET BY ity of tablet 00:00: MOUTH [place] 00 EVERY DAY Medical AT BEDTIME Branch NEEDED amLODIPine Yes 5mg Take 5 mg Un [place] 5 mg tablet 8-09 by mouth ity of 00:00: every [place] morning. Medical Branch traZODone 2020-0 Yes TAKE 1 Univer s 50 mg 8-09 TABLET BY ity of tablet 00:00: MOUTH EVERY DAY Medical AT BEDTIME Branch NEEDED amLODIPine 2020-0 Yes 5mg Take 5 mg Un [place] 5 mg tablet 8-09 by mouth ity of 00:00: every [place] morning. Medical Branch traZODone 2020-0 Yes TAKE 1 Univer s 50 mg 8-09 TABLET BY ity of tablet 00:00: MOUTH EVERY DAY Medical AT BEDTIME Branch NEEDED amLODIPine 2020-0 Yes 5mg Take 5 mg Un [place] 5 mg tablet 8-09 by mouth ity of 00:00: every [place] morning. Medical Branch [facility] Enedelia 0 No 40mg Common (Triamcinol (Triamcinol 7-08 S pirit one) one) 00:00: - CHI 00 [facility] Kenalog 2020-0 No 40mg Common (Triamcinol (Triamcinol 7-08 S pirit one) one) 00:00: - CHI 00 [facility] Kenalog 2020-0 No 40mg Common (Triamcinol (Triamcinol 7-08 S pirit one) one) 00:00: - CHI 00 [facility] Kenalog 2020-0 No 40mg Common (Triamcinol (Triamcinol 7-08 S pirit one) one) 00:00: - CHI 00 [facility] Kenalog Kenalog 2020-0 No 40mg Common (Triamcinol (Triamcinol 7-08 S pirit one) one) 00:00: - CHI 00 [facility] Kenalog Kenalog 2020-0 No 40mg Common (Triamcinol (Triamcinol 7-08 S pirit one) one) 00:00: - CHI 00 [facility] Kenalog 2020-0 No 40mg Common (Triamcinol (Triamcinol 7-08 S pirit one) one) 00:00: - [facility] No 40mg Common (Triamcinol (Triamcinol 7-08 S pirit one) one) 00:00: - CHI 00 [facility] Enedelia Mcdaniels No 40mg Common (Triamcinol (Triamcinol 7-08 S pirit one) one) 00:00: - CHI 00 [facility] [place] Kenalog No 40mg Common (Triamcinol (Triamcinol 7-08 S pirit one) one) 00:00: - CHI 00 [facility] Enedelia No 40mg Common (Triamcinol (Triamcinol 7-08 S pirit one) one) 00:00: - CHI 00 [facility] No 40mg Common (Triamcinol (Triamcinol 7-08 S pirit one) one) 00:00: - CHI 00 [facility] No 40mg Common (Triamcinol (Triamcinol 7-08 S pirit one) one) 00:00: - CHI 00 [facility] Enedelia No 40mg Common (Triamcinol (Triamcinol 7-08 S pirit one) one) 00:00: - CHI 00 [facility] Enedelia No 40mg Common (Triamcinol (Triamcinol 7-08 S pirit one) one) 00:00: - CHI 00 [facility] ibuprofen 2018-0 Yes 600mg Take 1 Unive [...] 00 (two) Medical times Branch daily. HYDROcodone 2017- Yes 1{tbl} Take 1 Un [place] -acetaminop [...] Pain (scale 4-6) or Pain (scale 7-10). amLODIPine amLODIPine No amLODIPine Besylate 5 Besylate [...] SureClick 140 MG/ML 140 MG/ML 140 MG/ML Cetirizine Cetirizine No Cetirizine HCl 10 MG HCl 10 MG HCl 10 MG Eliquis 5 Eliquis 5 No Eliquis 5 MG MG MG amLODIPine amLODIPine No 1{table QD amLODIPine Besylate 5 Besylate 5 t} Besylate 5 MG MG MG traZODone traZODone No QD traZODone HCl 100 MG HCl 100 MG HCl 100 MG Repatha Repatha No 1{ml} Repatha SureClick SureClick SureClick 140 MG/ML 140 MG/ML 140 MG/ML amLODIPine amLODIPine No amLODIPine Besylate 5 Besylate 5 Besylate 5 MG MG MG No 1{table QD Vitamin-Fol Vitamin-Fol t_with_ Vitamin-Fo ic Acid 1 ic Acid 1 a_meal} lic Acid 1 MG MG MG metroNIDAZO metroNIDAZO No 1{table TID metroNIDAZ LE 500 MG LE 500 MG t} OLE 500 MG Montelukast Montelukast No Montelukas Sodium 10 Sodium 10 t Sodium MG MG 10 MG Fluticasone Fluticasone No Fluticason Propionate Propionate e 50 MCG/ACT 50 MCG/ACT Propionate 50 MCG/ACT Escitalopra Escitalopra No 1{table QD Escitalopr m Oxalate m Oxalate t} am Oxalate 20 MG 20 MG 20 MG Cetirizine Cetirizine No Cetirizine HCl 10 MG HCl 10 MG HCl 10 MG Eliquis 5 Eliquis 5 No Eliquis 5 MG MG MG amLODIPine amLODIPine No 1{table QD amLODIPine Besylate 5 Besylate 5 t} Besylate 5 MG MG MG traZODone traZODone No QD traZODone HCl 100 MG HCl 100 MG HCl 100 MG Repatha Repatha No 1{ml} Repatha SureClick SureClick SureClick 140 MG/ML 140 MG/ML 140 MG/ML amLODIPine amLODIPine No amLODIPine Besylate 5 Besylate 5 Besylate 5 MG MG MG No 1{table QD Vitamin-Fol Vitamin-Fol t_with_ Vitamin-Fo ic Acid 1 ic Acid 1 a_meal} lic Acid 1 MG MG MG metroNIDAZO metroNIDAZO No 1{table TID metroNIDAZ LE 500 MG LE 500 MG t} OLE 500 MG Montelukast Montelukast No Montelukas Sodium 10 Sodium 10 t Sodium MG MG 10 MG Fluticasone Fluticasone No Fluticason Propionate Propionate e 50 MCG/ACT 50 MCG/ACT Propionate 50 MCG/ACT Escitalopra Escitalopra No 1{table QD Escitalopr m Oxalate m Oxalate t} am Oxalate 20 MG 20 MG 20 MG Cetirizine Cetirizine No Cetirizine HCl 10 MG HCl 10 MG HCl 10 MG Eliquis 5 Eliquis 5 No Eliquis 5 MG MG MG amLODIPine amLODIPine No 1{table QD amLODIPine Besylate 5 Besylate 5 t} Besylate 5 MG MG MG traZODone traZODone No QD traZODone HCl 100 MG HCl 100 MG HCl 100 MG Repatha Repatha No 1{ml} Repatha SureClick SureClick SureClick 140 MG/ML 140 MG/ML 140 MG/ML amLODIPine amLODIPine No amLODIPine Besylate 5 Besylate 5 Besylate 5 MG MG MG No 1{table QD Vitamin-Fol Vitamin-Fol t_with_ Vitamin-Fo ic Acid 1 ic Acid 1 a_meal} lic Acid 1 MG MG MG metroNIDAZO metroNIDAZO No 1{table TID metroNIDAZ LE 500 MG LE 500 MG t} OLE 500 MG Montelukast Montelukast No Montelukas Sodium 10 Sodium 10 t Sodium MG MG 10 MG Fluticasone Fluticasone No Fluticason Propionate Propionate e 50 MCG/ACT 50 MCG/ACT Propionate 50 MCG/ACT Escitalopra Escitalopra No 1{table QD Escitalopr m Oxalate m Oxalate t} am Oxalate 20 MG 20 MG 20 MG Cetirizine Cetirizine No Cetirizine HCl 10 MG HCl 10 MG HCl 10 MG Eliquis 5 Eliquis 5 No Eliquis 5 MG MG MG amLODIPine amLODIPine No 1{table QD amLODIPine Besylate 5 Besylate 5 t} Besylate 5 MG MG MG traZODone traZODone No QD traZODone HCl 100 MG HCl 100 MG HCl 100 MG Repatha Repatha No 1{ml} Repatha SureClick SureClick SureClick 140 MG/ML 140 MG/ML 140 MG/ML amLODIPine amLODIPine No amLODIPine Besylate 5 Besylate 5 Besylate 5 MG MG MG No 1{table QD Vitamin-Fol Vitamin-Fol t_with_ Vitamin-Fo ic Acid 1 ic Acid 1 a_meal} lic Acid 1 MG MG MG metroNIDAZO metroNIDAZO No 1{table TID metroNIDAZ LE 500 MG LE 500 MG t} OLE 500 MG Montelukast Montelukast No Montelukas Sodium 10 Sodium 10 t Sodium MG MG 10 MG Fluticasone Fluticasone No Fluticason Propionate Propionate e 50 MCG/ACT 50 MCG/ACT Propionate 50 MCG/ACT Escitalopra Escitalopra No 1{table QD Escitalopr m Oxalate m Oxalate t} am Oxalate 20 MG 20 MG 20 MG Cetirizine Cetirizine No Cetirizine HCl 10 MG HCl 10 MG HCl 10 MG Escitalopra Escitalopra No Escitalopr m Oxalate m Oxalate am Oxalate 20 MG 20 MG 20 MG metroNIDAZO metroNIDAZO No 1{table TID metroNIDAZ LE 500 MG LE 500 MG t} OLE 500 MG amLODIPine amLODIPine No 1{table QD amLODIPine Besylate 5 Besylate 5 t} Besylate 5 MG MG MG No 1{table QD Vitamin-Fol Vitamin-Fol t_with_ Vitamin-Fo ic Acid 1 ic Acid 1 a_meal} lic Acid 1 MG MG MG Repatha Repatha No 1{ml} Repatha SureClick SureClick SureClick 140 MG/ML 140 MG/ML 140 MG/ML traZODone traZODone No QD traZODone HCl 100 MG HCl 100 MG HCl 100 MG Fluticasone Fluticasone No Fluticason Propionate Propionate e 50 MCG/ACT 50 MCG/ACT Propionate 50 MCG/ACT Montelukast Montelukast No Montelukas Sodium 10 Sodium 10 t Sodium MG MG 10 MG amLODIPine amLODIPine No amLODIPine Besylate 5 Besylate 5 Besylate 5 MG MG MG Eliquis 5 Eliquis 5 No Eliquis 5 MG MG MG Cetirizine Cetirizine No Cetirizine HCl 10 MG HCl 10 MG HCl 10 MG Escitalopra Escitalopra No Escitalopr m Oxalate m Oxalate am Oxalate 20 MG 20 MG 20 MG metroNIDAZO metroNIDAZO No 1{table TID metroNIDAZ LE 500 MG LE 500 MG t} OLE 500 MG amLODIPine amLODIPine No 1{table QD amLODIPine Besylate 5 Besylate 5 t} Besylate 5 MG MG MG No 1{table QD Vitamin-Fol Vitamin-Fol t_with_ Vitamin-Fo ic Acid 1 ic Acid 1 a_meal} lic Acid 1 MG MG MG Repatha Repatha No 1{ml} Repatha SureClick SureClick SureClick 140 MG/ML 140 MG/ML 140 MG/ML traZODone traZODone No QD traZODone HCl 100 MG HCl 100 MG HCl 100 MG Fluticasone Fluticasone No Fluticason Propionate Propionate e 50 MCG/ACT 50 MCG/ACT Propionate 50 MCG/ACT Montelukast Montelukast No Montelukas Sodium 10 Sodium 10 t Sodium MG MG 10 MG amLODIPine amLODIPine No amLODIPine Besylate 5 Besylate 5 Besylate 5 MG MG MG Eliquis 5 [...] 2021-03-10 Completed [facility] (Triamcinolone) (Triamcinolone) 16:51:00 [facility] Enedelia Mcdaniels 2021-03-10 Completed [facility] (Triamcinolone) (Triamcinolone) 16:51:00 [facility] Vital Signs Vital Name Observation Time Observation Value Comments Source height 2022-07-10 16:40:00 63.00 [in_i] Common S pirit - [facility] C enter weight 2022-07-10 16:40:00 197 [lb_av] Common S pirit - [facility] Medical C enter bmi 2022-07-10 16:40:00 34.89 kg/m2 Common S pirit - [facility] Medical C enter Body height 2021-06-08 18:15:00 160 cm [facility] Body weight 2021-06-08 18:15:00 96.616 kg [facility] BMI 2021-06-08 18:15:00 37.73 kg/m2 [facility] Medical Branch Procedures Procedure Date / Time Performing Clinician Source Performed INSURANCE CORRESPONDENCE 2022-05-31 05:01:00 Doctor Unassigned, [facility] [place] [facility] REFERRAL- 2021-07-04 05:01:00 Doctor Unassigned, [facility] REQUEST/RESPONSE [place] [facility] Encounters Start End Encounter Admission Attending Care Care Encounter Source Date/Time Date/Time Type Type Clinicians Facility Department ID 2022-07-06 Outpatient Almeida, Na STLMLC STLMLC [id number] 2 Common 16:07:01 [facility] 2022-02-07 Outpatient Almeida, Na STLMLC STLMLC [id number] 2 Common 07:54:01 [facility] 2021-12-27 Outpatient Almeida, Na STLMLC STLMLC [id number] 2 Common 09:43:02 [facility] 2021-11-02 Outpatient Almeida, Na STLMLC STLMLC [id number] 2 Common 10:34:02 [facility] 2021-09-28 Outpatient Almeida, Na STLMLC STLMLC [id number] 2 Common 14:36:25 [facility] 2021-09-28 Outpatient Almeida, Na STLMLC STLMLC [id number] 2 Common 13:56:35 [facility] 2021-09-28 Outpatient Almeida, Na STLMLC STLMLC [id number] 2 Common 13:55:44 [facility] 2021-09-28 Outpatient Almeida, Na STLMLC STLMLC [id number] 2 Common 13:46:51 [id number] [facility] 2021-09-28 Outpatient Almeida, Na STLMLC STLMLC [id number] 2 Common 13:35:37 [facility] 2021-09-28 Outpatient Almeida, Na STLMLC STLMLC [id number] 2 Common 13:34:54 [facility] 2021-09-28 Outpatient Almeida, Na STLMLC STLMLC [id number] 2 Common 13:24:09 [id number] [facility] 2021-09-28 Outpatient Sailaja Almeida STLMLC STLMLC [id number] 2 Common 13:23:50 [id number] [facility] 2021-07-04 Outpatient Nan RONQUILLO [facility] [id number] Univers 18:36:45 CHANELLE [facility] 2022-08-09 2022-08-09 (TEL) STLMLC STLMLC [id number] Co mmon 00:00:00 00:00:00 [facility] 2022-07-20 2022-07-20 (WEB) STLMLC STLMLC [id number] Co mmon 00:00:00 00:00:00 [facility] 2022-07-20 2022-07-20 OFFICE STLMLC STLMLC [id number] Co mmon 00:00:00 00:00:00 VISIT EST Spir it PT LEVEL 3 [facility] 2022-07-19 2022-07-19 (TEL) STLMLC STLMLC [id number] Co mmon 00:00:00 00:00:00 [facility] 2022-07-10 2022-07-10 OFFICE STLMLC STLMLC [id number] Co mmon 00:00:00 00:00:00 VISIT Spirit ESTAB PT - CHI LEVEL 4 [facility] 2022-06-28 2022-06-28 (TEL) STLMLC STLMLC [id number] Co mmon 00:00:00 00:00:00 [facility] 2022-06-26 2022-06-26 (TEL) STLMLC STLMLC [id number] Co mmon 00:00:00 00:00:00 [facility] 2022-06-23 2022-06-23 (TEL) STLMLC STLMLC [id number] Co mmon 00:00:00 00:00:00 [facility] 2022-05-31 2022-05-31 Mimi REN [id number] Univers 00:00:00 00:00:00 Only Unassigned, AURELIANO [id number] [facility] [id number] Ned as [phone] [place] [address] Branch 2022-05-25 2022-05-25 (WEB) STLMLC STLMLC [id number] Co mmon 00:00:00 00:00:00 [facility] 2022-02-14 2022-02-14 (TEL) STLMLC STLMLC [id number] Co mmon 00:00:00 00:00:00 [facility] 2022-02-08 2022-02-08 OFFICE STLMLC STLMLC [id number] Co mmon 00:00:00 00:00:00 VISIT EST Spir it PT LEVEL [address] [place] [address] 2022-01-10 2022-01-10 (TEL) STLMLC STLMLC [id number] Co mmon 00:00:00 00:00:00 [facility] 2021-12-28 2021-12-28 OFFICE STLMLC STLMLC [id number] Co mmon 00:00:00 00:00:00 VISIT EST Spir it PT LEVEL 3 [facility] 2021-11-03 2021-11-03 OFFICE STLMLC STLMLC [id number] Co mmon 00:00:00 00:00:00 VISIT EST Spir it PT LEVEL 3 [facility] 2021-10-17 2021-10-17 (TEL) STLMLC STLMLC [id number] Co mmon 00:00:00 00:00:00 [facility] 2021-10-13 2021-10-13 (TEL) STLMLC STLMLC [id number] Co mmon 00:00:00 00:00:00 [facility] 2021-10-05 2021-10-05 (TEL) STLMLC STLMLC [id number] Co mmon 00:00:00 00:00:00 [facility] 2021-10-05 2021-10-05 OFFICE STLMLC STLMLC [id number] Co mmon 00:00:00 00:00:00 VISIT [facility] PT - [facility] LEVEL 4 [facility] 2021-09-26 2021-09-26 (TEL) [facility] [id number] Co mmon 00:00:00 00:00:00 [facility] 2021-09-13 2021-09-13 (TEL) [facility] [id number] Co mmon 00:00:00 00:00:00 [facility] 2021-07-06 2021-07-06 (TEL) [facility] [id number] Co mmon 00:00:00 00:00:00 [facility] 2021-07-05 2021-07-05 Telephone [facility] [id number] Univers 00:00:00 00:00:00 [facility] [id number] it y of [place] [id number] Ned as AGUSTIN?BLEA [phone] [address] MEDICAL OFFICE [facility] 2021-07-04 2021-07-04 Orders Doctor GELA [id number] Univers 00:00:00 00:00:00 Only Unassigned, AURELIANO [id number] [place] [facility] [id number] Ned as [phone] [address] 2021-06-29 2021-06-29 [facility]EL[facility] [id number] Co mmon 00:00:00 00:00:00 [facility] 2021-06-22 2021-06-22 Outpatient Nan PIZARRO [facility] [id number] Univers 15:45:00 15:45:00 ZIYAD ity of [facility] 2021-06-14 2021-06-14 Orders Doctor GELA [id number] Univers 00:00:00 00:00:00 Only Unassigned, AURELIANO [id number] ity of [place] [facility] [id number] Ned as [phone] [address] 2021-06-08 2021-06-08 Outpatient R WALKER [facility] [id number] Univers 13:15:00 13:36:34 NICOLAS sharp [facility] 2021-06-08 2021-06-08 Office WalkerRUST [id number] Univers 13:10:32 13:36:34 Visit Nicolas LIN [id number] it y of [place] [id number] Ned as AGUSTIN?BLEA [phone] Md ashley SHARMA [address] [place] [address] OFFICE [facility] 2021-06-08 2021-06-08 Outpatient R WALKER [facility] [id number] Univers 13:15:00 13:15:00 NICOLAS sharp [facility] 2021-06-03 2021-06-03 (TEL) [facility] [id number] Co mmon 00:00:00 00:00:00 [facility] 2021-06-03 2021-06-03 Telephone WalkerRUST [id number] Univers 00:00:00 00:00:00 Nicolas Lin 350.1.13.10 it y of [place] 4.2.7.2.686 Ned as Agustin?Blea [id number] Md ashley sharma [address] [place] [address] 2021-06-01 2021-06-01 Outpatient R WALKER [facility] [id number] Univers 15:00:00 15:00:00 NICOLAS sharp [facility] 2021-06-01 2021-06-01 [facility] 15088 [id number] Univers 15:00:00 14:59:14 NICOLAS sharp [facility] 2021-06-01 2021-06-01 Office Walker[facility] [id number] Univers 14:41:42 14:59:14 Visit Nicolas LIN 350.1.13.10 it y of [place] 4.2.7.2.686 Ned as AGUSTIN?BLEA [phone] Md ashley SHARMA [address] [place] [address] OFFICE [facility] 2021-05-11 2021-05-11 Outpatient [facility] [id number] Common 00:00:00 00:00:00 [facility] 2021-05-04 2021-05-04 Hospital [facility] [id number] Univers 09:12:00 12:10:00 Encounter Chanelle johnson [place] 350.1.13.10 [place] [phone] [facility] [address] 2021-05-04 2021-05-04 Surgery [facility] [id number] Univers 11:06:00 11:43:00 e, Chanelle Kelly [place] 350.1.13.10 it[place] [id number] [facility] [address] 2021-05-03 2021-05-03 Laboratory Only, Adc Test [facility] 1.2.840. 114 [id number] Univers 14:17:20 14:32:20 Only Chanelle Amezquita [place] 350.1.1 3.10 it[place] of [place] [phone] [facility] [address] 2021-05-03 2021-05-03 Outpatient R [facility] [id number] Univers 09:45:00 09:45:00 CHANELLE Johnson o f [facility] 2021-04-18 2021-04-18 Orders Doctor REN [id number] [id number] Univers 00:00:00 00:00:00 Only Unassigned, AURLEIANO 350.1.13.10 ity of [facility] 4.2.7.2.686 Ned as [id number] [facility] [address] 2021-04-11 2021-04-11 Outpatient [facility] [id number] Common 00:00:00 00:00:00 [facility] 2021-04-06 2021-04-06 [facility] 60712 [id number] Univers 14:30:00 14:30:00 NICOLAS ity of [facility] 2021-03-11 2021-03-11 Outpatient [facility] [id number] Common 00:00:00 00:00:00 [facility] 2021-03-10 2021-03-10 Outpatient [facility] [id number] Common 00:00:00 00:00:00 [facility] Results Test Description Test Time Test Comments Results Result Sour e Comments - MRI UP T 2019-02-28 Patient Name: W/CONT RT 13:02:00 EUNICE HOOD Unit No: [id number] EXAMS: CPT CODE: [id number] MRI UP T W/[place] [id number] EXAM: MRI ARTHROGRAM RIGHT SHOULDER DIAGNOSIS: 1. [...] Reported and signed by: Sumeet Chu MD [facility] NAME: EUNICE HOOD [address] PHYS: Brennen Loyola MD : 1980 AGE: 38 SEX: F [place] [address] LOC: Y.RAD PHONE #: [phone] EXAM DATE: 02/28/2019 STATUS: REG CLI FAX #: [phone] RAD #: D/C DT PAGE 1 Signed Report (CONTINUED) Patient Name: EUNICE HOOD Unit No: [id number] EXAMS: CPT CODE: [id number] MRI [place] JNT W/[place] [address] (Continued) CC: Brennen Sanderson MD Technologist: DORY HASKINS. RT(R) Transcribed D/ (9782) Steve [facility] NAME: EUNICE HOOD [address] [place] [address] PHYS: Brennen Loyola MD : 1980 AGE: 38 SEX: F [place] [address] LOC: Y.RAD PHONE #: [phone] EXAM DATE: 02/28/2019 STATUS: REG CLI FAX #: [phone] RAD #: D/C DT PAGE 2 Signed Report Patient Name: EUNICE HOOD Unit No: [id number] EXAMS: CPT CODE: [id number] [place] JNT W/[place] [address] (Continued) Orig Print D/T: S: 02/28/2019 (1306) [facility] NAME: EUNICE HOOD [address] [facility] PHYS: Brennen Loyola MD : 1980 AGE: 38 SEX: F [place] [address] LOC: Y.RAD PHONE #: [phone] EXAM DATE: 02/28/2019 STATUS: REG CLI FAX #: [phone] RAD #: D/C DT PAGE 3 Signed Report - XR ARTHROGRAM 2019-02-28 Patient Name: SHLDR RT 13:02:00 EUNICE HOOD Unit No: [id number] EXAMS: CPT CODE: [id number] [place] [address] EXAM: MRI ARTHROGRAM RIGHT SHOULDER DIAGNOSIS: 1. [...] Reported and signed by: Sumeet Chu MD [facility] NAME: EUNICE HOOD [address] [facility] PHYS: Brennen Loyola MD : 1980 AGE: 38 SEX: F [place], [place] [address] LOC: Y.RAD PHONE #: [phone] EXAM DATE: 02/28/2019 STATUS: REG CLI FAX #: [phone] RAD #: D/C DT PAGE 1 Signed Report (CONTINUED) Patient Name: EUNICE HOOD Unit No: [id number] EXAMS: CPT CODE: [id number] [place] [address] (Continued) CC: Brennen Sanderson MD Technologist: Lian Rikki, RT.(R) Transcribed D/ (7037) t.SDR.GVG [facility] NAME: EUNICE HOOD [address] [facility] PHYS: Brennen Loyola MD : 1980 AGE: 38 SEX: [place] [address] LOC: Y.RAD PHONE #: [phone] EXAM DATE: 02/28/2019 STATUS: REG CLI FAX #: [phone] RAD #: D/C DT PAGE 2 Signed Report Patient Name: EUNICE HOOD Unit No: [id number] EXAMS: CPT CODE: [id number] [place] [address] (Continued) Orig Print D/T: S: 02/28/2019 (4036) [facility] NAME: EUNICE HOOD [address] [place] [address] PHYS: Brennen Loyola MD : 1980 AGE: 38 SEX: F [place] [address] LOC: Y.RAD PHONE #: [phone] EXAM DATE: 02/28/2019 STATUS: REG CLI FAX #: [phone] RAD #: D/C DT PAGE 3 Signed Report - XR FLUORO NDL 2018-10-08 Patient Name: 19:32:00 EUNICE HOOD Unit No: [id number] EXAMS: CPT CODE: [id number] XR FLUORO NDL 56375 Fluoroscopically guided injection of the right shoulder [...] HIEN STYLES, RT(R) Transcribed D/ (1931) EdelJ [facility] NAME: EUNICE HOOD [address] [facility] PHYS: Brennen Loyola MD : 1980 AGE: 38 SEX: F [place] [address] LOC: Y.RAD PHONE #: [phone] EXAM DATE: 10/08/2018 STATUS: REG CLI FAX #: [phone] RAD #: D/C DT PAGE 1 Signed Report Patient Name: EUNICE HOOD Unit No: [id number] EXAMS: CPT CODE: [id number] XR FLUORO NDL 74468 (Continued) Orig Print D/T: S: 10/08/2018 (1934) [facility] NAME: EUNICE HOOD [address] [facility] PHYS: Brennen Loyola MD : 1980 AGE: 38 SEX: F [place] [address] LOC: Y.RAD PHONE #: [phone] EXAM DATE: 10/08/2018 STATUS: REG CLI FAX #: [phone] RAD #: D/C DT PAGE 2 Signed Report
[2022-09-13 18:15] LABS: Absolute Lymphocytes (CBC) 1.5 K/uL (0.7-4.9); Hematocrit 37.2 % (36.0-45.0); Lymphocytes % 23.6 % (15.3-44.8); MCV 84.7 fL (80-100); MPV 7.1 fL (7.6-11.3); RBC Red Blood Cell Count 4.39 M/uL (3.86-4.86)
[2022-09-13 18:21] LABS: Protime INR 0.99
--- NOTE | 2022-09-13 18:30 | RAD REPORT ---
EXAM DESCRIPTION: RAD - Chest Single View - 09/13/2022 6:23 pm CLINICAL HISTORY: CHEST PAIN COMPARISON: Chest Single View dated 04/22/2022; Chest Single View dated 12/31/2021; Chest Single View dated 09/13/2021; Chest Single View dated 09/11/2021 FINDINGS: Lines: None. Lungs: No evidence of edema or pneumonia. Pleural: No significant pleural effusions or pneumothorax. Cardiac: The heart size is within normal limits. Mediastinum: Within normal limits. Bones: No acute fractures. Other: None IMPRESSION: No acute cardiopulmonary disease.
[2022-09-13 18:32] LABS: Potassium 3.3 mmol/L (3.5-5.1); Troponin High Sensitivity 3.9 pg/mL (<58.9)
[2022-09-13] MEDS ORDERED: METHYLPREDNISOLONE 125 MG INJ ONE (18:51)
[2022-09-13] MEDS ORDERED: HYDROCODONE/CHLORPHEN 5 ML/OSYR ONE (18:51)
[2022-09-13] MEDS ORDERED: LEVALBUTEROL 1.25 MG/3 ML NEB ONE (18:51)
[2022-09-13 18:52] LABS: SARS-COV-2 RT PCR NEGATIVE (NEGATIVE)
[2022-09-13] MEDS ORDERED: LORazepam 2 MG/ML VIAL ONE (19:26)
[2022-09-13] MEDS ORDERED: NA CHLORIDE 0.9% 1,000 ML ONE (19:26)
--- NOTE | 2022-09-13 20:29 | ER ---
Nurse's Notes [facility] Name: Eunice Arango Age: 42 yrs Sex: Female : 1980 Arrival Date: 09/13/2022 Time: 17:25 Bed 7 Private MD: Diagnosis: Acute upper respiratory infection, unspecified Presentation: 09/13 17:41 Chief complaint: Patient states: SOB and chest pain with "deep breathing" that began 2 aa5 days ago. Pt denies fever. Coronavirus screen: shortness of breath. Ebola Screen: Patient denies travel to an Ebola-affected area in the 21 days before illness onset. Initial Sepsis Screen: Does the patient meet any 2 criteria? No. Patient's initial sepsis screen is negative. Does the patient have a suspected source of infection? No. Patient's initial sepsis screen is negative. Risk Assessment: Do you want to hurt yourself or someone else? Patient reports no desire to harm self or others. Onset of symptoms was September 2022. 17:41 Method Of Arrival: Ambulatory aa5 17:41 Acuity: ALIS 3 aa5 Triage Assessment: 19:13 Respiratory: Reports. kd3 19:29 General: Appears uncomfortable. Respiratory: Onset: The symptoms/episode began/occurred kd3 today, the patient has moderate shortness of breath. Historical: - Allergies: 17:40 Cipro; aa5 17:40 Codeine; aa5 - PMHx: 17:40 Diverticulitis; EMBOLISM; Migraine; Rheumatoid Arthritis; aa5 17:41 Anxiety; aa5 - PSHx: 17:40 Appendectomy; Cholecystectomy; Total abdominal hysterectomy; aa5 - Immunization history:: Adult Immunizations unknown. - Social history:: Smoking status: Patient denies any tobacco usage or history of. Screenin:40 [facility] ED Fall Risk Assessment (Adult) History of falling in the last 3 months, ld1 including since admission No falls in past 3 months (0 pts). Abuse screen: Denies threats or abuse. Denies injuries from another. Nutritional screening: No deficits noted. Tuberculosis screening: No symptoms or risk factors identified. Assessment: 18:40 General: Appears in no apparent distress. comfortable, Behavior is calm, cooperative, ld1 appropriate for age. Pain: Denies pain. Neuro: Level of Consciousness is awake, alert, obeys commands, Oriented to person, place, time, situation. Cardiovascular: Capillary refill < 3 seconds Patient's skin is warm and dry. Rhythm is sinus rhythm. Cardiovascular:. Respiratory: Airway is patent Respiratory effort is even, unlabored, Breath sounds are clear bilaterally. GI: Abdomen is flat, non-distended. : No signs and/or symptoms were reported regarding the genitourinary system. EENT: No signs and/or symptoms were reported regarding the EENT system. Derm: No signs and/or symptoms reported regarding the dermatologic system. Musculoskeletal: No signs and/or symptoms reported regarding the musculoskeletal system. 19:11 General: Appears uncomfortable, Behavior is calm, cooperative. General: pt is kd3 complaining of tremors and anxiety after breathing treatment. provider notified. . Neuro: Level of Consciousness is awake, alert, obeys commands, Oriented to person, place, time, situation. Respiratory: Airway is patent Trachea midline Respiratory effort is even, unlabored, Respiratory pattern is regular, symmetrical. 19:47 Reassessment: Patient and/or family updated on plan of care and expected duration. Pain kd3 level reassessed. Patient is alert, oriented x 3, equal unlabored respirations, skin warm/dry/pink. Patient states feeling better. Vital Signs: 17:41 BP 138 / 76; Pulse 98; Resp 16 S; Temp 97.3(TE); Pulse Ox 98% on R/A; Weight 90.72 kg aa5 (R); Height 5 ft. 3 in. (160.02 cm) (R); 18:40 BP 121 / 70; Pulse 75; Resp 18; Temp 97.5(O); Pulse Ox 97% on R/A; Pain 0/10; ld1 19:47 BP 114 / 77; Pulse 102; Resp 19; Pulse Ox 100% on R/A; kd3 17:41 Body Mass Index 35.43 (90.72 kg, 160.02 cm) aa5 ED Course: 17:25 Patient arrived in ED. as 17:40 Arm band placed on. aa5 17:42 Triage completed. aa5 17:46 Allen Alcantara NP is PHCP. pm1 17:47 Diana Norton MD is Attending Physician. pm1 17:48 EKG completed in triage. Results shown to MD. aa5 18:16 Basic Metabolic Panel Sent. em1 18:16 CBC with Diff Sent. em1 18:16 PT-INR Sent. em1 18:16 Troponin HS Sent. em1 18:16 Initial lab(s) drawn, by me, sent to lab. COVID swab sent to lab. Inserted saline lock: em1 20 gauge in right antecubital area, using aseptic technique. 18:25 Chest Single View XRAY In Process Unspecified. EDMS 18:34 Migdalia Penaloza, RN is Primary Nurse. ld1 18:40 Patient has correct armband on for positive identification. Placed in gown. Bed in low ld1 position. Call light in reach. Side rails up X2. monitor car operator on. Pulse ox on. NIBP on. Door closed. Noise minimized. Warm blanket given. 18:43 COVID-19/FLU A+B Sent. ld1 19:11 No provider procedures requiring assistance completed. kd3 19:44 Primary Nurse role handed off by Migdalia Penaloza, REINALDO wm 19:47 Philly Holman RN is Primary Nurse. kd3 20:41 IV discontinued, intact, bleeding controlled, No redness/swelling at site. Pressure kd3 dressing applied. Administered Medications: 18:51 Drug: Tussionex Pennkinetic ER (chlorpheniramine-hydrocodone) Suspension 5 ml Route: PO;vg1 20:41 Follow up: Response: No adverse reaction kd3 18:52 Drug: SOLU-Medrol (methylPrednisoLONE) 125 mg Route: IVP; Site: right antecubital; vg1 20:41 Follow up: Response: No adverse reaction kd3 18:55 Drug: Xopenex (levalbuterol) (3) 1.25 mg Route: Inhalation; vg1 19:28 Drug: NS 0.9% 1000 ml Route: IV; Rate: 1000 ml; Site: right antecubital; kd3 20:46 Follow up: Response: No adverse reaction; IV Status: Completed infusion kd3 19:28 Drug: Ativan (LORazepam) 1 mg Route: IVP; Site: right antecubital; kd3 20:40 Follow up: Response: No adverse reaction; Anxiety decreased kd3 Medication: 18:40 VIS not applicable for this client. ld1 Outcome: 20:29 Discharge ordered by . pm1 20:41 Discharged to home ambulatory. kd3 20:41 Condition: stable 20:41 Discharge instructions given to patient, Instructed on discharge instructions, follow up and referral plans. Demonstrated understanding of instructions, follow-up care. 20:46 Patient left the ED. kd3 Signatures: Dispatcher [employer] Aleksandra Vega Eric em1 Gayle Kamara, RN RN aa5 Allen Alcantara, IESHA K 9 POLICE OFFICER pm1 Kerry Mccracken RN RN 1 Migdalia Penaloza RN RN ld1 Milagros Prater Kyli RN RN kd3
--- NOTE | 2022-09-13 20:29 | EDPHYS ---
Physician Documentation [facility] Name: Eunice Arango Age: 42 yrs Sex: Female : 1980 Arrival Date: 09/13/2022 Time: 17:25 Bed 7 Private MD: ED Physician Diana Norton HPI: 09/13 17:55 This 42 yrs old Female presents to ER via Ambulatory with complaints of Shortness Of pm1 Breath, Chest Pressure. 17:55 The patient has shortness of breath at rest. Onset: The symptoms/episode began/occurred pm1 3 day(s) ago. The patient's shortness of breath is aggravated by nothing, is alleviated by nothing. Associated signs and symptoms: Pertinent negatives: fever. Severity of symptoms: in the emergency department the symptoms are unchanged. The patient has not experienced similar symptoms in the past. The patient has not recently seen a physician. Historical: - Allergies: 17:40 Cipro; aa5 17:40 Codeine; aa5 - PMHx: 17:40 Diverticulitis; EMBOLISM; Migraine; Rheumatoid Arthritis; aa5 17:41 Anxiety; aa5 - PSHx: 17:40 Appendectomy; Cholecystectomy; Total abdominal hysterectomy; aa5 - Immunization history:: Adult Immunizations unknown. - Social history:: Smoking status: Patient denies any tobacco usage or history of. ROS: 17:55 Constitutional: Negative for fever, chills, and weight loss. pm1 17:55 Abdomen/GI: Negative for abdominal pain, nausea, vomiting, diarrhea, and constipation, Back: Negative for injury and pain, MS/Extremity: Negative for injury and deformity, Skin: Negative for injury, rash, and discoloration, Neuro: Negative for headache, weakness, numbness, tingling, and seizure. 17:55 Cardiovascular: Positive for chest pain, Negative for palpitations. 17:55 Respiratory: Positive for cough, "sounds productive", shortness of breath. 17:55 All other systems are negative. Exam: 17:55 Constitutional: This is a well developed, well nourished patient who is awake, alert, pm1 and in no acute distress. Head/Face: Normocephalic, atraumatic. 17:55 Abdomen/GI: Soft, non-tender, with normal bowel sounds. No distension or tympany. No guarding or rebound. No evidence of tenderness throughout. Back: No spinal tenderness. No costovertebral tenderness. Full range of motion. Skin: Warm, dry with normal turgor. Normal color with no rashes, no lesions, and no evidence of cellulitis. MS/ Extremity: Pulses equal, no cyanosis. Neurovascular intact. Full, normal range of motion. 17:55 Cardiovascular: Exam negative for acute changes, Rate: normal, Rhythm: regular, Pulses: no pulse deficits are appreciated, Heart sounds: normal, normal S1and S2. 17:55 Respiratory: the patient does not display signs of respiratory distress, Breath sounds: bronchial sounds, that are mild. 17:55 Neuro: Exam negative for acute changes, Orientation: is normal, Mentation: is normal, Motor: is normal, moves all fours. Vital Signs: 17:41 BP 138 / 76; Pulse 98; Resp 16 S; Temp 97.3(TE); Pulse Ox 98% on R/A; Weight 90.72 kg aa5 (R); Height 5 ft. 3 in. (160.02 cm) (R); 18:40 BP 121 / 70; Pulse 75; Resp 18; Temp 97.5(O); Pulse Ox 97% on R/A; Pain 0/10; ld1 19:47 BP 114 / 77; Pulse 102; Resp 19; Pulse Ox 100% on R/A; kd3 17:41 Body Mass Index 35.43 (90.72 kg, 160.02 cm) aa5 MDM: 17:48 Patient medically screened. pm1 17:55 Differential diagnosis: Bronchitis Myocardial Infarction pneumonia, reactive airway pm1 disease, URI. 20:28 Data reviewed: vital signs. Counseling: I had a detailed discussion with the patient pm1 and/or guardian regarding: the historical points, exam findings, and any diagnostic results supporting the discharge/admit diagnosis, lab results, radiology results, the need for outpatient follow up, to return to the emergency department if symptoms worsen or persist or if there are any questions or concerns that arise at home. 20:28 Antibiotic administration: Not indicated, the patient does not have an appreciated pm1 infiltrate, the patient has a suspected viral illness. Data interpreted: Pulse oximetry: on room air is 100 %. Interpretation: normal. 09/13 17:55 Order name: COVID-19/FLU A+B; Complete Time: 18:56 pm09/13 17:55 Order name: Basic Metabolic Panel; Complete Time: 18:35 pm09/13 17:43 Order name: Chest Single View XRAY; Complete Time: 18:35 aa5 09/13 17:55 Order name: CBC with Diff; Complete Time: 18:35 pm09/13 17:55 Order name: PT-INR; Complete Time: 18:35 pm09/13 17:55 Order name: Troponin HS; Complete Time: 18:35 pm09/13 17:43 Order name: EKG - Nurse/Tech; Complete Time: 17:48 aa5 09/13 17:55 Order name: EKG; Complete Time: 17:56 pm09/13 17:55 Order name: Cardiac monitoring; Complete Time: 18:14 pm09/13 17:55 Order name: IV Saline Lock; Complete Time: 18:16 pm09/13 17:55 Order name: Labs collected and sent; Complete Time: 18:16 pm09/13 17:55 Order name: O2 Per Protocol; Complete Time: 18:14 pm09/13 17:55 Order name: O2 Sat Monitoring; Complete Time: 18:14 pm1 EC:49 Rate is 73 beats/min. Rhythm is regular, Normal Sinus Rhythm. QRS [place] is Normal. SC pm1 interval is normal. QRS interval is normal. QT interval is normal. No Q waves. T waves are Normal. No ST changes noted. Clinical impression: Normal sinus rhythm, low voltage QRS, borderline EKG. Administered Medications: 18:51 Drug: Tussionex Pennkinetic ER (chlorpheniramine-hydrocodone) Suspension 5 ml Route: PO;vg1 20:41 Follow up: Response: No adverse reaction kd3 18:52 Drug: SOLU-Medrol (methylPrednisoLONE) 125 mg Route: IVP; Site: right antecubital; vg1 20:41 Follow up: Response: No adverse reaction kd3 18:55 Drug: Xopenex (levalbuterol) (3) 1.25 mg Route: Inhalation; vg1 19:28 Drug: NS 0.9% 1000 ml Route: IV; Rate: 1000 ml; Site: right antecubital; kd3 20:46 Follow up: Response: No adverse reaction; IV Status: Completed infusion kd3 19:28 Drug: Ativan (LORazepam) 1 mg Route: IVP; Site: right antecubital; kd3 20:40 Follow up: Response: No adverse reaction; Anxiety decreased kd3 Disposition Summary: 09/13/22 20:29 Discharge Ordered Location: Home pm1 Problem: new pm1 Symptoms: have improved pm1 Condition: Stable pm1 Diagnosis - Acute upper respiratory infection, unspecified pm1 Followup: pm1 - With: Emergency Department - When: As needed - Reason: Worsening of condition Followup: pm1 - With: Private Physician - When: 2 - 3 days - Reason: Recheck today's complaints, Continuance of care, Re-evaluation by your physician Discharge Instructions: - Discharge Summary Sheet pm1 - Upper Respiratory Infection, Adult pm1 Forms: - Medication Reconciliation Form pm1 - Thank You Letter pm1 - Antibiotic Education pm1 - Prescription Opioid Use pm1 Prescriptions: - Ventolin HFA 90 mcg/actuation Inhalation HFA aerosol inhaler - inhale 1 puff by INHALATION route every 4-6 hours As needed; 1 Inhaler; pm1 Refills: 0, Product Selection Permitted - Medrol (Cleve) 4 mg Oral Tablets, Dose Pack - take 1 tablet by ORAL route as directed - follow package instructions; 1 pm1 packet; Refills: 0, Product Selection Permitted - Bromfed DM 2-30-10 mg/5 mL Oral syrup - take 10 milliliter by ORAL route every 4 hours As needed; 200 milliliter; pm1 Refills: 0, Product Selection Permitted Signatures: Dispatcher [employer] Gayle Martin RN RN aa5 Allen Alcantara NP STUDENT TRUCK DRIVER pm1 Kerry Mccracken RN RN vg1 Philly Holman RN RN kd3
[2022-09-13 20:51] VITALS: TEMP 97.5
[2022-09-13 20:53] VITALS: BP 114/77; O2SAT 100
--- NOTE | 2022-09-14 14:22 | EKG ---
Test Date: 2022-09-13 Test Time: 17:47:16 Biology Lecturer: JAMES MEASUREMENT RESULTS: Intervals: Rate: 73 VT: 148 QRSD: 80 QT: 408 QTc: 449 [place]: P: 48 VT: 148 QRS: 29 T: 58 INTERPRETIVE STATEMENTS: Normal sinus rhythm Low voltage QRS Borderline ECG Compared to ECG 04/22/2022 13:24:36 Low QRS voltage now present Electronically Signed On 09-14-22 14:21:11 CLOCK SMITH by Reynaldo Jean
== END 2022-09-13 20:46 | disposition home or self-care (01) ==
LOC: ER 17:24
DX: J06.9 Acute upper respiratory infection, unspecified (principal); Z20.822 Contact with and (suspected) exposure to COVID-19
CPT/HCPCS: 0240U; 36415; 71045; 80048; 84484; 85025; 85610; 93005; 96361; 96374; 96375; 99285; J2930; J7030; J7614

== ENCOUNTER 2023-01-04 16:05 | Emergency (ER) | payer BC ==
--- OUTSIDE RECORDS SUMMARY | 2023-01-04 16:10 | XMS REPORT | Continuity of Care Document ---
:1980 Author Organization [facility] t Address [address] [facility]. [address] [place] [address] Care Team Providers Name Role Phone JACK MARTINEZ Primary Care Physician Unavailable Prasanna Hernandez Attending Clinician Unavailable Kendra Sanchez Attending Clinician Unavailable Sailaja Almieda Attending Clinician Unavailable CHANELLE AMEZQUITA Attending Clinician Unavailable NIRANJAN REDDY Attending Clinician Unavailable Naeem Ambrosio MD Attending Clinician Niranjan Reddy MD Attending Clinician Doctor Unassigned, [place] Attending Clinician Unavailable Nicolas Cardoso MD Attending Clinician ZIYAD PIZARRO Attending Clinician Unavailable NICOLAS CARDOSO Attending Clinician Unavailable Chanelle Amezquita MD Attending Clinician Only, Adc Test Attending Clinician Unavailable CHANELLE AMEZQUITA Admitting Clinician Unavailable NIRANJAN REDDY Admitting Clinician Unavailable Chanelle Amezquita MD Admitting Clinician Payers Payer Name Policy Type Policy Number Effective Date Expiration Date Jamshid SEGOVIA BCHALEY CACERES [id number] 2018 ADVANTAGE HMO 00:00:00 [employer] Blue 6 [id number] 2020 [facility] Shield O 00:00:00 [facility] Problems Condition Condition Condition Status Onset Resolution Last Treating Co mments Source Name Details Category Date Date Treatment Clinician Date Obesity Obesity Disease Active Univers (BMI (BMI 9-18 ity of 30-39.9) 30-39.9) 00:00: [address] Branch [id number] Memory Problem Common deficit [facility] [id number] Panic Problem Common attacks [facility] [id number] Depression Problem Co mmon with [facility] anxiety [facility] [id number] Unsteady Problem Commo n gait when Spirit walking [facility] [id number] Supplement Problem C ommon 07 al oxygen [facility] dependent 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 Somnolence Somnolence Problem C ommon , daytime [facility] Diverticul Diverticul Problem C ommon itis itis [facility] [id number] Acute Problem Common diverticul [id number] Sleep Problem Common apnea in Spirit adult [facility] [id number] Chronic Problem Common fatigue [facility] [id number] Vitamin D Problem Comm on deficiency [facility] [id number] Situationa Problem Com mon l anxiety [facility] [id number] Diverticul Problem Co mmon osis [facility] [id number] Primary Problem Common hypertensi Spirit on [facility] [id number] Seasonal Problem Comm on allergic Spirit rhinitis, - [facility] unspecifie [facility] [id number] Primary Problem Common insomnia [facility] [id number] Acanthosis Problem Co mmon nigricans [facility] [id number] Primary Problem Comm on osteoarthr Spirit itis of - [facility] left [facility] [id number] Stress Problem Common [facility] Allergies, Adverse Reactions, Alerts Allergy Allergy Status Severity Reaction(s) Onset Inactive Treating Comm ents Source Name Type Date Date Clinician ciproflo DA Active [facility] xacin 6-28 [place] 00:00: [facility] ciproflo DA Active [facility] xacin 2-05 [place] 00:00: Orthope 00 [facility] Ciproflo Propensi Active Nausea Univer s xacin ty to and/or 05-21 ity of adverse Vomiting 00:00: [place] reaction 00 Medical s Branch Codeine Propensi Active Nausea Univers ty to and/or 05-21 ity of adverse Vomiting 00:00: [place] reaction 00 Medical s Branch CIPROFLO DRUG Active N/V 0 Univers XACIN INGREDI 9-18 ity of 00:00: [place] 00 Medical Branch CODEINE DRUG Active N/V 2018-0 Univers INGREDI 9-18 ity of 00:00: [place] 00 Medical Branch ciproflo ciproflo Active vomiting Comm on xacin xacin [facility] Social History Social Habit Start Date Stop Date Quantity Comments Source History of [facility] - Tobacco Use [facility] Sex Assigned At [facility] cyndi - [facility] Exposure to 2022-12-08 2022-12-[address] [facility] SARS-CoV-2 00:00:00 21:12:00 [facility] (event) Branch Alcohol intake 2021-06-08 2021-06-08 Lifetime University of 00:00:00 00:00:00 non-drinker [facility] (finding) [place] Tobacco use and 2021-04-06 2021-04-06 Smokeless tobacco Un iversity of exposure 00:00:00 00:00:[address] [facility] Smoking Status Start Date Stop Date Source Former Smoker 2022-07-30 00:00:00 2022-07-30 00:00:00 [facility] - [facility] Ce nter Never Smoker [facility] - [facility] Ce nter Smokes tobacco daily 2021-04-06 00:00:[address] [facility] Medications Ordered Filled Start Stop Current Ordering Indication Dosage Frequency Signature Comments Components Source Medication Medication Date Date Medication? Clinician (SIG) Name Name ketorolac No 30mg 30 mg, Unive rs (TORADOL) 12-19 Slow IV ity of injection 05:30: 04:22 Push, [place] 30 mg 00 :00 ONCE, 1 Medical dose, On Branch Sun12/19/22 at 0030, Routine iopamidol No [id number] 100mL 100 mL, Univers (ISOVUE 12-19 Intravenou ity o f 370-500 mL) 03:30: 03:20 s, ONCE, 1 [place] injection 00 :00 dose, On Medica l 100 mL [facility] 12/18/22 at 2230, Routine NaCl 0.9% Yes 1000mL at 999 Univ ers (NS) IV 4-18 mL/hr, ity of infusion 03:00: Intravenou Ned as 1,000 mL 00 s, Medical CONTINUOUS Branch , Starting on Sun12/18/22 at 2200, Until Discontinu ed, Routine FENTanyl PF No 50ug 50 mcg, Un [place] (SUBLIMAZE 12-19 Slow IV ity o f (PF)) 03:00: 02:09 Push, [place] injection 00 :00 ONCE, 1 Medical 50 mcg dose, On Branch Sun12/18/22 at 2200, Routine ondansetron No 4mg 4 mg, Slow Univers (ZOFRAN 12-19 IV Push, ity of (PF)) 02:00: 02:10 ONCE, 1 [place] injection 4 00 :00 dose, On Medi allan mg [facility] 12/18/22 at 2100, SUSAN piperacilli 2022- No 3.375g 3.375 g, Univers n-tazobacta 12-19 IV ity of m (ZOSYN) 02:00: 02:43 [place], [place] 3.375 g in 00 :00 ONCE, 1 Medica l NaCl 0.9% dose, On Branch (NS) 100 mL Mon MINI-BAG 12/18/22 at 2100, Administer over 30 Minutes, 100 mL
Reas on for Anti-Infec tive: Documented Infection< br>Documen marialuisa Infection Site: Abdominal< br>Duratio n of Therapy: Other (see Comments) amoxicillin Yes [id number] 1{tbl} Take 1 Univers -clavulanat 4-17 tablet by ity of e 875-125 00:00: mouth [place] mg per 00 every 12 Medical tablet (twelve) Branch hours. traMADoL Yes [id number] 50mg Take 1 Univers (ULTRAM) 50 4-17 tablet by ity of mg tablet 00:00: mouth [place] 00 every 6 Medical (six) Branch hours as needed for Pain (scale 7-10). Indication s: acute pain Levaquin Levaquin 2021-09- No 1{table QD Levaquin [...] Repatha 2022- No 1{ml} Repatha SureClick SureClick 6- 06-03 SureClick 140 MG/ML 140 MG/ML 00:00: 00:00 140 MG/ML 00 :00 Repatha Repatha 2021-0 2023- No 1{ml} Repatha [...] ity o f mg tablet 13:28: daily. [place] [address] Medical Branch clonazePAM Yes .5mg Take 0.5 Uni vers (KLONOPIN) 9-01 mg by ity of 0.5 mg 13:28: mouth [place] tablet 45 daily. Medical Branch Cetirizine Yes Take by [facility] ers 10 mg 9-01 mouth. ity of capsule 13:28: [address] Branch fluticasone Yes 2{spray Use 2 Un [place] propionate 9 } Sprays in ity of (FLONASE 13:28: each [place] ALLERGY 45 nostril 2 Medical RELIEF) 50 (two) Branch mcg/actuati times on nasal daily. spray montelukast Yes 10mg Take 10 mg Univers 10 mg 9 by mouth. ity of tablet 13:28: [address] Branch paroxetine Yes 20mg Take 20 mg U nivers (PAXIL) 20 9 by mouth ity o f mg tablet 13:28: daily. [place] [address] Medical Branch clonazePAM Yes .5mg Take 0.5 Uni vers (KLONOPIN) 9-01 mg by ity of 0.5 mg 13:28: mouth [place] tablet 45 daily. Medical Branch Cetirizine Yes Take by [facility] ers 10 mg 9-01 mouth. ity of capsule 13:28: [address] Branch fluticasone Yes 2{spray Use 2 Un [place] propionate 9- } Sprays in ity of (FLONASE 13:28: each [place] ALLERGY 45 nostril 2 Medical RELIEF) 50 (two) Branch mcg/actuati times on nasal daily. spray montelukast 2020-0 Yes 10mg Take 10 mg Univers 10 mg 9-01 by mouth. ity of tablet 13:28: [address] paroxetine 0 Yes 20mg Take 20 mg U nivers (PAXIL) 20 9-01 by mouth ity o f mg tablet 13:28: daily. [address] clonazePAM Yes .5mg Take 0.5 Uni vers (KLONOPIN) 9-01 mg by ity of 0.5 mg 13:28: mouth [place] tablet 45 daily. Medical Branch Cetirizine 0 Yes Take by [facility] ers 10 mg 9-01 mouth. ity of capsule 13:28: [address] fluticasone Yes 2{spray Use 2 Un [place] propionate 9 } Sprays in ity of (FLONASE 13:28: each [place] ALLERGY 45 nostril 2 Medical RELIEF) 50 (two) Branch mcg/actuati times on nasal daily. spray montelukast 2020-0 Yes 10mg Take 10 mg Univers 10 mg 9-01 by mouth. ity of tablet 13:28: [address] paroxetine 0 Yes 20mg Take 20 mg U nivers (PAXIL) 20 9-01 by mouth ity o f mg tablet 13:28: daily. [address] clonazePAM Yes .5mg Take 0.5 Uni vers (KLONOPIN) 9-01 mg by ity of 0.5 mg 13:28: mouth [place] tablet 45 daily. Medical [place] Cetirizine 0 Yes Take by [facility] ers 10 mg 9-01 mouth. ity of capsule 13:28: [address] fluticasone 0 Yes 2{spray Use 2 Un [place] propionate 9- } Sprays in ity of (FLONASE 13:28: each [place] ALLERGY 45 nostril 2 Medical RELIEF) 50 (two) Branch mcg/actuati times on nasal daily. spray montelukast 2020-0 Yes 10mg Take 10 mg Univers 10 mg 9-01 by mouth. ity of tablet 13:28: [address] paroxetine 2020-0 Yes 20mg Take 20 mg U nivers (PAXIL) 20 9-01 by mouth ity o f mg tablet 13:28: daily. [place] 45 Medical Branch clonazePAM 0 Yes .5mg Take 0.5 Uni vers (KLONOPIN) 9-01 mg by ity of 0.5 mg 13:28: mouth [place] tablet 45 daily. Medical Branch Cetirizine 0 Yes Take by Univ ers 10 mg 9- mouth. ity of capsule 13:28: [place] [address] Medical Branch fluticasone 0 Yes 2{spray Use 2 Un [place] propionate 05-04 } Sprays in ity of (FLONASE 13:28: each [place] ALLERGY 45 nostril 2 Medical RELIEF) 50 (two) Branch mcg/actuati times on nasal daily. spray montelukast Yes 10mg Take 10 mg Univers 10 mg 05-04 by mouth. ity of tablet 13:28: [place] [address] Medical Branch traZODone Yes TAKE 1 Univer s 50 mg 8-09 TABLET BY ity of tablet 00:00: MOUTH [place] 00 EVERY DAY Medical AT BEDTIME Branch NEEDED amLODIPine 0 Yes 5mg Take 5 mg Un [place] 5 mg tablet 8-09 by mouth ity of 00:00: every [place] 00 morning. Medical Branch traZODone Yes TAKE 1 Univer s 50 mg 8-09 TABLET BY ity of tablet 00:00: MOUTH [place] 00 EVERY DAY Medical AT BEDTIME Branch NEEDED amLODIPine 2020-0 Yes 5mg Take 5 mg Un [place] 5 mg tablet 8-09 by mouth ity of 00:00: every [place] 00 morning. Medical Branch traZODone 0 Yes TAKE 1 Univer s 50 mg 8-09 TABLET BY ity of tablet 00:00: MOUTH [place] 00 EVERY DAY Medical AT BEDTIME Branch NEEDED amLODIPine 2020-0 Yes 5mg Take 5 mg Un [place] 5 mg tablet 8-09 by mouth ity of 00:00: every [place] 00 morning. Medical Branch traZODone 0 Yes TAKE 1 Univer s 50 mg 8-09 TABLET BY ity of tablet 00:00: MOUTH [place] 00 EVERY DAY Medical AT BEDTIME Branch NEEDED amLODIPine 2020-0 Yes 5mg Take 5 mg Un [place] 5 mg tablet 8-09 by mouth ity of 00:00: every [place] 00 morning. Medical Branch traZODone 2021-0 Yes TAKE 1 Univer s 50 mg 8- TABLET BY ity of tablet 00:00: MOUTH [place] 00 EVERY DAY Medical AT BEDTIME Branch NEEDED amLODIPine 2020-0 Yes 5mg Take 5 mg Un [place] 5 mg tablet 809 by mouth ity of 00:00: every 00 morning. Medical Branch Kenalog Kenalog 0 No 40mg Common (Triamcinol (Triamcinol 7-08 S pirit one) one) 00:00: - [facility] 00 [facility] Eliezeralog Kenalog 0 No 40mg Common (Triamcinol (Triamcinol 7-08 S pirit one) one) 00:00: - [facility]I 00 [facility] Enedelia Kenalog 0 No 40mg Common (Triamcinol (Triamcinol 7-08 S pirit one) one) 00:00: - [facility] 00 [facility] [place] Kenalog 0 No 40mg Common (Triamcinol (Triamcinol 7-08 S pirit one) one) 00:00: - [facility] 00 [facility] [place] Kenalog 0 No 40mg Common (Triamcinol (Triamcinol 7-08 S pirit one) one) 00:00: - [facility] 00 [facility] [place] Kenalog 2020-0 No 40mg Common (Triamcinol (Triamcinol 7-08 S pirit one) one) 00:00: - [facility] 00 [facility] Kenalog Kenalog 0 No 40mg Common (Triamcinol (Triamcinol 7-08 S pirit one) one) 00:00: - [facility] 00 [facility] Kenalog Kenalog 0 No 40mg Common (Triamcinol (Triamcinol 7-08 S pirit one) one) 00:00: - [facility] 00 [facility] Kenalog Kenalog 2020-0 No 40mg Common (Triamcinol (Triamcinol 7-08 S pirit one) one) 00:00: - [facility] 00 [facility] Kenalog Kenalog 2020-0 No 40mg Common (Triamcinol (Triamcinol 7-08 S pirit one) one) 00:00: - [facility]I 00 [facility] Enedelia Mcdaniels 0 No 40mg Common (Triamcinol (Triamcinol 7-08 S pirit one) one) 00:00: - [facility]I 00 [facility] Enedelia Mcdaniels No 40mg Common (Triamcinol (Triamcinol 7-08 S pirit one) one) 00:00: - [facility]I 00 [facility] Enedelia Mcdaniels No 40mg Common (Triamcinol (Triamcinol 7-08 S pirit one) one) 00:00: - [facility]I 00 [facility] Enedelia Mcdaniels No 40mg Common (Triamcinol (Triamcinol 7-08 S pirit one) one) 00:00: - [facility]I 00 [facility] Enedelia Mcdaniels No 40mg Common (Triamcinol (Triamcinol 7-08 S pirit one) one) 00:00: - [facility] 00 [facility] HYDROcodone Yes 1{tbl} Take 1 Un rolanda [...] (scale 4-6) or Pain (scale 7-10). ibuprofen 2017- Yes 600mg Take 1 Unive rs 600 mg 9-24 tablet by ity of tablet 00:00: mouth [place] 00 every 6 Medical (six) Branch hours as needed for Pain (scale 1-3), Pain (scale 4-6) or Pain (scale 1-3) with oral narcotics. chlorhexidi 2017-0 Yes 15mL Swish and U nivers ne 0.12 % 9-24 spit out ity of mouthwash 00:00: 15 mL 2 [place] [address] (two) Medical times Branch daily. amLODIPine amLODIPine [...] Completed [facility] (Triamcinolone) (Triamcinolone) 16:51:00 - [facility] Enedelia Mcdaniels 2021-03-10 Completed [facility] (Triamcinolone) (Triamcinolone) 16:51:00 - I [facility] Vital Signs Vital Name Observation Time Observation Value Comments Source Systolic blood 2022-12-18 17:40:00 149 mm[Hg] Univer sity of pressure [facility] Diastolic blood 2022-12-18 17:40:00 103 mm[Hg] Unive rsity [facility] Heart rate 2022-12-18 17:40:00 92 /min [facility] Body temperature 2022-12-18 17:40:00 36.5 Micaela [facility] [place] Res[facility] rate 2022-12-18 17:40:00 18 /min [facility] Body height 2022-12-18 17:40:00 160 cm [facility] Body weight 2022-12-18 17:40:00 96.616 kg [facility] BMI 2022-12-18 17:40:00 37.73 kg/m2 [facility] Oxygen saturation in 2022-12-18 17:40:00 99 /min [facility] Arterial blood by [facility] Pulse oximetry Branch height 2022-07-10 16:40:00 63.00 [in_i] Common [facility] weight 2022-07-10 16:40:00 197 [lb_av] [facility] bmi 2022-07-10 16:40:00 34.89 kg/m2 [facility] Body height 2021-06-08 18:15:00 160 cm [facility] Body weight 2021-06-08 18:15:00 96.616 kg [facility] BMI 2021-06-08 18:15:00 37.73 kg/m2 [facility] Procedures Procedure Date / Time Performing Clinician Source Performed POCT TEST 2022-12-18 18:32:00 Naeem Ambrosio [facility] LIPASE 2022-12-18 18:29:00 Naeem Ambrosio [facility] COMP. METABOLIC PANEL 2022-12-18 18:29:00 Naeem Ambrosio [facility] ([id number]) [facility] CBC WITH DIFF 2022-12-18 18:29:00 Naeem Ambrosio [facility] URINALYSIS 2022-12-18 18:29:00 Naeem Ambrosio [facility] CONSENT/REFUSAL FOR 2022-12-18 17:33:21 Doctor Unassigned, [facility] DIAGNOSIS AND TREATMENT [place] [facility] INSURANCE CORRESPONDENCE 2022-05-31 05:01:00 Doctor Unaisatuigned, [facility] [place] [facility] REFERRAL- 2021-07-04 05:01:00 Doctor Unasssandhya, [facility] REQUEST/RESPONSE [place] [facility] Encounters Start End Encounter Admission Attending Care Care Encounter Source Date/Time Date/Time Type Type Clinicians Facility Department ID 2022-12-19 Outpatient Hernandez, STLMLC STLMLC [id number] Common 16:40:00 Prasanna [id number] [facility] 2022-12-07 Outpatient Hernandez, STLMLC STLMLC [id number] Common 14:53:00 Prasanna [id number] [facility] 2022-11-07 Outpatient Laura, STLMLC STLMLC [id number] Common 08:59:01 Kendra [id number] [facility] 2022-07-06 Outpatient Almeida, Na STLMLC STLMLC [id number] 2 Common 16:07:01 [facility] 2022-02-07 Outpatient Almeida, Na STLMLC STLMLC [id number] Common 07:54:01 [facility] 2021-12-27 Outpatient Almeida, Na STLMLC STLMLC [id number] 2 Common 09:43:02 [facility] 2021-11-02 Outpatient Almeida, Na STLMLC STLMLC [id number] 2 Common 10:34:02 [facility] 2021-09-28 Outpatient Almeida, Na STLMLC STLMLC [id number] Common 14:36:25 [facility] 2021-09-28 Outpatient Almeida, Na STLMLC STLMLC [id number] 2 Common 13:56:35 [facility] 2021-09-28 Outpatient Almeida, Na STLMLC STLMLC [id number] 2 Common 13:55:44 [facility] 2021-09-28 Outpatient Almeida, Na STLMLC STLMLC [id number] 2 Common 13:46:51 [id number] [facility] 2021-09-28 Outpatient Almeida, Na STLMLC STLMLC [id number] 2 Common 13:35:37 [facility] 2021-09-28 Outpatient Almeida, Na STLMLC STLMLC [id number] 2 Common 13:34:54 [facility] 2021-09-28 Outpatient Almeida, Na STLMLC STLMLC [id number] 2 Common 13:24:09 [id number] [facility] 2021-09-28 Outpatient Almeida, Na STLMLC STLMLC [id number] 2 Common 13:23:50 [id number] [facility] 2021-07-04 Outpatient R SHIMA [facility] GABI [id number] Univers 18:36:45 CHANELLE Johnson [facility] [place] 2022-12-18 2022-12-18 Emergency X MAY [facility] ERT [id number] Univers 12:41:00 23:33:00 [facility]18 2022-12-18 Emergency Naeem Ambrosio [facility] [id number] Univers 12:41:00 23:33:00 Niranjan Reddy [id number] ity of [place] [id number] [facility] [id number] [facility] 084 Branch 2022-08-09 2022-08-09 (TEL) STLMLC STLMLC [id number] Co mmon 00:00:00 00:00:00 [facility] 2022-07-20 2022-07-20 (WEB) STLMLC STLMLC [id number] Co mmon 00:00:00 00:00:00 [facility] 2022-07-20 2022-07-20 OFFICE STLMLC STLMLC [id number] Co mmon 00:00:00 00:00:00 VISIT EST Spir it PT LEVEL 3 [facility] 2022-07-19 2022-07-19 (TEL) STLMLC STLMLC [id number] Co mmon 00:00:00 00:00:00 [facility] 2022-07-10 2022-07-10 OFFICE STLMLC STLMLC [id number] Co mmon 00:00:00 00:00:00 VISIT Spirit ESTAB PT - [facility] LEVEL 4 [facility] 2022-06-28 2022-06-28 (TEL) STLMLC STLMLC [id number] Co mmon 00:00:00 00:00:00 [facility] 2022-06-26 2022-06-26 (TEL) STLMLC STLMLC [id number] Co mmon 00:00:00 00:00:00 [facility] 2022-06-23 2022-06-23 (TEL) STLMLC STLMLC [id number] Co mmon 00:00:00 00:00:00 [facility] 2022-05-31 2022-05-31 Orders Doctor GELA [id number] Univers 00:00:00 00:00:00 Only Unassigned, AURELIANO [id number] ity of [place] [facility] [id number] [facility] [id number] [facility] 009 Branch 2022-05-25 2022-05-25 (WEB) STLMLC STLMLC [id number] Co mmon 00:00:00 00:00:00 [facility] 2022-02-14 2022-02-14 (TEL) STLMLC STLMLC [id number] Co mmon 00:00:00 00:00:00 [facility] 2022-02-08 2022-02-08 OFFICE STLMLC STLMLC [id number] Co mmon 00:00:00 00:00:00 VISIT EST Spir it PT LEVEL 3 [facility] 2022-01-10 2022-01-10 (TEL) STLMLC STLMLC [id number] Co mmon 00:00:00 00:00:00 [facility] 2021-12-28 2021-12-28 OFFICE STLMLC STLMLC [id number] Co mmon 00:00:00 00:00:00 VISIT EST Spir it PT LEVEL 3 [facility] 2021-11-03 2021-11-03 OFFICE STLMLC STLMLC [id number] Co mmon 00:00:00 00:00:00 VISIT EST Spir it PT LEVEL 3 [facility] 2021-10-17 2021-10-17 (TEL) STLMLC STLMLC [id number] Co mmon 00:00:00 00:00:00 [facility] 2021-10-13 2021-10-13 (TEL) STLMLC STLMLC [id number] Co mmon 00:00:00 00:00:00 [facility] 2021-10-05 2021-10-05 (TEL) STLMLC STLMLC [id number] Co mmon 00:00:00 00:00:00 [facility] 2021-10-05 2021-10-05 OFFICE STLMLC STLMLC [id number] Co mmon 00:00:00 00:00:00 VISIT Spirit ESTAB PT - [facility] LEVEL 4 [facility] 2021-09-26 2021-09-26 (TEL) STLMLC STLMLC [id number] Co mmon 00:00:00 00:00:00 [facility] 2021-09-13 2021-09-13 (TEL) STLMLC STLMLC [id number] Co mmon 00:00:00 00:00:00 [facility] 2021-07-06 2021-07-06 (TEL) STLMLC STLMLC [id number] Co mmon 00:00:00 00:00:00 [facility] 2021-07-05 2021-07-05 [facility] [id number] [facility] 00:00:00 00:00:00 Nicolas [facility] [id number] it y of [place] [id number] Ned as AGUSTIN?BLEA [id number] [address] MEDICAL OFFICE [facility] 2021-07-04 2021-07-04 Orders Doctor GELA [id number] Univers 00:00:00 00:00:00 Only Unassigned, AURELIANO [id number] ity of [place] [facility] [id number] Ned as [id number] [address] 2021-06-29 2021-06-29 (TEL) STLC STLC [id number] Co mmon 00:00:00 00:00:00 [facility] 2021-06-22 2021-06-22 Outpatient Nan PIZARRO [facility] [id number] Univers 15:45:00 15:45:00 ZIYAD sharp [facility] 2021-06-14 2021-06-14 Orders Doctor GELA [id number] [id number] Univers 00:00:00 00:00:00 Only Unassigned, AURELIANO [id number] ity of [place] [facility] [id number] Ned as [id number] [address] 2021-06-08 2021-06-08 [facility] [id number] Univers 13:15:00 13:36:34 NICOLAS sharp [facility] 2021-06-08 2021-06-08 Office [facility] [id number] Univers 13:10:32 13:36:34 Visit Nicolas LIN [id number] it y of [place] [id number] Ned as AGUSTIN?BLEA [phone] Mn ashley SHARMA [address] [place] [address] OFFICE [facility] 2021-06-08 2021-06-08 [facility]patient [facility] [id number] Univers 13:15:00 13:15:00 NICOLAS sharp [facility] 2021-06-03 2021-06-03 [facility]EL[facility] [id number] Co mmon 00:00:00 00:00:00 [facility] 2021-06-03 2021-06-03 Telephone [facility] [id number] Univers 00:00:00 00:00:00 Nicolas Lin [id number] it y of [place] [id number] Ned as Agustin?Blea [id number] [place] ashley sharma [address] [place] [address] 2021-06-01 2021-06-01 [facility]patient [facility] [id number] Univers 15:00:00 15:00:00 NICOLAS sharp [facility] 2021-06-01 2021-06-01 [facility] [id number] Univers 15:00:00 14:59:14 NICOLAS jarett [facility] 2021-06-01 2021-06-01 [facility] [id number] Univers 14:41:42 14:59:14 Visit Nicolas Parkinson [facility] [id number] it y of [place] [id number] Ned as AGUSTIN?BLEA [phone] Mn ashley SHARMA [address] [place] [address] 2021-05-11 2021-05-11 [facility] [id number] Common 00:00:00 00:00:00 [facility] 2021-05-04 2021-05-04 [facility] 1.2.840.114 [id number] Univers 09:12:00 12:10:00 Encounter alex Chanelle Kelly [place] 350.1.13.10 [place] [phone] [facility] [address] 2021-05-04 2021-05-04 [facility] 1.2.840.114 [id number] Univers 11:06:00 11:43:00 Ava johnsonmarleny Kelly Hamilton 350.1.13.10 [place] [id number] [facility] [address] 2021-05-03 2021-05-03 Laboratory Only, Adc Test [facility] 1.2.840. 114 [id number] Univers 14:17:20 14:32:20 Only Chanelle Amezquita Hamilton 350.1.1 3.10 [place] [id number] [facility] [address] 2021-05-03 2021-05-03 Outpatient R SHIMA [facility] [id number] Univers 09:45:00 09:45:00 CHANELLE Johnson o f [facility] 2021-04-18 2021-04-18 Orders Doctor GELA 1.2.840.114 [id number] Univers 00:00:00 00:00:00 Only Unassigned, AURELIANO 350.1.13.10 ity of [place] [facility] 4.2.7.2.686 Ned as [phone] [facility] [address] 2021-04-11 2021-04-11 Outpatient STLMLC STLC [id number] Common 00:00:00 00:00:00 [facility] 2021-04-06 2021-04-06 [facility] [id number] Univers 14:30:00 14:30:[address] [facility] 2021-03-11 2021-03-11 Outpatient STLMLC STLMLC [id number] Common 00:00:00 00:00:00 [facility] 2021-03-10 2021-03-10 Outpatient STLMLC STLMLC [id number] Common 00:00:00 00:00:00 [facility] Results Test Description Test Time Test Comments Results Result Comments Source COMP. METABOLIC PANEL (72137) 2022-12-18 19:05:39 Test Item Value Reference Range Interpretation Comme nts NA (test code = 3100878986) 142 mmol/L 135-145 K (test code = 1818977727) 4.4 mmol/L 3.5-5.0 CL (test code = 3284728784) 108 mmol/L 98-108 CO2 TOTAL (test code = 24 mmol/L 23-31 1625070170) AGAP (test code = 2286984405) 10 2-16 BUN (test code = 7922619983) 13 mg/dL 7-23 GLUCOSE (test code = 8708279314) 91 mg/dL 70-110 CREATININE (test code = 0.90 mg/dL 0.50-1.04 3929170837) TOTAL BILI (test code = 0.5 mg/dL 0.1-1.3 3025884401) CALCIUM (test code = 0864489268) 9.0 mg/dL 8.6-10.6 T PROTEIN (test code = 6.9 g/dL 6.3-8.2 7865247965) ALBUMIN (test code = 0510650662) 4.1 g/dL 3.5-5.0 ALK PHOS (test code = 1414568304) 58 U/L 34-122 ALTv (test code = 1742-6) 25 U/L 5-35 AST(SGOT) (test code = 19 U/L 13-40 4313785508) eGFR (test code = 4493077772) 68.3 mL/min/1.73m2 JAXSON (test code = JAXSON) Association of Glomerular Filtration Rate (GFR) and Staging of Kidney Disease* + +--------- + ----+| GFR (mL/min/1.73 m2) ?| With Kidney Damage ?| ?Without Kidney Damage+ +--- + +| ?>90 ?| ?Stage one ?| ? Normal ?+ +-------- + -----+| ?60-89 ?| ?Stage two ?| ? Decreased GFR ? + +--------- + ----+| ?30-59 ?| ?Stage three ?| ? Stage three ? + +--------- + ----+| ?15-29 ?| ?Stage four ? | ? Stage four ?+ +-------- + -----+| ?<15 (or dialysis) ? ?| ?Stage five ? | ? Stage five ?+ +-------- + -----+ *Each stage assumes the associated GFR level has been in effect for at least three months. ?Stages 1 to 5, with or without kidney disease, indicate chronic kidney disease. Notes: Determination of stages one and two (with eGFR >59mL/min/1.73 m2) requires estimation of kidney damage for at least three months as defined by structural or functional abnormalities of the kidney, manifested by either:Pathological abnormalities or Markers of kidney damage (including abnormalities in the composition of the blood or urine or abnormalities in imaging tests). [facility]. METABOLIC PANEL (60645)2022-12-18 19:05:39 Test Item Value Reference Range Interpretation Comments NA (test code = 142 mmol/L 135-145 9522840832) K (test code = 4.4 mmol/L 3.5-5.0 0992207971) CL (test code = 108 mmol/L 98-108 8774392875) CO2 TOTAL (test code 24 mmol/L 23-31 = 7041445250) AGAP (test code = 10 2-16 4585247171) BUN (test code = 13 mg/dL 7-23 9889609473) GLUCOSE (test code = 91 mg/dL 70-110 0217389126) CREATININE (test code 0.90 mg/dL 0.50-1.04 = 0951850710) TOTAL BILI (test code 0.5 mg/dL 0.1-1.1 = 2824530258) CALCIUM (test code = 9.0 mg/dL 8.6-10.6 4687895332) T PROTEIN (test code 6.9 g/dL 6.3-8.2 = 8806393505) ALBUMIN (test code = 4.1 g/dL 3.5-5.0 0156275918) ALK PHOS (test code = 58 U/L 34-122 6229839396) ALTv (test code = 25 U/L 5-35 1742-6) AST(SGOT) (test code 19 U/L 13-40 = 6303078468) eGFR (test code = 68.3 mL/min/1.73m2 5407857076) JAXSON (test code = JAXSON) Association of Glomerular Filtration Rate (GFR) and Staging of Kidney Disease* + + +- +| GFR (mL/min/1.73 m2) ?| With Kidney Damage ?| ?Without Kidney Damage+ ------+ ----+ ------+| ?>90 ?| ?Stage one ?| ? Normal ?+ -+ + -+| ?60-89 ?| ?Stage two ?| ? Decreased GFR ? + + +- +| ?30-59 ?| ?Stage three ?| ? Stage three ? + + +- +| ?15-29 ?| ?Stage four ? | ? Stage four ?+ -+ + -+| ?<15 (or dialysis) ? ?| ?Stage five ? | ? Stage five ?+ -+ + -+ *Each stage assumes the associated GFR level has been in effect for at least three months. ?Stages 1 to 5, with or without kidney disease, indicate chronic kidney disease. Notes: Determination of stages one and two (with eGFR >59mL/min/1.73 m2) requires estimation of kidney damage for at least three months as defined by structural or functional abnormalities of the kidney, manifested by either:Pathological abnormalities or Markers of kidney damage (including abnormalities in the composition of the blood or urine or abnormalities in imaging tests). [facility]04[facility]58 Test Item Value Reference Range Interpretation Comments LIPASE (test code = 0683793224) 78 U/L 0-220 Lab Interpretation (test code = Normal 44368-3) [facility] 19:04:58 Test Item Value Reference Range Interpretation Comments LIPASE (test code = 2655659796) 78 U/L 0-220 Lab Interpretation (test code = Normal 35106-2) [facility] [id number] 18:47:54 Test Item Value Reference Range Interpretation Comments WBC (test code = 5.50 See_Comment [Automated 6690-2) message] The sy stem which generated this result transmitted reference range : 4.30 - 11.10 10*3/?L. The reference range was not used to interpret this result as normal/abnormal . RBC (test code = 4.47 See_Comment [Automated 789-8) message] The sy stem which generated this result transmitted reference range : 3.93 - 5.25 10*6/?L. The reference range was not used to interpret this result as normal/abnormal . HGB (test code = 12.8 g/dL 11.6-15.0 718-7) HCT (test code = 40.4 % 35.7-45.2 4544-3) MCV (test code = 90.4 fL 80.6-95.5 787-2) MCH (test code = 28.6 pg 25.9-32.8 785-6) MCHC (test code = 31.7 g/dL 31.6-35.1 786-4) RDW-SD (test code = 42.5 fL 39.0-49.9 61294-2) RDW-CV (test code = 13.0 % 12.0-15.5 788-0) PLT (test code = 238 See_Comment [Automated 777-3) message] The sy stem which generated this result transmitted reference range : 166 - 358 10*3/ ?L. The reference r magdiel was not used to interpret this result as normal/abnormal . MPV (test code = 9.4 fL 9.5-12.9 L 42230-8) NRBC/100 WBC (test 0.0 See_Comment [Automat ed code = 5516959190) message] The system which generated this result transmitted reference range : 0.0 - 10.0 /100 WBCs. The refer ence range was not u sed to interpret th is result as normal/abnormal . NRBC x10^3 (test code See_Comment [Auto mated = 7014854695) message] The s ystem which generated this result transmitted reference range : 10*3/?L. The reference range was not used to interpret this result as normal/abnormal . GRAN MAT (NEUT) % 62.2 % (test code = 770-8) IMM GRAN % (test code 0.40 % = 1282016122) LYMPH % (test code = 27.6 % 736-9) MONO % (test code = 7.8 % 5905-5) EOS % (test code = 1.6 % 713-8) BASO % (test code = 0.4 % 706-2) GRAN MAT x10^3(ANC) 3.42 10*3/uL 1.88-7.09 (test code = 4207101347) IMM GRAN x10^3 (test 0.00-0.06 code = 3744943785) LYMPH x10^3 (test code 1.52 10*3/uL 1.32-3.29 = 731-0) MONO x10^3 (test code 0.43 10*3/uL 0.33-0.92 = 742-7) EOS x10^3 (test code = 0.09 10*3/uL 0.03-0.39 711-2) BASO x10^3 (test code 0.01-0.07 = 704-7) Lab Interpretation Abnormal (test code = 25929-5) [facility] WITH [id number] 18:47:54 Test Item Value Reference Range Interpretation Comments WBC (test code = 5.50 See_Comment [Automated 6090-2) message] The sy stem which generated this result transmitted reference range : 4.30 - 11.10 10*3/?L. The reference range was not used to interpret this result as normal/abnormal . RBC (test code = 4.47 See_Comment [Automated 189-8) message] The sy stem which generated this result transmitted reference range : 3.93 - 5.25 10*6/?L. The reference range was not used to interpret this result as normal/abnormal . HGB (test code = 12.8 g/dL 11.6-15.0 718-7) HCT (test code = 40.4 % 35.7-45.2 4544-3) MCV (test code = 90.4 fL 80.6-95.5 787-2) MCH (test code = 28.6 pg 25.9-32.8 785-6) MCHC (test code = 31.7 g/dL 31.6-35.1 786-4) RDW-SD (test code = 42.5 fL 39.0-49.9 61009-9) RDW-CV (test code = 13.0 % 12.0-15.5 788-0) PLT (test code = 238 See_Comment [Automated 777-3) message] The sy stem which generated this result transmitted reference range : 166 - 358 10*3/ ?L. The reference r magdiel was not used to interpret this result as normal/abnormal . MPV (test code = 9.4 fL 9.5-12.9 L 03153-0) NRBC/100 WBC (test 0.0 See_Comment [Automat ed code = 4098882903) message] The system which generated this result transmitted reference range : 0.0 - 10.0 /100 WBCs. The refer ence range was not u sed to interpret th is result as normal/abnormal . NRBC x10^3 (test code See_Comment [Auto mated = 3852263226) message] The s ystem which generated this result transmitted reference range : 10*3/?L. The reference range was not used to interpret this result as normal/abnormal . GRAN MAT (NEUT) % 62.2 % (test code = 770-8) IMM GRAN % (test code 0.40 % = 7053932179) LYMPH % (test code = 27.6 % 736-9) MONO % (test code = 7.8 % 5905-5) EOS % (test code = 1.6 % 713-8) BASO % (test code = 0.4 % 706-2) GRAN MAT x10^3(ANC) 3.42 10*3/uL 1.88-7.09 (test code = 9019094133) IMM GRAN x10^3 (test 0.00-0.06 code = 4832308628) LYMPH x10^3 (test code 1.52 10*3/uL 1.32-3.29 = 731-0) MONO x10^3 (test code 0.43 10*3/uL 0.33-0.92 = 742-7) EOS x10^3 (test code = 0.09 10*3/uL 0.03-0.39 711-2) BASO x10^3 (test code 0.01-0.07 = 704-7) Lab Interpretation Abnormal (test code = 83458-1) [facility] [id number] 18:32:00 Test Item Value Reference Range Interpretation Comments POCT PREG (test code = 1605) negative On board controls acceptable with C present Line (test code = 3574) POCT PREG LOT # (test code = 3575) [id number] POCT PREG TEST DATE (test 97908178 code = 3576) Lab Interpretation (test code = Normal 50085-0) [facility] [id number] 18:32:00 Test Item Value Reference Range Interpretation Comments POCT PREG (test code = 1605) negative On board controls acceptable with C present Line (test code = 3574) POCT PREG LOT # (test code = 3575) [id number] POCT PREG TEST DATE (test 68626050 code = 3576) Lab Interpretation (test code = Normal 70866-8) [facility]- MRI UP JNT W/CONT [id number] 13:02:00 Patient Name: EUNICE HOOD Unit No: [id number] EXAMS: CPT CODE: [id number] MRI UP JNT W/[place] [address] EXAM: MRI ARTHROGRAM RIGHT SHOULDER DIAGNOSIS: 1. Supraspinatus tendinosis. No evidenceof rotator cuff tear. 2. Minimally displaced anterior inferior labral tear. Mild diffuse labral degen eration. INDICATION: Right shoulder pain TECHNIQUE: Paracoronal fat [...] a combination of equal parts Isovue-300 and gadoliniumis instilled into the joint space. The patient tolerated the procedure well. 0.5 minutes of fluoroscopy time was used on this exam. Post arthrographic films show no extravasation of contrast outside the joint. at 1302 Reported and signed by: Sumeet Chu MD [facility] NAME: EUNICE HOOD Dalila Rodriguez [facility] PHYS: Brennen Loyola MD : 1980 AGE: 38 SEX: F [place] [address] LOC: Y.RAD PHONE #: [phone] EXAM DATE: 02/28/2019 STATUS: REG CLI FAX #: [phone] RAD #: D/CDT PAGE 1 Signed Report (CONTINUED) Patient Name: EUNICE HOOD Unit No: [id number] EXAMS:CPT CODE: [id number] MRI UP JNT W/[place] [address] (Continued) CC: Brennen Sanderson MD Technologist: DORY HASKINS. RT(R) Transcribed D/ (6552) RenettaG [facility] NAME:EUNICE HOOD [address] [place] [address] PHYS: Brennen Loyola MD : 1980 AGE: 38 SEX:F [place] [address] LOC: Y.RAD PHONE #: [phone] EXAM DATE: 02/28/2019STATUS: REG CLI FAX #: [phone] RAD #: D/C DT PAGE 2 Signed Report Patient Name: EUNICE HOOD Unit No: [id number] EXAMS: CPT CODE: [id number] MRI UP JNT W/[place] [address] (Continued) OrigPrint D/T: S: 02/28/2019 (1306) [facility] NAME: EUNICE HOOD [address] [place] [address] PHYS: Brennen Loyola MD : 1980 AGE: 38 SEX: F [place] [id number] LOC: Y.RAD PHONE #: [phone] EXAM DATE: 02/28/2019 STATUS: REG CLI FAX #: [phone] RAD #: D/C DT PAGE 3 Signed Report- XR ARTHROGRAM LDR [id number] 13:02:00 Patient Name: EUNICE HOOD Unit No: [id number] EXAMS: CPT CODE: [id number] [place] [address] EXAM: MRI ARTHROGRAM RIGHT SHOULDER DIAGNOSIS: 1. [...] joint arthrosis is noted. Rotator cuff: Supraspinatus te ndinosis. The subscapularis, and persistent teres minor tendons [...] right shoulder joint under fluoroscopic control using steriletechnique. A total volume of 15 mL consisting of a combination of equal parts Isovue-300 and gadolinium is instilled into the joint space. The patient tolerated the procedure well. 0.5 minutes of fluoro scopy time was used on this exam. Post arthrographic films show no extravasation of contrast outsidethe joint. at 1302 Reported and signedby: Sumeet Chu MD [facility] NAME: EUNICE HOOD [address] [facility] PHYS: Brennen Loyola MD : 1980 AGE: 38 SEX: F [place] [address] LOC: Y.RAD PHONE #: [phone] EXAM DATE: 02/28/2019 STATUS: REG CLI FAX #: [phone] RAD #: D/C DT PAGE 1 Signed Report (CONTINUED) Patient Name: EUNICE HODO Unit No: [id number] EXAMS: CPT CODE: [id number] [place] [address] (Continued) CC: Brennen Sanderson MD Technologist:Lian Brandt RTAnastacio(R) Transcribed D/ (1302) tDENIZGVG [facility] NAME: EUNICE HOOD [address] [place] [address] PHYS: rBennen Loyola MD : 1980 AGE: 38 SEX: F [place] [address] LOC: Y.RAD PHONE #: [phone] EXAM DATE: 02/28/2019 STATUS: REG CLI FAX #: [phone] RAD #: D/C DT PAGE 2 Signed Report Patient Name: EUNICE HOOD Unit No: [id number] EXAMS: CPT CODE: [id number] [place] [address] (Continued) Orig Print D/T: S: 02/28/2019 (1306) [facility] NAME: EUNICE HOOD [address] [place] [address] PHYS: Brennen Loyola MD : 1980 AGE: 38 SEX: F [place] [address] LOC: Y.RAD PHONE #: [phone] EXAM DATE: 02/28/2019 STATUS: REG CLI FAX #: [phone] RAD #: D/C DT PAGE 3 Signed Report- XR FLUORO [id number] 19:32:00 Patient Name: EUNICE HOOD Unit No: [id number] EXAMS: CPT CODE: [id number] XR FLUORO [id number] Fluoroscopically guided injection of the right shoulder with steroid and lidocaine COMPARISON:No prior exams available. FINDINGS: After informed consent was obtained a needle was placed in the right shoulder with fluoroscopic guidance. Its position was confirmed by injecting Isovue 300 and obtaining an AP radiograph. Subsequently 2 mL of Kenalog 40 mg per cc and 2 mL of 1 percent lidocaine wasinjected. No immediate complications were encountered. 10 seconds of fluoroscopy time was utilized. IMPRESSION: Technically successful steroid injection of the right shoulder at 1932 Reported and signed by: Bolivar Castellanos M.D. CC: Brennen Sanderson MD Technologist: HIEN STYLES, RT(R) Transcribed D/ (1931) temo DIEHLJ [facility] NAME: EUNICE HOOD [address] [place] [address] PHYS: Brennen Loyola MD : 1980 AGE: 38 SEX: F [place] [address] LOC: Y.RAD PHONE #: [phone] EXAM DATE: 10/08/2018 STATUS: REG CLI FAX #: [phone] RAD #: D/C DT PAGE 1 Signed Report Patient Name: EUNICE HOOD Unit No: [id number] EXAMS: CPT CODE: [id number] XRFLUORO NDL 11455 (Continued) Orig Print D/T: S: 10/08/2018 (1934) [facility] NAME:EUNICE HOOD [address] [place] [address] PHYS: Brennen Loyola MD : 1980 AGE: 38 SEX: F [place] [address] LOC: Y.RAD PHONE #: [phone] EXAM DATE: 10/08/2018STATUS: REG CLI FAX #: [phone] RAD #: D/C DT PAGE 2 Signed Report"
[2023-01-04] MEDS ORDERED: MORPHINE 4 MG/ML SYR ONE (17:40)
[2023-01-04] MEDS ORDERED: NA CHLORIDE 0.9% 1,000 ML ONE (17:40)
[2023-01-04] MEDS ORDERED: ONDANSETRON 4 MG/2 ML VIAL ONE ×2 (17:40→18:54)
[2023-01-04 17:47] LABS: Absolute Lymphocytes (CBC) 1.7 K/uL (0.7-4.9); Hematocrit 37.8 % (36.0-45.0); Lymphocytes % 29.1 % (15.3-44.8); MPV 7.4 fL (7.6-11.3); RBC Red Blood Cell Count 4.39 M/uL (3.86-4.86)
[2023-01-04 17:53] LABS: Specific Gravity 1.005 (1.005-1.030); Urine Bacteria <20 /HPF (<20); Urine Bilirubin NEGATIVE (Negative); Urine Blood Negative (Negative); Urine Clarity Clear (Clear); Urine Color Light-Yellow (Yellow); Urine Crystals Unidentified Few /HPF (None Seen); Urine Glucose NEGATIVE (Negative); Urine Protein NEGATIVE (Negative); Urine RBC <5 /HPF (None Seen); Urine Urobilinogen Normal (Normal); Urine pH 6.5 (5.0-7.0)
[2023-01-04 18:05] LABS: Bilirubin Total 0.2 mg/dL (0.2-1.0); Potassium 3.4 mEq/L (3.5-5.1); Protein, Total 7.5 g/dL (6.4-8.2)
[2023-01-04 19:23] LABS: Specific Gravity 1.005 (1.005-1.030)
--- NOTE | 2023-01-04 19:53 | RAD REPORT ---
EXAM DESCRIPTION: CTAbdomen Pelvis W Contrast - 01/04/2023 7:47 pm CLINICAL HISTORY: Abdominal pain. left side abdomen pain COMPARISON: <Comparisons> TECHNIQUE: Biphasic CT imaging of the abdomen and pelvis was performed with 100 ml non-ionic IV cont rast. All CT scans are performed using dose optimization technique as appropriate and may include automated exposure control or mA/KV adjustment according to patient size. FINDINGS: The lung bases are clear. The liver, spleen, pancreas, adrenal glands and kidneys are within normal limits. No bowel obstruction, free air, free fluid or abscess. Absent appendix. Diverticulosis of the sigmoi d colon is seen with 2.6 cm circumferentially thickened region in the left lower quadrant of the sigm oid colon. No evidence of significant lymphadenopathy. No suspicious bony findings. IMPRESSION: Diverticulosis is present of the sigmoid colon. There is 2.6 cm section of the sigmoid c olon which shows circumferential wall thickening. Followup colonoscopy to directly visualize this reg ion is recommended as a mass is possible.
--- NOTE | 2023-01-04 20:33 | EDPHYS ---
Physician Documentation [facility] Name: Eunice Arango Age: 42 yrs Sex: Female : 1980 Arrival Date: 01/04/2023 Time: 16:05 Bed DX3 Private MD: [facility] ED Physician Donta Kerr HPI: 01/04 16:35 This 42 yrs old Female presents to ER via Ambulatory with complaints of Abdominal Pain, cp Back Pain. 16:35 The patient presents with abdominal pain in the left lower quadrant, abdominal cp distention in the lower abdomen. The symptoms radiate to left back. Associated signs and symptoms: Pertinent positives: diarrhea. 16:35 Severity of pain: in the emergency department the pain is unchanged despite home cp interventions. 16:35 Patient reports left lower abdomen pain and left flank pain. Reports history of cp diverticulitis and recently finished prescribed antibiotics. Patient reports diarrhea, denies blood in stool. Historical: - Allergies: 16:30 Cipro; aa5 16:30 Codeine; aa5 - PMHx: 16:30 Anxiety; Diverticulitis; EMBOLISM; Migraine; Rheumatoid Arthritis; aa5 - PSHx: 16:30 Appendectomy; Cholecystectomy; Total abdominal hysterectomy; aa5 - Immunization history:: Adult Immunizations unknown. - Social history:: Smoking status: Patient denies any tobacco usage or history of. ROS: 16:40 Constitutional: Negative for body aches, chills, fever, poor PO intake. cp 16:40 Cardiovascular: Negative for chest pain, palpitations. cp 16:40 Respiratory: Negative for cough, shortness of breath, wheezing. 16:40 Abdomen/GI: Positive for abdominal pain, nausea, diarrhea, Negative for vomiting, constipation, black/tarry stool, rectal bleeding. Exam: 16:45 Constitutional: The patient appears in no acute distress, alert, awake, non-toxic, well cp developed, well nourished, obese, uncomfortable. 16:45 Head/Face: Normocephalic, atraumatic. cp 16:45 Eyes: Periorbital structures: appear normal, Conjunctiva: normal, no exudate, no injection, Sclera: no appreciated abnormality, Lids and lashes: appear normal, bilaterally. 16:45 ENT: External ear(s): are unremarkable, Nose: is normal, Mouth: Lips: moist, Oral mucosa: pink and intact, moist, Posterior pharynx: is normal, airway is patent, no erythema, no exudate. 16:45 Chest/axilla: Inspection: normal. 16:45 Cardiovascular: Rate: normal, Rhythm: regular, Edema: is not appreciated, JVD: is not appreciated. 16:45 Respiratory: the patient does not display signs of respiratory distress, Respirations: normal, no use of accessory muscles, no retractions, labored breathing, is not present, Breath sounds: are clear throughout, no decreased breath sounds, no stridor, no wheezing. 16:45 Abdomen/GI: Inspection: abdomen appears normal, Bowel sounds: active, all quadrants, Palpation: soft, in all quadrants, moderate abdominal tenderness, in the posterior aspect of left lateral abdomen, anterior aspect of left lateral abdomen and left lower quadrant, rebound tenderness, is not appreciated, involuntary guarding, is not appreciated. 16:45 Back: CVA tenderness, is absent. 16:45 Skin: no rash present. Vital Signs: 16:30 BP 146 / 86; Pulse 89; Resp 16 S; Temp 97.9(TE); Pulse Ox 100% on R/A; Weight 95.25 kg aa5 (R); Height 5 ft. 3 in. (R); 21:00 BP 140 / 82; Pulse 85; Resp 15 S; Pulse Ox 99% on R/A; ha1 21:48 BP 135 / 84; Pulse 72; Resp 19; Pulse Ox 99% on R/A; kd3 16:30 Body Mass Index 37.20 (95.25 kg, 160.02 cm) aa5 MDM: 16:28 Patient medically screened. 17:00 Differential diagnosis: diverticulitis, non-specific abd pain, Pyelonephritis, cp Ureterolithiasis, urinary tract infection, colitis. 20:32 Data reviewed: vital signs, nurses notes, lab test result(s), radiologic studies, CT cp scan. 20:32 I considered the following discharge prescriptions or medication management in the emergency department Medications were administered in the Emergency Department. See MAR. Counseling: I had a detailed discussion with the patient and/or guardian regarding: the historical points, exam findings, and any diagnostic results supporting the discharge/admit diagnosis, lab results, radiology results, the need for outpatient follow up, a talent advisor. Response to treatment: the patient's symptoms have markedly improved after treatment, and as a result, I will discharge patient. Special discussion: Based on the patient's Hx, exam, and Dx evaluation, there is no indication for emergent surgery or inpatient Tx. It is understood by the patient/guardian that if the Sx's persist or worsen they need to return immediately for re-evaluation. 01/04 16:33 Order name: CBC with Diff; Complete Time: 17:58 cp 01/04 17:58 Interpretation: Normal except: MPV 7.4. cp 05/ 16:33 Order name: CMP; Complete Time: 18:29 cp / 18:29 Interpretation: Normal except: K 3.4; CL 111; CRE 1.10; GFR 64. cp 01/04 16:33 Order name: Lipase; Complete Time: 18:29 cp 01/04 16:33 Order name: Urinalysis w/ reflexes; Complete Time: 17:58 cp 01/04 17:58 Interpretation: Normal except: UESTR 500. cp 01/04 16:33 Order name: Lactate w/ 2H reflex if indic.; Complete Time: 18:29 cp 01/04 18:29 Interpretation: Reviewed. cp 01/04 16:33 Order name: PREGU; Complete Time: 20:08 cp 01/04 20:08 Interpretation: Reviewed. cp 01/04 17:31 Order name: CT Abd/Pelvis - PO and IV Contrast; Complete Time: 20:08 cp 01/04 16:33 Order name: IV Saline Lock; Complete Time: 17:32 cp 01/04 16:33 Order name: Labs collected and sent; Complete Time: 17:32 cp Administered Medications: 17:42 Drug: NS 0.9% IV 1000 ml Route: IV; Rate: 1 bolus; Site: right antecubital; iw 17:42 Drug: morphine IVP or IV 4 mg Route: IVP; Infused Over: 4 mins; Site: right antecubital;iw 21:48 Follow up: Response: No adverse reaction; Pain is decreased kd3 17:42 Drug: Ondansetron IVP 4 mg Route: IVP; Site: right antecubital; iw 21:48 Follow up: Response: No adverse reaction kd3 18:50 Drug: Ondansetron IVP 4 mg Route: IVP; Site: right antecubital; iw 21:48 Follow up: Response: No adverse reaction kd3 21:15 Drug: MethylPrednisoLONE IVP 80 mg Route: IVP; Site: right antecubital; ha1 21:47 Follow up: Response: No adverse reaction kd3 21:18 Drug: HYDROmorphone IVP 1 mg Route: IVP; Site: right antecubital; ha1 21:47 Follow up: Response: No adverse reaction; Pain is decreased kd3 21:20 Drug: Potassium PO Effervescent Tablet 25 mEq Route: PO; ha1 21:47 Follow up: Response: No adverse reaction kd3 21:20 Drug: Trimethoprim-Sulfamethoxazole PO (160 mg-800 mg (DS) 1 tablet Route: PO; ha1 21:47 Follow up: Response: No adverse reaction kd3 21:20 Drug: metroNIDAZOLE PO 500 mg Route: PO; ha1 21:47 Follow up: Response: No adverse reaction kd3 Disposition Summary: 01/04/23 20:33 Discharge Ordered Location: Home cp Problem: an ongoing problem cp Symptoms: have improved cp Condition: Stable cp Diagnosis - Diverticulosis of large intestine without perforation or abscess without bleeding cp - Indeterminate colitis cp Followup: cp - With: Private Physician - When: 2 - 3 days - Reason: Recheck today's complaints Discharge Instructions: - Discharge Summary Sheet cp - High-Fiber Eating Plan cp - Diverticulosis cp - Colitis cp Forms: - Medication Reconciliation Form cp - Thank You Letter cp - Antibiotic Education cp - Prescription Opioid Use cp Prescriptions: - Zofran 4 mg Oral Tablet - take 1 tablet by ORAL route every 12 hours As needed; 20 tablet; Refills: 0, cp Product Selection Permitted - Metronidazole 500 mg Oral Tablet - take 1 tablet by ORAL route every 8 hours; 30 tablet; Refills: 0, Product cp Selection Permitted - Bactrim DS 800-160 mg Oral Tablet - take 1 tablet by ORAL route every 12 hours for 10 days; 20 tablet; Refills: 0, cp Product Selection Permitted - dicyclomine 20 mg Oral Tablet - take 1 tablet by ORAL route 4 times per day; 30 tablet; Refills: 0, Product cp Selection Permitted Signatures: Dispatcher [employer] Antonia Diaz RN RN iw Calderon, Audri, RN RN aa5 Donta Iraheta PA PA cp Rosy Kendrick RN RN ha1 River, Philly RN kd3
--- NOTE | 2023-01-04 20:33 | ER ---
Nurse's Notes [facility] Name: Eunice Arango Age: 42 yrs Sex: Female : 1980 Arrival Date: 01/04/2023 Time: 16:05 Bed DX3 Private MD: Delmar Norton Diagnosis: Diverticulosis of large intestine without perforation or abscess without bleeding;Indeterminate colitis Presentation: 01/04 16:30 Chief complaint: Patient states: "my back is hurting and my stomach is hurting on the aa5 left side". Pt reports nausea/vomiting/diarrhea. Coronavirus screen: diarrhea, nausea, vomiting. Ebola Screen: Patient denies travel to an Ebola-affected area in the 21 days before illness onset. Initial Sepsis Screen: Does the patient meet any 2 criteria? No. Patient's initial sepsis screen is negative. Does the patient have a suspected source of infection? No. Patient's initial sepsis screen is negative. Risk Assessment: Do you want to hurt yourself or someone else? Patient reports no desire to harm self or others. Onset of symptoms was January 04, 2023. 16:30 Acuity: ALIS 3 aa5 16:30 Method Of Arrival: Ambulatory aa5 Historical: - Allergies: 16:30 Cipro; aa5 16:30 Codeine; aa5 - PMHx: 16:30 Anxiety; Diverticulitis; EMBOLISM; Migraine; Rheumatoid Arthritis; aa5 - PSHx: 16:30 Appendectomy; Cholecystectomy; Total abdominal hysterectomy; aa5 - Immunization history:: Adult Immunizations unknown. - Social history:: Smoking status: Patient denies any tobacco usage or history of. Screenin:50 [facility] ED Fall Risk Assessment (Adult) History of falling in the last 3 months, iw including since admission. Abuse screen: Denies threats or abuse. Denies injuries from another. Nutritional screening: No deficits noted. Tuberculosis screening: No symptoms or risk factors identified. Assessment: 18:19 Reassessment: Pt done with oral contrast. CT notified. mb9 18:50 Reassessment: Patient appears in no apparent distress at this time. Patient and/or iw family updated on plan of care and expected duration. Pain level reassessed. Patient is alert, oriented x 3, equal unlabored respirations, skin warm/dry/pink. 19:23 General: Appears in no apparent distress. Behavior is calm, cooperative. Pain: kd3 Complains of pain in abdomen. Neuro: Level of Consciousness is awake, alert, obeys commands, Oriented to person, place, time, situation. Cardiovascular: Patient's skin is warm and dry. Respiratory: Airway is patent Trachea midline Respiratory effort is even, unlabored, Respiratory pattern is regular, symmetrical. GI: Bowel sounds present X 4 quads. Abd is soft X 4 quads. 21:00 Reassessment: Patient and/or family updated on plan of care and expected duration. Pain ha1 level reassessed. Patient is alert, oriented x 3, equal unlabored respirations, skin warm/dry/pink. pain 7/10. Vital Signs: 16:30 BP 146 / 86; Pulse 89; Resp 16 S; Temp 97.9(TE); Pulse Ox 100% on R/A; Weight 95.25 kg aa5 (R); Height 5 ft. 3 in. (R); 21:00 BP 140 / 82; Pulse 85; Resp 15 S; Pulse Ox 99% on R/A; ha1 21:48 BP 135 / 84; Pulse 72; Resp 19; Pulse Ox 99% on R/A; kd3 16:30 Body Mass Index 37.20 (95.25 kg, 160.02 cm) aa5 ED Course: 16:08 Patient arrived in ED. mr 16:08 Delmar Norton DO is Private Physician. mr 16:09 [facility] cp 16:09 Rolando Garcia MD is Attending Physician. cp 16:30 Arm band placed on. aa5 16:31 Triage completed. aa5 17:30 Inserted saline lock: 22 gauge in right antecubital area, using aseptic technique. iw Blood collected. 17:32 CBC with Diff Sent. iw 17:32 CMP Sent. iw 17:32 Lipase Sent. iw 17:32 Lactate w/ 2H reflex if indic. Sent. iw 17:35 Radiology exam delayed due to lab results not completed at this time. (BUN/Creatinine) [id number] IV insertion attempt and/or patient not having appropriate IV at this time. 17:42 Antonia Hernandez, RN is Primary Nurse. iw 17:42 PREGU Sent. iw 17:42 Urinalysis w/ reflexes Sent. iw 18:56 Donta Kerr MD is Attending Physician. cp 19:00 No provider procedures requiring assistance completed. iw 19:23 Patient has correct armband on for positive identification. kd3 19:49 CT Abd/Pelvis - PO and IV Contrast In Process Unspecified. EDMS Administered Medications: 17:42 Drug: NS 0.9% IV 1000 ml Route: IV; Rate: 1 bolus; Site: right antecubital; iw 17:42 Drug: morphine IVP or IV 4 mg Route: IVP; Infused Over: 4 mins; Site: right antecubital;iw 21:48 Follow up: Response: No adverse reaction; Pain is decreased kd3 17:42 Drug: Ondansetron IVP 4 mg Route: IVP; Site: right antecubital; iw 21:48 Follow up: Response: No adverse reaction kd3 18:50 Drug: Ondansetron IVP 4 mg Route: IVP; Site: right antecubital; iw 21:48 Follow up: Response: No adverse reaction kd3 21:15 Drug: MethylPrednisoLONE IVP 80 mg Route: IVP; Site: right antecubital; ha1 21:47 Follow up: Response: No adverse reaction kd3 21:18 Drug: HYDROmorphone IVP 1 mg Route: IVP; Site: right antecubital; ha1 21:47 Follow up: Response: No adverse reaction; Pain is decreased kd3 21:20 Drug: Potassium PO Effervescent Tablet 25 mEq Route: PO; ha1 21:47 Follow up: Response: No adverse reaction kd3 21:20 Drug: Trimethoprim-Sulfamethoxazole PO (160 mg-800 mg (DS) 1 tablet Route: PO; ha1 21:47 Follow up: Response: No adverse reaction kd3 21:20 Drug: metroNIDAZOLE PO 500 mg Route: PO; ha1 21:47 Follow up: Response: No adverse reaction kd3 Medication: 18:30 VIS not applicable for this client. iw Outcome: 20:33 Discharge ordered by . cp 21:49 Patient left the ED. kd3 Signatures: Dispatcher [employer] EDKS Karen Nieves Irene RN REINALDO iw Gayle Kamara RN RN aa5 Donta Iraheta PA PA cp Doucette, Kyli, RN RN kd3 Rosy Kendrick RN RN 1 Arlette Hutchins0 Breneman, Kerry, RN RN mb9
[2023-01-04] MEDS ORDERED: HYDROMORPHONE HCL 1 MG/ML INJ ONE (21:18)
[2023-01-04] MEDS ORDERED: metroNIDAZOLE 500 MG TABLET ONE (21:18)
[2023-01-04] MEDS ORDERED: SMZ./TMP. 800/160 MG TABLET ONE (21:19)
[2023-01-04] MEDS ORDERED: POTASSIUM 25 MEQ EFFERV TAB ONE (21:19)
[2023-01-04] MEDS ORDERED: METHYLPREDNISOLONE 40 MG INJ ONE (21:19)
[2023-01-04 22:15] VITALS: TEMP 97.9
[2023-01-04 22:17] VITALS: O2SAT 99
[2023-01-04 22:18] VITALS: BP 135/84
== END 2023-01-04 21:49 | disposition home or self-care (01) ==
LOC: ER 16:05
DX: K57.30 Diverticulosis of large intestine without perforation or abscess without bleeding (principal); K52.3 Indeterminate colitis; Z88.1 Allergy status to other antibiotic agents; Z88.5 Allergy status to narcotic agent
CPT/HCPCS: 85025; 81001; 36415; 81025; 83605; 83690; 80053; 74177; 96375; 96374; 99284; Q9967; J1170; J2405 ×2; J7030; J2920

== ENCOUNTER 2023-04-06 14:23 | Emergency (ER) | payer BC ==
--- OUTSIDE RECORDS SUMMARY | 2023-04-06 14:31 | XMS REPORT | Continuity of Care Document ---
:1980 Author Organization [facility] [place] [facility] t Address [address] [facility] [place] [address] Care Team Providers Name Role Phone SHARPLESS Primary Care Physician Unavailable Delmar Norton Attending Clinician Unavailable Prasanna Hernandez Attending Clinician Unavailable Kendra Sanchez Attending Clinician Unavailable Sailaja Almeida Attending Clinician Unavailable SHANNAN AMEZQUITA Attending Clinician Unavailable JANE CUELLAR Attending Clinician Unavailable BERYL LONG Attending Clinician Unavailable BERYL LONG Attending Clinician Unavailable Rosmery Medina MA Attending Clinician Unavailable CHAPIS GREY Attending Clinician Unavailable Chapis Grey MD Attending Clinician Aman LOZANO, Aravind Betancur Attending Clinician [phone] Pipo Livingston CRNA Attending Clinician Doctor Unassigned, [place] Attending Clinician Unavailable PAMELA PRAKASH Attending Clinician Unavailable Ariel LOZANO, Pamela Attending Clinician IVETT MORELOS Attending Clinician Unavailable Amrik Macedo MD Attending Clinician Mary LOZANO, Sherie Crowley Attending Clinician Morris LOZANO, Ivett Attending Clinician NIRANJAN REDYD Attending Clinician Unavailable Naeem Ambrosio MD Attending Clinician Niranjan Reddy MD Attending Clinician Nicolas Cardoso MD Attending Clinician ZIYAD PIZARRO Attending Clinician Unavailable NICOLAS CARDOSO Attending Clinician Unavailable Shannan Amezquita MD Attending Clinician Only, Adc Test Attending Clinician Unavailable SHANNAN AMEZQUITA Admitting Clinician Unavailable CHAPIS GREY Admitting Clinician Unavailable IVETT MORELOS Admitting Clinician Unavailable NIRANJAN REDDY Admitting Clinician Unavailable Shannan Amezquita MD Admitting Clinician Payers Payer Name Policy Type Policy Number Effective Date Expiration Date S pinky HIM BCBS BLUE [id number] 2018 ADVANTAGE HMO 00:00:00 BCBS ADV HMO [id number] 2022 EXCHANGE 00:00:00 Blue [employer] Blue 6 [id number] 2020 [facility] Shield HMO 00:00:00 [facility] Problems Condition Condition Condition Status Onset Resolution Last Treating Co mments Source Name Details Category Date Date Treatment Clinician Date Diverticul Diverticul Disease Active [facility] it[facility] itis 5-10 [facility] 00:00: Medical 00 Center Nausea Nausea Disease Active [facility] 01-09 [facility] 00:00: Medical 00 Center Obesity Obesity Disease Active Univers (BMI (BMI 9-18 ity of 30-39.9) 30-39.9) 00:00: [place] 00 Medical Branch Dissociati Dissociati Disease Active 2013-[address] ve ve 2-08 kes convulsion convulsion 00:00: Me dical s s 00 Center Routine Routine Disease Active Univers 3-15 [place] Disturbanc Disturbanc Disease Active U nivers es of es of 9-22 ity of sulphur-be sulphur-be 00:00: [place] [facility] 00 Medical amino-acid amino-acid Br anch metabolism metabolism [id number] Memory Problem Common deficit [facility] [id number] Panic Problem Common attacks [facility] [id number] Depression Problem Co mmon with [facility] anxiety [facility] [id number] Unsteady Problem Commo n gait when [facility] walking [facility] [id number] Supplement Problem C ommon 07 al oxygen [facility] dependent [facility] [id number] Complicate Problem Co mmon d migraine [facility] [id number] 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 [facility] Somnolence Somnolence Problem C ommon , daytime [facility] Diverticul Diverticul Problem C ommon itis itis [facility] [id number] Acute Problem Common diverticul [facility] itis [facility] [id number] Sleep Problem Common apnea in [facility] adult [facility] [id number] Chronic Problem Common fatigue [facility] [id number] Vitamin D Problem Comm on deficiency [facility] [id number] Situationa Problem Com mon l anxiety [facility] [id number] Diverticul Problem Co mmon osis [facility] [id number] Primary Problem Common hypertensi [facility] on [facility] [id number] Seasonal Problem Comm on allergic Spirit rhinitis, - [facility] unspecifie [facility] [id number] Primary Problem Common insomnia [facility] [id number] Acanthosis Problem Co mmon nigricans [facility] [id number] Primary Problem Comm on osteoarthr Spirit itis of - [facility] left shoulder [facility] [id number] Stress Problem Common [facility] Sigmoid Sigmoid Disease Resolve 2023-01-10 2023-01-[address] diverticul diverticul d 01-10 00:00:00 01:44:15 [facility]: Medical 00 Center Allergies, Adverse Reactions, Alerts Allergy Allergy Status Severity Reaction(s) Onset Inactive Treating Comm ents Source Name Type Date Date Clinician CIPROFLO Allergy Active N\\T\\V [facility] XACIN 01-09 00:00: 00 CODEINE Allergy Active N\\T\\V [facility] 01-09 00:00: 00 Ciproflo Propensi Active Nausea And [facility] xacin ty to Vomiting 01-09 [facility] adverse 00:00: Medical reaction 00 [place] [facility] Codeine Propensi Active Nausea And [facility] ty to Vomiting 01-09 [facility] adverse 00:00: Medical reaction 00 [place] [facility] ciproflo DA Active [facility] xacin 6-28 [place] 00:00: [facility] ciproflo DA Active [facility] xacin 2-05 [place] 00:00: Orthope 00 dic [facility]osp[facility] Ciproflo Propensi Active Nausea Univer s xacin ty to and/or 05-21 ity of adverse Vomiting 00:00: [place] reaction 00 Medical s Branch Codeine Propensi Active Nausea Univers ty to and/or 918 ity of adverse Vomiting 00:00: [place] reaction Medical s Branch CIPROFLO DRUG Active N/V Univers XACIN INGREDI 9-18 ity of 00:00: [place] [facility] CODEINE DRUG Active N/V 2018 Univers INGREDI 9-18 ity of 00:00: Medical Branch NO KNOWN Allergy Active [facility] ciproflo ciproflo Active vomiting Comm on xacin xacin [facility] Social History Social Habit Start Date Stop Date Quantity Comments Source History of tobacco Cigarette Smoker University of use [facility] Gender identity Universit y [facility] Sexual orientation Univer sity [facility] Alcohol intake 2023-03-23 2023-03-23 Ex-drinker [facility] 00:[facility]00 00:00:00 (finding) [facility] Exposure to 2023-03-12 2023-03-[address] [facility] SARS-CoV-2 (event) 00:00:00 11:40:00 [facility] Tobacco use and 2023-01-23 2023-01-23 Smokeless tobacco Un iversity of exposure 00:00:00 00:00:[address] [facility] Cigarettes smoked 2023-01-23 2023-01-23 Univers ity of current (pack per 00:00:00 00:00:00 [facility] ) - Reported Branch Cigarette 2023-01-23 2023-01-23 University of pack-years 00:00:00 00:00:00 [facility] History of Social 2021-05-04 2021-05-04 Univers ity of function 00:00:00 00:00:00 [facility] Alcohol Comment 2013-12-18 2013-12-[address] [facility] 00:00:00 00:00:00 [facility] Sex Assigned At [address] [facility] kes 00:00:00 00:00:00 [facility] Smoking Status Start Date Stop Date Source Smokes tobacco daily 2023-01-23 00:00:00 Univers ity [facility] Never Smoker [facility] Ex-smoker 2013-12-18 00:00:00 2013-12-18 00:00:[address] [facility] Medications Ordered Filled Start Stop Current Ordering Indication Dosage Frequency Signature Comments Components Source Medication Medication Date Date Medication? Clinician (SIG) Name Name evolocumab Yes 140mg Q14D Inject [address] (Repatha 7-22 mg [facility] Syringe) 12:21: subcutaneo Med ical 140 mg/mL 01 usly every Cent er Syrg 14 (fourteen) days. evolocumab Yes 140mg Q14D Inject [address] (Repatha 7-22 mg [facility]ukes Syringe) 12:21: subcutaneo Med ical 140 mg/mL 01 usly every Cent er Syrg 14 (fourteen) days. escitalopra 2023-0 Yes 20mg QD Take [address] m oxalate 7-21 tablet (20 Luke s (LEXAPRO) 12:21: mg total) Med ical 20 MG 25 by mouth Center tablet daily. eszopiclone 3-0 Yes 3mg Take [address] (LUNESTA) 1 7-21 tablets (3 Talisha kes MG tablet 12:21: mg total) Med ical 25 by mouth Center every night as needed Take immediatel y before bedtime.. rivaroxaban 2022-0 Yes Take by [facility] (XARELTO) 7-21 mouth [facility] 10 mg 12:21: daily with Medica l tablet 25 dinner. Center montelukast 3-0 Yes 10mg QD Take [address] (SINGULAIR) -21 tablet (10 Talisha kes 10 mg 12:21: mg total) Medical tablet 25 by mouth Center nightly. cyanocobala 3-0 Yes 1000ug QD Take [address] min - tablet [facility] (VITAMIN 12:21: (1,000 mcg Med ical B-12) 1000 25 total) by Cent er MCG tablet mouth daily. hydrOXYchlo 2023-0 Yes Q.5D Take by [facility] roQUINE 7-21 mouth 2 [facility] (PLAQUENIL) 12:21: (two) Medic al 200 mg 25 times Center tablet daily. topiramate 2023-0 Yes 50mg QD Take 1 [facility] t (TOPAMAX) 7-21 tablet (50 Luke s 50 MG 12:21: mg total) Medical tablet 25 by mouth Center daily. hydrOXYchlo 2023-0 Yes Q.5D Take by [facility] roQUINE 7-21 mouth 2 [facility] (PLAQUENIL) 12:21: (two) Medic al 200 mg 25 times Center tablet daily. topiramate 2023-0 Yes 50mg QD Take 1 [facility] t (TOPAMAX) 7-21 tablet (50 Luke s 50 MG 12:21: mg total) Medical tablet 25 by mouth Center daily. evolocumab 2023-0 Yes 140mg Q14D Inject [address] (Repatha 7-21 mg [facility]ukes Syringe) 12:21: subcutaneo Med ical 140 mg/mL 25 usly every Cent er Syrg 14 (fourteen) days. folic acid 2023-0 Yes 1mg Q.5D Take 1 [facility] t (FOLVITE) 1 7-21 tablet (1 [facility] es MG tablet 12:21: mg total) Med ical 25 by mouth 2 Center (two) times daily. traZODone 2023-0 Yes 50mg QD Take [address] (DESYREL) 7-21 tablet (50 Luke s 50 MG 12:21: mg total) Medical tablet 25 by mouth Center nightly. escitalopra 2022-0 Yes 20mg QD Take [address] m oxalate 7- tablet (20 Luke s (LEXAPRO) 12:21: mg total) Med ical 20 MG 25 by mouth Center tablet daily. eszopiclone 2022-0 Yes 3mg Take [address] (LUNESTA) 1 7-21 tablets (3 Talisha kes MG tablet 12:21: mg total) Med ical 25 by mouth Center every night as needed Take immediatel y before bedtime.. rivaroxaban 2022-0 Yes Take by [facility] (XARELTO) 7-21 mouth [facility] 10 mg 12:21: daily with Medica l tablet 25 dinner. Center montelukast 2022-0 Yes 10mg QD Take [address] (SINGULAIR) - tablet (10 Talisha kes 10 mg 12:21: mg total) Medical tablet 25 by mouth Center nightly. cyanocobala 2022-0 Yes 1000ug QD Take [address] min - tablet [facility] (VITAMIN 12:21: (1,000 mcg Med ical B-12) 1000 25 total) by Cent er MCG tablet mouth daily. hydrOXYchlo 2023-0 Yes Q.5D Take by [facility] roQUINE 7-21 mouth 2 [facility] (PLAQUENIL) 12:21: (two) Medic al 200 mg 25 times Center tablet daily. topiramate 3-0 Yes 50mg QD Take 1 [facility] t (TOPAMAX) 7-21 tablet (50 Luke s 50 MG 12:21: mg total) Medical tablet 25 by mouth Center daily. folic acid 3-0 Yes 1mg Q.5D Take 1 [facility] (FOLVITE) 1 7-21 tablet (1 [facility] MG tablet 12:21: mg total) Med ical 25 by mouth 2 Center (two) times daily. traZODone 2022-0 Yes 50mg QD Take [address] (DESYREL) 7-21 tablet (50 Luke s 50 MG 12:21: mg total) Medical tablet 25 by mouth Center nightly. escitalopra 2022-0 Yes 20mg QD Take [address] m oxalate 7-21 tablet (20 Luke s (LEXAPRO) 12:21: mg total) Med ical 20 MG 25 by mouth Center tablet daily. eszopiclone 2022-0 Yes 3mg Take [address] (LUNESTA) 1 7-21 tablets (3 Talisha kes MG tablet 12:21: mg total) Med ical 25 by mouth Center every night as needed Take immediatel y before bedtime.. rivaroxaban 0 Yes Take by [facility] (XARELTO) 7-21 mouth [facility] 10 mg 12:21: daily with Medica l tablet 25 dinner. Center montelukast 0 Yes 10mg QD Take [address] (SINGULAIR) 7-21 tablet (10 Talisha kes 10 mg 12:21: mg total) Medical tablet 25 by mouth Center nightly. cyanocobala 0 Yes 1000ug QD Take [address] min - tablet [facility] (VITAMIN 12:21: (1,000 mcg Med ical B-12) 1000 25 total) by Cent er MCG tablet mouth daily. folic acid 0 Yes 1mg Q.5D Take 1 [facility] (FOLVITE) 1 7-21 tablet (1 [facility] MG tablet 12:21: mg total) Med ical 25 by mouth 2 Center (two) times daily. traZODone 2022-0 Yes 50mg QD Take [address] (DESYREL) 7-21 tablet (50 Luke s 50 MG 12:21: mg total) Medical tablet 25 by mouth Center nightly. cetirizine 2022-0 2022- No 10mg QD Take [address] (ZyrTEC) 10 7-21 07-21 tablet (10 L ukes MG tablet 09:38: 00:00 mg total) Me dical 22 :00 by mouth Center daily. cetirizine 2022-0 2023- No 10mg QD Take [address] (ZyrTEC) 10 03-23- tablet (10 L ukes MG tablet 09:38: 00:00 mg total) Me dical 22 :00 by mouth Center daily. cetirizine 2023-0 2023- No 10mg QD Take [address] (ZyrTEC) 10 03-23- tablet (10 L ukes MG tablet 09:38: 00:00 mg total) Me dical 22 :00 by mouth Center daily. memantine 2023-0 2023- No 10mg Q.5D Take 1 [facility] (NAMENDA) 03-23- tablet (10 [facility] 10 MG 09:36: 00:00 mg total) Medica l tablet 38 :00 by mouth 2 Center (two) times daily. memantine 2023-0 2023- No 10mg Q.5D Take 1 [facility] (NAMENDA) 03-23 tablet (10 [facility] 10 MG 09:36: 00:00 mg total) Medica l tablet 38 :00 by mouth 2 Center (two) times daily. memantine 2023-0 2023- No 10mg Q.5D Take 1 [facility] (NAMENDA) 03-23 tablet (10 [facility] 10 MG 09:36: 00:00 mg total) Medica l tablet 38 :00 by mouth 2 Center (two) times daily. methotrexat 2023-0 Yes 15mg Q7D Take [address] e 2.5 MG 5-14 tablets [facility] tablet 00:00: (15 mg Medical 00 total) by Center mouth once a week. methotrexat 2023-0 Yes 15mg Q7D Take [address] e 2.5 MG 5-14 tablets [facility] tablet 00:00: (15 mg Medical 00 total) by Center mouth once a week. methotrexat 2023-0 Yes 15mg Q7D Take [address] e 2.5 MG 5-14 tablets [facility] tablet 00:00: (15 mg Medical 00 total) by Center mouth once a week. donepeziL 2023-0 2023- No 5mg QD Take 1 [facility] (ARICEPT) 5 5-12 05-10 tablet (5 Talisha kes MG tablet 09:49: 00:00 mg total) Me dical 42 :00 by mouth Center nightly. donepeziL 2022-0 3- No 5mg QD Take 1 [facility] (ARICEPT) 5 5-12 05-10 tablet (5 [facility] kes MG tablet 09:49: 00:00 mg total) Me dical 42 :00 by mouth Center nightly. donepeziL 2022-0 3- No 5mg QD Take 1 [facility] (ARICEPT) 5 5-12 05-10 tablet (5 Talisha kes MG tablet 09:49: 00:00 mg total) Me dical 42 :00 by mouth Center nightly. donepeziL 3-0 Yes 5mg QD Take [address] (ARICEPT) 5 5-12 tablet (5 [place] [facility] MG tablet 00:00: mg total) Med ical 00 by mouth Center nightly. donepeziL 3-0 Yes 5mg QD Take [address] (ARICEPT) 5 5-12 tablet (5 [facility] MG tablet 00:00: mg total) Med ical 00 by mouth Center nightly. donepeziL 3-0 Yes 5mg QD Take [address] (ARICEPT) 5 5-12 tablet (5 [facility] MG tablet 00:00: mg total) Med ical 00 by mouth Center nightly. acetaminoph 2023- Yes 650mg Take [address] [facility] - 05-06 tablets [facility]ukes (TYLENOL) 00:00: 23:59 (650 mg Medi allan 325 MG 00 :00 total) by Center tablet mouth every 4 (four) hours as needed for up to 360 days. acetaminoph 2023- Yes 650mg Take [address] en 5-12 05-06 tablets [facility] (TYLENOL) 00:00: 23:59 (650 mg Medi allan 325 MG 00 :00 total) by Center tablet mouth every 4 (four) hours as needed for up to 360 days. acetaminoph 2023- Yes 650mg Take [address] en 5-12 05-06 tablets [facility] (TYLENOL) 00:00: 23:59 (650 mg Medi allan 325 MG 00 :00 total) by Center tablet mouth every 4 (four) hours as needed for up to 360 days. metroNIDAZO 2022-0 2022- No 500mg Q.[id number] Take [address] [facility] (FLAGYL) 01-12 [id number] tablet [facility] 500 MG 00:00: 23:59 3D (500 mg Medical tablet 00 :00 total) by Center mouth in the morning and 1 tablet (500 mg total) at noon and 1 tablet (500 mg total) in the evening. Do all this for 7 days. . ondansetron 2023-0 2023- No 4mg Take [address] [facility] (ZOFRAN-ODT 01-12 tablet (4 Talisha kes ) 4 MG 00:00: 23:59 mg total) Medic al disintegrat 00 :00 by mouth Cent er ing tablet every 8 (eight) hours as needed for up to 7 days. metroNIDAZO 2023-0 2023- No 500mg Q.[id number] Take [address] [facility] (FLAGYL) 01-12 [id number] tablet [facility] 500 MG 00:00: 23:59 3D (500 mg Medical tablet 00 :00 total) by Center mouth in the morning and 1 tablet (500 mg total) at noon and 1 tablet (500 mg total) in the evening. Do all this for 7 days. . ondansetron 3-0 2023- No 4mg Take [address] [facility] (ZOFRAN-ODT 01-12 tablet (4 Talisha kes ) 4 MG 00:00: 23:59 mg total) Medic al disintegrat 00 :00 by mouth Cent er ing tablet every 8 (eight) hours as needed for up to 7 days. metroNIDAZO 2023-0 2023- No 500mg Q.[id number] Take [address] [facility] (FLAGYL) 01-12 [id number] tablet [facility] 500 MG 00:00: 23:59 3D (500 mg Medical tablet 00 :00 total) by Center mouth in the morning and 1 tablet (500 mg total) at noon and 1 tablet (500 mg total) in the evening. Do all this for 7 days. . ondansetron 2023-0 2023- No 4mg Take [address] (ZOFRAN-ODT 01-12 tablet (4 Talisha kes ) 4 MG 00:00: 23:59 mg total) Medic al disintegrat 00 :00 by mouth Cent er ing tablet every 8 (eight) hours as needed for up to 7 days. niacin 500 3-0 3- No 500mg Take [address] [facility] MG tablet 5-10 05-10 tablet [facility] 13:55: 00:00 (500 mg Medical 45 :00 total) by Center mouth daily with breakfast. niacin 500 3-0 3- No 500mg Take [address] [facility] MG tablet 5-10 05-10 tablet [facility] 13:55: 00:00 (500 mg Medical 45 :00 total) by Center mouth daily with breakfast. niacin 500 2022-0 3- No 500mg Take [address] MG tablet 5-10 05-10 tablet [facility] 13:55: 00:00 (500 mg Medical 45 :00 total) by Center mouth daily with breakfast. naproxen 2022-0 3- No 500mg Take 1 [facility] (NAPROSYN) 5-10 05-10 tablet [facility] 500 MG 13:55: 00:00 (500 mg Medical tablet 44 :00 total) by Center mouth 2 (two) times daily with breakfast and dinner. naproxen 2022-0 3- No 500mg Take 1 [facility] (NAPROSYN) 5-10 05-10 tablet [facility] 500 MG 13:55: 00:00 (500 mg Medical tablet 44 :00 total) by Center mouth 2 (two) times daily with breakfast and dinner. naproxen 2022-0 3- No 500mg Take 1 [facility] (NAPROSYN) 5-10 05-10 tablet [facility] 500 MG 13:55: 00:00 (500 mg Medical tablet 44 :00 total) by Center mouth 2 (two) times daily with breakfast and dinner. meloxicam 2022-0 3- No 15mg QD Take 1 [facility] (MOBIC) 15 5-10 05-10 tablet (15 Talisha kes MG tablet 13:54: 00:00 mg total) Me dical 40 :00 by mouth Center in the morning. meloxicam 3-0 3- No 15mg QD Take 1 [facility] (MOBIC) 15 5-10 05-10 tablet (15 Talisha kes MG tablet 13:54: 00:00 mg total) Me dical 40 :00 by mouth Center in the morning. meloxicam 2022- No 15mg QD Take 1 [facility] (MOBIC) 15 5-10 05-10 tablet (15 Talisha kes MG tablet 13:54: 00:00 mg total) Me dical 40 :00 by mouth Center in the morning. aspirin 325 2022- No 325mg QD Take [address] MG tablet 5-10 05-10 tablet [facility] 13:50: 00:00 (325 mg Medical 14 :00 total) by Center mouth in the morning. aspirin 325 2022-2022- No 325mg QD Take [address] MG tablet 5-10 05-10 tablet [facility] 13:50: 00:00 (325 mg Medical 14 :00 total) by Center mouth in the morning. aspirin 325 2022-2022- No 325mg QD Take [address] MG tablet 5-10 05-10 tablet [facility] 13:50: 00:00 (325 mg Medical 14 :00 total) by Center mouth in the morning. ketorolac 2022- No 30mg 30 mg, Unive rs (TORADOL) 12-19 Slow IV ity of injection 05:30: 04:22 Push, [place] 30 mg 00 :00 ONCE, 1 Medical dose, On Branch [facility] 12/19/22 at 0030, Routine iopamidol 2022- No [id number] 100mL 100 mL, Univers (ISOVUE 12-19 Intravenou ity o f 370-500 mL) 03:30: 03:20 s, ONCE, 1 [place] injection 00 :00 dose, On Medica l 100 mL [facility] 12/18/22 at 2230, Routine NaCl 0.9% Yes [...] On Branch Sun12/18/22 at 2200, Routine ondansetron 2022- No 4mg 4 mg, Slow Univers (ZOFRAN 12-19 IV Push, ity of (PF)) 02:00: 02:10 ONCE, 1 [place] injection 4 00 :00 dose, On Medi allan mg Mon Branch 12/18/22 at 2100, SUSAN piperacilli 2022- No [...] of Therapy: Other (see Comments) amoxicillin Yes [id number] 1{tbl} Take 1 Univers -clavulanat 4-17 tablet by ity of e 875-125 00:00: mouth [place] mg per 00 every 12 Medical tablet (twelve) Branch hours. traMADoL 0 Yes [id number] 50mg Take 1 Univers (ULTRAM) 50 4-17 tablet by ity of mg tablet 00:00: mouth [place] 00 every 6 Medical (six) Branch hours as needed for Pain (scale 7-10). Indication s: acute pain amoxicillin Yes [id number] 1{tbl} Take 1 Univers -clavulanat 4-17 tablet by ity of e 875-125 00:00: mouth [place] mg per 00 every 12 Medical tablet (twelve) Branch hours. traMADoL 2022-0 Yes [id number] 50mg Take 1 Univers (ULTRAM) 50 4-17 tablet by ity of mg tablet 00:00: mouth [place] 00 every 6 Medical (six) Branch hours as needed for Pain (scale 7-10). Indication s: acute pain amoxicillin 0 Yes [id number] 1{tbl} Take 1 Univers -clavulanat 4-17 tablet by ity of e 875-125 00:00: mouth [place] mg per 00 every 12 Medical tablet (twelve) Branch hours. traMADoL 2022-0 Yes [id number] 50mg Take 1 Univers (ULTRAM) 50 4-17 tablet by ity of mg tablet 00:00: mouth [place] 00 every 6 Medical (six) Branch hours as needed for Pain (scale 7-10). Indication s: acute pain amoxicillin 2022-0 Yes [id number] 1{tbl} Take 1 Univers -clavulanat 4-17 tablet by ity of e 875-125 00:00: mouth [place] mg per 00 every 12 Medical tablet (twelve) Branch hours. traMADoL 2022-0 Yes [id number] 50mg Take 1 Univers (ULTRAM) 50 4-17 tablet by ity of mg tablet 00:00: mouth [place] 00 every 6 Medical (six) Branch hours as needed for Pain (scale 7-10). Indication s: acute pain amoxicillin 2022-0 Yes [id number] 1{tbl} Take 1 Univers -clavulanat 4-17 tablet by ity of e 875-125 00:00: mouth [place] mg per 00 every 12 Medical tablet (twelve) Branch hours. traMADoL 2022-0 Yes [id number] 50mg Take 1 Univers (ULTRAM) 50 4-17 tablet by ity of mg tablet 00:00: mouth [place] 00 every 6 Medical (six) Branch hours as needed for Pain (scale 7-10). Indication s: acute pain amoxicillin 2022-0 Yes [id number] 1{tbl} Take 1 Univers -clavulanat 4-17 tablet by ity of e 875-125 00:00: mouth [place] mg per 00 every 12 Medical tablet (twelve) Branch hours. traMADoL 2022-0 Yes [id number] 50mg Take 1 Univers (ULTRAM) 50 4-17 tablet by ity of mg tablet 00:00: mouth [place] 00 every 6 Medical (six) Branch hours as needed for Pain (scale 7-10). Indication s: acute pain traMADoL 2022-0 Yes [id number] 50mg Take 1 Univers (ULTRAM) 50 4-17 tablet by ity of mg tablet 00:00: mouth [place] 00 every 6 Medical (six) Branch hours as needed for Pain (scale 7-10). Indication s: acute pain Levaquin Levaquin 2021-09 202- No 1{table QD Levaquin 500 MG 500 MG 09-19 t} 500 MG 00:00: 00:00 00 :00 Levaquin Levaquin 2021-09 2022- No 1{table QD Levaquin 500 MG 500 MG 09-19 t} 500 MG 00:00: 00:00 00 :00 Levaquin Levaquin 2021-09 2022- No 1{table QD Levaquin 500 MG 500 MG 09-19 t} 500 MG 00:00: 00:00 00 :00 Levaquin Levaquin 2021-09 2022- No 1{table QD Levaquin 500 MG 500 MG 09-19 t} 500 MG 00:00: 00:00 00 :00 amLODIPine amLODIPine 2021-0 No 1{table QD amLODIPine Besylate 5 Besylate 5 6-08 t} Besylate 5 MG MG 00:00: MG 00 amLODIPine amLODIPine 2021-0 No 1{table QD amLODIPine Besylate 5 Besylate 5 6-08 t} Besylate 5 MG MG 00:00: MG 00 Repatha Repatha 2021- 2023- No 1{ml} Repatha SureClick SureClick 6- 06-03 SureClick 140 MG/ML 140 MG/ML 00:00: 00:00 140 MG/ML 00 :00 Repatha Repatha 2021-0 2023- No 1{ml} Repatha SureClick SureClick 02-08 06-03 SureClick 140 MG/ML 140 MG/ML 00:00: 00:00 140 MG/ML 00 :00 2021-0 No 1{table QD Vitamin-Fol Vitamin-Fol 3-03 t_with_ Vitamin-Fo ic Acid 1 ic Acid 1 00:00: a_meal} lic Acid 1 MG MG 00 MG paroxetine Yes 20mg Take 20 mg U nivers (PAXIL) 20 9- by mouth ity o f mg tablet 13:28: daily. [address] clonazePAM Yes .5mg Take 0.5 Uni vers (KLONOPIN) 9- mg by ity of 0.5 mg 13:28: mouth [place] tablet 45 daily. [facility] Branch Cetirizine Yes Take by Univ ers 10 mg 9-01 mouth. ity of capsule 13:28: [place] 45 Medical Branch fluticasone Yes 2{spray Use 2 Un rolanda propionate 9 } Sprays in ity of (FLONASE 13:28: each [place] ALLERGY 45 nostril 2 Medical RELIEF) 50 (two) Branch mcg/actuati times on nasal daily. spray montelukast 0 Yes 10mg Take 10 mg Univers 10 mg 9-01 by mouth. ity of tablet 13:28: [address] Branch paroxetine Yes 20mg Take 20 mg U nivers (PAXIL) 20 9-01 by mouth ity o f mg tablet 13:28: daily. [place] [address] Medical Branch clonazePAM Yes .5mg Take 0.5 Uni vers (KLONOPIN) 9-01 mg by ity of 0.5 mg 13:28: mouth [place] tablet 45 daily. Medical Branch Cetirizine Yes Take by Univ ers 10 mg 9-01 mouth. ity of capsule 13:28: [address] fluticasone Yes 2{spray Use 2 Un [place] propionate 05-04 } Sprays in ity of (FLONASE 13:28: each [place] ALLERGY 45 nostril 2 Medical RELIEF) 50 (two) Branch mcg/actuati times on nasal daily. spray montelukast 0 Yes 10mg Take 10 mg Univers 10 mg 9-01 by mouth. ity of tablet 13:28: [address] Branch paroxetine Yes 20mg Take 20 mg U nivers (PAXIL) 20 9-01 by mouth ity o f mg tablet 13:28: daily. [place] [address] [facility] clonazePAM Yes .5mg Take 0.5 Uni vers (KLONOPIN) 9-01 mg by ity of 0.5 mg 13:28: mouth [place] tablet 45 daily. Medical Branch Cetirizine 0 Yes Take by Univ ers 10 mg 9-01 mouth. ity of capsule 13:28: [address] fluticasone Yes 2{spray Use 2 Un [place] propionate 9 } Sprays in ity of (FLONASE 13:28: each [place] ALLERGY 45 nostril 2 Medical RELIEF) 50 (two) Branch mcg/actuati times on nasal daily. spray montelukast 2021-0 Yes 10mg Take 10 mg Univers 10 mg 9-01 by mouth. ity of tablet 13:28: [address] paroxetine Yes 20mg Take 20 mg U nivers (PAXIL) 20 9-01 by mouth ity o f mg tablet 13:28: daily. [address] Branch clonazePAM Yes .5mg Take 0.5 Uni vers (KLONOPIN) 9-01 mg by ity of 0.5 mg 13:28: mouth [place] tablet 45 daily. Medical Branch Cetirizine 0 Yes Take by [facility] ers 10 mg 9-01 mouth. ity of capsule 13:28: [address] fluticasone Yes 2{spray Use 2 Un [place] propionate 05-04 } Sprays in ity of (FLONASE 13:28: each [place] ALLERGY 45 nostril 2 Medical RELIEF) 50 (two) Branch mcg/actuati times on nasal daily. spray montelukast 2020-0 Yes 10mg Take 10 mg Univers 10 mg 9-01 by mouth. ity of tablet 13:28: [address] paroxetine Yes 20mg Take 20 mg U nivers (PAXIL) 20 9-01 by mouth ity o f mg tablet 13:28: daily. [address] clonazePAM Yes .5mg Take 0.5 Uni vers (KLONOPIN) 9-01 mg by ity of 0.5 mg 13:28: mouth [place] tablet 45 daily. Medical Branch Cetirizine Yes Take by [facility] ers 10 mg 9-01 mouth. ity of capsule 13:28: [address] fluticasone Yes 2{spray Use 2 Un [place] propionate 9 } Sprays in ity of (FLONASE 13:28: each [place] ALLERGY 45 nostril 2 Medical RELIEF) 50 (two) Branch mcg/actuati times on nasal daily. spray montelukast 2020-0 Yes 10mg Take 10 mg Univers 10 mg 9-01 by mouth. ity of tablet 13:28: [address] paroxetine 0 Yes 20mg Take 20 mg U nivers (PAXIL) 20 9-01 by mouth ity o f mg tablet 13:28: daily. [address] clonazePAM 0 Yes .5mg Take 0.5 Uni vers (KLONOPIN) 9-01 mg by ity of 0.5 mg 13:28: mouth [place] tablet 45 daily. Medical Branch Cetirizine 0 Yes Take by Univ ers 10 mg 9-01 mouth. ity of capsule 13:28: [address] fluticasone Yes 2{spray Use 2 Un [place] propionate 05-04 } Sprays in ity of (FLONASE 13:28: each [place] ALLERGY 45 nostril 2 Medical RELIEF) 50 (two) Branch mcg/actuati times on nasal daily. spray montelukast 0 Yes 10mg Take 10 mg Univers 10 mg 9-01 by mouth. ity of tablet 13:28: [address] paroxetine 0 Yes 20mg Take 20 mg U nivers (PAXIL) 20 9-01 by mouth ity o f mg tablet 13:28: daily. [address] clonazePAM Yes .5mg Take 0.5 Uni vers (KLONOPIN) 9-01 mg by ity of 0.5 mg 13:28: mouth [place] tablet 45 daily. Medical Branch Cetirizine 0 Yes Take by [facility] ers 10 mg 9-01 mouth. ity of capsule 13:28: [address] fluticasone Yes 2{spray Use 2 Un [place] propionate 05-04 } Sprays in ity of (FLONASE 13:28: each [place] ALLERGY 45 nostril 2 Medical RELIEF) 50 (two) Branch mcg/actuati times on nasal daily. spray montelukast 0 Yes 10mg Take 10 mg Univers 10 mg 9-01 by mouth. ity of tablet 13:28: [address] paroxetine 0 Yes 20mg Take 20 mg U nivers (PAXIL) 20 9-01 by mouth ity o f mg tablet 13:28: daily. [address] Branch clonazePAM 0 Yes .5mg Take 0.5 Uni vers (KLONOPIN) 9-01 mg by ity of 0.5 mg 13:28: mouth [place] tablet 45 daily. Medical Branch Cetirizine 0 Yes Take by [facility] ers 10 mg 9-01 mouth. ity of capsule 13:28: [place] 45 Medical Branch fluticasone Yes 2{spray Use 2 Un [place] propionate 9- } Sprays in ity of (FLONASE 13:28: each [place] ALLERGY 45 nostril 2 Medical RELIEF) 50 (two) Branch mcg/actuati times on nasal daily. spray montelukast 0 Yes 10mg Take 10 mg Univers 10 mg 9-01 by mouth. ity of tablet 13:28: [address] paroxetine Yes 20mg Take 20 mg U nivers (PAXIL) 20 9-01 by mouth ity o f mg tablet 13:28: daily. [address] Branch clonazePAM Yes .5mg Take 0.5 Uni vers (KLONOPIN) 9-01 mg by ity of 0.5 mg 13:28: mouth [place] tablet 45 daily. Medical Branch Cetirizine Yes Take by Univ ers 10 mg 9-01 mouth. ity of capsule 13:28: [address] fluticasone Yes 2{spray Use 2 Un [place] propionate 9- } Sprays in ity of (FLONASE 13:28: each [place] ALLERGY 45 nostril 2 Medical RELIEF) 50 (two) Branch mcg/actuati times on nasal daily. spray montelukast 0 Yes 10mg Take 10 mg Univers 10 mg 9-01 by mouth. ity of tablet 13:28: [address] paroxetine Yes 20mg Take 20 mg U nivers (PAXIL) 20 9-01 by mouth ity o f mg tablet 13:28: daily. [address] Branch clonazePAM 0 Yes .5mg Take 0.5 Uni vers (KLONOPIN) 9-01 mg by ity of 0.5 mg 13:28: mouth [place] tablet 45 daily. Medical Branch Cetirizine 0 Yes Take by Univ ers 10 mg 9-01 mouth. ity of capsule 13:28: [address] fluticasone Yes 2{spray Use 2 Un [place] propionate 9- } Sprays in ity of (FLONASE 13:28: each [place] ALLERGY 45 nostril 2 Medical RELIEF) 50 (two) Branch mcg/actuati times on nasal daily. spray montelukast 2021-0 Yes 10mg Take 10 mg Univers 10 mg 9- by mouth. ity of tablet 13:28: [place] [address] [facility] Branch paroxetine Yes 20mg Take 20 mg U nivers (PAXIL) 20 9 by mouth ity o f mg tablet 13:28: daily. [place] [address] Medical Branch clonazePAM Yes .5mg Take 0.5 Uni vers (KLONOPIN) 9-01 mg by ity of 0.5 mg 13:28: mouth [place] tablet 45 daily. Medical Branch Cetirizine Yes Take by Univ ers 10 mg 9- mouth. ity of capsule 13:28: [place] [address] Medical Branch fluticasone Yes 2{spray Use 2 Un [place] propionate 05-04 } Sprays in ity of (FLONASE 13:28: each [place] ALLERGY 45 nostril 2 Medical RELIEF) 50 (two) Branch mcg/actuati times on nasal daily. spray montelukast Yes 10mg Take 10 mg Univers 10 mg 05-04 by mouth. ity of tablet 13:28: [place] [address] Medical Branch traZODone Yes TAKE 1 Univer s 50 mg 8-09 TABLET BY ity of tablet 00:00: MOUTH [place] 00 EVERY DAY Medical AT BEDTIME Branch NEEDED amLODIPine Yes 5mg Take 5 mg Un [place] 5 mg tablet 8-09 by mouth ity of 00:00: every [place] 00 morning. Medical Branch traZODone Yes TAKE 1 Univer s 50 mg 8-09 TABLET BY ity of tablet 00:00: MOUTH [place] 00 EVERY DAY Medical AT BEDTIME Branch NEEDED amLODIPine Yes 5mg Take 5 mg Un [place] 5 mg tablet 8-09 by mouth ity of 00:00: every [place] 00 morning. Medical Branch traZODone Yes TAKE 1 Univer s 50 mg 8-09 TABLET BY ity of tablet 00:00: MOUTH [place] 00 EVERY DAY Medical AT BEDTIME Branch NEEDED amLODIPine Yes 5mg Take 5 mg Un [place] 5 mg tablet 8-09 by mouth ity of 00:00: every [place] 00 morning. Medical Branch traZODone Yes TAKE 1 Univer s 50 mg 8-09 TABLET BY ity of tablet 00:00: [facility] EVERY DAY Medical AT BEDTIME Branch NEEDED amLODIPine 0 Yes 5mg Take 5 mg Un [place] 5 mg tablet 8-09 by mouth ity of 00:00: every [place] 00 morning. Medical Branch traZODone 0 Yes TAKE 1 Univer s 50 mg 8-09 TABLET BY ity of tablet 00:00: [facility] EVERY DAY Medical AT BEDTIME Branch NEEDED amLODIPine 2020-0 Yes 5mg Take 5 mg Un [place] 5 mg tablet 8-09 by mouth ity of 00:00: every [place] 00 morning. Medical Branch traZODone 0 Yes TAKE 1 Univer s 50 mg 8-09 TABLET BY ity of tablet 00:00: [facility] EVERY DAY Medical AT BEDTIME Branch NEEDED amLODIPine 0 Yes 5mg Take 5 mg Un [place] 5 mg tablet 8-09 by mouth ity of 00:00: every [place] 00 morning. Medical Branch traZODone 0 Yes TAKE 1 Univer s 50 mg 8-09 TABLET BY ity of tablet 00:00: [facility] EVERY DAY Medical AT BEDTIME Branch NEEDED traZODone 2020-0 Yes TAKE 1 Univer s 50 mg 8-09 TABLET BY ity of tablet 00:00: [facility] EVERY DAY Medical AT BEDTIME Branch NEEDED traZODone 2020-0 Yes TAKE 1 Univer s 50 mg 8-09 TABLET BY ity of tablet 00:00: [facility] EVERY DAY Medical AT BEDTIME Branch NEEDED traZODone 2020-0 Yes TAKE 1 Univer s 50 mg 8-09 TABLET BY ity of tablet 00:00: [facility] EVERY DAY Medical AT BEDTIME Branch NEEDED traZODone 2020-0 Yes TAKE 1 Univer s 50 mg 8-09 TABLET BY ity of tablet 00:00: [facility] EVERY DAY Medical AT BEDTIME Branch NEEDED amLODIPine 2020-0 3- No 5mg Take 5 mg U nivers 5 mg tablet 04-11 by mouth ity of 00:00: 00:00 every [place] 00 :00 morning. Medical Branch amLODIPine 2020-0 3- No 5mg Take 5 mg U nivers 5 mg tablet 04-11 by mouth ity of 00:00: 00:00 every [place] 00 :00 morning. Medical Branch Kenalog Kenalog 2020-0 No 40mg Common (Triamcinol (Triamcinol 7-08 S pirit one) one) 00:00: - [facility] 00 [facility] Kenalog Kenalog 2020-0 No 40mg Common (Triamcinol (Triamcinol 7-08 S pirit one) one) 00:00: - [facility] 00 [facility] Kenalog Kenalog 2020-0 No 40mg Common (Triamcinol (Triamcinol 7-08 S pirit one) one) 00:00: - [facility] 00 [facility] Kenalog Kenalog 2020-0 No 40mg Common (Triamcinol (Triamcinol 7-08 S pirit one) one) 00:00: - [facility] 00 [facility] Kenalog Kenalog 2020-0 No 40mg Common (Triamcinol (Triamcinol 7-08 S pirit one) one) 00:00: - [facility] 00 [facility] Kenalog Kenalog 2020-0 No 40mg Common (Triamcinol (Triamcinol 7-08 S pirit one) one) 00:00: - [facility] 00 [facility] Kenalog Kenalog 2020-0 No 40mg Common (Triamcinol (Triamcinol 7-08 S pirit one) one) 00:00: - [facility] 00 [facility] Kenalog Kenalog 2020-0 No 40mg Common (Triamcinol (Triamcinol 7-08 S pirit one) one) 00:00: - [facility] 00 [facility] Kenalog Kenalog 2020-0 No 40mg Common (Triamcinol (Triamcinol 7-08 S pirit one) one) 00:00: - [facility] 00 [facility] Kenalog Kenalog 2020-0 No 40mg Common (Triamcinol (Triamcinol 7-08 S pirit one) one) 00:00: - [facility] 00 [facility] Kenalog Kenalog 2020-0 No 40mg Common (Triamcinol (Triamcinol 7-08 S pirit one) one) 00:00: - [facility] 00 [facility] Kenalog Kenalog No 40mg Common (Triamcinol (Triamcinol 7-08 S pirit one) one) 00:00: - [facility] 00 [facility] Enedelia Mcdaniels No 40mg Common (Triamcinol (Triamcinol 7-08 S pirit one) one) 00:00: - [facility] 00 [facility] Enedelia Mcdaniels No 40mg Common (Triamcinol (Triamcinol 7-08 S pirit one) one) 00:00: - [facility] 00 [facility] Enedelia Mcdaniels No 40mg Common (Triamcinol (Triamcinol 7-08 S pirit one) one) 00:00: - [facility] 00 [facility] Enedelia No 40mg Common (Triamcinol (Triamcinol 7-08 S pirit one) one) 00:00: - [facility] 00 [facility] HYDROcodone Yes 1{tbl} Take 1 Un ro[place] [...] or Pain (scale 1-3) with oral narcotics. amLODIPine amLODIPine No amLODIPine Besylate 5 Besylate [...] Oxalate 20 MG 20 MG 20 MG Xarelto 10 Xarelto 10 No 1{table QD Xarelto 10 MG MG t} MG Montelukast Montelukast No Montelukas Sodium 10 Sodium 10 t Sodium MG MG 10 MG Repatha Repatha No 1{ml} Repatha SureClick SureClick SureClick 140 MG/ML 140 MG/ML 140 MG/ML Eszopiclone Eszopiclone No 1{table QD Eszopiclon 3 MG 3 MG t_immed e 3 MG iately_ before_ bedtime } amLODIPine amLODIPine No amLODIPine Besylate 5 Besylate 5 Besylate 5 MG MG MG Eliquis 5 Eliquis 5 No Eliquis 5 MG MG MG Escitalopra Escitalopra No 1{table QD Escitalopr m Oxalate m Oxalate t} am Oxalate 20 MG 20 MG 20 MG Naproxen Naproxen No BID Naproxen 500 MG 500 MG 500 MG Fluticasone Fluticasone No Fluticason Propionate Propionate e 50 MCG/ACT 50 MCG/ACT Propionate 50 MCG/ACT Hydroxychlo Hydroxychlo No BID Hydroxychl roquine roquine oroquine Sulfate 200 Sulfate 200 Sulfate MG MG 200 MG Topiramate Topiramate No 1{table QD Topiramate 50 MG 50 MG t} 50 MG No 1{table QD Vitamin-Fol Vitamin-Fol t_with_ Vitamin-Fo ic Acid 1 ic Acid 1 a_meal} lic Acid 1 MG MG MG Memantine Memantine No 1{table QD Memantine HCl 10 MG HCl 10 MG t} HCl 10 MG traZODone traZODone No QD traZODone HCl 50 MG HCl 50 MG HCl 50 MG Cetirizine Cetirizine No Cetirizine HCl 10 MG HCl 10 MG HCl 10 MG Meloxicam Meloxicam No 1{table QD Meloxicam 15 MG 15 MG t} 15 MG SUMAtriptan SUMAtriptan No SUMAtripta Succinate 6 Succinate 6 n MG/0.5ML MG/0.5ML Succinate 6 MG/0.5ML Methotrexat Methotrexat No Methotrexa e 2.5 MG e 2.5 MG te 2.5 MG Donepezil Donepezil No 1{table QD Donepezil HCl 5 MG HCl 5 MG t_at_be HCl 5 MG dtime} metroNIDAZO metroNIDAZO No 1{table TID metroNIDAZ LE [...] Sodium MG MG 10 MG Immunizations Ordered Filled Immunization Date Status Comments [facility] e Immunization Name Name Enedelia Mcdaniels 2021-03-10 [facility]pleted [facility] ([facility] (Triamcinolone) 16:51:00 [facility] Enedelia Mcdaniels 2021-03-10 Completed [facility] - (Triamcinolone) (Triamcinolone) 16:51:00 [facility] Influenza Virus 2004-06-15 Completed Universit y of Vaccine (3+ yrs) 00:00:00 [facility] Vital Signs Vital Name Observation Time Observation Value Comments Source HEIGHT 2023-03-22 11:40:00 160 cm WEIGHT 2023-03-22 11:40:00 99.791 kg HEIGHT 2023-03-22 11:40:00 160 cm WEIGHT 2023-03-22 11:40:00 99.791 kg HEIGHT 2023-03-22 11:40:00 160 cm WEIGHT 2023-03-22 11:40:00 99.791 kg Systolic blood 2023-01-23 20:38:00 120 mm[Hg] Univer sity of [facility] Diastolic blood 2023-01-23 20:38:00 76 mm[Hg] Unive rsity of [facility] Heart rate 2023-01-23 20:38:00 84 /min Universi ty [facility] Body weight 2023-01-23 20:38:00 100.29 [address] [facility] BMI 2023-01-23 20:38:00 39.17 kg/m2 Universi ty of [facility] Oxygen saturation in 2023-01-23 20:38:00 98 /min University of Arterial blood by [facility] Pulse oximetry Branch HEIGHT 2023-01-09 17:08:00 160 cm WEIGHT 2023-01-09 17:08:00 97.523 kg HEIGHT 2023-01-09 17:08:00 160 cm WEIGHT 2023-01-09 17:08:00 97.523 kg HEIGHT 2023-01-09 17:08:00 160 cm WEIGHT 2023-01-09 17:08:00 97.523 kg Systolic blood 2022-12-18 17:40:00 149 mm[Hg] Univer sity of [facility] Diastolic blood 2022-12-18 17:40:00 103 mm[facility]Hg] [facility] Heart rate 2022-12-18 17:40:00 92 /min Universi ty [facility] Body temperature 2022-12-18 17:40:00 36.5 Micaela [facility] rate 2022-12-18 17:40:00 18 /min [facility] Body height 2022-12-18 17:40:00 160 cm Universi ty [facility] Body weight 2022-12-18 17:40:00 96.616 kg Universi ty [facility] BMI 2022-12-18 17:40:00 37.73 kg/m2 Universi ty [facility] Oxygen saturation in 2022-12-18 17:40:00 99 /min University of Arterial blood by [facility] Pulse oximetry Branch height 2022-07-10 16:40:00 63.00 [in_i] [facility] weight 2022-07-10 16:40:00 197 [lb_av] [facility] bmi 2022-07-10 16:40:00 34.89 kg/m2 [facility] Body height 2021-06-08 18:15:00 160 cm Universi ty [facility] Body weight 2021-06-08 18:15:00 96.616 [facility] BMI 2021-06-08 18:15:00 37.73 kg/m2 [facility] height 2021-06-07 15:00:00 63.00 [in_i] [facility] weight 2021-06-07 15:00:00 212 [lb_av] [facility] temperature 2021-06-07 15:00:00 97.2 [degF] [facility] bmi 2021-06-07 15:00:00 37.55 kg/m2 [facility] oximetry 2021-06-07 15:00:00 99 % [facility] respiratory rate 2021-06-07 15:00:00 19 /min [facility] blood pressure 2021-06-07 15:00:00 132 mm[Hg] [facility] - systolic [facility] blood pressure 2021-06-07 15:00:00 80 mm[Hg] [facility] - diastolic [facility] Systolic blood 2023-03-23 12:15:00 121 mm[Hg] [facility] Diastolic blood 2023-03-23 12:15:00 74 mm[Hg] [facility] Heart rate 2023-03-23 12:15:00 71 /min [facility] Body temperature 2023-03-23 12:15:00 36.72 Micaela [facility] Respiratory rate 2023-03-23 12:15:00 18 /min [facility] Oxygen saturation in 2023-03-23 12:15:00 97 /min [facility] Arterial blood by Medical Ce nter Pulse oximetry Body height 2023-03-22 11:40:00 160 cm [facility] Body weight 2023-03-22 11:40:00 99.791 kg [facility] BMI 2023-03-22 11:40:00 38.97 kg/m2 [facility] Procedures Procedure Date / Time Performing Clinician Source Performed REPORT OF PROCEDURE - 2023-03-23 11:26:13 Sheikh [facility] ENDOSCOPY URL Center TISSUE EXAM 2023-03-23 11:22:00 Sheikh [facility] COLONOSCOPY, WITH 2023-03-23 11:02:00 [facility] POLYPECTOMY Center INSURANCE CORRESPONDENCE 2023-03-12 05:01:00 Doctor Unassigned, [facility] [place] [facility] ASSIGNMENT OF BENEFITS 2023-01-23 20:14:59 Doctor Unassigned, [facility] [place] [facility] REFERRAL- 2023-01-15 05:01:00 Doctor Unassigned, [facility] REQUEST/RESPONSE [place] [facility] COMPLEMENT COMPONENT C4 2023-01-12 04:40:00 [facility] CBC (HEMOGRAM ONLY) 2023-01-12 04:40:00 [facility] COMPREHENSIVE METABOLIC 2023-01-12 04:40:00 Morris [facility] PANEL Center BASIC METABOLIC PANEL 2023-01-10 06:08:00 Sherie Hernandez [facility] HEPATIC FUNCTION PANEL 2023-01-10 06:08:00 Sherie Hernandez [facility] CBC W/PLT COUNT & AUTO 2023-01-10 06:08:00 Sherie Hernandez [facility] DIFFERENTIAL [place] CBC W/PLT COUNT & AUTO 2023-01-10 06:08:00 hSerie Hernandez [facility] C-REACTIVE PROTEIN 2023-01-10 00:42:00 [place] Reyna [facility] CT ABDOMEN/PELVIS WITH IV 2023-01-09 22:41:00 ApfelChao [facility] CONTRAST [place] CBC W/PLT COUNT & AUTO 2023-01-09 18:03:00 Chao [place] [facility] DIFFERENTIAL Center COMPREHENSIVE METABOLIC 2023-01-09 18:03:[address] [facility] PANEL Center LIPASE 2023-01-09 18:03:00 ApfeChao talbot [facility] HCG, QUANTITATIVE, 2023-01-09 18:03:00 Amrik Macedo [facility] Center CBC W/PLT COUNT & AUTO 2023-01-09 18:03:00 ApfeChao talbot [facility] DIFFERENTIAL Center URINALYSIS W/ REFLEX 2023-01-09 17:57:00 ApChao frazier I [facility] URINE CULTURE Center POCT TEST 2022-12-18 18:32:00 Naeem Ambrosio [facility] LIPASE 2022-12-18 18:29:00 Naeem Ambrosio [facility] COMP. METABOLIC PANEL 2022-12-18 18:29:00 Naeem Ambrosio [facility] ([id number]) Medical [place] CBC WITH DIFF 2022-12-18 18:29:00 Naeem Ambrosio [facility] URINALYSIS 2022-12-18 18:29:00 Naeem Ambrosio [facility] CONSENT/REFUSAL FOR 2022-12-18 17:33:21 Doctor [facility], [facility] DIAGNOSIS AND TREATMENT [place] [facility] INSURANCE CORRESPONDENCE 2022-05-31 05:01:00 Doctor Parks, [facility] Name [facility] REFERRAL- 2021-07-04 05:01:00 Doctor Charly, [facility] REQUEST/RESPONSE [place] [facility] EXTERNAL COLONOSCOPY 2021-05-04 00:00:00 Doctor Charly, [facility] Name [facility] Plan of Care Planned Activity Planned Date Details Comments Source Future Scheduled 2024-03-[address] [facility] Test 00:00:00 Counseling and Screening Med [facility] Center (12+) [code = Tobacco Cessation Counseling and Screening (12+)] Future Scheduled 2024-03-[address] [facility] Test 00:00:00 Counseling and Screening Med [facility] Center (12+) [code = Tobacco Cessation Counseling and Screening (12+)] Future Scheduled 2024-03-[address] [facility] Test 00:00:00 Counseling and Screening Med ical Center (12+) [code = Tobacco Cessation Counseling and Screening (12+)] Future Scheduled 2023-05-04 Influenza Vaccine (#1) [facility]00 [code = Influenza Vaccine Me dical Center (#1)] Future Scheduled 2023-05-04 Influenza Vaccine (#1[facility] 00:00:00 [code = Influenza Vaccine Me dical Center (#1)] Future Scheduled 2023-05-04 Influenza Vaccine (#1[facility] 00:00:00 [code = Influenza Vaccine Me dical Center (#1)] Future Scheduled 2022-09-[address] [facility] Test 00:00:00 (12+) [code = DEPRESSION Med ical Center SCREENING (12+)] Future Scheduled 2022-09-[address] [facility] Test 00:00:00 (12+) [code = DEPRESSION Med ical Center SCREENING (12+)] Future Scheduled 2022-09-[address] [facility] Test 00:00:00 (12+) [code = DEPRESSION Med ical Center SCREENING (12+)] Future Scheduled 2000 Screening for malignant [facility] Test 00:00:00 neoplasm of cervix Medical C enter (procedure) [code = 893472079] Future Scheduled 2000 Screening for malignant [facility] Test 00:00:00 neoplasm of cervix Medical C enter (procedure) [code = 016427838] Future Scheduled 2000 Screening for malignant [facility] Test 00:00:00 neoplasm of cervix Medical C enter (procedure) [code = 464473268] Future Scheduled 1999 Lipid panel (procedure) [facility] Test 00:00:00 [code = [id number]] Medical Ce nter Future Scheduled 1999 Lipid panel (procedure) [facility] Test 00:00:00 [code = [id number]] Medical Ce nter Future Scheduled 1999 Lipid panel (procedure) [facility] Test 00:00:00 [code = 08852349] Medical Ce nter Future Scheduled 1998 DTAP/TDAP/TD VACCINES ([address] [facility] Test 00:00:00 - Tdap) [code = Medical Cent er DTAP/TDAP/TD VACCINES (1 - Tdap)] Future Scheduled 1998 DTAP/TDAP/TD VACCINES ([address] [facility] Test 00:00:00 - Tdap) [code = Medical Cent er DTAP/TDAP/TD VACCINES (1 - Tdap)] Future Scheduled 1998 DTAP/TDAP/TD VACCINES ([address] [facility] Test 00:00:00 - Tdap) [code = Medical Cent er DTAP/TDAP/TD VACCINES (1 - Tdap)] Future Scheduled 1997 HEPATITIS C [facility]:00 [code = HEPATITIS C Medical Center SCREENING] Future Scheduled 1997 HEPATITIS C [facility]:00 [code = HEPATITIS C Medical Center SCREENING] Future Scheduled 1997 HEPATITIS C [facility]:00 [code = HEPATITIS C Medical Center SCREENING] Future Scheduled [address] [facility] 00:00:00 virus screening Medical Cent er (procedure) [code = 643689846] Future Scheduled [address] immunodeficiency [facility] 00:00:00 virus screening Medical Cent er (procedure) [code = 759476746] Future Scheduled [address] [facility] 00:00:00 virus screening Medical Cent er (procedure) [code = 501687245] Future Scheduled 1985 Pneumococcal Vaccine: [facility] 00:00:00 0-64 Years (1 - PCV) Medical Center [code = Pneumococcal Vaccine: 0-64 Years (1 - PCV)] Future Scheduled 1985 Pneumococcal Vaccine: [facility]00 0-64 Years (1 - PCV) [facility] [code = Pneumococcal Vaccine: 0-64 Years (1 - PCV)] Future Scheduled 1985 Pneumococcal Vaccine: [facility] 00[facility]:00 0-64 Years (1 - PCV) [facility] [code = Pneumococcal Vaccine: 0-64 Years (1 - PCV)] Future Scheduled 1980-03-06 COVID-19 VACCINE (#1) [facility] 00:[facility]00 [code = COVID-19 VACCINE [facility] Center (#1)] Future Scheduled 1980-03-06 COVID-19 VACCINE (#1) [facility] 00:[facility]00 [code = COVID-19 VACCINE [facility] ical Center (#1)] Future Scheduled 1980-03-06 COVID-19 VACCINE (#1) [facility] 00:00:00 [code = COVID-19 VACCINE [facility] ica Center (#1)] Encounters Start End Encounter Admission Attending Care Care Encounter Source Date/Time Date/Time Type Type Clinicians Facility Department ID 2023-03-22 Outpatient Norton, STLMLC STLMLC [id number] Common 14:30:00 [facility] [address] [facility] 2023-03-21 Outpatient Norton, STLMLC STLMLC [id number] Common 17:07:00 [facility] [address] [facility] 2022-12-19 Outpatient Hernandez, STLMLC STLMLC [id number] Common 16:40:00 Avnee 39[address] [facility] 2022-12-07 Outpatient Hernandez, STLMLC STLMLC [id number] Common 14:53:00 Avnee 75130 [facility] 2022-11-07 Outpatient Laura, STLMLC STLMLC [id number] Common 08:59:01 Kendra 09832 [facility] 2022-07-06 Outpatient Almeida, Na STLMLC STLMLC [id number] Common 16:07:01 [facility] 2022-02-07 Outpatient Almeida, Na STLMLC STLMLC [id number] 2 Common 07:54:01 [facility] 2021-12-27 Outpatient Almeida, Na STLMLC STLMLC [id number] 2 Common 09:43:02 [facility] 2021-11-02 Outpatient Almeida, Na STLMLC STLMLC [id number] 2 Common 10:34:02 [facility] 2021-09-28 Outpatient Almeida, Na STLMLC STLMLC [id number] 2 Common 14:36:25 [facility] 2021-09-28 Outpatient Almeida, Na STLMLC STLMLC [id number] 2 Common 13:56:35 [facility] 2021-09-28 Outpatient Almeida, Na STLMLC STLMLC [id number] 2 Common 13:55:44 [facility] 2021-09-28 Outpatient Almeida, Na STLMLC STLMLC [id number] 2 Common 13:46:51 00261 [facility] 2021-09-28 Outpatient Almeida, Na STLMLC STLMLC [id number] 2 Common 13:35:37 [facility] 2021-09-28 Outpatient Almeida, Na STLMLC STLMLC [id number] 2 Common 13:34:54 [facility] 2021-09-28 Outpatient Almeida, Na STLMLC STLMLC [id number] 2 Common 13:24:09 09836 [facility] 2021-09-28 Outpatient Almeida, Na STLMLC STLMLC [id number] 2 Common 13:23:50 98666 [facility] 2021-07-04 Outpatient R SHIMA [facility] GABI [id number] Univers 18:36:45 SHANNAN Kirkpatrick [facility] 2023-04-12 2023-04-[address] [facility] SLE [id number] SLE 00:00:00 00:00:00 JANE Talbot 2023-04-09 2023-04-09 Outpatient R BERYL LONG [facility] B [id number] Univers 08:30:00 08:30:00 BERYL LONG jarett [facility] 2023-04-02 2023-04-02 Pre Visit MEHREEN Medina [id number] Univers 00:00:00 00:00:00 Outreach Rosmery ALONSO 350.1.13.10 [id number] [address] 2023-03-23 2023-03-23 [facility] [id number] SLSL 09:22:00 12:21:00 [place] 2023-03-23 2023-03-23 [facility] [id number] 09:22:00 12:21:00 Encounter [facility] Danielle Talbot [facility] 2023-03-23 2023-03-23 [facility] [id number] 09:22:00 12:21:00 Encounter [facility] Tesha [facility] 2023-03-23 2023-03-23 [facility] [id number] [facility] 11:02:00 11:20:00 [facility]23-03-23 2023-03-23 [id number] 11:02:00 11:20:00 Event Miki [facility] 2023-03-23 2023-03-23 Surgery , [facility] [id number] 10:30:00 11:00:00 [facility] 2023-03-23 2023-03-[address] [facility] [id number] 10:30:00 11:00:00 [facility] 2023-03-22 2023-03-22 Travel [facility] [id number] [facility] 00:00:00 00:00:00 [facility] 2023-03-22 2023-03-22 Travel [facility] [id number] [facility] 00:[facility]:00 00:00:00 [facility] 2023-03-12 2023-03-12 Outpatient BERYL EISENBERG [facility] B [id number] Univers 08:00:00 08:00:00 BERYL LONG jarett [facility] 2023-03-12 2023-03-12 Orders Doctor GELA 1.2.840.114 [id number] Univers 00:00:00 00:00:00 Only Unassigned, AURELIANO 350.1.13.10 ity of [place] [facility] 4.2.7.2.686 Ned as [phone] [address] 2023-01-23 2023-01-23 [facility] [id number] Univers 14:40:00 15:52:39 [address]A [address] o f [facility] 2023-01-23 2023-01-[address] [facility] 1.2.840.114 [id number] Univers 14:40:00 15:52:39 Visit Pamela PARRA 350.1.13.10 it[place] of [place] [phone] [place] 723459 [facility] 2023-01-23 2023-01-23 Orders Doctor REN 1.2.840.114 [id number] Univers 00:00:00 00:00:00 Only Unassigned, AURELIANO 350.1.13.10 ity of [place] [facility] 4.2.7.2.686 Ned as [phone] [address] 2023-01-15 2023-01-15 Orders Doctor GELA 1.2.840.114 [id number] Univers 00:00:00 00:00:00 Only Unassigned, AURELIANO 350.1.13.10 ity of [place] [facility] 4.2.7.2.686 [place] as [phone] [address] 2023-01-09 2023-01-12 Inpatient ER [facility] Emergency [id number] [facility] 17:11:00 13:25:00 [facility] 2023-01-09 2023-01-12 [facility] [id number] 17:11:00 13:25:00 [facility]23-01-09 2023-01-12 [facility] Amrik Macedo [facility] [id number] 17:11:00 13:25:00 Encounter Mary Sherie [facility] 2023-01-10 2023-01-10 Travel [facility] [id number] [facility] 00:00:00 00:00:00 [facility] 2023-01-10 2023-01-10 Travel [facility] [id number] [facility] 00:00:00 00:00:00 [facility] 2022-12-18 2022-12-18 Emergency X MAY, [facility] ERT [id number] Univers 12:41:00 23:33:00 NIRANJAN sharp [facility] 2022-12-18 2022-12-18 Emergency Naeem Ambrosio [facility] 1.2.840.1 [id number] Univers 12:41:00 23:33:00 Niranjan Reddy [place] 350.1.13.10 [facility] 4.2.7.2.686 [facility] [phone] [place] [address] [address] 2022-08-09 2022-08-09 (TEL) STLMLC STLMLC [id number] Co mmon 00:00:00 00:00:00 [facility] 2022-07-20 2022-07-20 (WEB) STLMLC STLMLC [id number] Co mmon 00:00:00 00:00:00 [facility] 2022-07-20 2022-07-20 OFFICE STLMLC STLMLC [id number] Co mmon 00:00:00 00:00:00 VISIT EST Spir it PT LEVEL 3 - [facility] 2022-07-19 2022-07-19 (TEL) STLMLC STLMLC [id number] Co mmon 00:00:00 00:00:00 [facility] 2022-07-10 2022-07-10 OFFICE STLMLC STLMLC [id number] Co mmon 00:00:00 00:00:00 VISIT Spirit ESTAB PT - CHI LEVEL 4 [facility] 2022-06-28 2022-06-28 (TEL) STLMLC STLMLC [id number] Co mmon 00:00:00 00:00:00 [facility] 2022-06-26 2022-06-26 (TEL) STLMLC STLMLC [id number] Co mmon 00:00:00 00:00:00 [facility] 2022-06-23 2022-06-23 (TEL) STLMLC STLMLC [id number] Co mmon 00:00:00 00:00:00 [facility] 2022-05-31 2022-05-31 Orders Doctor GELA 1.2.840.114 [id number] Univers 00:00:00 00:00:00 Only Unassigned, AURELIANO 350.1.13.10 [facility] 4.2.7.2.686 [place] [phone] [place] [address] [address] 2022-05-25 2022-05-25 (WEB) STLMLC STLMLC [id number] Co mmon 00:00:00 00:00:00 [facility] 2022-02-14 2022-02-14 (TEL) STLMLC STLMLC [id number] Co mmon 00:00:00 00:00:00 [facility] 2022-02-08 2022-02-08 OFFICE STLMLC STLMLC [id number] Co mmon 00:00:00 00:00:00 VISIT EST Spir it PT LEVEL 3 [facility] 2022-01-10 2022-01-10 (TEL) STLMLC STLMLC [id number] Co mmon 00:00:00 00:00:00 [facility] 2021-12-28 2021-12-28 OFFICE STLMLC STLMLC [id number] Co mmon 00:00:00 00:00:00 VISIT EST Spir it PT LEVEL 3 [facility] 2021-11-03 2021-11-03 OFFICE STLMLC STLMLC [id number] Co mmon 00:00:00 00:00:00 VISIT EST Spir it PT LEVEL 3 [facility] 2021-10-17 2021-10-17 (TEL) STLMLC STLMLC [id number] Co mmon 00:00:00 00:00:00 [facility] 2021-10-13 2021-10-13 (TEL) STLMLC STLMLC [id number] Co mmon 00:00:00 00:00:00 [facility] 2021-10-05 2021-10-05 (TEL) STLMLC STLMLC [id number] Co mmon 00:00:00 00:00:00 [facility] 2021-10-05 2021-10-05 OFFICE STLMLC STLMLC [id number] Co mmon 00:00:00 00:00:00 VISIT [facility] 4 [facility] 2021-09-26 2021-09-26 (TEL) STLMLC STLMLC [id number] Co mmon 00:00:00 00:00:00 [facility] 2021-09-13 2021-09-13 (TEL) STLMLC STLMLC [id number] Co mmon 00:00:00 00:00:00 [facility] 2021-07-06 2021-07-06 (TEL) STLMLC STLMLC [id number] Co mmon 00:00:00 00:00:00 [facility] 2021-07-05 2021-07-05 Telephone Walker SDKOFFI 1.2.840.114 [id number] [facility] 00:00:00 00:00:00 [facility] 350.1.13.10 it y of [place] 4.2.7.2.686 Ned as AGUSTIN?BLEA [phone] [address] MEDICAL OFFICE BUILDING 2021-07-04 2021-07-04 Orders Doctor GELA 1.2.840.114 [id number] Univers 00:00:00 00:00:00 Only Unassigned, AURELIANO 350.1.13.10 it[place] of [place] [facility] 4.2.7.2.686 Ned as [phone] [place] [address] [address] 2021-06-29 2021-06-29 (TEL) STLMLC STLMLC [id number] Co mmon 00:00:00 00:00:00 [facility] 2021-06-22 2021-06-22 Outpatient Nan JUAREZ [facility] [id number] Univers 15:45:00 15:45:00 ZIYAD lila [facility] 2021-06-14 2021-06-14 Orders Doctor GELA 1.2.840.114 [id number] Univers 00:00:00 00:00:00 Only Unassigned, AURELIANO 350.1.13.10 ity of [place] [facility] 4.2.7.2.686 Ned as [phone] [address] 2021-06-08 2021-06-08 [facility] [id number] Univers 13:15:00 13:36:34 NICOLAS sharp [facility] 2021-06-08 2021-06-[address] [facility] 1.2.000.542 [id number] Univers 13:10:32 13:36:34 Visit Nicolas Talbot [employer] 350.1.13.10 it [facility] 4.2.7.2.686 Ned as AGUSTIN?BLEA [phone] La ashley [place] [address] [place] [address] OFFICE [facility] 2021-06-08 2021-06-08 Outpatient [facility] [id number] Univers 13:15:00 13:15:00 NICOLAS jarett [facility] 2021-06-07 2021-06-07 [facility]PT[facility] [id number] Co mmon 00:00:00 00:00:00 Ora rios Patient - [facility] 2021-06-03 2021-06-03 (TEL) [facility] [id number] Co mmon 00:00:00 00:00:00 Spirit - [facility] 2021-06-03 2021-06-[address] [facility] 1.2.840.114 [id number] Univers 00:00:00 00:00:00 Nicolas [employer] 350.1.13.10 it y of [place] 4.2.7.2.686 Ned as Agustin?Blea [phone] La ashley [address] Office [facility] 2021-06-01 2021-06-01 Outpatient R WALKER [facility] [id number] Univers 15:00:00 15:00:00 NICOLAS sharp [facility] 2021-06-01 2021-06-01 Outpatient R WALKER [facility] [id number] Univers 15:00:00 14:59:14 NICOLAS sharp [facility] 2021-06-01 2021-06-01 Office Walker [facility] [id number] [id number] Univers 14:41:42 14:59:14 Visit Nicolas Talbot [facility] 350.1.13.10 it y of [place] 4.2.7.2.686 Ned as AGUSTIN?BLEA [phone] La ashley W[place] [address] [place] [address] MEDICAL OFFICE BUILDING 2021-05-11 2021-05-11 [facility] [id number] Common 00:00:00 00:00:00 [facility] 2021-05-04 2021-05-04 Hospital [facility] 1.2.840.114 [id number] Univers 09:12:00 12:10:00 Encounter Shannan kirkpatrick 350.1.13.10 ity of [place]2.[place] [phone] [facility] [address] 2021-05-04 2021-05-04 Surgery [facility] 1.2.840.114 [id number] Univers 11:06:00 11:43:00 Shannan kirkpatrick 350.1.13.10 ity of [place] [phone] [facility] [address] 2021-05-03 2021-05-03 Laboratory Only, Adc Test [facility] 1.2.840. 114 [id number] Univers 14:17:20 14:32:20 Only Shannan Amezquita 350.1.1 3.10 ity of [place] 4[place].2.[place] [phone] [facility] [address] 2021-05-03 2021-05-03 Outpatient R [facility] [id number] Univers 09:45:00 09:45:00 SHANNAN Kirkpatrick o f [facility] 2021-04-18 2021-04-18 Orders Doctor GELA 1.2.840.[id number] [place] [address] 00:00:00 00:00:00 Only Unassigned, AURELIANO 350.1.13.10 ity of [place] [facility] 4.2.7.2.686 Ned as [phone] [address] 2021-04-11 2021-04-11 [facility] [id number] Common 00:00:00 00:00:00 [facility] 2021-04-06 2021-04-06 Outpatient Nan [facility] [id number] [facility] 14:30:00 14:30:00 NICOLAS itjarett [facility] 2021-03-11 2021-03-11 [facility] ST[facility] [id number] Common 00:00:00 00:00:00 [facility] 2021-03-10 2021-03-10 [facility] [id number] Common 00:00:00 00:00:00 [facility] Results Test Description Test Time Test Comments Results Result Comments Source Tissue Exam 2023-03-28 11:59:10 Test Item Value Reference Range Interpretation Comme nts Case Report (test code = 104) Surgical Pathology Report Case: [id number] Authorizing Provider: Chapis Grey MD Collected: 03/23/2023 11:22 AM Ordering Location: [facility] Received: 03/26/2023 08:03 AM Pathologist: Yun Stringer MD Specimen: Polyp, Colon - Transverse DIAGNOSIS (test code = 3220) u0ttiVQwOIRco4guOKKptDMfQvApOnWmEvZkTb p vjITaZQjktjOhSMqxuEmoSTLbUYdiOT8wcFeyeL r5cBvvFSZgxmX5rBXjMMdou7uaOWU3c0hhphcbQ HAtBTgiXc8wcPNosKluQmTnBOEcEAv8sA36YGLp nA2mzZRxHTx8RJSlzWNqqrOmZoHoFDMenANlpTY 5VPBlDH2htetyAJurHQxoZGRyqnN9TAMkpNApW6 QhUEKuUL7xpkszXRZ8LMckNKAxHKO7HtHtRNXlx 4Fdama9OnKdwPFfVFismQOhhbqxscHlGHMRTY0J SXMUGtIKG3MEItBHVQJBZnOKY9HMVXfSZTOHFFz HUXBUN63RMoadSMUoCA0xQeIOI88HNiAPKB1GOL RFJU2CYQOdQTHHT9HVXFMQIoREFVXDI0OICNYqf FRnLFYzMPKIN7QBTI8BALKIYBLZHNZuquInQENV TlCNNNWULVTPKITjQ4DiOD8EYODIQqDcL3RGS8d NS50PZWGDYP6mtOQnOKBoqfzbHTNbFHwfSRK5b3 xydGYxXHNzdGUxODAwMFxhbnNpXGRlZmxhbmcxM ECoXOG7ptXrRVQaRAidERHsJBeyCw8hhUIxvDch ShZtAUZzy0qdoeBSloeanEs5t0obBFOcXzC8uDS bBWbiB1rtndJueIUiFJZnTCt2jC51CZGstW8cvK NjBPdxuuEwPmC4SCtnZXMaXfF6GCJjeLTtHDYaA 5jzXRThDOojLQSnPIqmbCFiCJS3pMyyy9O6xGOy cMHvkQjoJkBvWxFpKeEGw2PyNVr3qUonX0FaQMD aTrF5pWXlTAQtUNmoNYAzSULgydL8hX25RJhwol X3mHSsm2Sul02it788hJ9gvBAzRWU6KNXiJAMuh FQeJSWsVOS7MTXgpFGwI0bkRHJcDL5gqhhzVLwr CQiiENKlxUG4VZXjdLKvJ7SqRFQbIRvwYKQbbvq 2ReTzJy0opLAltOvxVIyzf6xzz7kefXIrOlg9AO QuOjBkIaomJFzia5Hnp1mnOLYdkv3sDCQ7bSYum Iquu3R7fTGaKUJsqFBwZNPuJT3naFRrTVAelR2g lwrtHXGhRhMpripjEDIraBxkefUgPd8erSbpIGG 3SGgiU9mduB4dBcO9BMvnR6qghP7fCLf1NVaeTL FoeIS0okK6MLTanTJlD4IacB7bVTZgCN4tkns0g 4itCFC6ZOlvJLYgJiL6ksN7IUJdaZSlBZYziBcy XGvep841GMN1YjCrSRYvu4DrC3HisXovG90kdMg sB14oDGTcnHrdfM6nkVesbA0cCaOoMsZeZHspqO xaCS6cVALxO8egkYRkUURlNTCuW5btEpElvP2xg WwhTJiproOlAMWzPeu1CFKfpFNoRLJjYfh2TWIb LSNjY31hyxazSGA4mB3wr2rbx5PzYNzuVPE6OOS lc18wKOfzrsC3FGV8TB13MaybLnG5V1aaWPM8cQ == CPT Code(s) (test code = 3357) g1pmzBSqWSXqdQZhATQeM8exryYzJEGypQEv Z3B nhnrhLLtiST3uUJ5jiKguyGCiwBJpUAPlJnErg1 gna358iEQro1hbZIYGhcrpsPp3jRfbO09hq4D5B xwfA34gwKXwDAF8HLWgLFEqfIXdMCOuUTF9YKCd zOSuZ7ybNUSvBL3raoiqHScwETozFGKxlRL0PAR zeCXrU4EcDNFaCEiqMKEbjtl8UjHwJa8fvKAbeR cyMFxwYXJkXHBsYWluXGZzMjAgODgzMDVccGFyf Q== GROSS DESCRIPTION (test code = m9tifXDlFUVymREgMQHkM6oamgNrSBFibIHf Z3B [id number]) uubgcRSbnOT0xRB0gvQllmEYblDQeDGFfDtCke6 ats702fVKxn4cfHDOThcclhIi7lAocL99lz6W0U vatU2bkZUYzEPqjDJZyJNjwfQKhGRt4ZZHygSDm wnGnRoXxRITcaZSviSZ5AHVaAM4sftyoOCgxLMn uFKHzizB8UGOtsHGlQ1LoSBIbUO6ergahPZW4NO ewZUNzYUE8MdYuEDAba9Nuoeq2JsI8KObzWOYoJ 4XoD7BpZAnyFSC4CNDlZJAzRILuRR6EDkJxEUCw URQ1EJZ9OuWQNEGpUUY3TcB8KEEHDGVzZpFdDwA bOiV1TmleAEmLIxOzBhPqMCIfPAM7RXhgywsrSR u2LHRqBTzypMIpRF4nmQqkOqdgjDduk1VtlUCuQ SnbGPVcDLGxPAulVKQkM2WVGWGpPEW4XjV0TVyt MCg1IVl8KA3BKgOuEVPeTEPsRDH3LMYpAUp4ATw fUE2OZJt4IEO3ZIOpPeI8ILv2EcTnQYUlQuIfRS NfIGOtSRbjcZNtPE9ezIntGZWbNPWqMNomDOSbQ eSwDS4kHU6fjKEcHVFnwV6dRJ7iEDBumqF3ILZn ZAmqJNVdhLMhDEbzTgInBDSheNJMl9OjMWcsmGW mwqickjTaZZSbDXQPOUIusUMzRJDogvKkq6YvRY xpbiBsYWJlbGVkIHdpdGggdGhlIHBhdGllbnRcJ 2V0dlNkZZ3wBNMlAMLiL9GbRQFkQ37wVHRikH3k MLYkSN1rHXrmYeFxFNBlpV0roWBmMNDqkV1jOAI 2ueZre6WmmfYeSYMztqVfNm16viHkduPcwGUhgF Vwk7PveXWzDR50B43tKDjnuOuft6JuUVSuVO4tr N5gQNWzu48tNQ5pBVFjKgYapBUnBJC9Rz3dlELe WAGgkhO3e9UwYOkoEPYgWazxFUCaxADxAZtvIUB ri0EkDCjxsYjtXWImAcXcCnRlHycpNxQ8BVFrpC HqCOO5MD7ngJsnHSVgW8EbQ1YjulH2MBTmxc1= MICROSCOPIC DESCRIPTION (test code = d9ouqMWuTPOztKTtMXFrB8jwqwGpKQ ZjsUPeY9Z 337) vfjksFCttFZ5sON4kjNpnjDChfFCsDOThLsTwc1 izy399dERsc7fuMOTUxjwvhZl6rKknI35gd1P5N sygP46jsYGjXKN4UPWeXSIixZUmNQBgFWQ3NNBm zSGxP3vqZBTmRP7ifjhgTJwgRYdqXDLhaAZ8AGJ zeYXyK7VgCHNrYByhMZCahhy6KlLpZi1qbDXqyT afUDusFIImBURdMYvlVVSdChShULSZDl2XRBBPG HBhclxwYXJ9 [facility] [id number] 11:59:10 Test Item Value Reference Range Interpretation Comments Case Report (test code Surgical Pathology = 104) Report Case: [id number] Authorizing Provider: Chapis Grey MD Collected: 03/23/2023 11:22 AM Ordering Location: [facility] Received: 03/26/2023 08:03 AM Pathologist: Yun Stringer MD Specimen: Polyp, Colon - Transverse DIAGNOSIS (test code = [id number] 3220) FuZzEwMzNcZnRuYmpcdWMx IHtccnRmMVxlcGljMTAyMD mrFS8uwBpzdTr1gTcfPTAc fpG4kJAiIJdtc5ckPYB7l2 fxttseBTAhVFvsTg6knANl aWymUhCaIKDnJYm0uU51KV DcoY3ebUNeGEh3WQWnpKJw ucLxEqUwQQWdfKTxcOW3BI NiCX2igtppDFuyLZhqDNCo jqG2RNKqzCNxV7IpKNDvPO 8qvuydHLE8FPspZEAjZOA2 TwSbHQGml8Hmxsu7GjCmqU FyZFxwbGFpblxmczIwIENP AF8ZSDKDHrZVF5GSNlCIUA PCDzAZH3HFVAmQOWYGNYxR XBFXD44DAdhdIKMoTG5qXu MSL18FNxMUCF3XYTHMTN3T ZXRuQRGQZ8DFJQGENaENFA BQW0ZRVMTusOZsTLPuAQKL Z8SENX4PNOOFTNTQBUZkvj AgLSBOTyBEWVNQTEFTSUEs T8CwHB9YISLPPcRnU7EBN1 cBF78RQQJETR0ukWJkCLLb dhksDNBiLEtrBSK4l7rclF YxXHNzdGUxODAwMFxhbnNp SJYlMedvyspxZUNxPJL2vq PtNAIbBMucMFQaVUecGr2m bZGvuXshTyAvXJAxk0sqnf ELdfqbvJh6y2pkISLqYgP1 eVOuZBlpI1ulmpUcwMZlMJ ZdQVd4lS40RNUapD9nuPGf CMavnfEkXqB7JExpIHSmBe O9PSEnqFWvKRXeD6rpQUXk UEheMAOgMRfkeNTqNDK9lV vpz8V1sHGomQMuzQuiSgWn ChLwMpUQl9PjCIy7qPfpQ9 XpDZPfLxN1jFYuGQRvBJjc TJJfUMGadfK8zO96LLomui B4cJMvg7Mqz21sg786yP4q tPMuAFV4EEYxUCVqiTDnJQ NkPRW1HLGyvKGaE2oxDZFj BI7teztdCHywNZbcVFMvlA I7FGBdiUBgO0RgLDAfZZag PDBafvs6CnEdCn5stLEpdX ozYTssb2xoy1xowDApZfs7 VLPzEkHnKbgeBBsta1Uhk3 irDLLpkf7yKVZ1kFZwrGwm j6Q8qDVlSWOemYTwBLVqMH 9puTFcGMAonJ0ckdbgPRGy YnJkcmhlYWRccGdicmRyZm 3fyKcbCVA7ZSyiW4gdeA9o OeT7KQegO8odmD5tWWc3XM fuVETqoLZ1uvN8VDSdiSSh E7ItbA1mUNDrNP4kqpf1a1 hnFKL9SUuiNCQdNuN0puS1 NDBcaGVhZGVyeTcyMFxmb2 21CTA2ZoGwIJWfz5SnU2Dn gBasC48pbWvkY34cKQUbvM aytG7mzMvqlH5aZeLcRyCd PAuqnVpiPD1rZREgV1cufP GhWOBnVZElK4djBcPyoG7d tDosGMmuqkEoQBMyGum2IV DzuKWyVHBnGow2BOZmMEJh O56qhkphRPO6iQ8dn9xlw1 SrUZwnOSL7YZKss69yYLxe brE1XNN7KH72TtztWcE4M1 vuTJV1kV== CPT Code(s) (test code p7kgpTYeMAWxsIPrQXUaD2 = 3357) kjauDuKNNifYKhX7Wotgyt XElnHU7vZA7swYjvmZPaeX ZwNOMlLiSyt1ajr362zIQy b2neJSGGovbnlKm2lFbbT6 0li4K4KukqA74tqARiMQJ0 AKVmGFWhuJDwFDCiLRT1WX CciCEyT6iiYNKdOT8pehxb YLssQCxjFIIxvWC6KQGbwJ ZpN7BoSWGjBEouMCCampq0 UpSmMx0xsWErdMclSAkxPN JkXHBsYWluXGZzMjAgODgz MDVccGFyfQ== GROSS DESCRIPTION (test z5algZQoXQOgbATkIGYmQ1 code = [id number]) rgbdYpROXfqNVaD4Gzbvkj WAucRO4eXF2lpSsbbMQdeK HtZQJrFtRhs1mzw196aMQj f0moQPURuxwyjMk3eRkjE4 8oe0Z4DngoY6fqNFNzTNwk RSJuIIvrdCFeRFc9NZBouK VydzEyMjQwXHBhcGVyaDE1 NAShTP9eqxsfNQvqYZjyRA UxukN6ZRKzkVViA5EjRDGa UH5ifluuSRC3CNzyJWHwBJ X2OmZmWLAyj4Hoyie3TfH2 VSdcDCJiX9QlB8NtDBcvNK I4UCTuSIYoRRZwWP5BBeMr ASPxZUI4TXR3TdDXUNJhYW Z1HyF0HMASSRFqAtPfRiJa JjF9SxlsYUhCEzGsJsMmES ZlNVA2LZrtkflhQMr9UJYu LSwzsOPvSL2ghIjaRhgcsF lxg1WelKPuBCkuPTPeCWSf JXopFHBgS1QWYZEpZPX7Fl K3TAefSIk3GOt3SQ9QYlYs HIDlBOAtUZL7HPHvHNb5LS qhWV8FOLm0ARR8XBZcCgN0 NUy0TuFkXWAeStFbIVBpUZ GgNJpwqQVvRN0hqIphHTPt UVLsTPneCATwIgQcEK1cMR 1lxXApQJPosW4zOD4nSERm tlX0ILQrNWszCOAxvJYsZZ orNuWtHVKuhYEPq5PeGCbh bGFpblxmczIwXGNmMSBSZW JmlNApHKHsvpShj4KhZDlz biBsYWJlbGVkIHdpdGggdG zdKTWzwTwelhWpC3P6zqRt NZ9uNICnIMDpJ5EqESNqV8 2pKUYosK1uLVKzWB8nHVsd YwRtOTCbxR2yzXJnNVOzpZ 3zLMK4rgGnd0CrwtQrIEFb yaBlUh88lqDkedJpxCEiqO Gsb1TwvPEkOH84T50rKYpj tRffu2EpBJZjOJ1ldE4eAR Vyo45sRC5nDAUeLeMqqAIa LAM0Xv4jeKEvZEAiczY5c7 RvIGluIEExLlxwYXJccGFy AFxaJKCln2WtXDyakVnuUV AhAiVjOzAwShpjRdK6UAPg xRGpTQX4LT8gwAqbPMKaG8 HrM2GskuO7KTUocz4= MICROSCOPIC DESCRIPTION s3wzhGKgXBLacZJiRAWhC9 (test code = 3371) splsFbGWKnoZMmR7Nzqukf DGnsZA1tDV8oiTyipKGqmZ SoMTYxKpTek9gco527qGZg i1thYYQYctqilVq4zOclZ7 4no8P4JgqyO79mfBWwVBS8 XGPvVUZibCEaIRSbHHJ2IP TonYGbN2feALSeKK6xfswd VQmyEExeYPWtuET1DZGkxQ KpI3NrUBXwZByyQUSywlb4 IeLhXd9yaKParMjoGQvlHT JkXHBsYWluXGZzMjAgUEVS Yy6QSJYXSHJjbjfhTLV7 [facility] [id number] 11:59:10Surgical Pathology Report Case: [id number] Authorizing Provider: Chapis Grey MD Collected: 03/23/2023 11:22 AM Ordering Location: [facility] Received: 03/26/2023 08:03 AM Pathologist: Yun Stringer MD Specimen: Polyp, Colon - Transverse COLON, TRANSVERSE, ENDOSCOPIC POLYPECTOMY: - FRAGMENTS OF COLONIC MUCOSA, UNREMARKABLE - FECAL MATERIAL - NO DYSPLASIA,OR INVASIVE CARCI NOMA SEEN Signing Pathologist Direct Phone Line: [phone] signed by Yun Stringer MD on 03/28/2023 at 11:59 [id number]. Polyp, Colon - TransverseReceived in formalin labeled with the patient's name, medical record number and labeled polyp, colon- transverse, are four fragments of ramos mucosal tissue, ranging from 0.1-0.2 cm , submitted in toto in A1.PERFORMED COMPLEMENT COMPONENT [id number] 07:28:03 Test Item Value Reference Range Interpretation Comments C3 COMPLEMENT (BEAKER) (test code = 122 mg/dL 82-193 393) Rn Concurrent Review ID - ADMINCOMPLEMENT COMPONENT [id number] 07:28:02 Test Item Value Reference Range Interpretation Comments C4 COMPLEMENT (BEAKER) (test code = 17 mg/dL 15-57 394) Rn Concurrent Review ID - ADMINCOMPREHENSIVE METABOLIC [id number] 05:58:29 Test Item Value Reference Range Interpretation Comments TOTAL PROTEIN 7.1 gm/dL 6.0-8.3 Specimen sligh tly (BEAKER) (test hemolyzed code = 770) ALBUMIN (BEAKER) 4.2 g/dL 3.5-5.0 Specimen sl ightly (test code = 1145) hemolyzed ALKALINE 54 U/L 40-150 PHOSPHATASE (BEAKER) (test code = 346) BILIRUBIN TOTAL 0.3 mg/dL 0.2-1.2 Specimen sli ghtly (BEAKER) (test hemolyzed code = 377) SODIUM (BEAKER) 141 meq/L 136-145 (test code = 381) POTASSIUM (BEAKER) 3.9 meq/L 3.5-5.1 Specimen slightly (test code = 379) hemolyzed CHLORIDE (BEAKER) 109 meq/L 98-107 H (test code = 382) CO2 (BEAKER) (test 22 meq/L 22-29 code = 355) BLOOD UREA 13 mg/dL 7-21 NITROGEN (BEAKER) (test code = 354) CREATININE 0.92 mg/dL 0.57-1.25 Specimen slight ly (BEAKER) (test hemolyzed code = 358) GLUCOSE RANDOM 94 mg/dL 70-105 (BEAKER) (test code = 652) CALCIUM (BEAKER) 9.6 mg/dL 8.4-10.2 (test code = 697) AST (SGOT) 27 U/L 5-34 Specimen slight ly (BEAKER) (test hemolyzed code = 353) ALT (SGPT) 37 U/L 6-55 Specimen slight ly (BEAKER) (test hemolyzed code = 347) EGFR (BEAKER) 79 Interpretatio n of eGFR (test code = 1092) mL/min/1.[address] age Description sq m Result G1 Gunjan l or high >=90 G2 Mildly decreased 60-89 G3a Mildl y to moderately 45-5 9 G3b Moderately to s everely 30-44 G4 Severl y decreased 15-29 G5 Kidney failure <15Reported eGF R is based on the CKD-EPI 2020 equation that d oes not use a race coefficientEsti mated GFR is not as accur ate as Creatinine Wilda velarde in predicting glom erular filtration rate . Estimated GFR is not appl icable for dialysis patien ts Rn Concurrent Review ID - mmCBC (HEMOGRAM ONLY)2023-01-12 05:27:57 Test Item Value Reference Range Interpretation Comments WHITE BLOOD CELL COUNT (BEAKER) 6.0 K/ L 3.5-10.5 (test code = 775) RED BLOOD CELL COUNT (BEAKER) 5.05 M/ L 3.93-5.22 (test code = 761) HEMOGLOBIN (BEAKER) (test code = 14.0 GM/DL 11.2-15.7 410) HEMATOCRIT (BEAKER) (test code = 42.2 % 34.1-44.9 411) MEAN CORPUSCULAR VOLUME (BEAKER) 84 fL 79-95 (test code = 753) MEAN CORPUSCULAR HEMOGLOBIN 27.7 pg 25.6-32.2 (BEAKER) (test code = 751) MEAN CORPUSCULAR HEMOGLOBIN CONC 33.2 GM/DL 32.2-35.5 (BEAKER) (test code = 752) RED CELL DISTRIBUTION WIDTH 13.3 % 11.7-14.4 (BEAKER) (test code = 412) PLATELET COUNT (BEAKER) (test 287 K/CU MM 150-450 code = 756) MEAN PLATELET VOLUME (BEAKER) 9.3 fL 9.4-12.3 L (test code = 754) NUCLEATED RED BLOOD CELLS 0 /100 WBC 0-0 (BEAKER) (test code = 413) BASIC METABOLIC [id number] 06:39:06 Test Item Value Reference Range Interpretation Comments SODIUM (BEAKER) 141 meq/L 136-145 (test code = 381) POTASSIUM 4.2 meq/L 3.5-5.1 (BEAKER) (test code = 379) CHLORIDE (BEAKER) 112 meq/L 98-107 H (test code = 382) CO2 (BEAKER) 22 meq/L 22-29 (test code = 355) BLOOD UREA 14 mg/dL 7-21 NITROGEN (BEAKER) (test code = 354) CREATININE 1.07 mg/dL 0.57-1.25 (BEAKER) (test code = 358) GLUCOSE RANDOM 90 mg/dL 70-105 (BEAKER) (test code = 652) CALCIUM (BEAKER) 8.8 mg/dL 8.4-10.2 (test code = 697) EGFR (BEAKER) 66 Interpretatio n of eGFR (test code = mL/min/1.73 values Stage De scription 1092) sq m Result G1 Gunjan l or high >=90 G2 Mildly decreased 60-89 G3a Mildl y to moderately 45-5 9 G3b Moderately to s everely 30-44 G4 Severl y decreased 15-29 G5 Kidney failure <15Reported eGF R is based on the CKD-EPI 202 equation that d oes not use a race coefficientEsti mated GFR is not as accur ate as Creatinine Wilda velarde in predicting glom erular filtration rate . Estimated GFR is not appl icable for dialysis patien ts Rn Concurrent Review ID - MARCOHEPATIC FUNCTION [id number] 06:39:06 Test Item Value Reference Range Interpretation Comments TOTAL PROTEIN (BEAKER) (test code = 6.3 gm/dL 6.0-8.3 770) ALBUMIN (BEAKER) (test code = 1145) 3.8 g/dL 3.5-5.0 BILIRUBIN TOTAL (BEAKER) (test code 0.3 mg/dL 0.2-1.2 = 377) BILIRUBIN DIRECT (BEAKER) (test 0.1 mg/dL 0.1-0.5 code = 706) ALKALINE PHOSPHATASE (BEAKER) (test 49 U/L 40-150 code = 346) AST (SGOT) (BEAKER) (test code = 23 U/L 5-34 353) ALT (SGPT) (BEAKER) (test code = 29 U/L 6-55 347) Rn Concurrent Review ID - MARCOCBC W/PLT COUNT & AUTO [id number] 06:32:55 Test Item Value Reference Range Interpretation Comments WHITE BLOOD CELL COUNT (BEAKER) 4.0 K/ L 3.5-10.5 (test code = 775) RED BLOOD CELL COUNT (BEAKER) 4.12 M/ L 3.93-5.22 (test code = 761) HEMOGLOBIN (BEAKER) (test code = 11.7 GM/DL 11.2-15.7 410) HEMATOCRIT (BEAKER) (test code = 35.1 % 34.1-44.9 411) MEAN CORPUSCULAR VOLUME (BEAKER) 85 fL 79-95 (test code = 753) MEAN CORPUSCULAR HEMOGLOBIN 28.4 pg 25.6-32.2 (BEAKER) (test code = 751) MEAN CORPUSCULAR HEMOGLOBIN CONC 33.3 GM/DL 32.2-35.5 (BEAKER) (test code = 752) RED CELL DISTRIBUTION WIDTH 13.4 % 11.7-14.4 (BEAKER) (test code = 412) PLATELET COUNT (BEAKER) (test 220 K/CU MM 150-450 code = 756) MEAN PLATELET VOLUME (BEAKER) 9.4 fL 9.4-12.3 (test code = 754) NUCLEATED RED BLOOD CELLS 0 /100 WBC 0-0 (BEAKER) (test code = 413) NEUTROPHILS RELATIVE PERCENT 47 % (BEAKER) (test code = 429) LYMPHOCYTES RELATIVE PERCENT 38 % (BEAKER) (test code = 430) MONOCYTES RELATIVE PERCENT 13 % (BEAKER) (test code = 431) EOSINOPHILS RELATIVE PERCENT 2 % (BEAKER) (test code = 432) BASOPHILS RELATIVE PERCENT 1 % (BEAKER) (test code = 437) NEUTROPHILS ABSOLUTE COUNT 1.87 K/ L 1.56-6.13 (BEAKER) (test code = 670) LYMPHOCYTES ABSOLUTE COUNT 1.52 K/ L 1.18-3.74 (BEAKER) (test code = 414) MONOCYTES ABSOLUTE COUNT (BEAKER) 0.50 K/ L 0.24-0.36 H (test code = 415) EOSINOPHILS ABSOLUTE COUNT 0.09 K/ L 0.04-0.36 (BEAKER) (test code = 416) BASOPHILS ABSOLUTE COUNT (BEAKER) 0.02 K/ L 0.01-0.08 (test code = 417) IMMATURE GRANULOCYTES-RELATIVE 0.20 % 0.00-1.00 PERCENT (BEAKER) (test code = 2801) C-REACTIVE [id number] 01:20:49 Test Item Value Reference Range Interpretation Comments C-REACTIVE PROTEIN (BEAKER) (test 0.50 mg/dL 0.00-0.50 code = 676) Rn Concurrent Review ID - ADMINCT, [id number] 23:04:00Unlisted Reason for Exam - Click Yes and Enter Reason Below->NoProtocol Please Specify:->Standard ProtocolWill this procedure require oral contrast?->No [facility] 1980 Sex: FFINAL REPORT CLINICAL HISTORY: LLQ abdominal pain FINDINGS: Multiple axial images of the abdomen and pelvis were performed after the uncomplicated administration of IV contrast. Oral contrast was not given. This exam was performed according to our departmental dose-optimization program, which includes automated exposure control, adjustment of the mA and/or kV according to patientsize and/or use of the iterative reconstruction technique. Comparison:12/18/2013 Lower chest: Curvilinear atelectasis versus scarring in the lung bases. No pleural effusion or pneumothorax. Visualized cardiac contours normal. Liver: No significant findings. Gallbladder and biliary tree: Prior cholecystectomy. Spleen: No significant findings. Adrenal Glands: No significant findings. Kidneys and ureters: No significant findings. Stomach and Duodenum: No significant findings. Pancreas: No significant findings. Bowel: Left colonic diverticulosis. Subtle circumferential mural thickening of the proximal sigmoid colon. No bowel obstruction or pneumatosis intestinalis. Appendix: Nonvisualized. No right lower quadrant inflammatory changes. Bladder: No significant findings. Major vascular structures: Scattered atherosclerotic calcifications. Reproductive organs: Prior hysterectomy. Other: No free air, fluid or adenopathy Skeleton: No acute bony abnormality. IMPRESSION: Left colonic diverticulosis. There is subtle circumferential mural thickening of the proximal sigmoid colon, possibly reflecting mild diverticulitis or colitis given the history of left lower quadrant pain. A more aggressive colonic lesion should be excluded on colonoscopy follow-up. Signed: Angelic Rodriguez MDReport Verified Date/Time: 01/09/2023 23:04:30 HCG, QUANTITATIVE, [id number] 18:42:42 Test Item Value Reference Range Interpretation Comments GONADOTROPIN, CHORIONIC (HCG) QUANT 3 mIU/mL 0-10 (BEAKER) (test code = 649) Non- Females: <10 mIU/mL Females: Gestation Age Reference Range(mIU/mL) 0.2-1 Week 5-50 1-2 Weeks 50-500 2-3 Weeks 100-5,000 3-4 Weeks 500-10,000 4-5 Weeks 1,000-50,000 5-6 Weeks 10,000-100,000 6-8 Weeks 15,000- 200,000 2-3 Months 10,000-100,000 Rn Concurrent Review ID - ADMINCOMPREHENSIVE METABOLIC [id number] 18:36:19 Test Item Value Reference Range Interpretation Comments TOTAL PROTEIN 6.6 gm/dL 6.0-8.3 (BEAKER) (test code = 770) ALBUMIN (BEAKER) 4.0 g/dL 3.5-5.0 (test code = 1145) ALKALINE 52 U/L 40-150 PHOSPHATASE (BEAKER) (test code = 346) BILIRUBIN TOTAL 0.3 mg/dL 0.2-1.2 (BEAKER) (test code = 377) SODIUM (BEAKER) 141 meq/L 136-145 (test code = 381) POTASSIUM (BEAKER) 4.0 meq/L 3.5-5.1 (test code = 379) CHLORIDE (BEAKER) 112 meq/L 98-107 H (test code = 382) CO2 (BEAKER) (test 20 meq/L 22-29 L code = 355) BLOOD UREA 19 mg/dL 7-21 NITROGEN (BEAKER) (test code = 354) CREATININE 1.18 mg/dL 0.57-1.25 (BEAKER) (test code = 358) GLUCOSE RANDOM 86 mg/dL 70-105 (BEAKER) (test code = 652) CALCIUM (BEAKER) 9.0 mg/dL 8.4-10.2 (test code = 697) AST (SGOT) 19 U/L 5-34 (BEAKER) (test code = 353) ALT (SGPT) 22 U/L 6-55 (BEAKER) (test code = 347) EGFR (BEAKER) 59 Interpretati on of eGFR (test code = 1092) mL/min/1.[address] age Description sq m Result G1 Gunjan l or high >=90 G2 Mildly decreased 60-89 G3a Mildl y to moderately 45-5 9 G3b Moderately to s everely 30-44 G4 Severl y decreased 15-29 G5 Kidney failure <15Reported eGF R is based on the CKD-EPI 2020 equation that d oes not use a race coefficientEsti mated GFR is not as accur ate as Creatinine Wilda syd in predicting glom erular filtration rate . Estimated GFR is not appl icable for dialysis patien ts Rn Concurrent Review ID - [id number] 18:36:19 Test Item Value Reference Range Interpretation Comments LIPASE (BEAKER) (test code = 749) 14 U/L Rn Concurrent Review ID - JSUrinalysis w/Microscopic + Reflex to [id number] 18:19:56 Test Item Value Reference Range Interpretation Comments Color, UA (test code Light Yellow = 5778-6) Clarity, UA (test Clear code = 5767-9) Specific [place], UA 1.013 1.001-1.035 (test code = 5811-5) pH, UA (test code = 6.5 5.0-8.0 5803-2) Protein, UA (test 20 mg/dL Negative A code = 74613-3) Glucose, UA (test Negative Negative code = 365) Ketones, UA (test Negative Negative code = 2514-8) Bilirubin, UA (test Negative Negative code = 42863-6) Blood, UA (test code Negative Negative = 74984-4) Nitrite, UA (test Negative Negative code = 5802-4) Leukocytes, UA (test Small Negative A code = 5799-2) Urobilinogen, UA 0.2 0.2-1.0 (test code = 66769-9) RBC, UA (test code = 1 See_Comment [Autom ated 19790-0) message] The system which generated this result transmit marialuisa reference range : /HPF. The reference range was not used to interpret this result as normal/abnormal . WBC, UA (test code = 1 See_Comment [Autom ated 5821-4) message] The system which generated this result transmit marialuisa reference range : /HPF. The reference range was not used to interpret this result as normal/abnormal . Squam Epithel, UA 2 See_Comment [Automate d (test code = 70443-6) messag e] The system which generated this result transmit marialuisa reference range : /HPF. The reference range was not used to interpret this result as normal/abnormal . Specimen Source (test code = 2795) JAXSON (test code = JAXSON) Rn Concurrent Review ID - [auto]Rn Concurrent Review ID - tech Lab Interpretation Abnormal (test code = 57649-1) [facility] Culture 2023-01-09 18:19:56 Test Item Value Reference Range Interpretation Comments Color, UA (test code Light Yellow = 5778-6) Clarity, UA (test Clear code = 5767-9) Specific [place], UA 1.013 1.001-1.035 (test code = 5811-5) pH, UA (test code = 6.5 5.0-8.0 5803-2) Protein, UA (test 20 mg/dL Negative A code = 90405-0) Glucose, UA (test Negative Negative code = 365) Ketones, UA (test Negative Negative code = 2514-8) Bilirubin, UA (test Negative Negative code = 23181-9) Blood, UA (test code Negative Negative = 03672-2) Nitrite, UA (test Negative Negative code = 5802-4) Leukocytes, UA (test Small Negative A code = 5799-2) Urobilinogen, UA 0.2 0.2-1.0 (test code = 85615-0) RBC, UA (test code = 1 See_Comment [Autom ated 39567-5) message] The system which generated this result transmit marialuisa reference range : /HPF. The reference range was not used to interpret this result as normal/abnormal . WBC, UA (test code = 1 See_Comment [Autom ated 5821-4) message] The system which generated this result transmit marialuisa reference range : /HPF. The reference range was not used to interpret this result as normal/abnormal . Squam Epithel, UA 2 See_Comment [Automate d (test code = 04875-7) messag e] The system which generated this result transmit marialuisa reference range : /HPF. The reference range was not used to interpret this result as normal/abnormal . Specimen Source (test code = 2795) JAXSON (test code = JAXSON) Rn Concurrent Review ID - [auto]Rn Concurrent Review ID - tech Lab Interpretation Abnormal (test code = 02446-7) [facility] Reflex to Culture 2023-01-09 18:19:56 Test Item Value Reference Range Interpretation Comments Color, UA (test code Light Yellow = 5778-6) Clarity, UA (test Clear code = 5767-9) Specific [place], UA 1.013 1.001-1.035 (test code = 5811-5) pH, UA (test code = 6.5 5.0-8.0 5803-2) Protein, UA (test 20 mg/dL Negative A code = 56887-9) Glucose, UA (test Negative Negative code = 365) Ketones, UA (test Negative Negative code = 2514-8) Bilirubin, UA (test Negative Negative code = 78039-6) Blood, UA (test code Negative Negative = 57698-2) Nitrite, UA (test Negative Negative code = 5802-4) Leukocytes, UA (test Small Negative A code = 5799-2) Urobilinogen, UA 0.2 0.2-1.0 (test code = 52432-3) RBC, UA (test code = 1 See_Comment [Autom ated 35838-5) message] The system which generated this result transmit marialuisa reference range : /HPF. The reference range was not used to interpret this result as normal/abnormal . WBC, UA (test code = 1 See_Comment [Autom ated 5821-4) message] The system which generated this result transmit marialuisa reference range : /HPF. The reference range was not used to interpret this result as normal/abnormal . Squam Epithel, UA 2 See_Comment [Automate d (test code = 09221-2) messag e] The system which generated this result transmit marialuisa reference range : /HPF. The reference range was not used to interpret this result as normal/abnormal . Specimen Source (test code = 2795) JAXSON (test code = JAXSON) Rn Concurrent Review ID - [auto]Rn Concurrent Review ID - tech Lab Interpretation Abnormal (test code = 04408-6) [facility] UR[facility] [id number] 18:19:56 Test Item Value Reference Range Interpretation Comments COLOR (BEAKER) (test code = 470) Light Yellow CLARITY (BEAKER) (test code = Clear 469) SPECIFIC GRAVITY UA (BEAKER) 1.013 1.001-1.035 (test code = 468) PH UA (BEAKER) (test code = 467) 6.5 5.0-8.0 PROTEIN UA (BEAKER) (test code = 20 mg/dL Negative A 464) GLUCOSE UA (BEAKER) (test code = Negative Negative 365) KETONES UA (BEAKER) (test code = Negative Negative 371) BILIRUBIN UA (BEAKER) (test code Negative Negative = 462) BLOOD UA (BEAKER) (test code = Negative Negative 461) NITRITE UA (BEAKER) (test code = Negative Negative 465) LEUKOCYTE ESTERASE UA (BEAKER) Small Negative A (test code = 466) UROBILINOGEN UA (BEAKER) (test 0.2 0.2-1.0 code = 463) RBC UA (BEAKER) (test code = 1 /HPF 519) WBC UA (BEAKER) (test code = 1 /HPF 520) SQUAMOUS EPITHELIAL (BEAKER) 2 /HPF (test code = 516) SOURCE(BEAKER) (test code = 2795) Rn Concurrent Review ID - [auto]Rn Concurrent Review ID - techCBC W/PLT COUNT & AUTO DIFFERENTIAL 2023-01-09 18:17:43 Test Item Value Reference Range Interpretation Comments WHITE BLOOD CELL COUNT (BEAKER) 5.6 K/ L 3.5-10.5 (test code = 775) RED BLOOD CELL COUNT (BEAKER) 4.21 M/ L 3.93-5.22 (test code = 761) HEMOGLOBIN (BEAKER) (test code = 12.0 GM/DL 11.2-15.7 410) HEMATOCRIT (BEAKER) (test code = 36.6 % 34.1-44.9 411) MEAN CORPUSCULAR VOLUME (BEAKER) 87 fL 79-95 (test code = 753) MEAN CORPUSCULAR HEMOGLOBIN 28.5 pg 25.6-32.2 (BEAKER) (test code = 751) MEAN CORPUSCULAR HEMOGLOBIN CONC 32.8 GM/DL 32.2-35.5 (BEAKER) (test code = 752) RED CELL DISTRIBUTION WIDTH 13.5 % 11.7-14.4 (BEAKER) (test code = 412) PLATELET COUNT (BEAKER) (test 256 K/CU MM 150-450 code = 756) MEAN PLATELET VOLUME (BEAKER) 9.5 fL 9.4-12.3 (test code = 754) NUCLEATED RED BLOOD CELLS 0 /100 WBC 0-0 (BEAKER) (test code = 413) NEUTROPHILS RELATIVE PERCENT 63 % (BEAKER) (test code = 429) LYMPHOCYTES RELATIVE PERCENT 27 % (BEAKER) (test code = 430) MONOCYTES RELATIVE PERCENT 8 % (BEAKER) (test code = 431) EOSINOPHILS RELATIVE PERCENT 2 % (BEAKER) (test code = 432) BASOPHILS RELATIVE PERCENT 1 % (BEAKER) (test code = 437) NEUTROPHILS ABSOLUTE COUNT 3.51 K/ L 1.56-6.13 (BEAKER) (test code = 670) LYMPHOCYTES ABSOLUTE COUNT 1.47 K/ L 1.18-3.74 (BEAKER) (test code = 414) MONOCYTES ABSOLUTE COUNT (BEAKER) 0.43 K/ L 0.24-0.36 H (test code = 415) EOSINOPHILS ABSOLUTE COUNT 0.09 K/ L 0.04-0.36 (BEAKER) (test code = 416) BASOPHILS ABSOLUTE COUNT (BEAKER) 0.03 K/ L 0.01-0.08 (test code = 417) IMMATURE GRANULOCYTES-RELATIVE 0.40 % 0.00-1.00 PERCENT (BEAKER) (test code = 2801) COMP. METABOLIC PANEL (85284)2022-12-18 19:05:39 Test Item Value Reference Range Interpretation Comments NA (test code = 142 mmol/L 135-145 3577479618) K (test code = 4.4 mmol/L 3.5-5.0 1729767777) CL (test code = 108 mmol/L 98-108 1612155363) CO2 TOTAL (test code 24 mmol/L 23-31 = 9420843912) AGAP (test code = 10 2-16 0516190844) BUN (test code = 13 mg/dL 7-23 4375942904) GLUCOSE (test code = 91 mg/dL 70-110 3933589186) CREATININE (test code 0.90 mg/dL 0.50-1.04 = 9004661873) TOTAL BILI (test code 0.5 mg/dL 0.1-1.1 = 5475024727) CALCIUM (test code = 9.0 mg/dL 8.6-10.6 4373260637) T PROTEIN (test code 6.9 g/dL 6.3-8.2 = 5492334002) ALBUMIN (test code = 4.1 g/dL 3.5-5.0 0650910875) ALK PHOS (test code = 58 U/L 34-122 7309798379) ALTv (test code = 25 U/L 5-35 1742-6) AST(SGOT) (test code 19 U/L 13-40 = 9454547633) eGFR (test code = 68.3 mL/min/1.73m2 1808648232) JAXSON (test code = JAXSON) Association of [...] or urine or abnormalities in imaging tests). [facility]. METABOLIC PANEL (04559)2022-12-18 19:05:39 Test Item Value Reference Range Interpretation Comments NA (test code = 142 mmol/L 135-145 4835292046) K (test code = 4.4 mmol/L 3.5-5.0 5603857215) CL (test code = 108 mmol/L 98-108 6508974540) CO2 TOTAL (test code 24 mmol/L 23-31 = 8865943013) AGAP (test code = 10 2-16 1906982188) BUN (test code = 13 mg/dL 7-23 7092272745) GLUCOSE (test code = 91 mg/dL 70-110 1977493613) CREATININE (test code 0.90 mg/dL 0.50-1.04 = 5549513839) TOTAL BILI (test code 0.5 mg/dL 0.1-1.1 = 5887584639) CALCIUM (test code = 9.0 mg/dL 8.6-10.6 6742670026) T PROTEIN (test code 6.9 g/dL 6.3-8.2 = 2899182941) ALBUMIN (test code = 4.1 g/dL 3.5-5.0 1621129921) ALK PHOS (test code = 58 U/L 34-122 5683749130) ALTv (test code = 25 U/L 5-35 2-6) AST(SGOT) (test code 19 U/L 13-40 = 6158067739) eGFR (test code = 68.3 mL/min/1.73m2 0273433961) JAXSON (test code = JAXSON) Association of [...] or urine or abnormalities in imaging tests). [facility]58 Test Item Value Reference Range Interpretation Comments LIPASE (test code = 8956605266) 78 U/L 0-220 Lab Interpretation (test code = Normal 94346-7) [facility] 19:04:58 Test Item Value Reference Range Interpretation Comments LIPASE (test code = 1401198747) 78 U/L 0-220 Lab Interpretation (test code = Normal 84224-5) [facility] WITH [id number] 18:47:54 Test Item Value Reference Range Interpretation Comments WBC (test code = 5.50 See_Comment [Automated 9958-2) message] The sy stem which generated this result transmitted reference range : 4.30 - 11.10 10*3/?L. The reference range was not used to interpret this result as normal/abnormal . RBC (test code = 4.47 See_Comment [Automated 860-8) message] The sy stem which generated this [...] RDW-SD (test code = 42.5 fL 39.0-49.9 77871-9) RDW-CV (test code = 13.0 % 12.0-15.5 788-0) PLT (test code = 238 See_Comment [Automated 147-3) message] The sy stem which generated this result transmitted reference range : 166 - 358 10*3/ ?L. The reference r magdiel was not used to interpret this result as normal/abnormal . MPV (test code = 9.4 fL 9.5-12.9 L 29119-6) NRBC/100 WBC (test 0.0 See_Comment [Automat ed code = 4411523518) message] The system which generated this result transmitted reference range : 0.0 - 10.0 /100 WBCs. The refer ence range was not u sed to interpret th is result as normal/abnormal . NRBC x10^3 (test code See_Comment [Auto mated = 9681141865) message] The s ystem which generated this result transmitted reference range : 10*3/?L. The reference range was not used to interpret this result as normal/abnormal . GRAN MAT (NEUT) % 62.2 % (test code = 770-8) IMM GRAN % (test code 0.40 % = 9994476569) LYMPH % (test code = 27.6 % 736-9) MONO % (test code = 7.8 % 5905-5) EOS % (test code = 1.6 % 713-8) BASO % (test code = 0.4 % 706-2) GRAN MAT x10^3(ANC) 3.42 10*3/uL 1.88-7.09 (test code = 6459213520) IMM GRAN x10^3 (test 0.00-0.06 code = 8331041378) LYMPH x10^3 (test code 1.52 10*3/uL 1.32-3.29 = 731-0) MONO x10^3 (test code 0.43 10*3/uL 0.33-0.92 = 742-7) EOS x10^3 (test code = 0.09 10*3/uL 0.03-0.39 711-2) BASO x10^3 (test code 0.01-0.07 = 704-7) Lab Interpretation Abnormal (test code = 04251-2) [facility] WITH [id number] 18:47:54 Test Item Value Reference Range Interpretation [...] RDW-SD (test code = 42.5 fL 39.0-49.9 69718-0) RDW-CV (test code = 13.0 % 12.0-15.5 788-0) PLT (test code = 238 See_Comment [Automated 777-3) message] The sy stem which generated this result transmitted reference range : 166 - 358 10*3/ ?L. The reference r magdiel was not used to interpret this result as normal/abnormal . MPV (test code = 9.4 fL 9.5-12.9 L 47468-2) NRBC/100 WBC (test 0.0 See_Comment [Automat ed code = 5060730740) message] The system which generated this result transmitted reference range : 0.0 - 10.0 /100 WBCs. The refer ence range was not u sed to interpret th is result as normal/abnormal . NRBC x10^3 (test code See_Comment [Auto mated = 1486746540) message] The s ystem which generated this result transmitted reference range : 10*3/?L. The reference range was not used to interpret this result as normal/abnormal . GRAN MAT (NEUT) % 62.2 % (test code = 770-8) IMM GRAN % (test code 0.40 % = 6262732611) LYMPH % (test code = 27.6 % 736-9) MONO % (test code = 7.8 % 5905-5) EOS % (test code = 1.6 % 713-8) BASO % (test code = 0.4 % 706-2) GRAN MAT x10^3(ANC) 3.42 10*3/uL 1.88-7.09 (test code = 5514505046) IMM GRAN x10^3 (test 0.00-0.06 code = 0630629169) LYMPH x10^3 (test code 1.52 10*3/uL 1.32-3.29 = 731-0) MONO x10^3 (test code 0.43 10*3/uL 0.33-0.92 = 742-7) EOS x10^3 (test code = 0.09 10*3/uL 0.03-0.39 711-2) BASO x10^3 (test code 0.01-0.07 = 704-7) Lab Interpretation Abnormal (test code = 99748-3) [facility] [id number] 18:32:00 Test Item Value Reference Range Interpretation Comments POCT PREG (test code = 1605) negative On board controls acceptable with C present Line (test code = 3574) POCT PREG LOT # (test code = 3575) 228219 POCT PREG TEST DATE (test [id number] code = 3576) Lab Interpretation (test code = Normal 54567-1) [facility] [id number] 18:32:00 Test Item Value Reference Range Interpretation Comments POCT PREG (test code = 1605) negative On board controls acceptable with C present Line (test code = 3574) POCT PREG LOT # (test code = 3575) [id number] POCT PREG TEST DATE (test [id number] code = 3576) Lab Interpretation (test code = Normal 35698-7) [facility]- MRI UP JNT W/CONT [id number] 13:02:00 Patient Name: EUNICE HOOD Unit No: [id number] EXAMS: CPT CODE: [id number] MRI UP JNT W/[place] [address] EXAM: MRI ARTHROGRAM RIGHT SHOULDER DIAGNOSIS: 1. Supraspinatus tendinosis. No evidence of rotator cuff tear. 2. Minimally displaced anterior inferior labral tear. Mild diffuse labral degene ration. INDICATION: Right shoulder pain TECHNIQUE: Paracoronal fat [...] minor tendons are intact. Biceps tendon and anchor:The biceps anchor is intact. The biceps tendon [...] Reported and signed by: Sumeet Chu MD [facility] NAME: EUNICE HOOD [address] [place] [address] PHYS:Brennen Loyola MD : 1980 AGE: 38 SEX: F [place], [place] [address] LOC: Y.RAD PHONE #: [phone] EXAM DATE: 02/28/2019 STATUS: REG CLI FAX #: [phone] RAD #: D/CDT PAGE 1 Signed Report (CONTINUED) Patient Name: EUNICE HOOD Unit No: [id number] EXAMS: CPT CODE: [id number] MRI UP JNT W/[place] [id number] (Continued) CC: Brennen Sanderson MD Technologist: DORY HASKINS. RT(R) Transcribed D/ (1302) t.[email or web address].GVG [facility] [place] [facility] NAME: EUNICE HOOD [address] [place] [address] PHYS: Brennen Loyola MD : 1980 AGE: 38 SEX: F [place], [place] [address] LOC: Y.RAD PHONE #: [phone] EXAM DATE: 02/28/2019STATUS: REG CLI FAX #: [phone] RAD #: D/C DT PAGE 2 Signed Report Patient Name: EUNICE HOOD Unit No: [id number] EXAMS: CPT CODE: [id number] [place] J[place] W/[place] [id number] (Continued) OrigPrint D/T: S: 02/28/2019 (1306) [facility] [place] [facility] NAME: EUNICE HOOD [address] [facility] PHYS: Brennen Loyola MD : 1980 AGE: 38 SEX: F [place] [address] LOC: Y.RAD PHONE #: [phone] EXAM DATE: 02/28/2019 STATUS: REG CLI FAX #: [phone] RAD #: D/C DT PAGE 3 Signed Report- XR ARTHROGRAM SHLDR RT 2019-02-28 13:02:00 Patient Name: EUNICE HOOD Unit No: [id number] EXAMS: CPT CODE: [id number] [place] [id number] EXAM: MRI ARTHROGRAM RIGHT SHOULDER DIAGNOSIS: 1. [...] abnormalities described. Osseous structures: No evidence of f racture or avascular necrosis. RIGHT SHOULDER ARTHROGRAM COMMENT: [...] Reported and signed by: Sumeet Chu MD [facility] [place] [facility] NAME: EUNICE HOOD [address] [place] [address] PHYS: Brennen Loyola MD : 1980 AGE: 38 SEX: F [place] [address] LOC: Y.RAD PHONE #: [phone] EXAM DATE: 02/28/2019 STATUS: REG CLI FAX #: [phone] RAD #:D/C DT PAGE 1 Signed Report (CONTINUED) Patient Name: EUNICE HOOD Unit No: [id number] EXAMS: CPT CODE: [id number] [place] [id number] (Continued) CC: Brennen Sanderson MD Technologist: Lian Brandt RT.(R) Transcribed D/ (6984) ClaudiaGVG [facility] [place] [facility] NAME: EUNICE HOOD [address] [place] [address] PHYS: Brennen Loyola MD : 1980 AGE: 38 SEX: F [place] [address] LOC: Y.RAD PHONE #: [phone] EXAM DATE: 02/28/2019 STATUS: REG CLI FAX #: [phone] RAD #: D/C DT PAGE 2 Signed Report Patient Name: EUNICE HOOD Unit No: [id number] EXAMS: CPT CODE: [id number] [place] [id number] (Continued) Orig Print D/T: S: 02/28/2019 (3924) [facility] [place] [facility] NAME: EUNICE HOOD [address] [place] [address] Main PHYS: Brennen Loyola MD : 1980 AGE: 38 SEX: [place], [place] [address] LOC: Y.RAD PHONE #: [phone] EXAM DATE: 02/28/2019 STATUS: REG CLI FAX #: [phone] RAD #: D/C DT PAGE 3 Signed Report- XR FLUORO [id number] 19:32:00 Patient Name: EUNICE HOOD Unit No: [id number] EXAMS: CPT CODE: [id number] XR FLUORO [id number] Fluoroscopically guided injection of the right shoulder [...] encountered. 10 seconds of fluoroscopy time was utilized.IMPRESSION: Technically successful steroid injection of the right shoulder Electronically Signedby Hadley Castellanos on 10/08/2018 at 1932 Reported and signed by: Bolivar Castellanos M.D. CC: Brennen Sanderson MD Technologist: HIEN STYLES, RT(R) Transcribed D/ (1931) ClaudiaSLJ [facility] [place] [facility] NAME: EUNICE HOOD [address] [facility] PHYS: Brennen Loyola MD : 1980 AGE: 38 SEX: [place], [place] [address] LOC: ErickaRADPHONE #: [phone] EXAM DATE: 10/08/2018 STATUS: REG CLI FAX #: [phone] RAD #: D/C DT PAGE 1Signed Report Patient Name: EUNICE HOOD Unit No: [id number] EXAMS: CPT CODE: [id number] XR FLUORO NDL [id number] (Continued) Orig Print D/T: S: 10/08/2018 (1934) [facility] [place] [facility] NAME: EUNICE HOOD [address] PHYS: Brennen Loyola MD : 1980 AGE: 38 SEX: F [place] [id number] LOC: JATIN PHONE #: [phone] EXAM DATE: 10/08/2018 STATUS: REG CLI FAX #: [phone] RAD #: D/C DT PAGE 2 Signed Report Notes Date/Time Note Provider Source 2023-04-02 10:51:37-00:00 Summary: [facility], [facility], and [facility] ywhere searched for patient records.Abstracted colonoscopy. [employer] Message sent to patient with open care gaps. Electronically signed by Rosmery Medina MA at 0 04/02/2023 10:52 AM CDT"
[2023-04-06] MEDS ORDERED: Magnesium Sulfate 2gm IVPB 2 G/50 ML BAG IV ONE (15:40)
[2023-04-06] MEDS ORDERED: DIPHENHYDRAMINE 50 MG/ML VIAL ONE (15:40)
[2023-04-06] MEDS ORDERED: ACETAMINOPHEN 500 MG TAB ONE (15:40)
[2023-04-06] MEDS ORDERED: NA CHLORIDE 0.9% 1,000 ML ONE (15:41)
[2023-04-06] MEDS ORDERED: METOCLOPRAMIDE 10 MG/2mL INJ ONE (15:41)
--- NOTE | 2023-04-06 15:44 | RAD REPORT ---
EXAM DESCRIPTION: CT - Head Brain Wo Cont - 04/06/2023 3:36 pm CLINICAL HISTORY: Headache COMPARISON: 2021 TECHNIQUE: Computed axial tomography of the head was obtained. IV contrast was not requested. All CT scans are performed using dose optimization technique as appropriate and may include automated exposure control or mA/KV adjustment according to patient size. FINDINGS: An intracranial bleed is not seen The ventricles are normal in caliber No significant hypodense areas within the brain visualized No extra-axial fluid collection is noted. Fluid within the sinuses/ mastoids is not seen IMPRESSION: No acute intracranial abnormality is seen If patient's symptoms persist MRI of the brain would be recommended
--- NOTE | 2023-04-06 16:15 | RAD REPORT ---
EXAM DESCRIPTION: Enrique Single View04/06/2023 4:06 pm CLINICAL HISTORY: Syncope COMPARISON: September 2022 FINDINGS: The lungs appear clear of acute infiltrate. The heart is normal size IMPRESSION: No acute abnormalities displayed
[2023-04-06 16:35] LABS: Absolute Lymphocytes (CBC) 1.4 K/uL (0.7-4.9); Hematocrit 38.1 % (36.0-45.0); Lymphocytes % 22.6 % (15.3-44.8); MCV 87.8 fL (80-100); MPV 7.4 fL (7.6-11.3); RBC Red Blood Cell Count 4.35 M/uL (3.86-4.86)
[2023-04-06 16:53] LABS: ALT/SGPT 38 U/L (13-56); AST/SGOT 15 U/L (15-37); Albumin 3.6 g/dL (3.4-5.0); Alkaline Phosphatase 56 U/L (45-117); BUN Blood Urea Nitrogen 20 mg/dL (7-18); Bicarbonate 25 mEq/L (21-32); Bilirubin Total 0.2 mg/dL (0.2-1.0); Creatine Phosphokinase 104 U/L (26-192); Glomerular Filtration Rate 65 ml/min (=/>90); Glucose Level 104 mg/dL (74-106); Magnesium 2.2 mg/dL (1.6-2.4); Potassium 3.5 mEq/L (3.5-5.1); Protein, Total 7.1 g/dL (6.4-8.2); Sodium Level 143 mEq/L (136-145); Troponin High Sensitivity 3.7 pg/mL (<58.9)
[2023-04-06 17:04] LABS: Bilirubin Direct < 0.1 mg/dL (0-0.2); Bilirubin Indirect, Calculated ND mg/dL (0.2-0.8)
[2023-04-06 18:12] LABS: Urine Bacteria None Seen /HPF (<20); Urine Bilirubin NEGATIVE (Negative); Urine Blood Negative (Negative); Urine Clarity Clear (Clear); Urine Color Colorless (Yellow); Urine Glucose NEGATIVE (Negative); Urine Protein NEGATIVE (Negative); Urine RBC <5 /HPF (None Seen); Urine Urobilinogen Normal (Normal); Urine pH 6.5 (5.0-7.0)
--- NOTE | 2023-04-06 18:20 | ER ---
Nurse's Notes [facility] Name: Eunice Arango Age: 42 yrs Sex: Female : 1980 Arrival Date: 04/06/2023 Time: 14:23 Bed 7 Private MD: Diagnosis: Headache Presentation: 04/06 14:31 Chief complaint: EMS states: "Toned out for possible panic attack. She appears pale, mb9 looked light she was going to pass out. Bystander states he saw her shake, caught her when fell, and vomited. Pt sates she feels weak, tingling body since she had covid, and whole body tremor, and headache that feels like someone is pushing on her right side of head. Gave 4 mg of Zofran via 22g in left hand". Coronavirus screen: Vaccine status: Patient reports being unvaccinated. Ebola Screen: No symptoms or risks identified at this time. Initial Sepsis Screen: Does the patient meet any 2 criteria? No. Patient's initial sepsis screen is negative. Does the patient have a suspected source of infection? No. Patient's initial sepsis screen is negative. Risk Assessment: Do you want to hurt yourself or someone else? Patient reports no desire to harm self or others. Onset of symptoms was April 06, 2023. 14:31 Method Of Arrival: EMS: [facility] 9 14:31 Acuity: ALIS 3 mb9 Triage Assessment: 14:37 General: Appears uncomfortable, Behavior is anxious. Pain: Complains of pain in head mb9 Pain does not radiate. Pain currently is 10 out of 10 on a pain scale. Quality of pain is described as throbbing, Pain began suddenly, Is continuous. Neuro: Drummond Agitation-Sedation Scale (RASS): 0 - Alert and Calm Level of Consciousness is awake, alert, obeys commands, Oriented to person, place, time, situation, Appropriate for age Reports dizziness, headache numbness. Respiratory: Airway is patent Respiratory effort is even, unlabored, Respiratory pattern is regular, symmetrical. GI: Reports nausea, vomiting. Derm: Skin is pink, warm \\T\\ dry. Musculoskeletal: Range of motion: intact in all extremities. Historical: - Allergies: 14:35 Cipro; mb9 14:35 Codeine; mb9 - Home Meds: 14:35 Xarelto 10 mg Oral tablet daily [Active]; meloxicam 15 mg Oral tablet daily [Active]; mb9 cetirizine 10 mg Oral capsule daily [Active]; donepezil 5 mg Oral tablet daily [Active]; escitalopram oxalate 20 mg Oral tablet daily [Active]; eszopiclone 3 mg Oral tablet every day at bedtime [Active]; trazodone 50 mg Oral tablet every day at bedtime [Active]; topiramate 50 mg Oral Capsule, ER 24 hr daily [Active]; hydroxychloroquine 200 mg Oral tablet 2 times per day [Active]; memantine 10 mg Oral tablet 2 times per day [Active]; methotrexate sodium 2.5 mg Oral tablet every week [Active]; montelukast 10 mg Oral tablet once [Active]; Repatha Syringe 140 mg/mL subcutaneous Syringe every 2 weeks [Active]; Sumatriptan Sub-Q [Active]; - PMHx: 14:35 Anxiety; Diverticulitis; Rheumatoid Arthritis; EMBOLISM; Migraine; mb9 - PSHx: 14:35 Appendectomy; Cholecystectomy; Total abdominal hysterectomy; mb9 - Immunization history:: Adult Immunizations up to date. - Social history:: Smoking status: Patient denies any tobacco usage or history of. Screenin:34 [facility] ED Fall Risk Assessment (Adult) Impaired Gait Yes (1 pt). Abuse screen: Denies dd1 threats or abuse. Denies injuries from another. Nutritional screening: No deficits noted. Tuberculosis screening: No symptoms or risk factors identified. Assessment: 18:34 Neuro: No deficits noted. 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 STATES SYNCOPE, PASSED OUT, WOKE UP CONFUSED. AOX4 IN ED. PT STATES L SIDED NUMBNESS SINCE 1PM, PT STATES NUMBNESS COMES AND GOES FOR OVER 1 YEAR SINCE SHE HAD COVID. STATES USUALLY GOES AWAY ON ITS OWN.. Vital Signs: 14:31 BP 141 / 74; Pulse 65; Resp 18; Temp 98.2; Pulse Ox 98% on R/A; Weight 102.06 kg; mb9 Height 5 ft. 3 in. ; Pain 10/10; 18:04 BP 129 / 58; Pulse 62; Resp 18; Pulse Ox 99% ; ko1 14:31 Body Mass Index 39.86 (102.06 kg, 160.02 cm) mb9 14:31 Pain Scale: Adult mb9 ED Course: 14:25 Patient arrived in ED. im 14:31 Arm band placed on. mb9 14:34 Triage completed. mb9 14:38 Dallas Machuca, RN is Primary Nurse. bp 14:38 Salinas Middleton MD is Attending Physician. rt 15:38 CT Head Brain wo Cont In Process Unspecified. EDMS 16:08 XRAY Chest (1 view) In Process Unspecified. EDMS 18:34 Patient has correct armband on for positive identification. Bed in low position. Call dd1 light in reach. Side rails up X2. Adult w/ patient. Provided Education on: EDUCATED ON DC INSTRUCTIONS.. 18:34 No provider procedures requiring assistance completed. IV discontinued, intact, dd1 bleeding controlled, No redness/swelling at site. Pressure dressing applied. Administered Medications: 15:45 Drug: NS 0.9% IV 1000 ml Route: IV; Rate: 1 bolus; Site: left hand; bp 18:40 Follow up: Response: No adverse reaction; IV Status: Completed infusion; IV Intake: dd1 1000ml 15:45 Drug: metoCLOPramide IVP 10 mg Route: IVP; Site: left hand; bp 15:45 Drug: diphenhydrAMINE IVP 25 mg Route: IVP; Site: left hand; bp 15:45 Drug: Acetaminophen PO 1000 mg Route: PO; bp 15:45 Drug: Magnesium Sulfate IVPB 2 grams Route: IVPB; Infused Over: 1 hrs; Site: left hand; bp 18:40 Follow up: IV Status: Completed infusion; IV Intake: 100ml dd1 Medication: 18:34 VIS not applicable for this client. dd1 Intake: 18:40 IV: 100ml; Total: 100ml. dd1 18:40 IV: 1000ml; Total: 1100ml. dd1 Outcome: 18:20 Discharge ordered by . rt 18:34 Discharged to home ambulatory, with family. dd1 18:34 Condition: good 18:34 Discharge instructions given to patient, family, Instructed on discharge instructions, follow up and referral plans. Demonstrated understanding of instructions, follow-up care. 18:41 Patient left the ED. dd1 Signatures: Dispatcher [employer] EDMS Dallas Machuca, RN RN bp Jacey Frances RN RN ko1 Karen Breen RN RN mb9 Salinas Middleton MD MD rt Mendoza, Itzel im De Hoyos, Daniel RN RN dd1 Corrections: (The following items were deleted from the chart) 14:37 14:31 Chief complaint: EMS states: "Toned out for possible panic attack. She appears mb9 pale, looked light she was going to pass out. Bystander states he saw her shake, caught her when fell, and vomited. Pt sates she feels weak, tingling body since she had covid, and whole body tremor, and headache that feels like someone is pushing on her right side of head." mb9
--- NOTE | 2023-04-06 18:20 | EDPHYS ---
Physician Documentation [facility] Name: Eunice Arango Age: 42 yrs Sex: Female : 1980 Arrival Date: 04/06/2023 Time: 14:23 Bed 7 Private MD: ED Physician Salinas Middleton HPI: 04/06 17:26 This 42 yrs old Female presents to ER via EMS with complaints of Anxiety. rt 17:26 Patient presents to the ED with multiple complaints. Patient states that about an hour rt prior to arrival, she developed an acute onset of a dizziness described as lightheadedness as well as a headache. Patient states that she feels generally weak. She denies other acute complaints at this time. Symptoms are moderate severity, aching nature, nonradiating, no other aggravating alleviating factors. Historical: - Allergies: 14:35 Cipro; mb9 14:35 Codeine; mb9 - Home Meds: 14:35 Xarelto 10 mg Oral tablet daily [Active]; meloxicam 15 mg Oral tablet daily [Active]; mb9 cetirizine 10 mg Oral capsule daily [Active]; donepezil 5 mg Oral tablet daily [Active]; escitalopram oxalate 20 mg Oral tablet daily [Active]; eszopiclone 3 mg Oral tablet every day at bedtime [Active]; trazodone 50 mg Oral tablet every day at bedtime [Active]; topiramate 50 mg Oral Capsule, ER 24 hr daily [Active]; hydroxychloroquine 200 mg Oral tablet 2 times per day [Active]; memantine 10 mg Oral tablet 2 times per day [Active]; methotrexate sodium 2.5 mg Oral tablet every week [Active]; montelukast 10 mg Oral tablet once [Active]; Repatha Syringe 140 mg/mL subcutaneous Syringe every 2 weeks [Active]; Sumatriptan Sub-Q [Active]; - PMHx: 14:35 Anxiety; Diverticulitis; Rheumatoid Arthritis; EMBOLISM; Migraine; mb9 - PSHx: 14:35 Appendectomy; Cholecystectomy; Total abdominal hysterectomy; mb9 - Immunization history:: Adult Immunizations up to date. - Social history:: Smoking status: Patient denies any tobacco usage or history of. ROS: 17:26 Constitutional: Negative for fever, chills, and weight loss, Cardiovascular: Negative rt for chest pain, palpitations, and edema, Respiratory: Negative for shortness of breath, cough, wheezing, and pleuritic chest pain, Abdomen/GI: Negative for abdominal pain, nausea, vomiting, diarrhea, and constipation, MS/Extremity: Negative for injury and deformity, Skin: Negative for injury, rash, and discoloration, Psych: Negative for depression, anxiety, suicide ideation, homicidal ideation, and hallucinations. 17:26 Neuro: Positive for headache, near syncope. Exam: 17:26 Constitutional: This is a well developed, well nourished patient who is awake, alert, rt and in no acute distress. Head/Face: Normocephalic, atraumatic. Chest/axilla: Normal chest wall appearance and motion. Nontender with no deformity. No lesions are appreciated. Cardiovascular: Regular rate and rhythm with a normal S1 and S2. No gallops, murmurs, or rubs. Normal PMI, no JVD. No pulse deficits. Respiratory: Lungs have equal breath sounds bilaterally, clear to auscultation and percussion. No rales, rhonchi or wheezes noted. No increased work of breathing, no retractions or nasal flaring. Abdomen/GI: Soft, non-tender, with normal bowel sounds. No distension or tympany. No guarding or rebound. No evidence of tenderness throughout. Skin: Warm, dry with normal turgor. Normal color with no rashes, no lesions, and no evidence of cellulitis. MS/ Extremity: Pulses equal, no cyanosis. Neurovascular intact. Full, normal range of motion. Psych: Awake, alert, with orientation to person, place and time. Behavior, mood, and affect are within normal limits. 17:26 ECG was reviewed by the Attending Physician. 17:26 Neuro: Numbness in the left side of the face, arm, leg, unchanged compared to her post-COVID symptoms. No other numbness. Strength and sensation intact in upper and lower extremities, no cranial nerve deficits. Speech normal.. Vital Signs: 14:31 BP 141 / 74; Pulse 65; Resp 18; Temp 98.2; Pulse Ox 98% on R/A; Weight 102.06 kg; mb9 Height 5 ft. 3 in. ; Pain 10/10; 18:04 BP 129 / 58; Pulse 62; Resp 18; Pulse Ox 99% ; ko1 14:31 Body Mass Index 39.86 (102.06 kg, 160.02 cm) mb9 14:31 Pain Scale: Adult mb9 MDM: 14:44 Patient medically screened. rt 18:22 Differential Diagnosis Intracranial hemorrhage, headache, electrolyte disturbance. Data rt reviewed: vital signs, nurses notes, lab test result(s), EKG, radiologic studies. Independent interpretation of the following test(s) in the Emergency Department CT Scan: My interpretation is No hemorrhage seen on interpretation of the CT scan images. Care significantly affected by the following chronic conditions: Rheumatoid arthritis. Counseling: I had a detailed discussion with the patient and/or guardian regarding: the historical points, exam findings, and any diagnostic results supporting the discharge/admit diagnosis, lab results, radiology results. Response to treatment: the patient's symptoms have resolved after treatment. 04/06 15:18 Order name: Basic Metabolic Panel; Complete Time: 17:23 rt 04/06 15:18 Order name: CBC with Diff; Complete Time: 16:52 rt 04/06 15:18 Order name: LFT's; Complete Time: 17:23 rt 04/06 15:18 Order name: Magnesium; Complete Time: 17:23 rt 04/06 15:18 Order name: Troponin HS; Complete Time: 17:23 rt 04/06 15:18 Order name: CPK; Complete Time: 17:23 rt 04/06 15:18 Order name: UAM; Complete Time: 18:13 rt 04/06 15:18 Order name: PREGU rt 04/06 15:18 Order name: XRAY Chest (1 view); Complete Time: 16:15 rt 04/06 15:18 Order name: CT Head Brain wo Cont; Complete Time: 16:15 rt 04/06 15:18 Order name: EKG; Complete Time: 15:19 rt 04/06 15:18 Order name: Cardiac monitoring; Complete Time: 15:45 rt 04/06 15:18 Order name: EKG - Nurse/Tech; Complete Time: 16:43 rt 04/06 15:18 Order name: IV Saline Lock; Complete Time: 15:45 rt 04/06 15:18 Order name: Labs collected and sent; Complete Time: 16:43 rt 04/06 15:18 Order name: O2 Per Protocol; Complete Time: 15:45 rt 04/06 15:18 Order name: O2 Sat Monitoring; Complete Time: 15:45 rt EC:26 Rate is 60 beats/min. Rhythm is regular, Normal Sinus Rhythm with No ectopy. QRS [place] rt is Normal. [place] interval is normal. QRS interval is normal. QT interval is normal. No Q waves. T waves are Normal. No ST changes noted. Interpreted by me. Administered Medications: 15:45 Drug: NS 0.9% IV 1000 ml Route: IV; Rate: 1 bolus; Site: left hand; bp 18:40 Follow up: Response: No adverse reaction; IV Status: Completed infusion; IV Intake: dd1 1000ml 15:45 Drug: metoCLOPramide IVP 10 mg Route: IVP; Site: left hand; bp 15:45 Drug: diphenhydrAMINE IVP 25 mg Route: IVP; Site: left hand; bp 15:45 Drug: Acetaminophen PO 1000 mg Route: PO; bp 15:45 Drug: Magnesium Sulfate IVPB 2 grams Route: IVPB; Infused Over: 1 hrs; Site: left hand; bp 18:40 Follow up: IV Status: Completed infusion; IV Intake: 100ml dd1 Disposition Summary: 04/06/23 18:20 Discharge Ordered Location: Home rt Problem: new rt Symptoms: are resolved rt Condition: Stable rt Diagnosis - Headache rt Followup: rt - With: Private Physician - When: 2 - 3 days - Reason: Discharge Instructions: - Discharge Summary Sheet rt - General Headache Without Cause rt Forms: - Medication Reconciliation Form rt - Thank You Letter rt - Antibiotic Education rt - Prescription Opioid Use rt - Patient Portal Instructions rt Signatures: Dispatcher [employer] Dallas Stockton RN RN Karen Breen RN RN mb9 Salinas Middleton MD MD rt Skip Cannon RN dd1
[2023-04-06 19:33] VITALS: TEMP 98.2
[2023-04-06 19:34] VITALS: BP 129/58; O2SAT 99
--- NOTE | 2023-04-09 13:09 | EKG ---
Test Date: 2023-04-06 Test Time: 16:28:43 Tapper Balance Wheel Screw Hole: BP MEASUREMENT RESULTS: Intervals: Rate: 60 MA: 146 QRSD: 88 QT: 454 QTc: 454 [place]: P: 21 MA: 146 QRS: 7 T: 38 INTERPRETIVE STATEMENTS: Normal sinus rhythm Normal ECG Compared to ECG 09/13/2022 17:47:16 No significant changes Electronically Signed On 04-09-23 13:06:36 CDT by Reynaldo Jean
== END 2023-04-06 18:41 | disposition home or self-care (01) ==
LOC: ER 14:23
DX: R51.9 Headache, unspecified (principal); F41.9 Anxiety disorder, unspecified; Z86.718 Personal history of other venous thrombosis and embolism; Z79.01 Long term (current) use of anticoagulants
CPT/HCPCS: 96365; 93005; 85025; 81001; 80048; 36415; 83735; 82550; 81025; 80076; 84484; 70450; 71045; 96375; 99284; 96366; J3475; J2765; J1200; J7030